=== PATIENT | male | born 1990 ===

== ENCOUNTER 2019-05-04 14:28 | Inpatient (IN) | payer OTHER ==
[2019-05-04] MEDS ORDERED: Dextrose 50% VIAL 50 ml IV PUSH PRN (16:38)
[2019-05-04] MEDS ORDERED: Nicotine* 2MG (FRUIT FLAVOR) GUM PO PRN (16:39)
[2019-05-04] MEDS ORDERED: Acetaminophen TAB* 325 MG PO PRN (16:39)
[2019-05-04] MEDS ORDERED: Ondansetron INJ* 2 MG/ML VIAL IV PRN (16:39)
[2019-05-04] MEDS ORDERED: Piperacillin/Tazobac ADVAN(*) 3.375 GM in NS 0.9% 100 ML* 100 ML IVPB ONE (16:51)
[2019-05-04] MEDS ORDERED: Zosyn per Pharmacy* NOTE FOLLOW UP SCH (17:00)
[2019-05-04] MEDS ORDERED: ceFAZolin 1 GM ADVAN(*) 1 GM in NS 0.9% 50 ML* 50 ML IVPB SCH (17:00)
[2019-05-04] MEDS: NS 0.9% 1000 ML** 1,000 ML IV SCH (17:38)
[2019-05-04] MEDS: HYDROcodone/ACETAMIN 5-325 MG* 1 TAB PO PRN (17:44)
[2019-05-04 18:01] LABS: Hematocrit 36 % (42-52); Hemoglobin 12.2 g/dL (14.0-18.0); Mean Corpuscular HGB Conc 34 g/dL (31-36); Mean Corpuscular Hemoglobin 28 pg (27-31); Mean Corpuscular Volume 83 fL (80-94); Mean Platelet Volume 6.3 fL (7.4-10.4); Platelet Count 419 10^3/uL (150-450); Red Blood Count 4.33 10^6 /uL (4.18-5.48); Red Cell Distribution Width 13 % (10-15); White Blood Count 28.4 10^3/uL (3.5-10.8)
[2019-05-04 18:49] LABS: ABS Basophils 0.1 10^3/ul (0-0.2); ABS Monocytes 2.2 10^3/ul (0-0.8); ABS Neutrophils 25.1 10^3/ul (1.5-7.7); Albumin 2.9 g/dL (3.2-5.2); Albumin/Globulin Ratio 0.8 (1-3); BUN/Creatinine Ratio 15.2 (8-20); C Reactive Protein 256.01 mg/L (<8.01); Calcium 8.3 mg/dL (8.6-10.3); EGFR African American 265.7 (>60); EGFR Non-African American 219.6 (>60); Eosinophil % 0.1 %; Globulin 3.5 g/dL (2-4); Lymphocyte % 3.4 %; Potassium 3.6 mmol/L (3.5-5.0); Total Bilirubin 0.6 mg/dL (0.2-1.0); Total Protein 6.4 g/dL (6.4-8.9)
[2019-05-04] MEDS: Insulin LISPRO* 1 UNITS UNIT SUBCUT SCH (19:55)
--- NOTE | 2019-05-04 20:39 | HP ---
HISTORY AND PHYSICAL: DATE OF ADMISSION: 05/04/19. TIME OF EVALUATION: 4 p.m. PRIMARY CARE PROVIDER: None. CHIEF COMPLAINT: "They sent me here." HISTORY OF PRESENT ILLNESS: Mr. Kaminski is a 28-year-old male with a past medical history of type 1 diabetes, who initially presented to [facility] in [facility]. The patient states that he started to have right lower extremity pain on April 29. He states that the pain started around his right smith. From there , it progressed to the whole leg below the knee and he had to use a wheelchair at home because he was unable to walk due to the pain. He states that he cannot afford his insulin and as his diabetes got uncontrolled, he does not remember much of what happened. He denies fever, chills, nausea, vomiting or diarrhea. He denies any trauma to the right lower extremity and he has between "no idea how this happened." As per transfer summary from [facility], the patient's DKA resolves quickly with medical care and his blood glucose had been fairly controlled with 60 units of Lantus. He was started initially on vancomycin and Zosyn, and once that his blood cultures grew MSSA and he was switched from Zosyn to Ancef on May 03. The patient had a lower extremity Doppler that was negative for DVT and he was seen in consultation by Orthopedics (Dr. Bosch) and he was concerned with the possibility of an abscess or compartment syndrome. For that reason, the patient was referred to our facility for further management. At the time of my interview, his major complaint is that he is thirsty, but the right lower extremity pain is controlled. PAST MEDICAL HISTORY: 1. Type 1 diabetes. 2. Tobacco abuse. 3. Prior polysubstance abuse. FAMILY HISTORY: He states that the family member has heart issues, but would not go to the doctor. SOCIAL HISTORY: The patient states that he used to smoke a pack a day and for the last couple of years he has been vaping. He states that he fills his cartridge 3 times a day. He denies alcohol use. He states that he used different drugs in the past and he actually was to a drug court. He states that he used to smoke marijuana but he has now stopped. He denies ever injecting any drugs. He states that the only needle that he uses are the ones for insulin and for his tattoos. REVIEW OF SYSTEMS: A 14-point review of systems was performed and all the pertinent negative and positive findings are in the HPI. PHYSICAL EXAMINATION GENERAL: The patient is a thin young gentleman that appears older than stated age, a dishevelled appearance. VITAL SIGNS: Temperature 97.2, heart rate is 105, respiratory rate is 20, blood pressure is 116/54, oxygen saturation is 96% on room air. HEENT: Pupils are equal. The patient is edentulous. Moist mucous membranes. CHEST: Breath sounds bilaterally with no added sounds. CVS: Normal S1 and S2. Regular rate and rhythm. ABDOMEN: Soft. Bowel sounds are present. EXTREMITIES: The patient has right lower extremity edema extending from his ankle all the way to the lateral aspect of the right side with erythema and severe tenderness on minimal palpation. He has palpable pulses. Good capillary refill. He states that his toes are numb, but this is a chronic finding. NEURO: He is alert and oriented x3. Able to move all 4 extremities. DIAGNOSTIC STUDIES/LAB DATA: Labs done at [facility] earlier today include chemistries that showed a sodium of 132, potassium 2.7, chloride 93, bicarb of 30, anion gap of 9, BUN of 4, creatinine of 0.5, glucose was 241, calcium is 8.3, magnesium 1.5. CRP was pending at that time. CBC showed WBC of 24.5, hemoglobin of 11.5, hematocrit of 31, platelets of 286 with 88% neutrophils, and 80% bands. As per records, the patient had the lower extremity ultrasound that showed no sonographic evidence of deep venous thrombosis to the right lower extremity and an x-ray of the right lower extremity that showed no fracture. No radiological evidence for osteomyelitis at this time. ASSESSMENT AND PLAN: Mr. Kaminski is a 28-year-old male with a past medical history of type 1 diabetes with noncompliance, prior history of drug use transferred from [facility] with the possibility of right lower extremity abscess versus compartment syndrome. 1. Sepsis. The patient meets sepsis criteria with tachycardia and leukocytosis. The source is his right lower extremity infection. He had blood cultures growing methicillin-susceptible Staphylococcus aureus at [facility] and we are going to repeat it here. He will receive IV fluids. 2. Right lower extremity cellulitis/possible abscess versus compartment syndrome. The patient was already seen in consultation by Dr. Bosch at [place] and he will follow up with the patient here. He recommended an MRI on the lower extremity and also his physician recycling assistant will perform pressure measurements to rule out compartment syndrome. The plan for the patient to go to the OR later tonight. Since his blood cultures grew methicillin-susceptible Staphylococcus aureus, I am going to discontinue vancomycin, but I am concerned that he may have anaerobic infection. So until we know that there is no gas on his MRI, we will treat the patient with Zosyn. The patient denies using any IV drugs, but he is immunosuppressed in the setting of chronically uncontrolled type 1 diabetes. His CRP was very elevated at 214 and we will trend that. We will also request Infectious Disease consultation. 3. Type 1 diabetes. The patient will need a psychologist social consult to help with his diabetes supplies. We are going to check hemoglobin A1c. As the patient is n.p.o. to go to the OR, I will half his Lantus dose down to 30 units daily and he will have lispro sliding scale. 4. DVT prophylaxis. The patient has a score of 2 on the DVT Prophylaxis Risk Assessment Guide. For now, I am going to hold heparin as the patient is going to go to the OR later tonight, but after that we will resume heparin. Due to the location of his infection, he will not tolerate SCDs. 5. Code status is full. TIME SPENT: Approximately, 60 minutes was spent with the patient interview, medical records review, physical examination to complete the admission. More than half this time was spent [id number] with the patient. [id number]/[facility] #: [id number] [facility]
[2019-05-04] MEDS ORDERED: Buffered Lidocaine 1% SYRIN* 1 ML/SYRINGE INTRADERM ONE (20:48)
[2019-05-04] MEDS: Insulin GLARGINE(*) 1 UNITS UNIT SUBCUT SCH (21:00)
[2019-05-04] MEDS ORDERED: Lactated Ringers 1000 ML Bag* 1,000 ML IV SCH (21:00)
[2019-05-04] MEDS ORDERED: fentaNYL* 50 MCG/ML 2 ML VIAL (100 MCG VIAL) ONE ×2 (21:06→23:25)
[2019-05-04] MEDS ORDERED: Midazolam* 1 MG/ML 2 ML VIAL (2 MG) ONE (21:06)
--- NOTE | 2019-05-04 21:24 | PN ---
Progress Note - Progress Note Date of Service: 05/04/19 SOAP: Consult note dictated several hours ago. Resource Management Specialist pending still. To OR for I&D right lower leg for complex abscess with significant pain and advancing cellulitis despite broad spectrum IV antibiotics x 4 days.
[2019-05-04] MEDS ORDERED: Famotidine IV* 10 MG/ML 2 ML (20 mg) ONE (21:27)
[2019-05-04] MEDS ORDERED: Bupivacaine 0.5% W/EPI SDV* 10 ML VIAL INJ ONE (21:33)
--- NOTE | 2019-05-04 21:37 | CONS ---
CONSULTATION NOTE: DATE OF CONSULT: 05/04/19 REASON FOR CONSULT: Infection, right lower extremity. HISTORY OF PRESENT ILLNESS: The patient is a 28-year-old man with diabetes mellitus type 1, transferred from [facility] earlier today, for concerns regarding a right lower extremity infection or compartment syndrome. The patient is an admitted drug user, although he describes only smoking marijuana. He denies IV drug use. The patient lives in a trailer. The patient describes no antecedent trauma. The patient tells me that his right lower extremity pain started on Saturday, 5 days ago. At that time, the patient started using a wheelchair to get around his home trailer. The wheelchair was not his but someone else's. The patient presented to [facility] 2 days later on 05/01/19. The patient was diagnosed with diabetic ketoacidosis in the emergency department. He was also noted to have some right lower leg significant pain and diagnosed with cellulitis there. The patient acknowledge not taking his insulin for several days prior to that. The patient described that his insurance was not current and that he could not afford his insulin. The patient was started on IV fluids, insulin therapy, IV antibiotics. At that time, 05/01/19, he was unable to ambulate secondary to pain in the right lower extremity thought to be from infection. The patient was admitted to the hospitalist service at [facility]. He was noted to have a temperature of 97.9 degrees Fahrenheit. Pulse was 75 to 90 at admission. White blood cell count was 36.23. Neutrophil count 86%. Blood cultures were submitted and IV antibiotics were started. Labs were titrated to manage diabetic ketoacidosis. The patient was afebrile. White count dropped to 25. Dr. Zapien thought that the patient's right lower leg infection was improving with IV antibiotics and the white blood count had declined. The patient was treated thus over the weekend. Dr. Clifford saw the patient this morning; in mid-to-late morning while at a clinic at [facility] I was consulted. At that time of my consultation, I saw the patient. He sat on his bed, in no acute distress when I first met him. His right knee was in a 90-degree flex position and at first he was slow to move the knee and ankle at all. Eventually , I was able to get him to extend his knee to a 45-degree flex position. I could get him to move his ankle, but only the tiniest amount. There was some soft tissue swelling along the lower leg with some significant tenderness to palpation. I do not see any clear entry site of infection at first. I was concerned both about a possible compartment syndrome or a possible infection. I had not been given the data yet about the white blood cell count. Given the significant tenderness on exam and the patient being low to move his ankle, I intended to use a compartment pressure monitor on him. The patient was able to move his toes without discomfort. As there was no compartment pressure measurement guide available, I facilitated or recommended a transfer to [facility] hospitalist to hospitalist service and recommended that at [facility], we could as needed, perform compartment pressure monitoring and work the patient up for a possible deep infection. After I made that recommendation, the patient came back having positive blood cultures for Staph aureus and I was made aware of the white blood cell count, this made this a much more consistent story for an abscess, aggressive, rather than a compartment syndrome. The patient took some time to get to [facility] and I evaluated the patient this evening. The patient was made n.p.o. at [facility] and his last meal was at 9 to 9 :15 a.m. this morning. It should be noted that the patient's broad spectrum coverage at [facility] was vancomycin and Zosyn. The Zosyn was switched to Ancef. The pain worsened over the admission from Saturday to Saturday. An ultrasound was done that ruled out blood clot and x-rays were obtained of the right lower leg prior to transfer, which were both negative for pathology. PAST MEDICAL HISTORY: Diabetes mellitus, type 1, poorly controlled; recent hospitalization for diabetic ketoacidosis at [facility]; anxiety and depression; attention deficit hyperactivity disorder. PAST SURGICAL HISTORY: The patient reports having an incision and drainage about the axilla as a child. Of note, the patient denies any prior infections associated with his diabetes mellitus. MEDICATIONS: Insulin glargine, insulin lispro. ALLERGIES: No known drug allergies. FAMILY HISTORY: Noncontributory. SOCIAL HISTORY: The patient lives with his girlfriend. He was in a trailer. The patient used to work at [employer]. The patient states that he has used marijuana in the past. I heard secondhand that the patient has been to some type of drug court before. The patient denied IV drug use when I asked him at point blank at [facility] earlier today. REVIEW OF SYSTEMS: The patient describes getting nauseous when he becomes hungry. He is currently hungry. The patient describes pain about the right lower extremity, thigh to ankle. He denies numbness and tingling. He denies fevers, sweats or chills. PHYSICAL EXAM: No acute distress. The patient is not clearly toxic, but he generally does not look particularly healthy. This could be general hygiene, by the current appearance. The patient is not significantly diaphoretic. The patient appeared to be resting comfortably when I turned the lights on. Vitals, first round taken at the [facility] at 3:35 p.m. today showed a body temperature of 99.6 degrees Fahrenheit, pulse of 103, blood pressure of 127/78, respiratory rate of 16 and O2 saturation 96% on room air. The patient appears quite thin. I do not have a height or weight yet, but I suspect a BMI clearly less than 25, possibly less than 20. There is actually a weight that has been recorded here of 135 pounds. Right lower extremity shows some soft tissue swelling, [id number] about the lower leg, more anterolateral than posterior. Significant tenderness to palpation along the anterolateral and posterior lower legs. Upon closer inspection, it looks like there may be some evidence of prior skin blisters, healed over or possible break in skin about the mid lower leg anteriorly. The patient has no erythema or soft tissue swelling in the thigh, but is tender to palpation along the thigh. The patient sits in a position with his knee 90 degrees flexed. He seems to get somewhat anxious on exam. So, it is hard to suss out what is tender and provoking a pain and what just makes him anxious about producing pain. I was able to get him to extend his knee to 45 degrees. Hospitalist by report was able to get even more extension. He has no clear pain with passive range of motion between 45 and 90 degrees of flexion. No soft tissue swelling or effusion of the knee. With regards to the ankle, the patient has some tenderness to palpation about the ankle. I tried earlier in the day at [facility] to passively range the ankle , but that upset the patient much. Today at [facility], this evening, I had the patient passively range his own ankle joint and the patient was able to get an arc of range of motion of approximately 30 degrees without significant pain. The patient has a more free, complete range of motion of his toes in that right foot without significant pain. Foot is warm and well perfused. Pulse is intact. DIAGNOSTIC STUDIES/LAB DATA: CBC obtained at [facility] this afternoon showed a white blood cell count 28.4 with a neutrophil percentage of 88.4%. Blood glucose 205 , CRP of 256. CK, total creatine kinase was fortunately only 135. Lactic acid was at 1.4. In terms of labs at [facility], 05/01/19 blood culture showed no growth after 3 days. The patient has a blood culture obtained on 05/02/19 that showed Staphylococcus aureus, MSSA in the blood. White blood cell counts, trended at [facility] from 05/01/19 to 05/04/19 from 36 to 25 to 23 to 24. Imaging: As I mentioned, at [facility] this morning Doppler ultrasound was negative for DVT. X-rays obtained there several days previous, specifically on 05/03/19 of the lower leg showed no fracture, or degenerative changes. ASSESSMENT: 1. Right lower extremity cellulitis, worsening despite IV antibiotics for 4 days, broad spectrum. 2. Possible abscess, right lower leg with possible entry site at anterior mid leg, but unclear entry site. 3. Bacteremia with Staphylococcus aureus, as shown with the [facility] blood culture. 4. Noncompliant diabetic, not taking his medications. 5. Recent admission for diabetic ketoacidosis. PLAN: 1. Upon meeting the patient, I had the concerns about the quality of history, specifically how his symptoms developed and whether there is any antecedent trauma or whether he was down on the ground for a long period of time, both of which he denied. The patient denies vigorously IV drug use, but I have some questions about the possibility of that. For these reasons, I did not want to take anything for granted. 2. At [facility] earlier in the day, I had some concerns about even a compartment syndrome based on the severity of his symptoms and exam. However, because he is able to move his toes and even to passively range his ankle without significant discomfort and because more and more data has returned demonstrative of infection including the blood culture, I held off for now on measuring compartment pressures. If I had any sort of index of suspicion for that diagnosis now, I would certainly perform compartment pressure testing. 3. The patient has continued symptoms despite appropriate broad spectrum IV antibiotics and worsening pain. So, I think treatment sooner rather than later is imperative, although it is good that the patient is nontoxic appearing and afebrile. 4. MRI has been ordered stat to assess for an abscess of right lower extremity. It will go from thigh to ankle. 5. The patient has been made n.p.o. after breakfast and our plan is to evaluate the MRI and if fluid collection is present, take the patient to the operating room for an incision and drainage at the earliest appropriate convenience. 6. The patient has been admitted to the hospitalist service and should be on appropriate IV antibiotic coverage. His diabetes and recent diabetic ketoacidotic flare can be managed per hospitalist. [id number]/[facility] #: [id number] [facility]
[2019-05-04] MEDS ORDERED: ceFAZolin 2 GM in NS PREMIX(*) 2 GM/100 ML BAG IVPB ONE (21:43)
[2019-05-04] MEDS ORDERED: Levalbuterol 0.63MG/3ML NEB* UNIT OF USE INH PRN (21:47)
[2019-05-04] MEDS ORDERED: Naloxone* 0.4 MG/ML 1 ML VIAL IV PRN (21:47)
[2019-05-04] MEDS ORDERED: DiMENhydriNATE IV* 50 MG/ML VIAL IV PUSH PRN (21:47)
[2019-05-04] MEDS ORDERED: diPHENhydraMINE IV* 50 MG/ML 1 ml VIAL (BENADRYL) IV PRN (21:47)
[2019-05-04] MEDS ORDERED: Propofol* 10 MG/ML 20 ML BTL ONE (21:55)
[2019-05-04] MEDS ORDERED: Lidocaine 2% PF * 5 ML VIAL ONE (21:55)
[2019-05-04] MEDS ORDERED: Ondansetron INJ* 2 MG/ML VIAL ONE (21:55)
[2019-05-04] MEDS ORDERED: Calcium CHLORIDE 10% SYRINGE* 1 GM/10 ML ONE (22:30)
[2019-05-04] MEDS: fentaNYL* 50 MCG/ML 2 ML VIAL (100 MCG VIAL) IV PRN (23:26)
[2019-05-05] MEDS ORDERED: Insulin LISPRO* 1 UNITS UNIT SUBCUT ONE (00:19)
[2019-05-05] MEDS: Insulin LISPRO* 1 UNITS UNIT SUBCUT SCH ×7 (00:32→21:00)
[2019-05-05] MEDS: fentaNYL* 50 MCG/ML 2 ML VIAL (100 MCG VIAL) IV PRN (00:32)
[2019-05-05] MEDS: ZOSYN 3.375 GM Q8H per EXTENDED INFUSION IVPB SCH ×8 (01:04→22:25)
[2019-05-05] MEDS: Insulin GLARGINE(*) 1 UNITS UNIT SUBCUT SCH ×3 (02:41→20:38)
[2019-05-05 04:11] LABS: Hematocrit 33 % (42-52); Hemoglobin 11.2 g/dL (14.0-18.0); Mean Corpuscular HGB Conc 35 g/dL (31-36); Mean Corpuscular Hemoglobin 28 pg (27-31); Mean Corpuscular Volume 82 fL (80-94); Mean Platelet Volume 6.4 fL (7.4-10.4); Platelet Count 412 10^3/uL (150-450); Red Blood Count 3.96 10^6 /uL (4.18-5.48); Red Cell Distribution Width 13 % (10-15); White Blood Count 25.5 10^3/uL (3.5-10.8)
[2019-05-05 04:19] LABS: BUN/Creatinine Ratio 14.3 (8-20); Calcium 8.1 mg/dL (8.6-10.3); EGFR Non-African American 204.2 (>60); Potassium 3.3 mmol/L (3.5-5.0)
[2019-05-05 05:29] LABS: ABS Basophils 0.1 10^3/ul (0-0.2); ABS Lymphocytes 0.6 10^3/ul (1.0-4.8); ABS Monocytes 2.5 10^3/ul (0-0.8); ABS Neutrophils 22.3 10^3/ul (1.5-7.7); Lymphocyte % 2.4 %
[2019-05-05] MEDS ORDERED: HYDROcodone/ACETAMIN 5-325 MG* 1 TAB PO PRN (07:05)
--- NOTE | 2019-05-05 08:07 | PN ---
Subjective Date of Service: 05/05/19 Interval History: HD 2 05/05 28M IDDM Type 1, PSA in remission, tob use d/o, mood d/o who is a transfer from [facility] (arrived 05/04) who initially presented tp [facility] 05/01 with RLE pain and mild DKA. Pt was tx at [facility] for DKA (resolved) and continued to have RLE skin and soft tissue infection from unknown source, resulting in + blood culture (MSSA) at [place]. He had neg doppler for DVT but his RLE skin and soft tissue infection was not responsive and there was concern for abscess or compartment syndrome along with worsening sepsis thus he was transferred. On arrival pt met sepsis critieria and MRI concerning for compartment syndrome and he has noted complex abscess. He had intraoperative I/ D 10PM with noted copious pus expelled from lower R ext, 1+ GPC on gram stain. Now POD #1 Overnight, T Max 102 Labs: Persistent Leukocytosis, BG 285, mild hypONA even with correction This morning some c/o RLE pain but manageable unless he is weight bearing, otherwise pleasant and well Objective Active Medications: Acetaminophen (Tylenol Tab*) 650 mg PO Q6H PRN PRN Reason: MILD PAIN or TEMP > 100.4 Last Admin: 05/05/19 02:40 Dose: 650 mg Hydrocodone Bitart/Acetaminophen ([place] 5-325 Tab*) 1 tab PO Q4H PRN PRN Reason: PAIN - MODERATE Last Admin: 05/04/19 17:44 Dose: 1 tab Hydrocodone Bitart/Acetaminophen ([place] 5-325 Tab*) 2 tab PO Q4H PRN PRN Reason: PAIN - SEVERE Dextrose (Dextrose 50% Vial 50 Ml*) 25 ml IV PUSH .FOR FS < 60 - SS PRN PRN Reason: FS < 60 Enoxaparin Sodium (Lovenox(*)) 40 mg SUBCUT Q24H [facility] Sodium Chloride (Ns 0.9% 1000 Ml) 1,000 mls @ 100 mls/hr IV PER RATE [facility] Last Admin: 05/04/19 17:38 Dose: 100 mls/hr Piperacillin Sod/Tazobactam (Sod 3.375 gm/ Sodium Chloride) 100 mls @ 25 mls/ hr IVPB Q8HR [facility] Last Admin: 05/05/19 06:23 Dose: 25 mls/hr Insulin Glargine (Lantus(*)) 30 units SUBCUT Q12H EFRA Insulin Human Lispro (Humalog*) 0 units SUBCUT Q4HR [facility]; Protocol Last Admin: 05/05/19 06:19 Dose: Not Given Morphine Sulfate (Morphine Inj (Syringe))*) 1 mg IV Q1H PRN PRN Reason: SEVERE PAIN Nicotine Polacrilex (Nicotine Gum*) 2 mg PO Q2H PRN PRN Reason: CRAVING Ondansetron HCl (Zofran Inj*) 4 mg IV Q6H PRN PRN Reason: NAUSEA Pharmacy Consult (Zosyn Per Pharmacy*) 1 note FOLLOW UP .ZOSYN PER PHARMACY [facility] Vital Signs - 8 hr 05/05/19 05/05/19 05/05/19 00:00 00:01 00:15 Temperature Pulse Rate 97 96 101 Respiratory 16 17 13 Rate Blood Pressure 144/92 152/91 (mmHg) O2 Sat by Pulse 99 98 99 Oximetry 05/05/19 05/05/19 05/05/19 00:30 00:32 00:47 Temperature 99.7 F Pulse Rate 102 113 Respiratory 18 16 20 Rate Blood Pressure 147/91 122/66 (mmHg) O2 Sat by Pulse 99 99 Oximetry 05/05/19 05/05/19 05/05/19 01:41 02:12 03:12 Temperature 102.5 F 100.1 F Pulse Rate 114 107 Respiratory 20 20 20 Rate Blood Pressure 128/54 117/62 (mmHg) O2 Sat by Pulse 96 98 Oximetry 05/05/19 05:12 Temperature 100.2 F Pulse Rate 100 Respiratory 20 Rate Blood Pressure 107/57 (mmHg) O2 Sat by Pulse 100 Oximetry Oxygen Devices in Use Now: None Appearance: Pleasant man in NAD, adentulous Eyes: No Scleral Icterus, PERRLA Ears/Nose/Mouth/Throat: Mucous Membranes Moist, - Neck: NL Appearance and Movements; NL JVP Respiratory: Symmetrical Chest Expansion and Respiratory Effort, Clear to Auscultation Cardiovascular: NL Sounds; No Murmurs; No JVD, RRR Abdominal: NL Sounds; No Tenderness; No Distention, No Hepatosplenomegaly Lymphatic: No Cervical Adenopathy Extremities: No Edema Skin: No Rash or Ulcers Neurological: Alert and Oriented x 3 Result Diagrams: 05/05/19 03:49 05/05/19 07:21 Microbiology and Other Data: Microbiology 05/04/19 22:21 Skin and Soft Tissue MRSA/MSSA (PCR - Final Leg Right Mrsa Negative S.aureus Positive Gram Stain - Preliminary Assess/Plan/Problems-Billing Assessment: 28M IDDM Type 1, PSA in remission, tob use d/o, mood d/o who is a transfer from [facility] (admitted there on 05/01) with resolved DKA and RLE SSTI c/b complex abscess and early compartment syndrome not responsive to IV abx s/p intraoperative I/D on 05/04 - Patient Problems (1) Abscess of right lower extremity Current Visit: Yes Status: Acute Code(s): L02.415 - CUTANEOUS ABSCESS OF RIGHT LOWER LIMB SNOMED Code(s): 702568128 Comment: - POD 1 s/p I/D and washout on 05/05 - Initial concern for compartment syndrome, he does not have a clear history of mechanism of injury making this less likely, CK is low - Day 5/ __ on 05/05 ABX inititally Vancomycin, then Cefazolin, now Zosy - Gram stain intraop showing 1+ GPC c/w hx of MSSA - Pain control with hydrocodone, PRN IV morphine (2) MSSA bacteremia Current Visit: Yes Status: Acute Code(s): R78.81 - BACTEREMIA SNOMED Code( s): 502054303 Comment: - [facility] from [facility] - Repeat cultures pending - Follow wound cultures - Day 5/ _ on 05/05 - will remain on Pip/Tazo now while wound culture speciates given possible polymicrobial nature of abscess and poor control of IDDM (3) Sepsis Current Visit: Yes Status: Acute Comment: - Leukocytosis, fever, and tachycardia with source, no e/o end organ damage - Lactic acid 1.4 - On fluids, broad spectrum IV abx (4) Insulin dependent diabetes mellitus Current Visit: Yes Status: Acute Code(s): E11.9 - TYPE 2 DIABETES MELLITUS WITHOUT COMPLICATIONS; Z79.4 - TOWER OBSERVER (CURRENT) USE OF INSULIN SNOMED Code( s): 06349904 Comment: - A1C pending - [facility] glu monitoring - Glargine 30 U BID, Humalog SSI (5) Tobacco use disorder Current Visit: Yes Status: Acute Code(s): F17.200 - NICOTINE DEPENDENCE, UNSPECIFIED, UNCOMPLICATED SNOMED Code(s): 729795089 Comment: - NRT offer (6) Mood disorder Current Visit: Yes Status: Acute Code(s): F39 - UNSPECIFIED MOOD [AFFECTIVE ] DISORDER SNOMED Code(s): 38321086 Comment: - Continue to discuss - Social work consult in place (7) Polysubstance abuse Current Visit: Yes Status: Acute Code(s): F19.10 - OTHER PSYCHOACTIVE SUBSTANCE ABUSE, UNCOMPLICATED SNOMED Code(s): 808246688 Comment: - Pt denies active IVDU, continue open ended discussion (8) DVT prophylaxis Current Visit: Yes Status: Acute Code(s): Z29.9 - ENCOUNTER FOR PROPHYLACTIC MEASURES, UNSPECIFIED SNOMED Code(s): 113416643 Comment: - Lovenox (9) Full code status Current Visit: Yes Status: Acute Code(s): Z78.9 - OTHER SPECIFIED HEALTH STATUS SNOMED Code(s): 951859978 Status and Disposition: Inpatient, PT, OT following Ortho consulting Social work consult for no insurance
[2019-05-05 08:15] LABS: Albumin 2.7 g/dL (3.2-5.2); Albumin/Globulin Ratio 0.8 (1-3); BUN/Creatinine Ratio 17.4 (8-20); C Reactive Protein 235.8 mg/L (<8.01); EGFR African American 265.7 (>60); EGFR Non-African American 219.6 (>60); Globulin 3.2 g/dL (2-4); Potassium 3.3 mmol/L (3.5-5.0); Total Bilirubin 0.8 mg/dL (0.2-1.0); Total Protein 5.9 g/dL (6.4-8.9)
--- NOTE | 2019-05-05 08:23 | PN ---
Subjective Date of Service: 05/05/19 Interval History: HD 2 on 05/05/2019 POD 1 28 y/o M with hx of Type 1 DM, Tobacco use and polysubstance use(in past) presented from [facility] with right lower leg swelling and pain with concern for cellulitis/abscess/ compartment syndrome. found to have sepsis secondary to right LE abscess; MSSA BActeremia. MRI showed abscess; MSSA positive. I&D done on 05/04/19. ON Zosyn(day 2) still leucocytosis and fever. Overnight events: Fever; T of 102 Complains of right lower extremity pain with movement. Objective Active Medications: Acetaminophen (Tylenol Tab*) 650 mg PO Q6H PRN PRN Reason: MILD PAIN or TEMP > 100.4 Last Admin: 05/05/19 02:40 Dose: 650 mg Hydrocodone Bitart/Acetaminophen ([place] 5-325 Tab*) 1 tab PO Q4H PRN PRN Reason: PAIN - MODERATE Last Admin: 05/04/19 17:44 Dose: 1 tab Hydrocodone Bitart/Acetaminophen ([place] 5-325 Tab*) 2 tab PO Q4H PRN PRN Reason: PAIN - SEVERE Dextrose (Dextrose 50% Vial 50 Ml*) 25 ml IV PUSH .FOR FS < 60 - SS PRN PRN Reason: FS < 60 Enoxaparin Sodium (Lovenox(*)) 40 mg SUBCUT Q24H [facility] Sodium Chloride (Ns 0.9% 1000 Ml) 1,000 mls @ 100 mls/hr IV PER RATE [facility] Last Admin: 05/04/19 17:38 Dose: 100 mls/hr Piperacillin Sod/Tazobactam (Sod 3.375 gm/ Sodium Chloride) 100 mls @ 25 mls/ hr IVPB Q8HR [facility] Last Admin: 05/05/19 06:23 Dose: 25 mls/hr Insulin Glargine (Lantus(*)) 30 units SUBCUT Q12H [facility] Insulin Human Lispro (Humalog*) 0 units SUBCUT Q4HR [facility]; Protocol Last Admin: 05/05/19 06:19 Dose: Not Given Morphine Sulfate (Morphine Inj (Syringe))*) 1 mg IV Q1H PRN PRN Reason: SEVERE PAIN Nicotine Polacrilex (Nicotine Gum*) 2 mg PO Q2H PRN PRN Reason: CRAVING Ondansetron HCl (Zofran Inj*) 4 mg IV Q6H PRN PRN Reason: NAUSEA Pharmacy Consult (Zosyn Per Pharmacy*) 1 note FOLLOW UP .ZOSYN PER PHARMACY [facility] Vital Signs - 8 hr 05/05/19 05/05/19 05/05/19 00:30 00:32 00:47 Temperature 99.7 F Pulse Rate 102 113 Respiratory 18 16 20 Rate Blood Pressure 147/91 122/66 (mmHg) O2 Sat by Pulse 99 99 Oximetry 05/05/19 05/05/19 05/05/19 01:41 02:12 03:12 Temperature 102.5 F 100.1 F Pulse Rate 114 107 Respiratory 20 20 20 Rate Blood Pressure 128/54 117/62 (mmHg) O2 Sat by Pulse 96 98 Oximetry 05/05/19 05/05/19 05:12 07:30 Temperature 100.2 F 99.7 F Pulse Rate 100 110 Respiratory 20 20 Rate Blood Pressure 107/57 128/73 (mmHg) O2 Sat by Pulse 100 98 Oximetry Oxygen Devices in Use Now: None Exam: Patient is sitting on a bed with no acute distress. HEENT: Normocephalic and atraumatic Lungs: Clear Heart: S1/S2 heard with no murmur Abdomen: SOft and nontender. NOrmal BS heard Extremity: Dressing wound on right lower extremity Neuro: alert. consious and orineted Result Diagrams: 05/05/19 03:49 05/05/19 07:21 Microbiology and Other Data: Microbiology 05/04/19 22:21 Skin and Soft Tissue MRSA/MSSA (PCR - Final Leg Right Mrsa Negative S.aureus Positive Gram Stain - Preliminary Assess/Plan/Problems-Billing Assessment: 28M IDDM Type 1, PSA in remission, tob use d/o, mood d/o who is a transfer from [facility] (admitted there on 05/01) with resolved DKA and RLE SSTI c/b complex abscess and early compartment syndrome not responsive to IV abx s/p intraoperative I/D on 05/04 - Patient Problems (1) Abscess of right lower extremity Current Visit: Yes Status: Acute Code(s): L02.415 - CUTANEOUS ABSCESS OF RIGHT LOWER LIMB SNOMED Code(s): 770559303 Comment: - POD 1 s/p I/D and washout on 05/05 - Initial concern for compartment syndrome, he does not have a clear history of mechanism of injury making this less likely, CK is low - Day 5/ __ on 05/05 ABX inititally Vancomycin, then Cefazolin, now Zosy - Gram stain intraop showing 1+ GPC c/w hx of MSSA - Pain control with hydrocodone, PRN IV morphine (2) MSSA bacteremia Current Visit: Yes Status: Acute Code(s): R78.81 - BACTEREMIA SNOMED Code( s): 838351325 Comment: - Report from TRENT Rodriguez pending - Repeat cultures pending - Follow wound cultures - Day 5/ _ on 05/05 - will remain on Pip/Tazo now while wound culture speciates given possible polymicrobial nature of abscess and poor control of IDDM (3) Sepsis Current Visit: Yes Status: Acute Comment: - Leukocytosis, fever, and tachycardia with source, no e/o end organ damage - Lactic acid 1.4 - On fluids, broad spectrum IV abx (4) Insulin dependent diabetes mellitus Current Visit: Yes Status: Acute Code(s): E11.9 - TYPE 2 DIABETES MELLITUS WITHOUT COMPLICATIONS; 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 SNOMED Code( s): 80755478 Comment: - A1C pending - LOCATED WITHIN [facility] POC glu monitoring - Glargine 30 U BID, Humalog SSI (5) Polysubstance abuse Current Visit: Yes Status: Acute Code(s): F19.10 - OTHER PSYCHOACTIVE SUBSTANCE ABUSE, UNCOMPLICATED SNOMED Code(s): 701054254 Comment: - Pt denies active IVDU, continue open ended discussion (6) DVT prophylaxis Current Visit: Yes Status: Acute Code(s): Z29.9 - ENCOUNTER FOR PROPHYLACTIC MEASURES, UNSPECIFIED SNOMED Code(s): 463812660 Comment: - Lovenox (7) Full code status Current Visit: Yes Status: Acute Code(s): Z78.9 - OTHER SPECIFIED HEALTH STATUS SNOMED Code(s): 690777793 Status and Disposition: Inpatient Doesnot have insurance; not taking insulin because could not afford it. Attending: Zoraida Hernandez Attestation Documenting Resident: Mariaa Jones Supervising Physician: Zoraida Hernandez Attestation: This service has been performed in part by a resident under the direction of a teaching physician.I, Zoraida Hernandez, performed the service, or was physically present during the critical, or castañeda portions of the service, furnished by the resident. I participated in the management of the patient.
[2019-05-05] MEDS: Acetaminophen TAB* 325 MG PO SCH ×2 (12:06→17:11)
[2019-05-05] MEDS: NS 0.9% 1000 ML** 1,000 ML IV SCH ×2 (12:06→22:25)
[2019-05-05] MEDS: Enoxaparin(*) 40 MG/0.4 ML SYR SUBCUT SCH (12:07)
--- NOTE | 2019-05-05 14:25 | CONS ---
CONSULTATION REPORT: DATE OF CONSULT: 05/05/19 PRIMARY CARE PROVIDER: None. PROVIDER REQUESTING CONSULTATION: Dr. Sapphire Zambrano. CONSULTING SERVICE: Infectious Disease. PROVIDER: Hunter Carrillo NP ATTENDING PROVIDER: Dr. Nitish Echavarria.* (DICTATED BY HUNTER CARRILLO NP) REASON FOR CONSULT: Staph aureus bacteremia and right lower extremity cellulitis with abscess. IMPRESSION: 1. Right lower extremity cellulitis with abscess, myositis and tenosynovitis. MRI findings of the right lower extremity with loculated areas of fluid; diffuse soft tissue swelling; no acute marrow edema of the tibia or fibula; tenosynovitis of the tibialis anterior tendon; mild edema within the bone marrow of the medial femoral condyle, suspect reactive edema; edema in the biceps femoris muscle suggestive of myositis; minimal patellofemoral joint effusion. He has been febrile with a temperature max of 102.5 at 2 a.m. this morning. He is afebrile this morning and tachycardic, continues to have a significant amount of pain in his leg, limited range of motion due to pain. Continued to have leukocytosis with a white blood cell count of 25.5 and elevated CRP. He has been on Zosyn. Right lower extremity wound culture positive for Staph aureus PCR, 1+ gram-positive cocci, and 4+ neutrophils. 2. Staphylococcus aureus bacteremia. He had blood cultures drawn on 05/01/19 at [facility] with 2/4 bottles positive for Staph aureus. He had repeat blood cultures drawn yesterday upon arrival at [facility]. He has a transthoracic echocardiogram pending. Suspect that the source of his bacteremia is his right lower extremity abscess and cellulitis. The patient denies any history of prosthetic material. He has no peripheral stigmata of endocarditis. 3. Diabetes mellitus type 1. The patient has been off of his medications at home. PLAN/RECOMMENDATIONS: Recommend continuing Zosyn for now while we await the wound culture results from the OR. If this continues to be staph, we will be able to narrow his antibiotic regimen. We will continue to follow along with further recommendations based on the patient's culture results and clinical course. HISTORY OF PRESENT ILLNESS: Mr. Kaminski is a 28-year-old male with past medical history significant for diabetes mellitus type 1, who is noncompliant, history of tobacco abuse, and history of polysubstance abuse, who states that last Saturday he noted that his right leg was itchy. He denies any injury or trauma to this area. He states that he had noticed after taking a shower that the leg just felt dry and irritated and he was "rubbing it." This resulted in raw skin in that area. He then noticed that his leg was swollen. He was using an Orestes wrap and ice to help with the swelling. He continued to have pain with swelling in the right leg, and was having difficulty ambulating due to the pain. Due to this, he presented to the [facility] for evaluation. While at [place], he was found to have DKA, which resolved during his stay there and his glucose had been fairly controlled after being resumed back on his insulin. He was placed on vancomycin and Zosyn. Blood cultures grew methicillin-sensitive Staph aureus and he was switched from Zosyn to Ancef on 05/03/19. He had a right lower extremity Doppler showing no DVT. He was seen by Dr. Bosch with Orthopedics with concern for possible abscess versus compartment syndrome and due to this, the patient was transferred to [facility] for further evaluation. He denies any fevers or chills, but states that he has been having sweats with any exertive activity. Denies nausea , vomiting, diarrhea, abdominal pain, urinary symptoms, rash, or recent travel. He has bilateral lower extremity peripheral neuropathy and has had back pain since high school due to an old football injury. While here at [facility], he had labs showing leukocytosis with a white blood cell count of 25.5, CRP of 256.01. While at [facility], he had right lower extremity MRI showing patchy muscle edema suggestive of myositis, loculated areas of fluid identified within the tibialis posterior muscle consistent with abscess, no acute marrow edema, diffuse soft tissue swelling of the lower extremity, tenosynovitis of the tibialis anterior tendon. Additionally, noted to have mild edema identified within the bone marrow of the medial femoral condyle. He was again seen in consultation by Dr. Bosch and he was taken to the OR last night for right lower extremity complex abscess. During his stay, he has been febrile with a temperature max overnight of 102.5; continues to have leukocytosis, slightly improved from yesterday's admission; CRP has trended down slightly. While here, he has been on Zosyn. He denies any fevers or chills. Continues to report sweats. Continues to have no nausea , vomiting, diarrhea, abdominal pain, urinary symptoms, or rash. He reports significant pain in the right lower extremity. PAST MEDICAL HISTORY: 1. Diabetes mellitus type 1, noncompliant. 2. History of tobacco abuse. 3. History of polysubstance abuse. PAST SURGICAL HISTORY: 1. Status post incision and drainage of an abscess in the left axillary as a child. 2. Status post I and D of the right leg during this hospitalization. MEDICATIONS: Home medications: None. Hospital medications: 1. Acetaminophen 650 mg by mouth every 6 hours. 2. Dextrose 25 mL IV push as needed for glucose less than 60. 3. Lovenox 40 mg subcutaneous daily. 4. [place] 5/325 one to two tablets by mouth every 4 hours as needed for pain. 5. Lantus insulin 30 units subcutaneous every 12 hours. 6. Humalog insulin sliding scale subcutaneous with meals and at bedtime. 7. Morphine sulfate 1 mg IV every 1 hour as needed for pain. 8. Nicotine gum 2 mg by mouth every 2 hours as needed for cravings. 9. Zofran 4 mg IV every 6 hours as needed for nausea. 10. Zosyn 3.375 g IV every 8 hours. 11. Sodium chloride 100 mL an hour intravenously. ALLERGIES: No known drug allergies. FAMILY HISTORY: Father with a history of NC at age 30 and is status post 3- vessel coronary artery bypass graft and he is on the transplant list due to heart failure. Maternal grandparents with a history of diabetes. Paternal aunt and uncle with diabetes. No family history of cancer and no family history of recurrent or resistant infections. SOCIAL HISTORY: He occasionally drinks alcohol. He is a former smoker, quitting cigarettes 4 years ago. Prior to that, he had 1 pack a day smoking history for approximately 10 years. He smokes marijuana daily and currently vapes. REVIEW OF SYSTEMS: I performed a 10-point review of systems. All the pertinent positives and negatives are mentioned in the history of present illness. The remaining review of systems are negative. PHYSICAL EXAM: Vital Signs: Temperature 100.2, heart rate 100, respiratory rate 20, O2 sat 100% on room air, blood pressure 107/57. General Appearance: He is alert, appears to be in no acute distress. Head: Normocephalic, atraumatic. EENT: Extraocular movements are intact. No subconjunctival hemorrhage. Moist mucous membranes. He is edentulous. Neck: Supple. No lymphadenopathy. Neurological: Alert and oriented. Cranial nerves II through XII are grossly intact. Cardiovascular: Regular rate and rhythm. S1, S2 present. No murmurs, rubs, or gallops heard. Respiratory: Lung sounds are clear to auscultation bilaterally. There is no accessory muscle use. Abdomen: Bowel sounds present. Abdomen is soft, nontender, nondistended. Extremities: There is 1+ right lower extremity edema. DP pulses are 2+ and symmetric bilaterally. Musculoskeletal: No clubbing or cyanosis noted. He exhibits good strength in all extremities. He has tenderness with palpation of the right knee and ankle. He has edema to the right knee, ankle. He has limited range of motion to the right ankle due to swelling. He has limited range of motion to the right knee due to pain. There is no effusion noted in the ankle or the knee. He has no tenderness with palpation of his neck, back, or spine. No other joint swelling, edema, or erythema. Psychological: He is calm and cooperative. Skin: No rashes seen. He has some extending erythema to the right knee above his surgical dressing on the right lower extremity. There are no splinter hemorrhages. DIAGNOSTIC STUDIES/LAB DATA: Sodium 131, potassium 3.3, chloride 93, CO2 of 28 , BUN 7, creatinine 0.49, glucose 263. White blood cell count 25.5, hemoglobin 11.2, hematocrit 33, platelet count 214. CRP yesterday 256.01. Please see impression and recommendations outlined above. Recommendations have been discussed with PHILLIP Madden. Thank you for asking us to see Mr. Kaminski in consultation. Reviewed by RAKEL ORTEGA 05/07/19 1823 [id number]/[facility] #: [id number] GREG[place]
[2019-05-05] MEDS: HYDROcodone/ACETAMIN 5-325 MG* 1 TAB PO PRN ×2 (14:28→20:39)
[2019-05-05] MEDS: Morphine INJ* 2 MG/ML 1 ML SYRINGE (TWO MG - NEW SYRINGE VERSION) IV PRN ×2 (15:08→23:24)
--- NOTE | 2019-05-05 17:55 | PN ---
Progress Note - Progress Note Date of Service: 05/05/19 SOAP: Subjective: []Pt seen at bedside, RLE is painful to touch and with walking. He walked with nursing this morning who states he did not have foot drop with walking. Denies feeling of fever, chills, CP, SOB, dizziness, nausea. Objective: []Gen: NAD, nontoxic appearing RLE: Dressing CDI, dressing removed and both packing pulled 1 cm medial and lateral. Incisions otherwise CDI but with bloody discharge from both sites. Nerythema surrounding, patient remains very tender to palpation of the lower leg. All compartments are compressible. Passive DF/PF and MTP ROM nonpainful. EHL function intact, patient will not DF actively unable to determine if this is from pain vs unable. Assessment: [] POD 1 sp I&D right lower leg for complex abscess Plan: []WBAT PT/OT Pull packing 1 cm daily ABX per ID - on zosyn growing MSSA Vital Signs Temp 97.1 F 05/05/19 15:22 Pulse 93 05/05/19 15:22 Resp 18 05/05/19 17:00 BP 110/65 05/05/19 15:22 Pulse Ox 99 05/05/19 16:00 Intake & Output 05/04/19 05/05/19 05/05/19 18:59 06:59 18:59 Intake Total 1856 1650 Output Total 1725 500 Balance 131 1150 Weight 135 lb 135 lb Intake: IV Fluids 1756 950 ABX - ZOSYN 110 LR 1100 NS (0.9%) 546 950 IVPB 100 100 ABX - ZOSYN 100 Oral 0 600 Output: Urine 1725 500 Other: # Voids 2 Laboratory Last Values WBC 25.5 10^3/uL (3.5-10.8) H 05/05/19 03:49 RBC 3.96 10^6 /uL (4.18-5.48) L 05/05/19 03:49 Hgb 11.2 g/dL (14.0-18.0) L 05/05/19 03:49 Hct 33 % (42-52) L 05/05/19 03:49 MCV 82 fL (80-94) 05/05/19 03:49 MCH 28 pg (27-31) 05/05/19 03:49 MCHC 35 g/dL (31-36) 05/05/19 03:49 RDW 13 % (10-15) 05/05/19 03:49 Plt Count 412 10^3/uL (150-450) 05/05/19 03:49 MPV 6.4 fL (7.4-10.4) L 05/05/19 03:49 Neut % (Auto) 87.6 % 05/05/19 03:49 Lymph % (Auto) 2.4 % 05/05/19 03:49 Gates % (Auto) 9.8 % 05/05/19 03:49 Eos % (Auto) 0.0 % 05/05/19 03:49 Baso % (Auto) 0.2 % 05/05/19 03:49 Absolute Neuts (auto) 22.3 10^3/ul (1.5-7.7) H 05/05/19 03:49 Absolute Lymphs (auto) 0.6 10^3/ul (1.0-4.8) L 05/05/19 03:49 Absolute Monos (auto) 2.5 10^3/ul (0-0.8) H 05/05/19 03:49 Absolute Eos (auto) 0.0 10^3/ul (0-0.6) 05/05/19 03:49 Absolute Basos (auto) 0.1 10^3/ul (0-0.2) 05/05/19 03:49 Absolute Nucleated RBC 0.0 10^3/ul 05/05/19 03:49 Nucleated RBC % 0.0 05/05/19 03:49 Sodium 132 mmol/L (135-145) L 05/05/19 07:21 Potassium 3.3 mmol/L (3.5-5.0) L 05/05/19 07:21 Chloride 92 mmol/L (101-111) L 05/05/19 07:21 Carbon Dioxide 29 mmol/L (22-32) 05/05/19 07:21 Anion Gap 11 mmol/L (2-11) 05/05/19 07:21 BUN 8 mg/dL (6-24) 05/05/19 07:21 Creatinine 0.46 mg/dL (0.67-1.17) L 05/05/19 07:21 Est GFR ( Amer) 265.7 (>60) 05/05/19 07:21 Est GFR (Non-Af Amer) 219.6 (>60) 05/05/19 07:21 BUN/Creatinine Ratio 17.4 (8-20) 05/05/19 07:21 Glucose 215 mg/dL (70-100) H 05/05/19 07:21 POC Glucose (mg/dL) 335 mg/dL (70-100) H 05/05/19 16:54 Hemoglobin A1c 14.4 % (4.0-5.6) H 05/05/19 03:49 Lactic Acid 1.4 mmol/L (0.5-2.0) 05/04/19 17:47 Calcium 8.0 mg/dL (8.6-10.3) L 05/05/19 07:21 Total Bilirubin 0.80 mg/dL (0.2-1.0) 05/05/19 07:21 AST 21 U/L (13-39) 05/05/19 07:21 ALT 18 U/L (7-52) 05/05/19 07:21 Alkaline Phosphatase 173 U/L (34-104) H 05/05/19 07:21 Total Creatine Kinase 135 U/L (10-223) 05/04/19 17:47 C-Reactive Protein 235.80 mg/L (<8.01) H 05/05/19 07:21 Total Protein 5.9 g/dL (6.4-8.9) L 05/05/19 07:21 Albumin 2.7 g/dL (3.2-5.2) L 05/05/19 07:21 Globulin 3.2 g/dL (2-4) 05/05/19 07:21 Albumin/Globulin Ratio 0.8 (1-3) L 05/05/19 07:21
--- NOTE | 2019-05-05 21:57 | OP ---
DATE OF OPERATION: 05/04/19 - ROOM #433 DATE OF : 89 SURGEON: Zuhair Bosch MD. TOUR GUIDE: PHILLIP Mckinney. A physician special event assistant was required for the length of the procedure for assistance with patient positioning, retraction and closure. ANESTHESIOLOGIST: Agnieszka Mattson MD ANESTHESIA: General anesthesia, local anesthesia with Marcaine 0.5% with epinephrine, 20 cc. PRE-OP DIAGNOSES: 1. Right lower extremity cellulitis, worse despite IV antibiotics. 2. Possible, likely abscess in right lower leg. 3. Bacteremia with Staphylococcus aureus. 4. Uncontrolled noncompliant diabetic patient with recent diabetic ketoacidosis. POST-OP DIAGNOSES: 1. Large complex abscess in right lower leg with presence in anterior and deep posterior compartments of the lower leg and significant loss of muscle anterior compartment. 2. Right lower extremity cellulitis worsened despite IV antibiotics. 3. Bacteremia with Staphylococcus aureus. 4. Noncompliant uncontrolled diabetic. OPERATIVE PROCEDURES: 1. Open incision, irrigation, debridement, and drainage of right lower leg. 2. Right lower leg release or partial release of compartments, anterior, lateral, deep posterior. IV ANTIBIOTICS: After cultures had been obtained, the patient received 2 g Ancef IV. Already in the hospital prior to surgery, the patient had received 1 dose of Zosyn. IV FLUIDS: See anesthesia note. TBQT-EZ-HTAD TIME: 43 minutes. TOURNIQUET TIME: 47 minutes at 300 mmHg, right thigh. SPECIMEN: Aerobic and aerobic cultures x2 sent. One was from some fluid that was in the subcutaneous space superficial to anterior fascia. One was from pus present in the anterior compartment. IRRIGATIONS: Nine liters were irrigated through the anterior and deep posterior compartments of the lower leg. COMPLICATIONS: None. ESTIMATED BLOOD LOSS: Minimal. INDICATIONS FOR PROCEDURE: The patient is a 28-year-old man with diabetes mellitus type 1, poorly controlled and noncompliant with medications with an intermittent history of smoked drug use, and a very low BMI, who presented as a transfer from [facility] earlier in the day with Staphylococcus aureus bacteremia and significant right lower extremity pain and swelling of the lower leg. The patient's history was such that I could not take anything for granted , although the patient denied any IV drug use or any antecedent trauma. The patient had been symptomatic since 02/27/19 and using a wheelchair starting at that time. The patient was admitted to [facility] on 05/01/19 with diabetic ketoacidosis as well as right lower extremity pain. Despite broad spectrum IV antibiotics for 3 days, the patient had some worsening of his right lower extremity exam. The patient postured himself with his knee in 90 degrees of flexion and both anxiety and severe pain and tenderness limited somewhat the exam. I arranged a hospitalist to hospitalist transfer between hospitals and kept the patient n.p.o. I had the hospitalist service order an MRI and I followed up afterwards. I had initially, prior to blood cultures returning, had even considered the possibility of performing compartment pressure monitoring in the right lower leg given my lack of jennie in the patient's history. However, with the bacteremia by culture and the elevated white count, despite no fever, it was clear that this was an infection picture. No compartment testing was required and I sent the patient for MRI via the hospitalist service. Preoperatively, I reviewed MRI of the lower leg and thigh on my own and I discussed briefly with radiologist airborne weapons technical manager who had not yet performed the formal reads. These showed some inflammation in various spots about the lower leg and thigh, but what appear to be a significant fluid and muscle edema located in the anterior compartment of the lower leg as well as just posterior to the interosseous membrane in the deep posterior compartments, anterior to the tibialis posterior. I consented the patient for incision and drainage of right lower leg with plans to decompress anteriorly and possibly posteriorly. Discussed risks and potential complications with the patient including bleeding , infection, nerve or blood vessel injury, need for revision surgery, loss of necrotic tissue. DESCRIPTION OF PROCEDURE: The patient performed written consent in the preoperative holding. Operative extremity was marked in preoperative holding. The patient was taken back to the operating room and placed supine on the operating room table. The patient had LMA placed while on the stretcher because he did not think he will be able to move across to the bed as he was in significant pain. With the patient on the operating room table, I placed a bump under the right hemipelvis. A tourniquet was placed under the right proximal thigh. The right lower extremity was placed on the bone foam. The right lower extremity was prepped and draped. Surgical time out was performed. Esmarch was applied and tourniquet was elevated. I made a longitudinal skin incision about the anterior lower leg just medial to my standard skin incision site for anterior and lateral compartment fasciotomies. I dissected down to fascia. I was surprised that there was no pus present in the subcutaneous tissue. However, there was an increase in fluid that looked slightly yellow and slightly murky. We cultured these. I identified the anterior and lateral compartment supramuscular fascia. I made a longitudinal incision in the anterior compartment fascia. There was a healthy appearing muscle just visible underneath it. However, I stuck my finger into the anterior compartment and at that point, a large gush of pus emanated. I atraumatically finger dissected in the anterior compartment. There was a significant long lasting flood of pus - a thick, yellow, slightly pink resembling the color of Pepto-Bismol. This fluid continued flowing out for a tremendously long period of time. Hard to estimate the total volume of fluid, but it was an enormous amount of pus. I continued to finger dissect and continued for this pus to come out. After much pus had been removed, we first started irrigation. I irrigated with cystoscopy tubing 3 L of normal saline. I tried all of the tissue within the anterior compartment. No visible pus at this stage. My fingers had clearly dissected to the proximal and distal most extensive anterior compartment where there was clearly no pus. Most of the pus had been really present about the mid , middle aspect from [id number] aspect of the lower leg. To confirm no pus present in the lateral compartment given its proximity to large amount of pus, I performed a shorter longitudinal incision in the lateral compartment fascia a cm or 2 posterior to the septum. I dissected in with my finger atraumatically. There was no pus present in that compartment. I visualized and appreciated the superficial peroneal nerve. I next moved to the posterior aspect. Given the MRI findings preoperative of what looked to be pus present just anterior to the tibialis posterior muscle, I decided to make this incision as well. I made my standard incision for a posterior compartment release in the skin. I dissected down to fascia. I made a longitudinal incision in the fascia towards the deep compartment as the pus had been present anterior to the tibialis posterior. I dissected along the bone and there was some pus present. This pus was very very very low in quantity compared to the anterior compartment, really not comparable, but there was a clear amount of pus present there. I next irrigated for a while with cystoscopy tubing of that deep posterior compartment. I irrigated again anteriorly. Because of the MRI findings, I did not see it necessary to open up the superficial posterior compartment. I should state that I used a Shelley clamp to open up more broadly opening up the interosseous membrane between the anterior and deep posterior compartments. That was to help with irrigation and drainage and with any postoperative drainage. I assessed the tissue that remained anteriorly. There was some unhealthy tissue that was flapping out of the wound. A closer evaluation revealed that this was actually a broad tendon like from a musculotendinous junction of the tibialis anterior muscle tendon unit. It was not connecting with anything proximally. There was some clear defect in the tibialis anterior muscle proximally. I suspect, despite the lack of creatine kinase elevation preoperatively, that this longstanding infection likely caused muscle and necrosis because this tendon was not connected to anything. I incised the poor quality looking proximal end of this tendon and inserted it back into the wound. On the one hand I did not like leaving much tissue that did not look particularly healthy. On the other hand I was hoping that this tendon would scar into the muscle providing the patient with some type of functional tibialis anteriorly postoperatively. I suspected that the patient will have a defect given clear damage if this infection is done to the anterior compartment. I next placed packing, 1-inch iodoform packing both in the deep posterior compartment and in the anterior compartment of the lower leg. The fascial layers were not closed. Subcutaneous layers were closed with buried simple stitches using Vicryl 2-0 suture. Skin incisions were closed tightly with carrie with the exception of the midpoint of each incision where the iodoform packing exit the skin. I wanted some area for drainage from deep of any residual bacterial infection. Local anesthetic, Marcaine injected into the subcutaneous and deeper tissues, about both incisions of the skin. 4x4s, sterile Webril, Orestes bandage. The patient was awakened and extubated and transferred to the PACU. DISPOSITION: The patient wants to be readmitted to the hospitalist service for continued IV antibiotics. I want a wound check daily both of the lower leg and also of the entire right lower extremity. We will continue to follow the body temperature, which had been normal not significantly elevated preoperatively along with white blood cell count and CRP along with serial exams. Await intraoperative cultures. Certainly, we will try to get the patient's diabetes better controlled. I saw that the patient's hemoglobin A1c is 14.4. Postoperatively, I saw the official read of the MRI thigh had returned and there is some description of some muscle inflammation about the biceps femoris in the distal thigh. We will keep an eye on that part of his lower extremity exam to see if he might need an additional decompression in the thigh. However , there was no clear tracking of any of the patient's pus proximal to the lower leg intraoperatively. It was reminded that the patient did receive 2 g Ancef IV intraoperatively after cultures were obtained. [id number]/[facility] #: [id number] MTDD
[2019-05-06] MEDS: Acetaminophen TAB* 325 MG PO SCH ×5 (00:39→22:32)
[2019-05-06] MEDS: Morphine INJ* 2 MG/ML 1 ML SYRINGE (TWO MG - NEW SYRINGE VERSION) IV PRN ×6 (03:31→22:41)
[2019-05-06] MEDS: ZOSYN 3.375 GM Q8H per EXTENDED INFUSION IVPB SCH ×6 (05:21→21:29)
--- NOTE | 2019-05-06 06:43 | PN ---
Subjective Date of Service: 05/06/19 Interval History: HD 3 on 05/06/2019 POD 2 28 y/o M with hx of Type 1 DM, Tobacco use and polysubstance use(in past) presented from [facility] with right lower leg swelling and pain with concern for cellulitis/abscess/ compartment syndrome. found to have sepsis secondary to right LE abscess; MSSA BActeremia. MRI showed abscess; MSSA positive. I&D done on 05/04/19. ON Zosyn(day 3) No acute overnight events Vitals stable; although tachycardia Complains of pain on right thigh, posterior aspect of knee joint and right leg. 03/07 No BM No nausea, vomiting or fever Objective Active Medications: Acetaminophen (Tylenol Tab*) 650 mg PO Q6H [facility] Last Admin: 05/06/19 05:21 Dose: 650 mg Hydrocodone Bitart/Acetaminophen ([place] 5-325 Tab*) 1 tab PO Q4H PRN PRN Reason: PAIN - MODERATE Last Admin: 05/05/19 20:39 Dose: 1 tab Hydrocodone Bitart/Acetaminophen ([place] 5-325 Tab*) 2 tab PO Q4H PRN PRN Reason: PAIN - SEVERE Last Admin: 05/05/19 08:19 Dose: 2 tab Dextrose (Dextrose 50% Vial 50 Ml*) 25 ml IV PUSH .FOR FS < 60 - SS PRN PRN Reason: FS < 60 Enoxaparin Sodium (Lovenox(*)) 40 mg SUBCUT Q24H [facility] Last Admin: 05/05/19 12:07 Dose: 40 mg Sodium Chloride (Ns 0.9% 1000 Ml) 1,000 mls @ 100 mls/hr IV PER RATE [facility] Last Admin: 05/05/19 22:25 Dose: 100 mls/hr Piperacillin Sod/Tazobactam (Sod 3.375 gm/ Sodium Chloride) 100 mls @ 25 mls/ hr IVPB Q8HR [facility] Last Admin: 05/06/19 05:21 Dose: 25 mls/hr Insulin Glargine (Lantus(*)) 30 units SUBCUT Q12H [facility] Last Admin: 05/05/19 20:38 Dose: 30 units Insulin Human Lispro (Humalog*) 0 units SUBCUT ACHS [facility]; Protocol Last Admin: 05/05/19 21:00 Dose: 1 units Morphine Sulfate (Morphine Inj (Syringe))*) 1 mg IV Q1H PRN PRN Reason: SEVERE PAIN Last Admin: 05/06/19 05:21 Dose: 1 mg Nicotine Polacrilex (Nicotine Gum*) 2 mg PO Q2H PRN PRN Reason: CRAVING Ondansetron HCl (Zofran Inj*) 4 mg IV Q6H PRN PRN Reason: NAUSEA Pharmacy Consult (Zosyn Per Pharmacy*) 1 note FOLLOW UP .ZOSYN PER PHARMACY [facility] Vital Signs - 8 hr 05/05/19 05/05/19 05/05/19 23:11 23:23 23:24 Temperature 98.9 F Pulse Rate 98 Respiratory 16 16 16 Rate Blood Pressure 121/59 (mmHg) O2 Sat by Pulse 99 Oximetry 05/06/19 05/06/19 05/06/19 00:00 00:34 03:31 Temperature Pulse Rate Respiratory 18 16 Rate Blood Pressure (mmHg) O2 Sat by Pulse 99 Oximetry 05/06/19 05/06/19 05/06/19 03:46 05:20 05:21 Temperature 98.7 F Pulse Rate 97 Respiratory 16 16 16 Rate Blood Pressure 143/58 (mmHg) O2 Sat by Pulse 99 Oximetry Oxygen Devices in Use Now: None Exam: Patient is sitting on a bed with no acute distress. HEENT: Normocephalic and atraumatic Lungs: Clear Heart: S1/S2 heard with no murmur Abdomen: SOft and nontender. NOrmal BS heard Extremity: Dressing wound on right lower extremity. Right Leg in flexed position. Tenderness on posterior right thigh, knee joint and on leg. Distal pulse palpable. Can move toes with pain. Neuro: alert. consious and oriented Result Diagrams: 05/06/19 05:33 05/06/19 05:33 Microbiology and Other Data: Microbiology 05/04/19 22:21 Skin and Soft Tissue MRSA/MSSA (PCR - Final Leg Right Mrsa Negative S.aureus Positive Gram Stain - Preliminary Assess/Plan/Problems-Billing Assessment: 28M IDDM Type 1, PSA in remission, tob use d/o, mood d/o who is a transfer from [facility] (admitted there on 05/01) with resolved DKA and RLE SSTI c/b complex abscess and early compartment syndrome not responsive to IV abx. Found to have sepsis with MSSA bacteremia. s/p intraoperative I/D on 05/04. On Zosyn( day 3) - Patient Problems (1) Abscess of right lower extremity Current Visit: Yes Status: Acute Code(s): L02.415 - CUTANEOUS ABSCESS OF RIGHT LOWER LIMB SNOMED Code(s): 065356641 Comment: -POD 2 s/p I and D on 05/04 -Still has pain; now more on posterior knee joint and thigh; Could be progression of abscess and myositis to thigh -Ortho following -Now on Zosyn Day 3 (not including prior hosp) on 05/05; he initially got vanco and cefazolin in [place] -BCx NGTD from 05/05 Afternoon culture, still + from 05/05 Arrival culture -Wound showed MSSA; awaiting sensitivity (2) MSSA bacteremia Current Visit: Yes Status: Acute Code(s): R78.81 - BACTEREMIA SNOMED Code( s): 933233568 Comment: -On Zosyn(day 3); will narrow abx a/c to sensitivity results, remain on Zosyn as abscess may be polymicrobial -Daily blood culture until clear, 05/05 afternoon culture NGTD, 05/05 AM culture still positive -Echo pending (3) Sepsis Current Visit: Yes Status: Acute Comment: - Resolved - On zosyn and maintenance fluid (4) Insulin dependent diabetes mellitus Current Visit: Yes Status: Acute Code(s): E11.9 - TYPE 2 DIABETES MELLITUS WITHOUT COMPLICATIONS; Z79.4 - CIPHER EXPERT (CURRENT) USE OF INSULIN SNOMED Code( s): 16733293 Comment: - A1C 14.4 - ACHS POC glu monitoring - Glargine 30 U BID, Humalog SSI (5) Polysubstance abuse Current Visit: Yes Status: Acute Code(s): F19.10 - OTHER PSYCHOACTIVE SUBSTANCE ABUSE, UNCOMPLICATED SNOMED Code(s): 763294830 Comment: - Pt denies active IVDU, continue open ended discussion (6) DVT prophylaxis Current Visit: Yes Status: Acute Code(s): Z29.9 - ENCOUNTER FOR PROPHYLACTIC MEASURES, UNSPECIFIED SNOMED Code(s): 096128193 Comment: - Lovenox (7) Full code status Current Visit: Yes Status: Acute Code(s): Z78.9 - OTHER SPECIFIED HEALTH STATUS SNOMED Code(s): 510253282 Status and Disposition: Inpatient; ortho following Doesnot have insurance; not taking insulin because could not afford it. Attending: Zoraida Hernandez Attestation Documenting Resident: Mariaa Jones Supervising Physician: Zoraida Hernandez Attending/Supervising Physician Comment: Agree with Resident note, attending Addendum: 28M IDDM Type 1, PSA in remission, tob use d/o, mood d/o who is a transfer from [facility] (admitted there on 05/01) with resolved DKA and RLE SSTI c/b complex abscess not responsive to IV abx s/p intraoperative I/D on 05/04 Today worsening PROXIMAL posterior thigh pain and posterior knee pain concerning for collection in posterior thigh, also with sig pain on exam (even concerning for compartment), ortho considering repeat washout or further imaging. #RLE Abscess: Continue abx control, I am concerned there is still not source control with active collection -Pain control with Oxy/Tylenol, PRN IV Morphine #MSSA Bacteremia: Echo ordered, will evaluate valves, daily cultures until then #IDDM; Titrate insulin PRN, Poor control A1C 14, appreciate ID #Tob: NRT #PSA: Denies hx of opiates, endorses methamphetamine use d/o #Mood: Stable #DVT Lovenox #Code Full Dispo: Anticipate long hospitlization, PT involved Attestation: This service has been performed in part by a resident under the direction of a teaching physician.I, Zoraida Hernandez, performed the service, or was physically present during the critical, or castañeda portions of the service, furnished by the resident. I participated in the management of the patient.
[2019-05-06 07:02] LABS: Hematocrit 35 % (42-52); Hemoglobin 11.8 g/dL (14.0-18.0); Mean Corpuscular HGB Conc 34 g/dL (31-36); Mean Corpuscular Hemoglobin 29 pg (27-31); Mean Corpuscular Volume 85 fL (80-94); Mean Platelet Volume 6.5 fL (7.4-10.4); Platelet Count 467 10^3/uL (150-450); Red Blood Count 4.11 10^6 /uL (4.18-5.48); Red Cell Distribution Width 13 % (10-15); White Blood Count 23.9 10^3/uL (3.5-10.8)
[2019-05-06 07:06] LABS: Albumin 2.7 g/dL (3.2-5.2); Albumin/Globulin Ratio 0.8 (1-3); C Reactive Protein 235.14 mg/L (<8.01); Calcium 8.2 mg/dL (8.6-10.3); EGFR African American 265.7 (>60); EGFR Non-African American 219.6 (>60); Globulin 3.2 g/dL (2-4); Potassium 3.5 mmol/L (3.5-5.0); Total Bilirubin 0.7 mg/dL (0.2-1.0); Total Protein 5.9 g/dL (6.4-8.9)
[2019-05-06 07:32] LABS: ABS Basophils 0.1 10^3/ul (0-0.2); ABS Eosinophils 0.1 10^3/ul (0-0.6); ABS Lymphocytes 1.1 10^3/ul (1.0-4.8); ABS Monocytes 2.7 10^3/ul (0-0.8); Eosinophil % 0.3 %; Lymphocyte % 4.5 %
[2019-05-06 08:00] LABS: Hepatitis C Antibody Negative (Negative)
[2019-05-06] MEDS: Insulin GLARGINE(*) 1 UNITS UNIT SUBCUT SCH ×2 (08:42→20:56)
[2019-05-06] MEDS: Insulin LISPRO* 1 UNITS UNIT SUBCUT SCH ×4 (08:43→20:57)
--- NOTE | 2019-05-06 10:17 | PN ---
Progress Note - Progress Note Date of Service: 05/06/19 SOAP: Subjective: CC: Right LE cellulitis with abscess and MSSA bacteremia HPI: Mr. Kaminski is a 28 yo male with PMH significant for DM1. Denies fever, chills, nausea, vomiting, or diarrhea. He reports continued pain in the right knee. He is unable to bear weight on the right leg or extend the right LE. He states that he is hoping on 1 leg to get to the bathroom. Objective: Vital Signs - 8 hr 05/06/19 05/06/19 05/06/19 03:31 03:46 05:20 Temperature 98.7 F Pulse Rate 97 Respiratory 16 16 16 Rate Blood Pressure 143/58 (mmHg) O2 Sat by Pulse 99 Oximetry Physical Exam: General: NAD, laying in bed Neurological: Alert and Oriented HEENT: Edenulous, no thrush, moist MM Cardiovascular: Heart rate regular Respiratory: Lung sounds clear Abdominal: Bowel sounds present; ABD soft, non tender and non distended MSK: Unable to extend right knee due to pain, limited ROM of the right ankle this is slightly improved, no tenderness with palpation of the right knee or ankle. He is keeping the leg in a flexed position Skin: No rash, surgical dressing to the right LE clean, dry and intact Laboratory Results - last 24 hr 05/05/19 05/06/19 05/06/19 20:20 05:33 05:33 WBC 23.9 H RBC 4.11 L Hgb 11.8 L Hct 35 L MCV 85 MCH 29 MCHC 34 RDW 13 Plt Count 467 H D MPV 6.5 L Neut % (Auto) 83.6 Lymph % (Auto) 4.5 Hyde % (Auto) 11.3 Eos % (Auto) 0.3 Baso % (Auto) 0.3 Absolute Neuts (auto) 20.0 H Absolute Lymphs (auto) 1.1 Absolute Monos (auto) 2.7 H Absolute Eos (auto) 0.1 Absolute Basos (auto) 0.1 Absolute Nucleated RBC 0.0 Nucleated RBC % 0.0 Sodium 133 L Potassium 3.5 Chloride 93 L Carbon Dioxide 30 Anion Gap 10 BUN 6 Creatinine 0.46 L Est GFR ( Amer) 265.7 Est GFR (Non-Af Amer) 219.6 BUN/Creatinine Ratio 13.0 Glucose 160 H POC Glucose (mg/dL) 183 H Hemoglobin A1c Calcium 8.2 L Total Bilirubin 0.70 AST 24 ALT 20 Alkaline Phosphatase 194 H C-Reactive Protein 235.14 H Total Protein 5.9 L Albumin 2.7 L Globulin 3.2 Albumin/Globulin Ratio 0.8 L Microbiology 05/05/19 03:48 Aerobic Blood Culture - Preliminary Blood Venous Staphylococcus Aureus Anaerobic Blood Culture - Preliminary Staphylococcus Aureus Blood MRSA/MSSA (PCR) - Final Mrsa Negative S.aureus Positive 05/05/19 03:48 Aerobic Blood Culture - Preliminary Blood Venous Staphylococcus Aureus Anaerobic Blood Culture - Preliminary Staphylococcus Aureus Blood MRSA/MSSA (PCR) - Final Mrsa Negative S.aureus Positive 05/04/19 22:21 Skin and Soft Tissue MRSA/MSSA (PCR - Final Leg Right Mrsa Negative S.aureus Positive Gram Stain - Final Assessment: 1. Right LE cellulitis with abscess, myositis, and tenosynovitis. Wound culture with PCR positive for staph aureus, final culture pending. Afebrile for 24 hours , leukocytosis is improving. 2. Staph aureus bacteremia. Secondary to #1. No peripheral stigmata of endocarditis. Repeat blood cultures with 4/4 bottles positive. TTE is still pending. Denies prosthetic material. 3. DM1. Plan: Continue Zosyn for now. Further recommendations will be based on TTE results and clinical course.
[2019-05-06] MEDS ORDERED: Senna TAB 8.6 mg* TAB PO PRN (10:33)
[2019-05-06] MEDS: Senna TAB 8.6 mg* TAB PO SCH (10:52)
[2019-05-06] MEDS: oxyCODONE TAB* 5 MG TAB PO PRN ×3 (10:53→19:33)
[2019-05-06] MEDS: Enoxaparin(*) 40 MG/0.4 ML SYR SUBCUT SCH (12:29)
--- NOTE | 2019-05-06 16:27 | PN ---
Progress Note - Progress Note Date of Service: 05/06/19 SOAP: Subjective: Patient describes decreased pain since the procedure on Saturday night. He still has pain, mostly in the lower leg, but also in the thigh. He describes pain in the knee posteriorly when he extends his knee. Patient is admitted meth user with an Hb A1C of 14.4. He had copious amounts of pus in his lower leg in first surgical procedure. Patient developed a fever postop which has resolved. His body temperature was normal or only slightly elevated preop. Objective: Anxious, adentulous RLE: - Diffuse tenderness thigh - He holds his knee in a position of approximately 90 degrees of flexion. Extension to 45 degrees without significant discomfort. No knee swelling or effusion present. - Dressing clean, dry, and intact on lower leg. Swelling and diffuse TTP per report of PAC. Drainage on dressing. - Ankle has reduced swelling soft tissue and decreased pain with ROM ankle - Foot warm, and well perfused Microbiology 05/05/19 12:18 Blood Venous Blood MRSA/MSSA (PCR) - Final Mrsa Negative S.aureus Positive 05/05/19 12:18 Blood Venous Aerobic Blood Culture - Preliminary 05/05/19 12:18 Blood Venous Anaerobic Blood Culture - Preliminary No Growth Day 1 Selected Entries 05/05/19 05/05/19 05/05/19 11:35 15:22 19:47 Temperature 97.8 F 97.1 F 98.3 F Pulse Rate Respiratory Rate Blood Pressure (mmHg) O2 Sat by Pulse Oximetry 05/05/19 05/06/19 05/06/19 23:11 03:46 07:25 Temperature 98.9 F 98.7 F 98.6 F Pulse Rate Respiratory Rate Blood Pressure (mmHg) O2 Sat by Pulse Oximetry 05/06/19 05/06/19 11:40 15:15 Temperature 98 F 97.6 F Pulse Rate 99 Respiratory 17 Rate Blood Pressure 124/64 (mmHg) O2 Sat by Pulse 98 Oximetry Laboratory Tests 05/04/19 05/04/19 05/05/19 17:47 17:47 03:49 WBC 28.4 H 25.5 H MPV 6.3 L 6.4 L POC Glucose (mg/dL) C-Reactive Protein 256.01 H 05/05/19 05/06/19 05/06/19 07:21 05:33 05:33 WBC 23.9 H MPV 6.5 L POC Glucose (mg/dL) C-Reactive Protein 235.80 H 235.14 H 05/06/19 10:54 WBC MPV POC Glucose (mg/dL) 313 H C-Reactive Protein Assessment: POD 2 I&D R lower leg abscess, large, complex in anterior and deep posterior compartments Uncontrolled DM Meth addiction Plan: - With today's on-call radiologist, I reviewed again the MRI from Saturday of thigh, knee, and lower leg. There is no evidence of osteomyelitis, knee joint infection, thigh abscess. - Patient is improved, but still in much pain. It is difficult to determine how much of it is pain and how much anxiety. The patient is a less reliable historian given the anxiety and the meth addiction. The continued WBC elevation in and of itself isn't worrisome given the fever only appearing postop with the decompression of the abscess. Hopefully that will drop precipitously tomorrow or the next day. - The patient may possibly need a 2nd I&D of the lower leg given the huge burden of pus initially present. This has been discussed with him since preop. - To ruleout any other abscess collection along the right lower extremity, we will order and MRI with IV contrast. Saturday's study did not involve contrast. - Per report Hospitalist service requested a knee aspiration. As the knee had not had pain with limited PROM, no swelling or effusion, this has not been considered previously. It still has no swelling or effusion, though in limited exam today, the patient didn't extend to 45 degrees as before. He describes posterior knee pain as limiting extension. Fine to hold off until after repeat MRI.
[2019-05-06] MEDS: NS 0.9% 1000 ML** 1,000 ML IV SCH (17:52)
[2019-05-07] MEDS: oxyCODONE TAB* 5 MG TAB PO PRN ×6 (01:50→23:19)
[2019-05-07] MEDS: Acetaminophen TAB* 325 MG PO SCH ×4 (04:33→23:54)
[2019-05-07] MEDS: Morphine INJ* 2 MG/ML 1 ML SYRINGE (TWO MG - NEW SYRINGE VERSION) IV PRN ×5 (04:33→19:46)
[2019-05-07 05:08] LABS: Hematocrit 32 % (42-52); Hemoglobin 11.1 g/dL (14.0-18.0); Mean Corpuscular HGB Conc 35 g/dL (31-36); Mean Corpuscular Hemoglobin 29 pg (27-31); Mean Corpuscular Volume 84 fL (80-94); Mean Platelet Volume 6.3 fL (7.4-10.4); Platelet Count 507 10^3/uL (150-450); Red Blood Count 3.83 10^6 /uL (4.18-5.48); Red Cell Distribution Width 13 % (10-15); White Blood Count 20.5 10^3/uL (3.5-10.8)
[2019-05-07] MEDS: ZOSYN 3.375 GM Q8H per EXTENDED INFUSION IVPB SCH ×2 (05:15)
[2019-05-07 05:29] LABS: Albumin 2.5 g/dL (3.2-5.2); Albumin/Globulin Ratio 0.7 (1-3); BUN/Creatinine Ratio 15.8 (8-20); C Reactive Protein 186.22 mg/L (<8.01); Calcium 8.2 mg/dL (8.6-10.3); EGFR African American 207.5 (>60); EGFR Non-African American 171.5 (>60); Globulin 3.5 g/dL (2-4); Potassium 3.5 mmol/L (3.5-5.0); Total Bilirubin 0.4 mg/dL (0.2-1.0)
[2019-05-07 05:31] LABS: ABS Basophils 0.1 10^3/ul (0-0.2); ABS Eosinophils 0.2 10^3/ul (0-0.6); ABS Lymphocytes 1.3 10^3/ul (1.0-4.8); ABS Neutrophils 16.9 10^3/ul (1.5-7.7); Eosinophil % 1.1 %; Lymphocyte % 6.2 %
--- NOTE | 2019-05-07 07:21 | PN ---
Subjective Date of Service: 05/07/19 Interval History: HD 4 on 05/07/2019 POD 3 28 y/o M with hx of Type 1 DM, Tobacco use and polysubstance use(in past) presented from [facility] with right lower leg swelling and pain with concern for cellulitis/abscess/ compartment syndrome. found to have sepsis secondary to right LE abscess; MSSA BActeremia. MRI showed abscess; MSSA positive. I&D done on 05/04/19. ON cefazolin(day 4) NO acute overnight events Vs stable Has right knee and leg pain; pain decreasing No BM yet; feels gassy Objective Active Medications: Acetaminophen (Tylenol Tab*) 650 mg PO Q6H [facility] Last Admin: 05/07/19 04:33 Dose: 650 mg Dextrose (Dextrose 50% Vial 50 Ml*) 25 ml IV PUSH .FOR FS < 60 - SS PRN PRN Reason: FS < 60 Enoxaparin Sodium (Lovenox(*)) 40 mg SUBCUT Q24H [facility] Last Admin: 05/06/19 12:29 Dose: 40 mg Sodium Chloride (Ns 0.9% 1000 Ml) 1,000 mls @ 100 mls/hr IV PER RATE [facility] Last Admin: 05/06/19 17:52 Dose: 100 mls/hr Piperacillin Sod/Tazobactam (Sod 3.375 gm/ Sodium Chloride) 100 mls @ 25 mls/ hr IVPB Q8HR [facility] Last Admin: 05/07/19 05:15 Dose: 25 mls/hr Insulin Glargine (Lantus(*)) 30 units SUBCUT Q12H [facility] Last Admin: 05/06/19 20:56 Dose: 30 units Insulin Human Lispro (Humalog*) 0 units SUBCUT ACHS [facility]; Protocol Last Admin: 05/06/19 20:57 Dose: 15 units Morphine Sulfate (Morphine Inj (Syringe))*) 1 mg IV Q1H PRN PRN Reason: SEVERE PAIN Last Admin: 05/07/19 04:33 Dose: 1 mg Nicotine Polacrilex (Nicotine Gum*) 2 mg PO Q2H PRN PRN Reason: CRAVING Ondansetron HCl (Zofran Inj*) 4 mg IV Q6H PRN PRN Reason: NAUSEA Oxycodone HCl (Roxycodone Tab*) 5 mg PO Q4H PRN PRN Reason: PAIN - MODERATE Last Admin: 05/06/19 19:33 Dose: 5 mg Oxycodone HCl (Roxycodone Tab*) 10 mg PO Q4H PRN PRN Reason: PAIN - SEVERE Last Admin: 05/07/19 01:50 Dose: 10 mg Pharmacy Consult (Zosyn Per Pharmacy*) 1 note FOLLOW UP .ZOSYN PER PHARMACY [facility] Senna (Senokot 8.6 Mg Tab*) 1 tab PO DAILY [facility] Last Admin: 05/06/19 10:52 Dose: 1 tab Vital Signs - 8 hr 05/06/19 05/06/19 05/07/19 23:32 23:43 00:08 Temperature 99.0 F Pulse Rate 100 Respiratory 14 16 Rate Blood Pressure 141/81 (mmHg) O2 Sat by Pulse 99 99 Oximetry 05/07/19 05/07/19 05/07/19 01:50 03:56 04:32 Temperature 98.4 F Pulse Rate 87 Respiratory 16 12 16 Rate Blood Pressure 149/69 (mmHg) O2 Sat by Pulse 97 Oximetry 05/07/19 05/07/19 04:33 06:42 Temperature Pulse Rate Respiratory 16 16 Rate Blood Pressure (mmHg) O2 Sat by Pulse Oximetry Oxygen Devices in Use Now: None Exam: Patient is sitting on a bed with no acute distress. HEENT: Normocephalic and atraumatic Lungs: Clear Heart: S1/S2 heard with no murmur Abdomen: SOft and nontender. NOrmal BS heard Extremity: right leg in flexion position. Tenderness present on right thigh, knee and leg. Distal pulse intact Neuro: alert. consious and oriented Result Diagrams: 05/07/19 04:13 05/07/19 04:13 Microbiology and Other Data: Microbiology 05/04/19 22:21 Skin and Soft Tissue MRSA/MSSA (PCR - Final Leg Right Mrsa Negative S.aureus Positive Gram Stain - Preliminary Assess/Plan/Problems-Billing Assessment: 28M IDDM Type 1, PSA in remission, tob use d/o, mood d/o who is a transfer from [facility] (admitted there on 05/01) with resolved DKA and RLE SSTI c/b complex abscess and early compartment syndrome not responsive to IV abx. Found to have sepsis with MSSA bacteremia. s/p intraoperative I/D on 05/04. On cefazolin(day 4) - Patient Problems (1) Abscess of right lower extremity Current Visit: Yes Status: Acute Code(s): L02.415 - CUTANEOUS ABSCESS OF RIGHT LOWER LIMB SNOMED Code(s): 539480498 Comment: -POD 3 s/p I and D on 05/04 -Still has pain; now more on posterior knee joint and thigh; Could be progression of abscess and myositis to thigh -Ortho following -Switched to cefazolin Day 4 (not including prior hosp) on 05/05; he initially got vanco and cefazolin in [place] -BCx NGTD from 05/05 Afternoon culture, still + from 05/05 Arrival culture -Wound showed MSSA; (2) MSSA bacteremia Current Visit: Yes Status: Acute Code(s): R78.81 - BACTEREMIA SNOMED Code( s): 816159092 Comment: -On cefazolin(day 4); -Daily blood culture until clear, 05/05 afternoon culture NGTD, 05/05 AM culture still positive -Echo pending (3) Sepsis Current Visit: Yes Status: Acute Comment: - Resolved - On cefazolin and maintenance fluid (4) Insulin dependent diabetes mellitus Current Visit: Yes Status: Acute Code(s): E11.9 - TYPE 2 DIABETES MELLITUS WITHOUT COMPLICATIONS; Z79.4 - SENIOR CARE (CURRENT) USE OF INSULIN SNOMED Code( s): 16046502 Comment: - A1C 14.4 - ACHS POC glu monitoring - Glargine 33 U BID, Humalog SSI if blood glucose still high then will add bolus regimen (5) Polysubstance abuse Current Visit: Yes Status: Acute Code(s): F19.10 - OTHER PSYCHOACTIVE SUBSTANCE ABUSE, UNCOMPLICATED SNOMED Code(s): 285496065 Comment: - Pt denies active IVDU, continue open ended discussion (6) Elevated alkaline phosphatase level Current Visit: Yes Status: Acute Code(s): R74.8 - ABNORMAL LEVELS OF OTHER SERUM ENZYMES SNOMED Code(s): 243180427 Comment: normal alt and ast; could be from liver and bone NO abd pain, nausea, vomiting or jaundice will get ggt tomorrow (7) DVT prophylaxis Current Visit: Yes Status: Acute Code(s): Z29.9 - ENCOUNTER FOR PROPHYLACTIC MEASURES, UNSPECIFIED SNOMED Code(s): 667296018 Comment: - Hima (8) Full code status Current Visit: Yes Status: Acute Code(s): Z78.9 - OTHER SPECIFIED HEALTH STATUS SNOMED Code(s): 365467161 Status and Disposition: Inpatient; ortho following; ID following Doesnot have insurance; not taking insulin because could not afford it. Attending: Zoraida Hernandez Attestation Documenting Resident: Mariaa Jones Supervising Physician: Zoraida Hernandez Attending/Supervising Physician Comment: Agree with resident note, attending addendum: 28M IDDM, MSSA bacteremia from complex abscess of RLE, POD 2 from washout with ongoing purulent discharge, still concern for source control. #RLE; Plan for repeat washout, unable to complete MRI 2/2 to carrie #IDDM: Uptitrated insulin, added bolus, increase basal #MSSA Bacteremia: Echocardigram without vegetations, daily culture until clear #PSA: Some anxiety, continue supportive care Pre surgical risk Cardiac: no risk factor Pulm: No risk factor METS: Can complete 4 METS w.out chest pain RCRI score is 1 for insulin use, risk 6%, risk outweighs benefit in this case and he elects to proceed Attestation: This service has been performed in part by a resident under the direction of a teaching physician.I, Zoraida Hernandez, performed the service, or was physically present during the critical, or castañeda portions of the service, furnished by the resident. I participated in the management of the patient.
[2019-05-07] MEDS: Insulin GLARGINE(*) 1 UNITS UNIT SUBCUT SCH ×2 (08:45→21:41)
[2019-05-07] MEDS: Insulin LISPRO* 1 UNITS UNIT SUBCUT SCH ×4 (08:46→21:41)
[2019-05-07] MEDS: Senna TAB 8.6 mg* TAB PO SCH (08:49)
--- NOTE | 2019-05-07 10:11 | PN ---
Progress Note - Progress Note Date of Service: 05/07/19 SOAP: Subjective: CC: leg pain HPI: 28 year old man with IDDM and 2-3 weeks lower right leg pain, admitted to and then transferred here s/p drainage of large lower leg abscess. He has ongoing pain, a little better with flexion of knee. Pain lower leg and distal thigh. No other joints bothering him. Appetite decreased. No fever, rash, or diarrhea. Objective: Vital Signs Temp 37.1 C 05/07/19 07:15 Pulse 73 05/07/19 07:15 Resp 18 05/07/19 07:52 BP 112/70 05/07/19 07:15 Pulse Ox 99 05/07/19 07:15 Intake & Output 05/06/19 05/07/19 05/07/19 18:59 06:59 18:59 Intake Total 2093 2427 900 Output Total 1275 2300 Balance 818 127 900 Intake: IV Fluids 653 987 NS (0.9%) 653 987 Oral 1440 1440 900 Output: Urine 1275 2300 Other: # Voids 1 2 Gen:awake, no distress HEENT: no thrush Heart:RRR no murmur Lungs:CTA BL Abd:+BS NTND soft Skin: no rash MSK: no spine tenderness; Right knee slight fullness and warmth, proximal lower leg tender to palpation Laboratory Results - last 24 hr 05/06/19 05/06/19 05/06/19 05:33 10:54 17:08 WBC RBC Hgb Hct MCV MCH MCHC RDW Plt Count MPV Neut % (Auto) Lymph % (Auto) [place] % (Auto) Eos % (Auto) Baso % (Auto) Absolute Neuts (auto) Absolute Lymphs (auto) Absolute Monos (auto) Absolute Eos (auto) Absolute Basos (auto) Absolute Nucleated RBC Nucleated RBC % Sodium Potassium Chloride Carbon Dioxide Anion Gap BUN Creatinine Est GFR ( Amer) Est GFR (Non-Af Amer) BUN/Creatinine Ratio Glucose POC Glucose (mg/dL) 313 H 350 H Calcium Total Bilirubin AST ALT Alkaline Phosphatase C-Reactive Protein Total Protein Albumin Globulin Albumin/Globulin Ratio Hepatitis C Antibody Negative Hepatitis C Ab Index 0.02 05/06/19 05/07/19 05/07/19 20:33 04:13 04:13 WBC 20.5 H RBC 3.83 L Hgb 11.1 L Hct 32 L MCV 84 MCH 29 MCHC 35 RDW 13 Plt Count 507 H MPV 6.3 L Neut % (Auto) 82.4 Lymph % (Auto) 6.2 [place] % (Auto) 9.9 Eos % (Auto) 1.1 Baso % (Auto) 0.4 Absolute Neuts (auto) 16.9 H Absolute Lymphs (auto) 1.3 Absolute Monos (auto) 2.0 H Absolute Eos (auto) 0.2 Absolute Basos (auto) 0.1 Absolute Nucleated RBC 0.0 Nucleated RBC % 0.0 Sodium 131 L Potassium 3.5 Chloride 93 L Carbon Dioxide 31 Anion Gap 7 BUN 9 Creatinine 0.57 L Est GFR ( Amer) 207.5 Est GFR (Non-Af Amer) 171.5 BUN/Creatinine Ratio 15.8 Glucose 285 H POC Glucose (mg/dL) 379 H Calcium 8.2 L Total Bilirubin 0.40 AST 35 ALT 30 Alkaline Phosphatase 177 H C-Reactive Protein 186.22 H Total Protein 6.0 L Albumin 2.5 L Globulin 3.5 Albumin/Globulin Ratio 0.7 L Hepatitis C Antibody Hepatitis C Ab Index 05/07/19 07:36 WBC RBC Hgb Hct MCV MCH MCHC RDW Plt Count MPV Neut % (Auto) Lymph % (Auto) [place] % (Auto) Eos % (Auto) Baso % (Auto) Absolute Neuts (auto) Absolute Lymphs (auto) Absolute Monos (auto) Absolute Eos (auto) Absolute Basos (auto) Absolute Nucleated RBC Nucleated RBC % Sodium Potassium Chloride Carbon Dioxide Anion Gap BUN Creatinine Est GFR ( Amer) Est GFR (Non-Af Amer) BUN/Creatinine Ratio Glucose POC Glucose (mg/dL) 220 H Calcium Total Bilirubin AST ALT Alkaline Phosphatase C-Reactive Protein Total Protein Albumin Globulin Albumin/Globulin Ratio Hepatitis C Antibody Hepatitis C Ab Index Assessment: 1. MSSA deep lower leg abscess and bacteremia 2. Right femur osteomyelitis 3. Right knee and thigh pain 4. IDDM, uncontrolled 5. leukocycosis and elevated CRP, slowly improving Plan: 1. change zosyn to ancef 2gm IV Q8hrs, evaluation of right knee and consideration of another I&D is ongoing. 2. Eventual GUANAKO
--- NOTE | 2019-05-07 13:36 | PN ---
Progress Note - Progress Note Date of Service: 05/07/19 SOAP: Subjective: []Pt seen at bedside. Pain of his Right lower leg is better controlled today, though still quite bothersome. He remains unable to bear weight, he is mobilizing with a wheelchair or hopping. Denies feeling of fever, chills, SOB, dizziness or CP. Nursing changed his dressing and pulled packing 1 cm today, report much serosanguinous drainage from lateral incision unsure if there was purulence. Objective: []Gen: Again appears anxious, NAD RLE: Portis erythema of the thigh medially and posteriorly, posterior thigh is soft and diffusely tender no palpable cords and no induration or fluctuance. Knee is held at 90 flexion, unable to actively move the knee. Passive ROM 60- 100 without pain, endpoints limited by pain. There is no knee swelling or erythema. The knee is nontender to palpation aside from posterior knee/ distal posterior thigh. Lower leg dressing just changed by nursing, remains CDI. All compartments are compressible, he is quite tender to palpation throughout. Ankle and MTP PROM nonpainful Unable to produce active ankle DF. PF intact. MTP f/e intact including EHL. Foot is swollen, warm and well perfused, cap refill less than two seconds distally Sensation intact to light touch distally DP2+. Assessment: []POD 3 sp I&D R lower leg abscess, large, complex in anterior and deep posterior compartments Uncontrolled DM Meth addiction Plan: CRP and WBC trending down. Afebrile Unless significant improvement in exam anticipate patient needs repeat washout of the lower leg tomorrow Unable to repeat MRI due to carrie. Plan to close incision with sutures tomorrow which will allow ability to MRI thereafter if needed. Discussed case with Dr Bosch, agrees with this assessment and plan Medicine made aware of plans for OR tomorrow Vital Signs Temp 98.5 F 05/07/19 11:15 Pulse 92 05/07/19 11:15 Resp 18 05/07/19 13:48 BP 118/69 05/07/19 11:15 Pulse Ox 97 05/07/19 11:15 Intake & Output 05/06/19 05/07/19 05/07/19 18:59 06:59 18:59 Intake Total 2093 2427 1140 Output Total 1275 2300 Balance 387 277 9903 Intake: IV Fluids 653 987 NS (0.9%) 653 987 Oral 1440 1440 1140 Output: Urine 1275 2300 Other: # Voids 1 2 Laboratory Last Values WBC 20.5 10^3/uL (3.5-10.8) H 05/07/19 04:13 RBC 3.83 10^6 /uL (4.18-5.48) L 05/07/19 04:13 Hgb 11.1 g/dL (14.0-18.0) L 05/07/19 04:13 Hct 32 % (42-52) L 05/07/19 04:13 MCV 84 fL (80-94) 05/07/19 04:13 MCH 29 pg (27-31) 05/07/19 04:13 MCHC 35 g/dL (31-36) 05/07/19 04:13 RDW 13 % (10-15) 05/07/19 04:13 Plt Count 507 10^3/uL (150-450) H 05/07/19 04:13 MPV 6.3 fL (7.4-10.4) L 05/07/19 04:13 Neut % (Auto) 82.4 % 05/07/19 04:13 Lymph % (Auto) 6.2 % 05/07/19 04:13 [place] % (Auto) 9.9 % 05/07/19 04:13 Eos % (Auto) 1.1 % 05/07/19 04:13 Baso % (Auto) 0.4 % 05/07/19 04:13 Absolute Neuts (auto) 16.9 10^3/ul (1.5-7.7) H 05/07/19 04:13 Absolute Lymphs (auto) 1.3 10^3/ul (1.0-4.8) 05/07/19 04:13 Absolute Monos (auto) 2.0 10^3/ul (0-0.8) H 05/07/19 04:13 Absolute Eos (auto) 0.2 10^3/ul (0-0.6) 05/07/19 04:13 Absolute Basos (auto) 0.1 10^3/ul (0-0.2) 05/07/19 04:13 Absolute Nucleated RBC 0.0 10^3/ul 05/07/19 04:13 Nucleated RBC % 0.0 05/07/19 04:13 Sodium 131 mmol/L (135-145) L 05/07/19 04:13 Potassium 3.5 mmol/L (3.5-5.0) 05/07/19 04:13 Chloride 93 mmol/L (101-111) L 05/07/19 04:13 Carbon Dioxide 31 mmol/L (22-32) 05/07/19 04:13 Anion Gap 7 mmol/L (2-11) 05/07/19 04:13 BUN 9 mg/dL (6-24) 05/07/19 04:13 Creatinine 0.57 mg/dL (0.67-1.17) L 05/07/19 04:13 Est GFR ( Amer) 207.5 (>60) 05/07/19 04:13 Est GFR (Non-Af Amer) 171.5 (>60) 05/07/19 04:13 BUN/Creatinine Ratio 15.8 (8-20) 05/07/19 04:13 Glucose 285 mg/dL (70-100) H 05/07/19 04:13 POC Glucose (mg/dL) 299 mg/dL (70-100) H 05/07/19 11:16 Hemoglobin A1c 14.4 % (4.0-5.6) H 05/05/19 03:49 Lactic Acid 1.4 mmol/L (0.5-2.0) 05/04/19 17:47 Calcium 8.2 mg/dL (8.6-10.3) L 05/07/19 04:13 Total Bilirubin 0.40 mg/dL (0.2-1.0) 05/07/19 04:13 AST 35 U/L (13-39) 05/07/19 04:13 ALT 30 U/L (7-52) 05/07/19 04:13 Alkaline Phosphatase 177 U/L (34-104) H 05/07/19 04:13 Total Creatine Kinase 135 U/L (10-223) 05/04/19 17:47 C-Reactive Protein 186.22 mg/L (<8.01) H 05/07/19 04:13 Total Protein 6.0 g/dL (6.4-8.9) L 05/07/19 04:13 Albumin 2.5 g/dL (3.2-5.2) L 05/07/19 04:13 Globulin 3.5 g/dL (2-4) 05/07/19 04:13 Albumin/Globulin Ratio 0.7 (1-3) L 05/07/19 04:13 Hepatitis C Antibody Negative (Negative) 05/06/19 05:33 Hepatitis C Ab Index 0.02 s/c 05/06/19 05:33
[2019-05-07] MEDS: NS 0.9% 1000 ML** 1,000 ML IV SCH (14:02)
[2019-05-07] MEDS: Enoxaparin(*) 40 MG/0.4 ML SYR SUBCUT SCH (14:02)
[2019-05-07] MEDS: ceFAZolin 2 GM PREMIX in ORs 2 GM/50 ML BAG IVPB SCH ×2 (14:07→21:31)
--- NOTE | 2019-05-07 18:11 | PN ---
Progress Note - Progress Note Date of Service: 05/07/19 SOAP: Subjective: Pain in right lower extremity, not better today. Mostly lower leg, but also thigh. Objective: Lying in bed with knee flexed. Thigh shows no swelling, but TTP, posterolateral more than anterior or medial. Knee in flexed posture, PROM 70-100 degrees without significant pain. No knee effusion or anterior TTP. Inconsistent posterior knee TTP. Lower leg anterior incision has drainage on dressing consistent with pus. Blister lateral to proximal end incision. Skin medial to incision looks like it is distressed. Inconsistent pain with PROM ankle. Increased swelling soft tissue ankle and foot. Microbiology 05/05/19 12:18 Blood Venous Blood MRSA/MSSA (PCR) - Final Staphylococcus Aureus Mrsa Negative S.aureus Positive 05/06/19 11:15 Blood Venous Aerobic Blood Culture - Preliminary 05/06/19 11:15 Blood Venous Anaerobic Blood Culture - Preliminary No Growth Day 1 No Growth Day 1 05/05/19 12:18 Blood Venous Aerobic Blood Culture - Preliminary 05/05/19 12:18 Blood Venous No Growth Day 2 Selected Entries 05/07/19 11:15 Temperature 98.5 F Pulse Rate 92 Respiratory 16 Rate Blood Pressure 118/69 (mmHg) O2 Sat by Pulse 97 Oximetry Laboratory Tests 05/04/19 05/04/19 05/05/19 17:47 17:47 03:49 WBC 28.4 H 25.5 H POC Glucose (mg/dL) C-Reactive Protein 256.01 H 05/05/19 05/06/19 05/06/19 07:21 05:33 05:33 WBC 23.9 H POC Glucose (mg/dL) C-Reactive Protein 235.80 H 235.14 H 05/06/19 05/06/19 05/07/19 17:08 20:33 04:13 WBC POC Glucose (mg/dL) 350 H 379 H C-Reactive Protein 186.22 H 05/07/19 05/07/19 05/07/19 04:13 07:36 11:16 WBC 20.5 H POC Glucose (mg/dL) 220 H 299 H C-Reactive Protein 05/07/19 16:15 WBC POC Glucose (mg/dL) 266 H C-Reactive Protein Assessment: POD 3 I&D right lower leg MSSA abscess with bacteremia Uncontrolled diabetic who uses meth Plan: - Lower leg looks considerably worse today. Blisters. Weeping, distressed skin. Pus drainage from anterior incision onto dressing. A second I&D of lower leg is clearly required, possibly with VAC dressing and a subsequent 3rd I &D & closure. - Tenderness of thigh has not improved despite IV antibiotics. It seems reasonable to I&D lateral thigh about distal biceps tendon given MRI inflammation there and continued symptoms. - Persistent knee flexion could be caused by infection about the lateral hamstrings (biceps) and that seems more likely than being caused by knee infection, but I will consider a concomitant knee I&D intraop. - NPO past midnight - To OR tomorrow (Saturday) for repeat I&D lower leg, I&D lateral thigh, possible I&D knee - Continue IV abx - Continue to monitor pain, body temperature, exam, WBC, CRP
[2019-05-07] MEDS ORDERED: Insulin GLARGINE(*) 1 UNITS UNIT SUBCUT SCH (21:00)
[2019-05-08] MEDS: NS 0.9% 1000 ML** 1,000 ML IV SCH ×2 (03:35→15:10)
[2019-05-08] MEDS: oxyCODONE TAB* 5 MG TAB PO PRN ×2 (03:37→21:51)
[2019-05-08 05:07] LABS: Hematocrit 32 % (42-52); Hemoglobin 10.6 g/dL (14.0-18.0); Mean Corpuscular HGB Conc 34 g/dL (31-36); Mean Corpuscular Hemoglobin 28 pg (27-31); Mean Corpuscular Volume 84 fL (80-94); Platelet Count 529 10^3/uL (150-450); Red Blood Count 3.76 10^6 /uL (4.18-5.48); Red Cell Distribution Width 14 % (10-15); White Blood Count 15.6 10^3/uL (3.5-10.8)
[2019-05-08] MEDS: Acetaminophen TAB* 325 MG PO SCH ×5 (05:17→21:51)
[2019-05-08] MEDS: ceFAZolin 2 GM PREMIX in ORs 2 GM/50 ML BAG IVPB SCH ×3 (05:17→22:25)
[2019-05-08 05:19] LABS: C Reactive Protein 125.41 mg/L (<8.01)
[2019-05-08 05:44] LABS: ABS Eosinophils 0.2 10^3/ul (0-0.6); ABS Lymphocytes 1.7 10^3/ul (1.0-4.8); ABS Monocytes 1.5 10^3/ul (0-0.8); ABS Neutrophils 12.2 10^3/ul (1.5-7.7); Eosinophil % 1.6 %; Lymphocyte % 10.6 %; Nucleated Red Blood Cells % 0.1
--- NOTE | 2019-05-08 06:44 | PN ---
Subjective Date of Service: 05/08/19 Interval History: HD 5 on 05/08/2019 POD 4 28 y/o M with hx of Type 1 DM, Tobacco use and polysubstance use(in past) presented from [facility] with right lower leg swelling and pain with concern for cellulitis/abscess/ compartment syndrome. found to have sepsis secondary to right LE abscess; MSSA BActeremia. MRI showed abscess;. I&D done on 05/04/19. ON cefazolin(day 5) No acute overnight events Vitals stable I&D of right leg, lateral thigh and possibly knee-today Complains of pain on leg and knee. Feels nauseous, sweaty and hungry. His blood glucose was 229. Objective Active Medications: Acetaminophen (Tylenol Tab*) 650 mg PO Q6H [facility] Last Admin: 05/08/19 05:28 Dose: Not Given Dextrose (Dextrose 50% Vial 50 Ml*) 25 ml IV PUSH .FOR FS < 60 - SS PRN PRN Reason: FS < 60 Sodium Chloride (Ns 0.9% 1000 Ml) 1,000 mls @ 100 mls/hr IV PER RATE [facility] Last Admin: 05/08/19 03:35 Dose: 100 mls/hr Cefazolin Sodium/Dextrose (Kefzol 2 Gm Premix In Ors(*)) 2 gm in 50 mls @ 100 mls/hr IVPB Q8H [facility] Last Admin: 05/08/19 05:17 Dose: 100 mls/hr Insulin Glargine (Lantus(*)) 25 units SUBCUT Q12H [facility] Last Admin: 05/07/19 21:41 Dose: 25 units Insulin Human Lispro (Humalog*) 0 units SUBCUT ACHS [facility]; Protocol Last Admin: 05/07/19 21:41 Dose: 15 units Morphine Sulfate (Morphine Inj (Syringe))*) 1 mg IV Q1H PRN PRN Reason: SEVERE PAIN Last Admin: 05/07/19 19:46 Dose: 1 mg Nicotine Polacrilex (Nicotine Gum*) 2 mg PO Q2H PRN PRN Reason: CRAVING Ondansetron HCl (Zofran Inj*) 4 mg IV Q6H PRN PRN Reason: NAUSEA Oxycodone HCl (Roxycodone Tab*) 5 mg PO Q4H PRN PRN Reason: PAIN - MODERATE Last Admin: 05/08/19 03:37 Dose: 5 mg Oxycodone HCl (Roxycodone Tab*) 10 mg PO Q4H PRN PRN Reason: PAIN - SEVERE Last Admin: 05/07/19 21:31 Dose: 10 mg Senna (Senokot 8.6 Mg Tab*) 1 tab PO DAILY [facility] Last Admin: 05/07/19 08:49 Dose: Not Given Vital Signs - 8 hr 05/07/19 05/07/19 05/07/19 23:15 23:19 23:55 Temperature 97.3 F Pulse Rate 83 Respiratory 14 18 16 Rate Blood Pressure 130/78 (mmHg) O2 Sat by Pulse 99 Oximetry 05/08/19 05/08/19 05/08/19 02:04 03:17 03:37 Temperature 98.0 F Pulse Rate 70 Respiratory 16 14 16 Rate Blood Pressure 135/71 (mmHg) O2 Sat by Pulse 99 Oximetry 05/08/19 05:28 Temperature Pulse Rate Respiratory 16 Rate Blood Pressure (mmHg) O2 Sat by Pulse Oximetry Oxygen Devices in Use Now: None Exam: Patient is sitting on a bed with no acute distress. HEENT: Normocephalic and atraumatic Lungs: Clear Heart: S1/S2 heard with no murmur Abdomen: SOft and nontender. NOrmal BS heard Extremity: Right leg in flexed position with increased tenderness on leg and ankle. Can move toes. Distal pulse intact Neuro: alert. consious and oriented Result Diagrams: 05/08/19 04:27 05/07/19 04:13 Microbiology and Other Data: Microbiology 05/04/19 22:21 Skin and Soft Tissue MRSA/MSSA (PCR - Final Leg Right Mrsa Negative S.aureus Positive Gram Stain - Preliminary Assess/Plan/Problems-Billing Assessment: 28M IDDM Type 1, PSA in remission, tob use d/o, mood d/o who is a transfer from [facility] (admitted there on 05/01) with resolved DKA and RLE SSTI c/b complex abscess and early compartment syndrome not responsive to IV abx. Found to have sepsis with MSSA bacteremia, s/p intraoperative I/D on 05/04. On cefazolin(day 5) - Patient Problems (1) Abscess of right lower extremity Current Visit: Yes Status: Acute Code(s): L02.415 - CUTANEOUS ABSCESS OF RIGHT LOWER LIMB SNOMED Code(s): 157043439 Comment: -POD 4 s/p I and D on 05/04 -Still has pain; now more on posterior knee joint and thigh; Could be progression of abscess and myositis to thigh -Ortho following -Switched to cefazolin Day 5(not including prior hosp) on 05/05; he initially got vanco and cefazolin in [place] -BCx NGTD from 05/05 Afternoon culture, still + from 05/05 Arrival culture -Wound showed MSSA; - repeat washout today again. Concern for osteomyelitis as well; cant do MRI because of carrie; ALP elevated ; GGT borderline (2) MSSA bacteremia Current Visit: Yes Status: Acute Code(s): R78.81 - BACTEREMIA SNOMED Code( s): 082728558 Comment: -On cefazolin(day 4); -Preliminary culture report on 05/06 and 05/07 are clear; waiting for final results. 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 blood glucose in 220's hold insulin lispro till washout (5) Polysubstance abuse Current Visit: Yes Status: Acute Code(s): F19.10 - OTHER PSYCHOACTIVE SUBSTANCE ABUSE, UNCOMPLICATED SNOMED Code(s): 708164947 Comment: - Pt denies active IVDU, continue open ended discussion (6) Elevated alkaline phosphatase level Current Visit: Yes Status: Acute Code(s): R74.8 - ABNORMAL LEVELS OF OTHER SERUM ENZYMES SNOMED Code(s): 994387420 Comment: normal alt and ast; could be from liver and bone NO abd pain, nausea, vomiting or jaundice GGT borderline high Could be osteomyelitis; cant do MRI because of his carrie (7) DVT prophylaxis Current Visit: Yes Status: Acute Code(s): Z29.9 - ENCOUNTER FOR PROPHYLACTIC MEASURES, UNSPECIFIED SNOMED Code(s): 443533714 Comment: ON hold for his washout (8) Full code status Current Visit: Yes Status: Acute Code(s): Z78.9 - OTHER SPECIFIED HEALTH STATUS SNOMED Code(s): 000640719 Status and Disposition: Inpatient; ortho following; ID following Doesnot have insurance; not taking insulin because could not afford it. Attending: Zoraida Hernandez Attestation Documenting Resident: Mariaa Walsh Supervising Physician: Zoraida Hernandez Attending/Supervising Physician Comment: Agree with resident note. Attending addendum: 28M IDDM Type 1, PSA in remission , tob use d/o, mood d/o who is a transfer from [facility] (admitted there on 05/01) with resolved DKA and RLE SSTI c/b complex abscess, MSSA bacteremia #RLE Abscess: Repeat washout today, s/p 1st washout on 05/04 -Continue Cefazolin, MSSA on original culture from wound #MSSA Bacteremia: From leg, will need GUANAKO to check valve, schedule for 05/11, TTE neg for veg on 05/04 #IDDM: A1C 14, will need extensive teaching #Tob: NRT #DVT: On hold until 05/09 Attestation: This service has been performed in part by a resident under the direction of a teaching physician.I, Zoraida Hernandez, performed the service, or was physically present during the critical, or castañeda portions of the service, furnished by the resident. I participated in the management of the patient.
[2019-05-08] MEDS: Morphine INJ* 2 MG/ML 1 ML SYRINGE (TWO MG - NEW SYRINGE VERSION) IV PRN ×2 (07:36→12:32)
[2019-05-08] MEDS: Senna TAB 8.6 mg* TAB PO SCH (08:24)
[2019-05-08] MEDS: Insulin LISPRO* 1 UNITS UNIT SUBCUT SCH ×4 (08:24→22:10)
[2019-05-08] MEDS: Insulin GLARGINE(*) 1 UNITS UNIT SUBCUT SCH ×2 (09:38→22:11)
[2019-05-08] MEDS ORDERED: Insulin GLARGINE(*) 1 UNITS UNIT SUBCUT ONE (10:00)
[2019-05-08] MEDS ORDERED: ceFAZolin 2 GM PREMIX in ORs 2 GM/50 ML BAG ONE (14:56)
[2019-05-08] MEDS ORDERED: Famotidine IV* 10 MG/ML 2 ML (20 mg) IV SLOW PU ONE (17:43)
[2019-05-08] MEDS ORDERED: Lidocaine 2% PF * 5 ML VIAL ONE (18:25)
[2019-05-08] MEDS ORDERED: Propofol* 10 MG/ML 20 ML BTL ONE (18:25)
[2019-05-08] MEDS ORDERED: Midazolam* 1 MG/ML 5 ML VIAL (5 MG) ONE (18:25)
[2019-05-08] MEDS ORDERED: Ondansetron INJ* 2 MG/ML VIAL ONE (18:25)
[2019-05-08] MEDS ORDERED: fentaNYL* 50 MCG/ML 2 ML VIAL (100 MCG VIAL) ONE ×4 (18:25→21:01)
[2019-05-08] MEDS ORDERED: ceFAZolin 1 GM ADVAN(*) 1 GM ADDV.VIAL IVPB ONE (18:37)
[2019-05-08] MEDS ORDERED: KETAMINE HCL* 50 MG/ML 10 ML VIAL ONE (18:52)
[2019-05-08] MEDS ORDERED: Bupivacaine 0.25% EPI 200,000* 30 ML SDV ONE (19:04)
[2019-05-08 20:03] LABS: Body Fluid Source Synovial Fluid
[2019-05-08] MEDS ORDERED: HYDROmorphone INJ1* 1 MG/ML SYRINGE ONE ×2 (20:08→20:33)
[2019-05-08 20:21] LABS: Body Fluid Source Synovial Fluid
[2019-05-08 20:25] LABS: Body Fluid Source Synovial Fluid
[2019-05-08] MEDS ORDERED: HYDROmorphone INJ1* 1 MG/ML SYRINGE IV PRN (20:48)
[2019-05-08] MEDS ORDERED: Naloxone* 0.4 MG/ML 1 ML VIAL IV PRN (20:48)
[2019-05-08] MEDS ORDERED: Ondansetron INJ* 2 MG/ML VIAL IV PRN (20:48)
[2019-05-08] MEDS: fentaNYL* 50 MCG/ML 2 ML VIAL (100 MCG VIAL) IV PRN ×2 (21:00→21:11)
[2019-05-08 22:42] LABS: Body Fluid Band 8 %; Body Fluid Mono 4 %
[2019-05-08 22:46] LABS: Body Fluid Band 1 %; Body Fluid Mono 2 %; Body Fluid NRBC 1
[2019-05-08 22:50] LABS: Body Fluid Band 1 %; Body Fluid Mono 12 %
[2019-05-09] MEDS: oxyCODONE TAB* 5 MG TAB PO PRN ×8 (00:10→23:35)
[2019-05-09] MEDS: Morphine INJ* 2 MG/ML 1 ML SYRINGE (TWO MG - NEW SYRINGE VERSION) IV PRN ×5 (02:34→17:55)
[2019-05-09] MEDS ORDERED: Melatonin 3 MG TAB PO PRN (03:38)
[2019-05-09] MEDS: Acetaminophen TAB* 325 MG PO SCH ×4 (03:57→23:34)
[2019-05-09] MEDS: ceFAZolin 2 GM PREMIX in ORs 2 GM/50 ML BAG IVPB SCH ×3 (05:52→22:33)
[2019-05-09 06:23] LABS: ABS Eosinophils 0.1 10^3/ul (0-0.6); ABS Lymphocytes 1.1 10^3/ul (1.0-4.8); ABS Monocytes 1.5 10^3/ul (0-0.8); ABS Neutrophils 19.4 10^3/ul (1.5-7.7); Eosinophil % 0.6 %; Hematocrit 34 % (42-52); Hemoglobin 11.4 g/dL (14.0-18.0); Mean Corpuscular HGB Conc 34 g/dL (31-36); Mean Corpuscular Hemoglobin 29 pg (27-31); Mean Corpuscular Volume 83 fL (80-94); Platelet Count 554 10^3/uL (150-450); Red Blood Count 4.02 10^6 /uL (4.18-5.48); Red Cell Distribution Width 13 % (10-15); White Blood Count 22.3 10^3/uL (3.5-10.8)
[2019-05-09 06:39] LABS: C Reactive Protein 76.63 mg/L (<8.01); Calcium 8.3 mg/dL (8.6-10.3); EGFR African American 272.6 (>60); EGFR Non-African American 225.2 (>60); Potassium 3.9 mmol/L (3.5-5.0)
--- NOTE | 2019-05-09 06:56 | PN ---
Subjective Date of Service: 05/09/19 Interval History: HD 6 on 05/09/2019 POD 1 28 y/o M with hx of Type 1 DM, Tobacco use and polysubstance use(in past) presented from [facility] with right lower leg swelling and pain with concern for cellulitis/abscess/ compartment syndrome. found to have sepsis secondary to right LE abscess; MSSA BActeremia. MRI showed abscess;. I&D done on 05/04/19. Repeat I&D on 05/09/2019. ON cefazolin(day 6) Went for repeat washout yesterday Vitals stable Patient complains of right leg pain;03/07. Could not sleep last night; was asking for sleep med. He used to take seroquel at past. Used to take wellbutrin and zoloft; but it did not help for anxiety Objective Active Medications: Acetaminophen (Tylenol Tab*) 650 mg PO Q6H [facility] Last Admin: 05/09/19 03:57 Dose: 650 mg Dextrose (Dextrose 50% Vial 50 Ml*) 25 ml IV PUSH .FOR FS < 60 - SS PRN PRN Reason: FS < 60 Sodium Chloride (Ns 0.9% 1000 Ml) 1,000 mls @ 100 mls/hr IV PER RATE [facility] Last Admin: 05/08/19 15:10 Dose: 100 mls/hr Cefazolin Sodium/Dextrose (Kefzol 2 Gm Premix In Ors(*)) 2 gm in 50 mls @ 100 mls/hr IVPB Q8H [facility] Last Admin: 05/09/19 05:52 Dose: 100 mls/hr Insulin Glargine (Lantus(*)) 33 units SUBCUT Q12HR [facility] Last Admin: 05/08/19 22:11 Dose: 33 units Insulin Human Lispro (Humalog*) 0 units SUBCUT ACHS [facility]; Protocol Last Admin: 05/08/19 22:10 Dose: 9 units Melatonin (Melatonin) 3 mg PO BEDTIME PRN PRN Reason: SLEEP Morphine Sulfate (Morphine Inj (Syringe))*) 1 mg IV Q1H PRN PRN Reason: SEVERE PAIN Last Admin: 05/09/19 02:34 Dose: 1 mg Nicotine Polacrilex (Nicotine Gum*) 2 mg PO Q2H PRN PRN Reason: CRAVING Ondansetron HCl (Zofran Inj*) 4 mg IV Q6H PRN PRN Reason: NAUSEA Oxycodone HCl (Roxycodone Tab*) 5 mg PO Q4H PRN PRN Reason: PAIN - MODERATE Last Admin: 05/09/19 00:10 Dose: 5 mg Oxycodone HCl (Roxycodone Tab*) 10 mg PO Q4H PRN PRN Reason: PAIN - SEVERE Last Admin: 05/09/19 03:56 Dose: 10 mg Senna (Senokot 8.6 Mg Tab*) 1 tab PO DAILY [facility] Last Admin: 05/08/19 08:24 Dose: Not Given Vital Signs - 8 hr 05/08/19 05/08/19 05/08/19 22:54 22:55 23:20 Temperature 98.0 F Pulse Rate 94 Respiratory 17 17 14 Rate Blood Pressure 149/77 (mmHg) O2 Sat by Pulse 100 Oximetry 05/09/19 05/09/19 05/09/19 00:10 00:28 00:39 Temperature 97.0 F Pulse Rate 99 Respiratory 16 16 16 Rate Blood Pressure 141/76 (mmHg) O2 Sat by Pulse 100 Oximetry 05/09/19 05/09/19 05/09/19 02:30 02:34 02:44 Temperature 98.2 F Pulse Rate 98 Respiratory 16 16 16 Rate Blood Pressure 138/83 (mmHg) O2 Sat by Pulse 94 Oximetry 05/09/19 05/09/19 05/09/19 03:30 03:52 03:56 Temperature 98.6 F Pulse Rate 96 Respiratory 14 15 15 Rate Blood Pressure 149/67 (mmHg) O2 Sat by Pulse 100 Oximetry 05/09/19 05:55 Temperature Pulse Rate Respiratory 14 Rate Blood Pressure (mmHg) O2 Sat by Pulse Oximetry Oxygen Devices in Use Now: None Exam: Efrem is lying on a bed with no acute distress. HEENT: Normocephalic and atraumatic Lungs: Clear with no added sounds HEart: S1/S2 heard with no murmur Abdomen: Soft, nondistended and nontender EXTremities: right knee on flexed position. Dressing wound with wound vac. tenderness present. Decrease ROM in right knee and ankle. Can move his toes. Distal pulse intact. Neuro: Alert, conscious and oriented Result Diagrams: 05/09/19 06:05 05/09/19 06:05 Microbiology and Other Data: Microbiology 05/04/19 22:21 Skin and Soft Tissue MRSA/MSSA (PCR - Final Leg Right Mrsa Negative S.aureus Positive Gram Stain - Preliminary Assess/Plan/Problems-Billing Assessment: 28M IDDM Type 1, PSA in remission, tob use d/o, mood d/o who is a transfer from [facility] (admitted there on 05/01) with resolved DKA and RLE SSTI c/b complex abscess and early compartment syndrome not responsive to IV abx. Found to have sepsis with MSSA bacteremia, s/p intraoperative I/D on 05/04. Repeat I&D on 05/08. On cefazolin(day 6) - Patient Problems (1) Abscess of right lower extremity Current Visit: Yes Status: Acute Code(s): L02.415 - CUTANEOUS ABSCESS OF RIGHT LOWER LIMB SNOMED Code(s): 052652944 Comment: - POD 1 s/p repeat I and D on 05/08 - Ortho following - Switched to cefazolin Day 6(not including prior hosp); he initially recieved vanco and cefazolin in [place] - BCx NGTD from 05/05 afternoon culture, still + from 05/05 arrival culture - Wound culture grew MSSA; concern for osteomyelitis as well; cant do MRI because of carrie; ALP elevated; GGT borderline - May need third washout with skin graft. (2) MSSA bacteremia Current Visit: Yes Status: Acute Code(s): R78.81 - BACTEREMIA SNOMED Code( s): 772716335 Comment: - On cefazolin(day 6); - Preliminary culture report on 05/06 and 05/07 are clear; waiting for final results. - TTE did not show any vegetation - GUANAKO ordered- will be on saturday; he needs to be NPO after midnight on saturday (3) Sepsis Current Visit: Yes Status: Acute Comment: - Resolved - On cefazolin and maintenance fluid (4) Insulin dependent diabetes mellitus Current Visit: Yes Status: Acute Code(s): E11.9 - TYPE 2 DIABETES MELLITUS WITHOUT COMPLICATIONS; Z79.4 - CARE HOME (CURRENT) USE OF INSULIN SNOMED Code( s): 56583145 Comment: - On insulin lantus 33 U bid - blood glucose in 250-300, may need to add bolus - We will adjust bolus and corrective insuilin based on daily blood glu (5) Polysubstance abuse Current Visit: Yes Status: Acute Code(s): F19.10 - OTHER PSYCHOACTIVE SUBSTANCE ABUSE, UNCOMPLICATED SNOMED Code(s): 220444995 Comment: - Pt denies active IVDU, continue open ended discussion (6) Elevated alkaline phosphatase level Current Visit: Yes Status: Acute Code(s): R74.8 - ABNORMAL LEVELS OF OTHER SERUM ENZYMES SNOMED Code(s): 970197823 Comment: - Normal alt and ast; could be from liver and bone - GGT borderline high - Could be osteomyelitis; consider MRI in future per ortho (7) Mood disorder Current Visit: Yes Status: Acute Code(s): F39 - UNSPECIFIED MOOD [AFFECTIVE ] DISORDER SNOMED Code(s): 28027349 Comment: - Pt with known hx of anxiety, trial Escitalopram, Ativan 0.5mg TID PRN, he is aware no rx for benzo to go home with given hx of substance abuse - Seroquel QHS per prior trial (8) DVT prophylaxis Current Visit: Yes Status: Acute Code(s): Z29.9 - ENCOUNTER FOR PROPHYLACTIC MEASURES, UNSPECIFIED SNOMED Code(s): 912674935 Comment: - Currently on hold (9) Full code status Current Visit: Yes Status: Acute Code(s): Z78.9 - OTHER SPECIFIED HEALTH STATUS SNOMED Code(s): 113049739 Status and Disposition: Inpatient; ortho following; ID following Does not have insurance; not taking insulin because could not afford it. Attending: Zoraida Hernandez Attestation Documenting Resident: Mariaa Jones Supervising Physician: Zoraida Hernandez Attending/Supervising Physician Comment: Agree with resident note. Attending addendum: 28M IDDM Type 1, PSA in remission , tob use d/o, mood d/o who is a transfer from [facility] (admitted there on 05/01) with resolved DKA and RLE SSTI c/b complex abscess, MSSA bacteremia #RLE Abscess: Repeat washout 05/08 s/p 1st washout on 05/04 -Continue Cefazolin, MSSA on original culture from wound -Synovial fluid NGTD from tap on 05/08 in both ankle and knee -Now with wound vac, concern for skin necrosis #MSSA Bacteremia: From leg, will need GUANAKO to check valve, schedule for 05/11, TTE neg for veg on 05/04, cx now neg from 05/06 #IDDM: A1C 14, will need extensive teaching, liekly need ot increase insulin today -Stop fluids starting 05/10 #Tob: NRT #Anxiety: Developing sig anxiety, restart meds Lexapro trial, Ativan PRN, Seroquel QHS #DVT: On hold, likely safe to resume over weekend Attestation: This service has been performed in part by a resident under the direction of a teaching physician.I, Zoraida Hernandez, performed the service, or was physically present during the critical, or castañeda portions of the service, furnished by the resident. I participated in the management of the patient.
[2019-05-09] MEDS: Senna TAB 8.6 mg* TAB PO SCH (08:40)
[2019-05-09] MEDS: Insulin GLARGINE(*) 1 UNITS UNIT SUBCUT SCH ×2 (08:41→20:23)
[2019-05-09] MEDS: Insulin LISPRO* 1 UNITS UNIT SUBCUT SCH ×5 (08:41→20:24)
[2019-05-09] MEDS: NS 0.9% 1000 ML** 1,000 ML IV SCH (08:45)
--- NOTE | 2019-05-09 09:51 | PN ---
Progress Note - Progress Note Date of Service: 05/09/19 SOAP: Subjective: - Operative note to be dictated this morning. Knee and ankle were aspirated and had clear yellow joint fluid, normal volumes, consistent with no joint infections. Right thigh had some increased serous fluid. It was not cloudy and certainly not purulent. The right lower leg anterior compartment however, looked horrible again, with gaby pus present in it. The pus was clearly threatening the integrity of the overlying subcutaneous tissue and skin. Despite a thorough initial washout, his immune system is clearly not capable of fighting well this MSSA infection. For these reasons, I did another I&D with 9 Liters of fluid and put a VAC dressing on over the lower leg anterolateral incision. Hopefully this will prevent the re-accumulation of pus and allow the subcutaneous tissues and skin to heal. - Pain still today - Patient continues to be unable to provide assistance with history with regards to whether his pain is better, worse than, or the same as yesterday or any other point in time. His description of where his pain is varies. He described numbness in his right foot than had equivalent/symmetric sensation to light touch all nerve distributions bilateral feet. Objective: - Tranquil and in NAD, non-toxic appearing prior to exam, slightly diaphoretic and crying with and after exam RLE - Thigh incision intact, skin looks good. Drainage serosanguinous on the dressing. - Thigh has no erythema, no clear soft tissue swelling - Knee has continued flexed posture. Patient gets upset with movement of it. - Lower leg VAC in place sucking well. - Lower leg skin about anterolateral skin incision looks the same, not worse than yesterday - Lower leg medial incision is c/d/i - Foot mild-moderate swelling - DP pulse intact, warm well perfused - Sensation intact foot - Patient can flex/extend toes, has difficulty with ankle active motion, difficult to assess if it is pain inhibition or weakness Microbiology Gram stains from knee and ankle (x2) joints and lateral thigh negative, culture pending. 05/08/19 19:34 Wound Gram Stain - Final 05/08/19 19:29 Body Fluid Gram Stain - Final 05/08/19 19:29 Body Fluid Skin and Soft Tissue MRSA/MSSA (PCR - Final Mrsa Negative S.aureus Negative 05/08/19 19:22 Wound Skin and Soft Tissue MRSA/MSSA (PCR - Final 05/08/19 19:22 Wound Gram Stain - Final Mrsa Negative S.aureus Negative 05/08/19 19:22 Joint Fluid(Synovial) - Knee Right Gram Stain - Final 05/08/19 19:22 Joint Fluid(Synovial) - Knee Right Skin and Soft Tissue MRSA/ MSSA (PCR - Final Mrsa Negative S.aureus Negative Selected Entries 05/08/19 05/08/19 05/08/19 17:00 20:45 21:55 Temperature 98.8 F 97.7 F 97.8 F Pulse Rate Respiratory Rate Blood Pressure (mmHg) O2 Sat by Pulse Oximetry 05/08/19 05/09/19 05/09/19 23:20 00:28 02:30 Temperature 98.0 F 97.0 F 98.2 F Pulse Rate Respiratory Rate Blood Pressure (mmHg) O2 Sat by Pulse Oximetry 05/09/19 03:30 Temperature 98.6 F Pulse Rate 96 Respiratory 14 Rate Blood Pressure 149/67 (mmHg) O2 Sat by Pulse 100 Oximetry Laboratory Tests 05/04/19 05/05/19 05/06/19 17:47 07:21 05:33 WBC Neut % (Auto) C-Reactive Protein 256.01 H 235.80 H 235.14 H 05/06/19 05/07/19 05/07/19 05:33 04:13 04:13 WBC 23.9 H 20.5 H Neut % (Auto) 83.6 82.4 C-Reactive Protein 186.22 H 05/08/19 05/08/19 05/09/19 04:27 04:27 06:05 WBC 15.6 H 22.3 H Neut % (Auto) 77.8 87.4 C-Reactive Protein 125.41 H 05/09/19 06:05 WBC Neut % (Auto) C-Reactive Protein 76.63 H Assessment: POD 1, 5 washouts 05/08/19 procedure included: 1. Aspiration right knee and ankle joints 2. I&D right lateral thigh, including about biceps femoris 3. Repeat I&D right lower leg with placement of wound VAC 4. Exploration right superficial posterior compartment lower leg 5. Limited exploration popliteal fossa Plan: - Continue IV antiobiotics - Continue pain control - Defer to Hospitalist on psych & diabetes manage - Continue wound VAC - Daily skin check by Ortho or Hospitalist to detect any increase in skin compromise - Plan is for repeat I&D Saturday or Saturday with replacement of VAC versus primary closure depending on clinical course - If the patient does not continue to improve pain, exam, and/or labs (CBC, CRP ) in the next few days, we could repeat the MRI thigh to ankle, this time pre and post contrast, to see if there is any other pocket of pus such as in the popliteal fossa, although I think that this possibility is unlikely. - CRP is decreased significantly from previous today; it may increase transiently in 2-3 days secondary to surgery
[2019-05-09] MEDS ORDERED: LORazepam TAB(*) 0.5 MG PO PRN (10:10)
[2019-05-09] MEDS: Escitalopram * 5 MG TAB PO SCH (11:38)
[2019-05-09] MEDS: Enoxaparin(*) 40 MG/0.4 ML SYR SUBCUT SCH (13:24)
[2019-05-09] MEDS ORDERED: QUEtiapine TAB* 25 MG PO SCH (21:00)
[2019-05-09] MEDS ORDERED: traZODone TAB* 50 MG TAB PO SCH (21:00)
--- NOTE | 2019-05-10 01:16 | OP ---
OPERATIVE REPORT: DATE OF OPERATION: 05/08/19 DATE OF : 89 SURGEON: Zuhair Bosch MD. HEALTH SCREENER: PHILLIP Akhtar. A physician phlebotomist lab assistant was required for the length of the procedure for assistance with patient positioning, retraction, and closure. ANESTHESIOLOGIST: Dr. Cade Matute. ANESTHESIA: General anesthesia, local anesthesia with approximately 20 cc of Marcaine 0.5% with epinephrine. PRE-OP DIAGNOSES: 1. Right lower leg abscess, complex. 2. Possible right thigh abscess. 3. Possible right popliteal fossa abscess. 4. Possible right knee joint infection. 5. Possible right ankle joint infection. 6. Status post incision, irrigation, debridement, and drainage of a right lower leg abscess, complex with 3-compartment right lower leg fasciotomy or partial fasciotomy performed by myself, Dr. Bosch, on 11/02/18. 7. Uncontrolled diabetic patient with a hemoglobin A1c of 14.4, with drug addiction. POST-OP DIAGNOSES: 1. Right lower leg complex abscess. 2. No fulminant right thigh abscess. 3. No fulminant right popliteal fossa abscess, though only partial evaluation. 4. Unlikely infection of either right knee or right ankle joint. 5. Status post prior incision, irrigation, debridement, and drainage of right lower leg with 3-compartment fasciotomy, partial or full on 05/04/19. 6. Uncontrolled diabetic patient with hemoglobin A1c of 14.4 and drug addiction. OPERATIVE PROCEDURES: 1. Aspiration, right knee joint. 2. Aspiration, right ankle joint. 3. Incision and drainage, right thigh, lateral and posterolateral. 4. Repeat incision and drainage, right lower leg with abscess in the anterior compartment, but also exploration of lateral, deep posterior and superficial posterior compartments. 5. Placement of wound VAC, vacuum-assisted closure negative pressure device, greater than 50 cm2. ANTIBIOTICS: Ancef 1 g IV. TOURNIQUET TIME: 67 minutes at 300 mmHg, right thigh tourniquet. [id number] TIME: 74 minutes including aspirations and wound VAC applications. IV FLUIDS: See anesthesia note. SPECIMEN: I removed 6 cc of clear yellow fluid from the right knee and sent it to microbiology for Gram stain, culture, and cell count. I aspirated just under 1 cc from the right ankle joint. I then injected approximately 8 cc of normal saline into the right ankle joint and then aspirated 6 cc of that fluid out. Both of these samples from the right ankle joint were sent to microbiology for Gram stain, culture, and cell count. I also used a swab to obtain material for aerobic and anaerobic cultures and Gram stain of the right lateral thigh. IMPLANTS: Wound VAC dressing was placed over 50 cm in size to the anterolateral right lower leg incision. COMPLICATIONS: None. INDICATIONS FOR PROCEDURE: The patient is a 28-year-old man, a diabetic with a hemoglobin A1c of 14.4. He has not taken insulin for some time because he could not afford it. He is a known user of marijuana and methamphetamine and was first admitted to [facility] on 05/01/19, seen by me at [facility] on 05/04/19, transferred to [facility] that day, operated on that evening at [facility] in the first available operating room time. In that first operative procedure, the patient had copious amounts of gaby pus. This pus was mostly in the anterior compartment of the right lower leg; however, there was also much smaller amount of pus present in the deep posterior compartment of the right lower leg. I performed an irrigation and drainage with 9 L of normal saline. I removed some minimal amounts of tissue in the anterior compartment, but noted that much of the muscle of the tibialis anterior had essentially disappeared and the tendon distally was essentially not connected to any muscle. The patient was continued on IV antibiotics postoperatively and the antibiotic changed to Ancef. The patient has been admitted to the hospital service who has been trying to best normalize the patient's blood glucose values. The patient's clinical exam and improvement have been difficult to follow given the patient's difficulty in providing a good history both about the prior history of his disease, infection prior to the hospitalization as well as whether he is improving or not and where exactly his pain is the worst. His anxiety has made examination somewhat difficult. MRI scan prior to the first operative procedure had shown some inflammation about the right distal biceps femoris, but no clear fluid collection, but the patient after his first procedure along with continued right lower leg pain continued complaining of right thigh pain and also right posterior knee when he tried to fully extend his right knee. We have been following labs. White blood count has just recently started to decrease, 15.6 on 05/08/19. CRP likewise had started to decrease with CRP of 125.4 on 05/08/19 down from previous high of 256. However, on 05/07/19 in the evening on a dressing change by me, I noted pus coming out of the wounds, both medial and anterolateral, so I decided the patient needed a revision irrigation with drainage. I spoke to the patient and the hospitalist service about the proper procedure. I made attempts to explore the right thigh in the area of the distal biceps tendon as the patient has had tenderness in that area, little bit of induration in that area on exam, and had MRI findings of inflammation there. As well, his pain has certainly persisted. I certainly know I needed to wash out again in the right lower leg. Given the poor quality of the skin and subcutaneous tissue about the incision site, I was worried about the future viability of this tissue and spoke with the patient about the possible application of a wound VAC dressing to rest that skin and prevent pus reaccumulation after this next procedure. The patient understood. The hospitalist service had been worried about the right knee infection in the joint and I thought that was reasonable. The patient was difficult to even rule out an ankle joint infection based on exam, so I decided intraoperatively that I would also aspirate the right knee and right ankle joints. I spoke with the patient at length prior to this operative procedure about the risks and potential complications of this procedure and of the patient's infection and clinical course. These include bleeding, infection, nerve or blood vessel injury. They include persistence of infection and loss of limb requiring amputation if the patient's infection cannot be controlled. The patient understood to a certain extent. DESCRIPTION OF PROCEDURE: In preoperative holding, the patient signed a written consent. Operative extremity was marked in preoperative holding. As the patient had received 2 g of Ancef within 4 hours, but not within 1 hour prior to the incision, I ordered 1 g Ancef IV to be provided prior to incision. The patient was taken back to the operating room and placed supine on the operating room table, sedated and intubated. A blanket bump was placed under the right hemipelvis. Bone foam was placed under the right lower extremity. The right lower extremity was prepped and draped. It was prepped with povidone solution. A formal surgical time-out was performed. I first aspirated the right knee joint. I fully extended the right knee. With a superolateral approach with the knee extended, I used an 18-gauge needle and a 10 cc syringe and aspirated 6 cc of clear yellow fluid. No cloudiness. No turbidity. Certainly no purulence. This was sent to microbiology. I should note that I used a ChloraPrep stick on the area that I would aspirate through just prior to aspiration for some additional attempt to minimize cross contamination from the lower leg wound that was clearly producing pus from it. I next moved to the right ankle. I prepped the ankle with a ChloraPrep stick and then using an 18-gauge needle and a 10 cc syringe aspirated the right ankle joint. I aspirated just under 1 cc of clear yellow fluid. I set this aside to send to microbiology. Given the low volume, which is typical of the ankle joints, I next injected approximately 6 to 8 cc of normal saline into the ankle. I then re-aspirated approximately 6 cc of fluid. While this sample would not be appropriate for a cell count given the dilution with normal saline, I thought it might have some value for Gram stain and culture. This fluid sample was also clear and yellow. Therefore, after aspirating the knee and ankle, given the appearance of the joint fluid and the volume, my thought on the potential infection of either joint was 0 possibility or close to 0% possibility. I next chose to perform the incision and drainage of the right thigh. I chose this order - thigh and then lower leg, because I wanted to look for any fluid collection in the thigh and did not want to indirectly decompress it during my lower leg incision and drainage. I placed an incision along the lateral distal thigh. Ultimately, I ended up continuing that incision until it communicated with the proximal lower leg incision. I incised down to the iliotibial band using a deep knife and then dissection scissors. I incised the iliotibial band along its course, longitudinally, slightly more posterior than anterior. Deep to the iliotibial band, I encountered the vastus lateralis. I noted just some increased serous fluid. This was more fluid than I would typically encounter at this location. There was some similar increase in serous fluid superficial to the iliotibial band. I dissected from anterior down to the biceps femoris and I also dissected through the vastus lateralis to the femur. No purulence or pus pocket was encountered. I dissected just posterior to the femur and noted the likely location at the neurovascular bundle. It should be stated that I incised the intermuscular septum to move from the anterior to the posterior compartment to visualize the biceps femoris muscle. Wanting to make sure that I did not miss any area of purulence, I next dissected more posteriorly at the level of the iliotibial band to the posterior aspect of the biceps femoris muscle and tendon. I visualized well the peroneal nerve. I did not encounter any purulence whatsoever. There might have been some abnormally high amounts of serous fluid, but no purulence. At this point, I had approached the distal biceps femoris muscle and tendon from both anterior and posterior and encountered no pus. Although I did not intend a formal dissection down to the popliteal fossa in the prone positioning, as I had discussed with the patient preoperatively, I wanted to get some idea if there might be some fluid collection there. So, atraumatically, I dissected medial to the peroneal nerve with my finger deep into the popliteal fossa and did not encounter any purulence whatsoever. With all of this thigh incision open, I milked the popliteal fossa and the distal thigh and there was no fluid that was produced. I was satisfied that there was no clear purulence about the distal biceps femoris and I moved on to the lower leg. I removed carrie from the 2 surgical incision sites from my prior surgery in the right lower leg. There was an abundance of pus in the anterior compartment of the right lower leg. Some of this pus had risen up superficially to be directly deep to the skin and it was clearly causing trauma to the skin and putting it under distress. The posterior deep compartment had a minimal amount of pus, but much less. The amount of pus in both locations was nothing compared to the Saturday05/04/19 procedure, but was still impressive. I removed the pus with a lap pad. I then irrigated with at least 3 L of normal saline. So as to be fully thorough, I next re-explored the lateral compartment of the right lower leg and did not encounter any pus. I also incised some fascia and explored briefly the posterior superficial compartment, which I had not visualized under surgery. There likely is no purulence located there. I returned to the anterior compartment. I debrided some muscle and tendon. Not wanting to remove too much, I held back from removing any borderline tissue , although I suspected that the patient will need more muscle and tendon removed at a subsequent procedure. I next irrigated an additional 6 L of fluid in the right lower leg incisions. It should be stated that when I was in the right thigh, I took swab cultures deep to the iliotibial band in that area with increased serous fluid. I do not believe I took cultures from the right lower leg again. Infection was clear and we already had no organisms from prior procedure. I next performed a closure of the right thigh wound. I closed the iliotibial band with a running stitch using PDS 0 suture. I closed the subcutaneous tissue with buried simple stitches using PDS 2-0 suture. I closed the skin with a running stitch using a nylon 3-0 suture. The medial lower leg wound was closed with buried simple stitches using PDS 2-0 suture in the subcutaneous tissue and a running stitch using nylon 3-0 suture in the skin. We placed some packing at first, although removed it just prior to VAC placement. We did place a 1-inch packing in the right thigh, subfascial, that exited the wound about its midpoint. Regarding the right lower leg anterolateral incision, we closed the proximal and the distal most extent of it with running stitches. However, along most of its length, we did not close it. The skin seemed to stress both anterior and posterior to the incision. Instead, we placed a VAC sponge and hooked it up to a VAC system. No leak was detected. Some local anesthesia was injected about the incision sites. The right thigh wound was dressed. An Orestes bandage was placed over the VAC dressing on the right lower leg. The patient was awakened, extubated, and transferred to the PACU. DISPOSITION: The patient will be readmitted to the hospitalist service postoperatively. The patient will be returned to IV antibiotics. The hospitalist service will work on blood glucose control and anxiety management. We will continue to follow the patient's pain level, his physical exam, CBC, body temperature, and CRP for a feel on our progress in treating this nasty infection. As needed, we could consider a second MRI to see if there are any additional sites of infection in the right lower extremity without IV contrast. The patient makes this situation slightly more difficult because his lack of awareness makes a good history difficult and his anxiety makes a good exam difficult. I will plan on taking the patient back to the operating room on or 05/12/19. At that time, I will either replace the VAC dressing or perform a primary closure of the right lower leg wounds depending on their appearance. I have spoken with the patient that it is a possibility that this does not heal, that the patient might need skin graft, and that the patient might need an amputation. This is a particularly nasty infection. [id number]/CPS #: [id number] MTDD
[2019-05-10] MEDS: oxyCODONE TAB* 5 MG TAB PO PRN ×5 (03:46→20:06)
[2019-05-10] MEDS: Acetaminophen TAB* 325 MG PO SCH ×4 (05:56→21:55)
[2019-05-10] MEDS: ceFAZolin 2 GM PREMIX in ORs 2 GM/50 ML BAG IVPB SCH ×3 (06:02→21:56)
[2019-05-10 06:03] LABS: ABS Eosinophils 0.1 10^3/ul (0-0.6); ABS Lymphocytes 1.3 10^3/ul (1.0-4.8); ABS Monocytes 1.1 10^3/ul (0-0.8); ABS Neutrophils 10.9 10^3/ul (1.5-7.7); Eosinophil % 0.8 %; Hematocrit 31 % (42-52); Hemoglobin 10.4 g/dL (14.0-18.0); Lymphocyte % 9.5 %; Mean Corpuscular HGB Conc 33 g/dL (31-36); Mean Corpuscular Hemoglobin 28 pg (27-31); Mean Corpuscular Volume 84 fL (80-94); Mean Platelet Volume 5.8 fL (7.4-10.4); Platelet Count 528 10^3/uL (150-450); Red Blood Count 3.72 10^6 /uL (4.18-5.48); Red Cell Distribution Width 13 % (10-15); White Blood Count 13.3 10^3/uL (3.5-10.8)
[2019-05-10 06:23] LABS: C Reactive Protein 86.99 mg/L (<8.01); Calcium 8.1 mg/dL (8.6-10.3); EGFR African American 312.2 (>60); Potassium 3.7 mmol/L (3.5-5.0)
[2019-05-10] MEDS: NS 0.9% 1000 ML** 1,000 ML IV SCH (07:30)
--- NOTE | 2019-05-10 08:04 | PN ---
Subjective Date of Service: 05/10/19 Interval History: HD7 on 05/10 28M IDDM Type 1, PSA in remission, tob use d/o, mood d/o who is a transfer from [facility] (admitted there on 05/01) with resolved DKA and RLE SSTI c/b complex abscess, MSSA bacteremia, s/p x2 (05/04, 05/09) washout in OR for extensive abscess in lower tibia area, now w wound vac Overnight VSS Labs: Leukocytosis trending down This morning, seen during lunch, he feels foot is less swollen, attempting to put weight on it, spirits slightly elevated. Syas slept better w/ Seroquel, would like the dose increased. Still can't straighten his R leg at the knee. We dicuss reassuring labs and plan for GUANAKO tomorrow as well as wound vac +/- further washout 05/11 Objective Active Medications: Acetaminophen (Tylenol Tab*) 650 mg PO Q6H [facility] Last Admin: 05/10/19 05:56 Dose: 650 mg Dextrose (Dextrose 50% Vial 50 Ml*) 25 ml IV PUSH .FOR FS < 60 - SS PRN PRN Reason: FS < 60 Enoxaparin Sodium (Lovenox(*)) 40 mg SUBCUT Q24H [facility] Last Admin: 05/09/19 13:24 Dose: 40 mg Escitalopram Oxalate (Lexapro *) 5 mg PO DAILY [facility]; Protocol Last Admin: 05/09/19 11:38 Dose: 5 mg Sodium Chloride (Ns 0.9% 1000 Ml) 1,000 mls @ 100 mls/hr IV PER RATE [facility] Stop: 05/10/19 09:00 Last Admin: 05/10/19 07:30 Dose: 100 mls/hr Cefazolin Sodium/Dextrose (Kefzol 2 Gm Premix In Ors(*)) 2 gm in 50 mls @ 100 mls/hr IVPB Q8H [facility] Last Admin: 05/10/19 06:02 Dose: 100 mls/hr Insulin Glargine (Lantus(*)) 40 units SUBCUT Q12HR [facility] Last Admin: 05/09/19 20:23 Dose: 40 units Insulin Human Lispro (Humalog*) 0 units SUBCUT ACHS [facility]; Protocol Last Admin: 05/09/19 20:24 Dose: 15 units Insulin Human Lispro (Humalog*) 5 units SUBCUT ACHS [facility] Last Admin: 05/09/19 20:24 Dose: 5 units Lorazepam (Ativan Tab(*)) 0.5 mg PO Q8H PRN PRN Reason: ANXIETY Morphine Sulfate (Morphine Inj (Syringe))*) 1 mg IV Q2H PRN PRN Reason: SEVERE PAIN Last Admin: 05/09/19 17:55 Dose: 1 mg Nicotine Polacrilex (Nicotine Gum*) 2 mg PO Q2H PRN PRN Reason: CRAVING Ondansetron HCl (Zofran Inj*) 4 mg IV Q6H PRN PRN Reason: NAUSEA Oxycodone HCl (Roxycodone Tab*) 5 mg PO Q4H PRN PRN Reason: PAIN - MODERATE Last Admin: 05/10/19 03:46 Dose: 5 mg Oxycodone HCl (Roxycodone Tab*) 10 mg PO Q4H PRN PRN Reason: PAIN - SEVERE Last Admin: 05/10/19 05:55 Dose: 10 mg Quetiapine Fumarate (Seroquel Tab*) 50 mg PO BEDTIME [facility] Last Admin: 05/09/19 20:21 Dose: 50 mg Senna (Senokot 8.6 Mg Tab*) 2 tab PO DAILY [facility] Vital Signs - 8 hr 05/10/19 05/10/19 05/10/19 02:18 03:41 03:46 Temperature 98.2 F Pulse Rate 92 Respiratory 15 16 16 Rate Blood Pressure 134/75 (mmHg) O2 Sat by Pulse 99 Oximetry 05/10/19 05/10/19 05/10/19 05:55 06:02 07:15 Temperature 97.3 F Pulse Rate 87 Respiratory 15 15 18 Rate Blood Pressure 111/56 (mmHg) O2 Sat by Pulse 98 Oximetry 05/10/19 07:31 Temperature Pulse Rate Respiratory 16 Rate Blood Pressure (mmHg) O2 Sat by Pulse Oximetry Oxygen Devices in Use Now: None Appearance: Pleasant in no acute distress Eyes: No Scleral Icterus, PERRLA Ears/Nose/Mouth/Throat: NL Teeth, Lips, Gums, Mucous Membranes Moist Neck: NL Appearance and Movements; NL JVP, Trachea Midline Respiratory: Symmetrical Chest Expansion and Respiratory Effort, Clear to Auscultation Cardiovascular: NL Sounds; No Murmurs; No JVD, RRR Abdominal: NL Sounds; No Tenderness; No Distention, No Hepatosplenomegaly Lymphatic: No Cervical Adenopathy Extremities: No Edema Skin: - - RLE wrapped with wound vac Neurological: Alert and Oriented x 3 Result Diagrams: 05/10/19 05:33 05/10/19 05:32 Microbiology and Other Data: Microbiology 05/04/19 22:21 Skin and Soft Tissue MRSA/MSSA (PCR - Final Leg Right Mrsa Negative S.aureus Positive Gram Stain - Preliminary Assess/Plan/Problems-Billing Assessment: 28M IDDM Type 1, PSA in remission, tob use d/o, mood d/o who is a transfer from [facility] (admitted there on 05/01) with resolved DKA and RLE SSTI c/b complex abscess. 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 - Repeat MRI PRN for changes in pain (2) MSSA bacteremia Current Visit: Yes Status: Acute Code(s): R78.81 - BACTEREMIA SNOMED Code( s): 532886464 Comment: - IV Cefazolin Day 7/ _ on 05/10, ID following - TTE did not show any vegetation - GUANAKO ordered for 05/11 NPO after midnight (3) Sepsis Current Visit: Yes Status: Acute Comment: - Resolved - On cefazolin and maintenance fluid, d/c IVF 05/10 (4) Insulin dependent diabetes mellitus Current Visit: Yes Status: Acute Code(s): E11.9 - TYPE 2 DIABETES MELLITUS WITHOUT COMPLICATIONS; Z79.4 - FERMENTATION ENGINEER (CURRENT) USE OF INSULIN SNOMED Code( s): 93284483 Comment: - A1C 14.4 - Total lispro needs on 05/09: 48 U! - Basal:Increased from 33 U BID Glargine to 40 U BID, will dose reduce tonight for NPO, back to 40 BID when tolerating diet again - Bolus: also added Lispro 5U AC - Corrective: High dose (> 30BMI) sliding scale - Pt would like 70/30 in future (5) Polysubstance abuse Current Visit: Yes Status: Acute Code(s): F19.10 - OTHER PSYCHOACTIVE SUBSTANCE ABUSE, UNCOMPLICATED SNOMED Code(s): 295670583 Comment: - Pt denies active IVDU, continue open ended discussion (6) Elevated alkaline phosphatase level Current Visit: Yes Status: Acute Code(s): R74.8 - ABNORMAL LEVELS OF OTHER SERUM ENZYMES SNOMED Code(s): 389107021 Comment: - Normal alt and ast; could be from liver and bone - GGT borderline high - Could be osteomyelitis; consider MRI in future per ortho (7) Mood disorder Current Visit: Yes Status: Acute Code(s): F39 - UNSPECIFIED MOOD [AFFECTIVE ] DISORDER SNOMED Code(s): 93734770 Comment: - Seroquel QHS, increase from 50 to 100mg this evening, Trial low dose Escitalopram 5mg daily, PRN Ativan, he is aware no rx to go home of ativan (8) DVT prophylaxis Current Visit: Yes Status: Acute Code(s): Z29.9 - ENCOUNTER FOR PROPHYLACTIC MEASURES, UNSPECIFIED SNOMED Code(s): 065489340 Comment: - Lovenox daily, hold 05/11 (9) Full code status Current Visit: Yes Status: Acute Code(s): Z78.9 - OTHER SPECIFIED HEALTH STATUS SNOMED Code(s): 607134028 Status and Disposition: Inpatient; ortho following; ID following Does not have insurance; social work consult in place
[2019-05-10] MEDS: Senna TAB 8.6 mg* TAB PO SCH (08:55)
[2019-05-10] MEDS: Escitalopram * 5 MG TAB PO SCH (08:56)
[2019-05-10] MEDS: Insulin LISPRO* 1 UNITS UNIT SUBCUT SCH ×8 (08:58→21:55)
[2019-05-10] MEDS: Insulin GLARGINE(*) 1 UNITS UNIT SUBCUT SCH (08:59)
--- NOTE | 2019-05-10 10:45 | PN ---
Progress Note - Progress Note Date of Service: 05/10/19 Note: POD 1 s/p right thigh and lower leg I&D with debridement and irrigation: patient still in a lot of pain, keeping knee flexed at 90 degrees. He is lucid and appropriately interacting today. His dressing is C/D/I and is taken down today. His incisions are well approximated intact sutures, mild errythema and edema. No active drainage. Skin is warm to the touch and exquisitely tender. He has been made NPO after midnight by medicine and we reviewed the plan for repeat washout tomorrow with Dr. Bosch. Continue IV abx and pain management.
[2019-05-10] MEDS: Morphine INJ* 2 MG/ML 1 ML SYRINGE (TWO MG - NEW SYRINGE VERSION) IV PRN (10:50)
[2019-05-10] MEDS: Enoxaparin(*) 40 MG/0.4 ML SYR SUBCUT SCH (11:59)
[2019-05-10] MEDS ORDERED: Insulin GLARGINE(*) 1 UNITS UNIT SUBCUT SCH (18:00)
[2019-05-10] MEDS: QUEtiapine TAB* 25 MG PO SCH ×2 (21:54→22:02)
[2019-05-11] MEDS: oxyCODONE TAB* 5 MG TAB PO PRN ×5 (03:26→19:28)
[2019-05-11 05:49] LABS: ABS Basophils 0.1 10^3/ul (0-0.2); ABS Eosinophils 0.1 10^3/ul (0-0.6); ABS Lymphocytes 1.7 10^3/ul (1.0-4.8); ABS Monocytes 0.8 10^3/ul (0-0.8); ABS Neutrophils 7.8 10^3/ul (1.5-7.7); Eosinophil % 1.4 %; Hematocrit 31 % (42-52); Hemoglobin 10.8 g/dL (14.0-18.0); Lymphocyte % 16.1 %; Mean Corpuscular HGB Conc 34 g/dL (31-36); Mean Corpuscular Hemoglobin 29 pg (27-31); Mean Corpuscular Volume 83 fL (80-94); Nucleated Red Blood Cells % 0.1; Platelet Count 601 10^3/uL (150-450); Red Blood Count 3.76 10^6 /uL (4.18-5.48); Red Cell Distribution Width 13 % (10-15); White Blood Count 10.5 10^3/uL (3.5-10.8)
[2019-05-11] MEDS ORDERED: Insulin GLARGINE(*) 1 UNITS UNIT SUBCUT SCH (05:57)
[2019-05-11] MEDS: Acetaminophen TAB* 325 MG PO SCH ×4 (06:06→22:26)
[2019-05-11] MEDS: ceFAZolin 2 GM PREMIX in ORs 2 GM/50 ML BAG IVPB SCH ×3 (06:06→22:26)
[2019-05-11 06:07] LABS: C Reactive Protein 49.75 mg/L (<8.01); Calcium 8.4 mg/dL (8.6-10.3); EGFR African American 241.3 (>60); EGFR Non-African American 199.5 (>60); Potassium 4.2 mmol/L (3.5-5.0)
--- NOTE | 2019-05-11 06:35 | PN ---
Subjective Date of Service: 05/11/19 Interval History: HD8 on 05/11 28M IDDM Type 1, PSA in remission, tob use d/o, mood d/o who is a transfer from [facility] (admitted there on 05/01) with resolved DKA and RLE SSTI c/b complex abscess, MSSA bacteremia, s/p x2 (05/04, 05/09) washout in OR for extensive abscess in lower tibia area, now w wound vac Overnight VSS Labs: Leukocytosis trending down Complains of right leg pain-02/04 Feels hungry No nausea, sweating or lightheadedness. Objective Active Medications: Acetaminophen (Tylenol Tab*) 650 mg PO Q6H [facility] Last Admin: 05/11/19 06:06 Dose: 650 mg Dextrose (Dextrose 50% Vial 50 Ml*) 25 ml IV PUSH .FOR FS < 60 - SS PRN PRN Reason: FS < 60 Enoxaparin Sodium (Lovenox(*)) 40 mg SUBCUT Q24H [facility] Stop: 05/11/19 07:00 Last Admin: 05/10/19 11:59 Dose: 40 mg Escitalopram Oxalate (Lexapro *) 5 mg PO DAILY [facility]; Protocol Last Admin: 05/10/19 08:56 Dose: 5 mg Cefazolin Sodium/Dextrose (Kefzol 2 Gm Premix In Ors(*)) 2 gm in 50 mls @ 100 mls/hr IVPB Q8H [facility] Last Admin: 05/11/19 06:06 Dose: 100 mls/hr Insulin Glargine (Lantus(*)) 20 units SUBCUT 0600,1800 [facility] Insulin Human Lispro (Humalog*) 0 units SUBCUT ACHS [facility]; Protocol Last Admin: 05/10/19 21:55 Dose: 6 units Insulin Human Lispro (Humalog*) 5 units SUBCUT AC [facility] Last Admin: 05/10/19 17:08 Dose: 5 units Lorazepam (Ativan Tab(*)) 0.5 mg PO Q8H PRN PRN Reason: ANXIETY Morphine Sulfate (Morphine Inj (Syringe))*) 1 mg IV Q2H PRN PRN Reason: SEVERE PAIN Last Admin: 05/10/19 10:50 Dose: 1 mg Nicotine Polacrilex (Nicotine Gum*) 2 mg PO Q2H PRN PRN Reason: CRAVING Ondansetron HCl (Zofran Inj*) 4 mg IV Q6H PRN PRN Reason: NAUSEA Oxycodone HCl (Roxycodone Tab*) 5 mg PO Q4H PRN PRN Reason: PAIN - MODERATE Last Admin: 05/10/19 15:34 Dose: 5 mg Oxycodone HCl (Roxycodone Tab*) 10 mg PO Q4H PRN PRN Reason: PAIN - SEVERE Last Admin: 05/11/19 03:26 Dose: 10 mg Quetiapine Fumarate (Seroquel Tab*) 100 mg PO BEDTIME [facility] Last Admin: 05/10/19 22:02 Dose: 100 mg Senna (Senokot 8.6 Mg Tab*) 2 tab PO DAILY [facility] Last Admin: 05/10/19 08:55 Dose: Not Given Vital Signs - 8 hr 05/10/19 05/11/19 05/11/19 23:05 03:08 03:26 Temperature 98.3 F 98.2 F Pulse Rate 98 89 Respiratory 16 16 12 Rate Blood Pressure 124/64 124/71 (mmHg) O2 Sat by Pulse 97 98 Oximetry 05/11/19 06:04 Temperature Pulse Rate Respiratory 12 Rate Blood Pressure (mmHg) O2 Sat by Pulse Oximetry Oxygen Devices in Use Now: None Exam: Patient is lying on a bed with no acute distress. HEENT: Normocephalic and atraumatic Lungs: Clear with no added sound heard Heart: S1/S2 heard with no murmur Abdomen: Soft, nondistended and nontender. Normal BS heard Extremities: Dressing on right leg with wound vac. Decrease ROM inright knee and ankle. Normal motion in toes. Distal pulse intact Neuro: Alert, oriented and conscious Result Diagrams: 05/11/19 05:37 05/11/19 05:37 Microbiology and Other Data: Microbiology 05/04/19 22:21 Skin and Soft Tissue MRSA/MSSA (PCR - Final Leg Right Mrsa Negative S.aureus Positive Gram Stain - Preliminary Assess/Plan/Problems-Billing Assessment: 28M IDDM Type 1, PSA in remission, tob use d/o, mood d/o who is a transfer from [facility] (admitted there on 05/01) with resolved DKA and RLE SSTI c/b complex abscess. Found to have sepsis with MSSA bacteremia, s/p intraoperative I /D on 05/04, 05/09, now w wound vac; 3rd wash out today with wound vac change and possible closure - Patient Problems (1) Abscess of right lower extremity Current Visit: Yes Status: Acute Code(s): L02.415 - CUTANEOUS ABSCESS OF RIGHT LOWER LIMB SNOMED Code(s): 968416477 Comment: - x2 OR washout 05/04, 05/08 - Ortho following, possible washout vs wound vac xchange today with possible primary closure - IV abx Day 8/__ on 05/11 since first washout, currently on Cefazolin narrowed from broad - Concern for poor wound healing, tendon necrosis as alf complication - Repeat MRI PRN for changes in pain (2) MSSA bacteremia Current Visit: Yes Status: Acute Code(s): R78.81 - BACTEREMIA SNOMED Code( s): 422416937 Comment: -culture cleared on 05/06/2019 - IV Cefazolin Day 8/ _ on 05/11, ID following - TTE did not show any vegetation - GUANAKO today (3) Sepsis Current Visit: Yes Status: Acute Comment: - Resolved - On cefazolin (4) Insulin dependent diabetes mellitus Current Visit: Yes Status: Acute Code(s): E11.9 - TYPE 2 DIABETES MELLITUS WITHOUT COMPLICATIONS; 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 - Basal:got 20 U tihis morning; back to 40 BID when tolerating diet again - Bolus: also added Lispro 5U AC; hold for today as npo - Corrective: High dose (> 30BMI) sliding scale - Pt would like 70/30 in future (5) Polysubstance abuse Current Visit: Yes Status: Acute Code(s): F19.10 - OTHER PSYCHOACTIVE SUBSTANCE ABUSE, UNCOMPLICATED SNOMED Code(s): 397925036 Comment: - Pt denies active IVDU, continue open ended discussion (6) Elevated alkaline phosphatase level Current Visit: Yes Status: Acute Code(s): R74.8 - ABNORMAL LEVELS OF OTHER SERUM ENZYMES SNOMED Code(s): 222937150 Comment: - Normal alt and ast; could be from liver and bone - GGT borderline high - Could be osteomyelitis; consider MRI in future per ortho (7) Mood disorder Current Visit: Yes Status: Acute Code(s): F39 - UNSPECIFIED MOOD [AFFECTIVE ] DISORDER SNOMED Code(s): 87132136 Comment: - Seroquel QHS 100 mg daily -Trial low dose Escitalopram 5mg daily, -PRN Ativan, he is aware no rx to go home of ativan (8) DVT prophylaxis Current Visit: Yes Status: Acute Code(s): Z29.9 - ENCOUNTER FOR PROPHYLACTIC MEASURES, UNSPECIFIED SNOMED Code(s): 430333506 Comment: - Lovenox daily, hold today (9) Full code status Current Visit: Yes Status: Acute Code(s): Z78.9 - OTHER SPECIFIED HEALTH STATUS SNOMED Code(s): 184510372 Status and Disposition: Inpatient; ortho following; ID following Does not have insurance; social work consult in place Attending: Josiah Horn Attestation Documenting Resident: Mariaa Jones Supervising Physician: Kimani Horn Attestation: This service has been performed in part by a resident under the direction of a teaching physician.I, Kimani Horn, performed the service, or was physically present during the critical, or castañeda portions of the service, furnished by the resident. I participated in the management of the patient.
[2019-05-11] MEDS: Insulin LISPRO* 1 UNITS UNIT SUBCUT SCH ×7 (08:32→22:27)
[2019-05-11] MEDS: Escitalopram * 5 MG TAB PO SCH (08:41)
[2019-05-11] MEDS: Senna TAB 8.6 mg* TAB PO SCH (08:42)
[2019-05-11] MEDS ORDERED: fentaNYL* 50 MCG/ML 5 ML VIAL (250 MCG VIAL) ONE (10:47)
[2019-05-11] MEDS ORDERED: Midazolam* 1 MG/ML 2 ML VIAL (2 MG) ONE (10:47)
[2019-05-11] MEDS ORDERED: Lidocaine 2% PF * 5 ML VIAL ONE (10:48)
[2019-05-11] MEDS ORDERED: Propofol* 10 MG/ML 20 ML BTL ONE ×2 (10:48→12:36)
[2019-05-11] MEDS ORDERED: Bupivacaine 0.25% W/EPI* 10 ML SDV ONE (11:34)
--- NOTE | 2019-05-11 11:54 | PN ---
Progress Note - Progress Note Date of Service: 05/11/19 SOAP: Subjective: Pain decreased. Still in lower leg. Objective: RLE: - tenderness thigh, more lateral than medial decreased - AROM knee 20-90 flexion, slowly without significant discomfort - dressing c/d/i - ankle and foot decreased swelling to mild - Sensation intact distally in foot/ankle - Can flex, extend toes actively but pain still in lower leg with active/ passive ROM ankle Selected Entries 05/11/19 10:10 Temperature 98.2 F Pulse Rate 75 Respiratory 20 Rate Blood Pressure 130/86 (mmHg) O2 Sat by Pulse 98 Oximetry Laboratory Tests 05/04/19 05/05/19 05/06/19 17:47 07:21 05:33 WBC C-Reactive Protein 256.01 H 235.80 H 235.14 H 05/06/19 05/07/19 05/07/19 05:33 04:13 04:13 WBC 23.9 H 20.5 H C-Reactive Protein 186.22 H 05/08/19 05/08/19 05/09/19 04:27 04:27 06:05 WBC 15.6 H 22.3 H C-Reactive Protein 125.41 H 05/09/19 05/10/19 05/10/19 06:05 05:32 05:33 WBC 13.3 H C-Reactive Protein 76.63 H 86.99 H 05/11/19 05/11/19 05:37 05:37 WBC 10.5 C-Reactive Protein 49.75 H Assessment: Right lower leg complex abscess POD 3, 7 I&Ds Plan: - To OR for I&D anterolateral lower leg, change of VAC dressing versus primary closure now
[2019-05-11] MEDS ORDERED: ceFAZolin 2 GM PREMIX in ORs 2 GM/50 ML BAG ONE (12:04)
[2019-05-11] MEDS ORDERED: DiMENhydriNATE IV* 50 MG/ML VIAL IV PUSH PRN (12:20)
[2019-05-11] MEDS ORDERED: Naloxone* 0.4 MG/ML 1 ML VIAL IV PRN (12:20)
[2019-05-11] MEDS ORDERED: Ketorolac INJ* 30 MG/ML 1 ML VIAL IV PRN (12:20)
[2019-05-11] MEDS ORDERED: HYDROmorphone INJ1* 1 MG/ML SYRINGE IV PRN (12:20)
[2019-05-11] MEDS ORDERED: Metoclopramide IV* 5 MG/ML 2 ML VIAL ONE (12:27)
[2019-05-11] MEDS ORDERED: Ondansetron INJ* 2 MG/ML VIAL ONE (12:28)
[2019-05-11] MEDS ORDERED: Ketorolac INJ* 30 MG/ML 1 ML VIAL ONE (13:14)
[2019-05-11] MEDS ORDERED: fentaNYL* 50 MCG/ML 2 ML VIAL (100 MCG VIAL) ONE ×2 (13:14→13:44)
[2019-05-11] MEDS: fentaNYL* 50 MCG/ML 2 ML VIAL (100 MCG VIAL) IV PRN ×3 (13:17→13:48)
[2019-05-11] MEDS ORDERED: oxyCODONE TAB* 5 MG TAB ONE (13:44)
[2019-05-11] MEDS: Insulin GLARGINE(*) 1 UNITS UNIT SUBCUT SCH (17:12)
--- NOTE | 2019-05-11 18:26 | OP ---
OPERATIVE REPORT: DATE OF OPERATION: 05/11/19 DATE OF : 89 SURGEON: Zuhair Bosch MD WOMEN'S SOCCER COACH: None. ANESTHESIOLOGIST: Dr. Zuhair Headley. ANESTHESIA: General anesthesia, 10 cc of local anesthesia, Marcaine 0.25% with epinephrine. PRE-OP DIAGNOSES: 1. Right lower leg abscess, complex. 2. Uncontrolled diabetes mellitus type 1 with hemoglobin A1c of 14.4 and a history of drug use. 3. History of 2 prior irrigation and debridement procedures. POST-OP DIAGNOSES: 1. Right lower leg abscess, complex. 2. Uncontrolled diabetes mellitus type 1 with hemoglobin A1c of 14.4 and a history of drug use. 3. History of 2 prior irrigation and debridement procedures. OPERATIVE PROCEDURES: 1. Incision, irrigation, debridement, and drainage of right lower leg. 2. Change of VAC dressing, right lower leg, less than 50 cm squared. ANTIBIOTICS: Ancef 2 g IV. IV FLUIDS: See Anesthesia note. ZNAY-GK-SWOE TIME: 36 minutes, which included the application and setup of the VAC dressing. TOURNIQUET TIME: 40 minutes at 300 mmHg, right thigh. SPECIMEN: None. IMPLANTS: VAC dressing sponge. COMPLICATIONS: None. ESTIMATED BLOOD LOSS: Minimal. INDICATIONS FOR PROCEDURE: The patient is a 28-year-old man, a methamphetamine user, with diabetes m ellitus type 1, poorly controlled, noncompliant with medications, with a hemoglobin A1c of 14.4, who first presented to [facility] on 05/01/19 in diabetic ketoacidosis and with some right lower l eg pain. Eventually, Orthopedic Surgery was consulted on 05/04/19 and [facility] and that night performed an irrigation and drainage. The patient continued to be very symptomatic with only a slow decrease in CBC, white blood cell count along with CRP. The patient continued to complain of right thigh pain. I therefore returned to the operating room on 05/08/19, aspirated both the right knee and ankle, performed an I and D of the lat eral distal right thigh and re-irrigated and drained the right lower leg. I placed a VAC sponge lowell use of the significant reaccumulation of pus between those first 2 cases. The patient has been doing better, pain decreased, but still describes pain about the lower leg and t high. VAC has been working well. CRP and white blood cell count have continued to drop. Discussed risks and potential complications with the patient including potential loss of limb and андрей bility to eradicate infection given the patient's poor immune system. DESCRIPTION OF PROCEDURE: On preoperative holding, the patient signed a written consent. Operative extremity was marked in preoperative holding. The patient was taken back to the operating room and p laced supine on the operating room table. Sedated and intubated. Bump under right hemipelvis. Bone foam under right lower extremity. The VAC was removed. Skin was inspected. There was some cunningham looking skin in the lower leg both anterior and posterior to the lateral incision. This is concerning for early necrosis of the subcutaneous tissue and skin. Prepped with Betadine and draping. Surgical time-out performed. Esmarch was applied and tourniquet elevated. I pulled the packing out of the lateral thigh wound prior to prep and drape. I inspected the lateral lower leg wound. There was no gaby pus visible. There was very appear ing muscle more proximally and that slimy tendon distally. I did encounter what was either a small a mount of pus or some necrotic fat at the distal end of the wound. I removed some sutures we had used to close the distal most aspect of that lateral lower leg wound. There was a hole in the skin anterior distal lower leg just distal to the end of our incision. I ext ended our lateral incision a little bit more distal. Irrigated leg wound with 3 L of normal saline. Next, debrided muscle and tendon, tibialis anterior t hrough that lateral wound. I also opened up medial wound. After removing tissue, then irrigated an additional 3 L through both the medial and lateral lower leg wounds. I did not open the thigh wound as there had only been an increase of serous fluid present about the t high at the time of the last operation. No active bleeding. Fashioned a VAC sponge. I intentionally made the VAC sponge very thin, so as to make sure that the skin did not start being less mobile, making it difficult to perform primary clos ure of this wound. I thought it was reasonable to add an additional VAC sponge rather than primary c losure today just because of the poor history of pus and infected bolus eradication in this patient. I used a very long, very thin piece of VAC sponge so as to keep the wound up opened just a little bi t along its length to ensure maximal egress of bacteria, but also to make it so that the skin edges w ere very close to being fully together, so that at the time of final closure, the skin and subcutaneo us tissue will not be under any increased intention. I hooked up the whole VAC apparatus and there w as no leak detected. To the lateral thigh wound, I applied 4x4s, Kerlix, and then an Orestes bandage. A ce bandage over the lower leg VAC dressing. The patient was awakened, extubated, and transferred to the PACU. DISPOSITION: The patient will be readmitted to the hospitalist service. The patient is weightbearin g as tolerated right lower extremity. The patient will continue Ancef 2 g IV per current schedule. Daily white blood cell count as part of CBC and CRP will be used to monitor progress along with the p atient's pain level and exam. I suspect that the patient's history of drug abuse may be influencing his description of 8 to 9/10 pain; however, it is difficult to know this for sure. I anticipate that at the time of the next operation, I will perform a primary closure. Unclear if that will be on 04/28 01/14 or 05/15/19. Of some concern in this patient is whether the areas of skin and subcutaneous tiss ue duress in cunningham coloration, if those will necrose. That would be a problem, and might lead to a ne ed for skin grafting, flaps, or amputation. However, I am [facility] judging by the patient's exam as detailed in my progress note this morning , and the patient's white blood cell count and CRP. [id number]/[facility] #: [id number]
[2019-05-11] MEDS: QUEtiapine TAB* 25 MG PO SCH (19:29)
[2019-05-12] MEDS: oxyCODONE TAB* 5 MG TAB PO PRN ×4 (02:09→21:07)
[2019-05-12] MEDS: Acetaminophen TAB* 325 MG PO SCH ×4 (04:40→22:35)
[2019-05-12] MEDS: ceFAZolin 2 GM PREMIX in ORs 2 GM/50 ML BAG IVPB SCH ×3 (04:40→22:36)
[2019-05-12] MEDS: Insulin GLARGINE(*) 1 UNITS UNIT SUBCUT SCH ×2 (05:39→18:33)
[2019-05-12 06:24] LABS: ABS Basophils 0.1 10^3/ul (0-0.2); ABS Eosinophils 0.1 10^3/ul (0-0.6); ABS Lymphocytes 1.5 10^3/ul (1.0-4.8); ABS Monocytes 0.7 10^3/ul (0-0.8); Eosinophil % 1.2 %; Hematocrit 31 % (42-52); Hemoglobin 10.6 g/dL (14.0-18.0); Lymphocyte % 14.6 %; Mean Corpuscular HGB Conc 35 g/dL (31-36); Mean Corpuscular Hemoglobin 29 pg (27-31); Mean Corpuscular Volume 84 fL (80-94); Mean Platelet Volume 6.3 fL (7.4-10.4); Platelet Count 598 10^3/uL (150-450); Red Blood Count 3.64 10^6 /uL (4.18-5.48); Red Cell Distribution Width 13 % (10-15); White Blood Count 10.4 10^3/uL (3.5-10.8)
--- NOTE | 2019-05-12 06:51 | PN ---
Subjective Date of Service: 05/12/19 Interval History: HD9 on 05/12 28M IDDM Type 1, PSA in remission, tob use d/o, mood d/o who is a transfer from [facility] (admitted there on 05/01) with resolved DKA and RLE SSTI c/b complex abscess, MSSA bacteremia, s/p x3 (05/04, 05/08, 05/11) washout in OR for extensive abscess in lower tibia area, now w wound vac No acute overnight events Vs stable Scheduled for GUANAKO today Complains of pain- improving feels hungry Objective Active Medications: Acetaminophen (Tylenol Tab*) 650 mg PO Q6H [facility] Last Admin: 05/12/19 04:40 Dose: 650 mg Dextrose (Dextrose 50% Vial 50 Ml*) 25 ml IV PUSH .FOR FS < 60 - SS PRN PRN Reason: FS < 60 Escitalopram Oxalate (Lexapro *) 5 mg PO DAILY [facility]; Protocol Last Admin: 05/11/19 08:41 Dose: 5 mg Cefazolin Sodium/Dextrose (Kefzol 2 Gm Premix In Ors(*)) 2 gm in 50 mls @ 100 mls/hr IVPB Q8H [facility] Last Admin: 05/12/19 04:40 Dose: 100 mls/hr Insulin Glargine (Lantus(*)) 20 units SUBCUT 0600,1800 [facility] Last Admin: 05/12/19 05:39 Dose: 20 units Insulin Human Lispro (Humalog*) 0 units SUBCUT ACHS [facility]; Protocol Last Admin: 05/11/19 22:27 Dose: 15 units Insulin Human Lispro (Humalog*) 5 units SUBCUT AC [facility] Last Admin: 05/11/19 17:13 Dose: 5 units Lorazepam (Ativan Tab(*)) 0.5 mg PO Q8H PRN PRN Reason: ANXIETY Morphine Sulfate (Morphine Inj (Syringe))*) 1 mg IV Q2H PRN PRN Reason: SEVERE PAIN Last Admin: 05/10/19 10:50 Dose: 1 mg Nicotine Polacrilex (Nicotine Gum*) 2 mg PO Q2H PRN PRN Reason: CRAVING Ondansetron HCl (Zofran Inj*) 4 mg IV Q6H PRN PRN Reason: NAUSEA Oxycodone HCl (Roxycodone Tab*) 5 mg PO Q4H PRN PRN Reason: PAIN - MODERATE Last Admin: 05/11/19 19:28 Dose: 5 mg Oxycodone HCl (Roxycodone Tab*) 10 mg PO Q4H PRN PRN Reason: PAIN - SEVERE Last Admin: 05/12/19 02:09 Dose: 10 mg Quetiapine Fumarate (Seroquel Tab*) 100 mg PO BEDTIME [facility] Last Admin: 05/11/19 19:29 Dose: 100 mg Senna (Senokot 8.6 Mg Tab*) 2 tab PO DAILY [facility] Last Admin: 05/11/19 08:42 Dose: Not Given Vital Signs - 8 hr 05/11/19 05/12/19 05/12/19 23:15 00:00 02:09 Temperature 98.7 F Pulse Rate 85 Respiratory 14 18 Rate Blood Pressure 115/61 (mmHg) O2 Sat by Pulse 98 98 Oximetry 05/12/19 05/12/19 05/12/19 03:15 03:39 04:39 Temperature 98.2 F Pulse Rate 86 Respiratory 15 16 Rate Blood Pressure 129/65 (mmHg) O2 Sat by Pulse 98 98 Oximetry Oxygen Devices in Use Now: None Exam: Patient is lying on a bed with no acute distress. HEENT: Normocephalic and atraumatic Lungs: Clear with no added sound heard Heart: S1/S2 heard with no murmur Abdomen: Soft, nondistended and nontender. Normal BS heard Extremities: Dressing on right leg with wound vac. Decrease ROM inright knee and ankle; although improved than yesterday. Normal motion in toes. Distal pulse intact Neuro: Alert, oriented and conscious Result Diagrams: 05/12/19 05:18 05/11/19 05:37 Microbiology and Other Data: Microbiology 05/04/19 22:21 Skin and Soft Tissue MRSA/MSSA (PCR - Final Leg Right Mrsa Negative S.aureus Positive Gram Stain - Preliminary Assess/Plan/Problems-Billing Assessment: 28M IDDM Type 1, PSA in remission, tob use d/o, mood d/o who is a transfer from [facility] (admitted there on 05/01) with resolved DKA and RLE SSTI c/b complex abscess. Found to have sepsis with MSSA bacteremia, s/p intraoperative I /D on 05/04, 05/09, 05/11 now w wound vac; possible primary closure tomorrow or on saturday - Patient Problems (1) Abscess of right lower extremity Current Visit: Yes Status: Acute Code(s): L02.415 - CUTANEOUS ABSCESS OF RIGHT LOWER LIMB SNOMED Code(s): 388298152 Comment: - x3 OR washout 05/04, 05/08, 05/11 - Ortho following- possible primary closure in 05/13 or 05/15 - IV abx Day __ on 05/12 since first washout, currently on Cefazolin narrowed from broad - Concern for poor wound healing, tendon necrosis as residential complication- may need skin graft or amputation - Repeat MRI PRN for changes in pain (2) MSSA bacteremia Current Visit: Yes Status: Acute Code(s): R78.81 - BACTEREMIA SNOMED Code( s): 349229836 Comment: -culture cleared on 05/06/2019 - IV Cefazolin Day / _ on 05/12, ID following - TTE did not show any vegetation - GUANAKO negative for vegetation - ID following (3) Sepsis Current Visit: Yes Status: Acute Comment: - Resolved - On cefazolin (4) Insulin dependent diabetes mellitus Current Visit: Yes Status: Acute Code(s): E11.9 - TYPE 2 DIABETES MELLITUS WITHOUT COMPLICATIONS; 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 SNOMED Code( s): 82607125 Comment: - A1C 14.4 - Basal:got 20 U tihis morning; back to 40 BID when tolerating diet again - Bolus: also added Lispro 5U AC; - Corrective: High dose (> 30BMI) sliding scale - Pt would like 70/30 in future (5) Polysubstance abuse Current Visit: Yes Status: Acute Code(s): F19.10 - OTHER PSYCHOACTIVE SUBSTANCE ABUSE, UNCOMPLICATED SNOMED Code(s): 591115335 Comment: - Pt denies active IVDU, continue open ended discussion (6) Elevated alkaline phosphatase level Current Visit: Yes Status: Acute Code(s): R74.8 - ABNORMAL LEVELS OF OTHER SERUM ENZYMES SNOMED Code(s): 432244245 Comment: - Normal alt and ast; could be from liver and bone - GGT borderline high - Could be osteomyelitis; consider MRI in future per ortho (7) Mood disorder Current Visit: Yes Status: Acute Code(s): F39 - UNSPECIFIED MOOD [AFFECTIVE ] DISORDER SNOMED Code(s): 13196042 Comment: - Seroquel QHS 100 mg daily -Trial low dose Escitalopram 5mg daily, -PRN Ativan, he is aware no rx to go home of ativan (8) DVT prophylaxis Current Visit: Yes Status: Acute Code(s): Z29.9 - ENCOUNTER FOR PROPHYLACTIC MEASURES, UNSPECIFIED SNOMED Code(s): 423455468 Comment: - Lovenox daily (9) Full code status Current Visit: Yes Status: Acute Code(s): Z78.9 - OTHER SPECIFIED HEALTH STATUS SNOMED Code(s): 994589278 Status and Disposition: Inpatient; ortho following; ID following Does not have insurance; social work consult in place Attending: Josiah Horn Attestation Documenting Resident: Mariaa Jones Supervising Physician: Kimani Horn Attestation: This service has been performed in part by a resident under the direction of a teaching physician.I, Kimani Horn, performed the service, or was physically present during the critical, or castañeda portions of the service, furnished by the resident. I participated in the management of the patient.
[2019-05-12] MEDS ORDERED: fentaNYL* 50 MCG/ML 2 ML VIAL (100 MCG VIAL) ONE (08:19)
[2019-05-12] MEDS ORDERED: Flumazenil* 0.1 MG/ML 5 ML MDV ONE (08:19)
[2019-05-12] MEDS ORDERED: Midazolam* 1 MG/ML 5 ML VIAL (5 MG) ONE (08:19)
[2019-05-12] MEDS ORDERED: Naloxone* 0.4 MG/ML 1 ML VIAL ONE (08:19)
[2019-05-12] MEDS ORDERED: Lidocaine 2% VISCOUS* 15 ML UDC ONE (08:19)
[2019-05-12] MEDS: Insulin LISPRO* 1 UNITS UNIT SUBCUT SCH ×8 (08:50→21:09)
[2019-05-12] MEDS: Senna TAB 8.6 mg* TAB PO SCH (09:34)
[2019-05-12] MEDS: Escitalopram * 5 MG TAB PO SCH (09:34)
--- NOTE | 2019-05-12 10:09 | TEE ---
*[facility]* [place] [address] Fax #: [phone] Transesophageal Echocardiogram Patient: Jeovany Kaminski : 1990 Study Date: 05/12/2019 Age: 28 Gender: M HR: 96 bpm Height: 71 in /180.3 cm BSA: 1.78 m^2 Weight: 134.7 lb /61.2 kg BMI: 18.8 kg/m^2 *Touring Production Manager: * Hedy Rayo [facility] *Referring Physician: * Mariaa Jones *Reading Physician: * Dinesh Clay MD Indications: Bacteremia. History: Poly-substance abuse. Risk factors: Diabetes mellitus. Conclusions Summary: - Left ventricle: Systolic function is normal. The estimated ejection fraction is 55-60%. Wall motion is normal; there are no regional wall motion abnormalities. - Right ventricle: Systolic function is normal. - Left atrium: There is no evidence of a thrombus in the atrial cavity or appendage. - Atrial septum: A PFO is not demonstrated by color Doppler or agitated saline contrast. - Mitral valve: There is no significant regurgitation. - Aortic valve: There is no evidence of a vegetation. There is no evidence of stenosis. - Tricuspid valve: There is trace regurgitation. - Pericardium, extracardiac: There is no significant pericardial effusion. Study data: Diagnostic Transesophageal Echocardiogram Consent: The risks and benefits of the procedure, including alternatives were discussed with the patient and/or their health care manufacturer's service representative and written informed consent was obtained. Procedure: Initial setup: The patient was brought to the laboratory in the fasting state.Intravenous access was obtained. Surface ECG leads, heart rate, heart rhythm, blood pressure measurements, pulse oximetric signals, and mainstream end-tidal CO2 tracings were monitored throughout the procedure. Sedation. Moderate sedation was administered by nursing staff. History and physical as well as labs were reviewed. An oral bite block was inserted for protection of oral dentition. The patient was placed in the left lateral decubitus position. Topical anesthesia was obtained using viscous lidocaine. A transesophageal probe was inserted by the attending sql server developer. Transesophageal echocardiography was performed, image quality was good, and all standard views were attempted within the limitations of patient tolerance and safety. Multiple 2D, color flow Doppler and spectral Doppler images were obtained. The transesophageal probe was removed. A bubble study was performed. Location: Procedure room. Patient status: Inpatient. Patient room number: 433. Study completion: The patient tolerated the procedure well. There were no complications. Administered medications: Midazolam, 8mg. Fentanyl, 50mcg. Rhythm: Normal sinus rhythm. Findings Left ventricle: Systolic function is normal. The estimated ejection fraction is 55-60%. Wall motion is normal; there are no regional wall motion abnormalities. Left ventricular diastolic function parameters are normal. Right ventricle: The cavity size is normal. Systolic function is normal. Left atrium: The atrium is normal in size. The appendage is of normal size. Emptying velocity is normal. There is no evidence of a thrombus in the atrial cavity or appendage. Right atrium: The atrium is normal in size. Atrial septum: A PFO is not demonstrated by color Doppler or agitated saline contrast. Negative bubble study. Mitral valve: The leaflets are normal thickness. There is no evidence of a vegetation. There is no evidence of stenosis. There is no significant regurgitation. Aortic valve: The valve is trileaflet. The leaflets are normal thickness. There is no evidence of a vegetation. There is no evidence of stenosis. There is no significant regurgitation. Tricuspid valve: The leaflets are normal thickness. There is no evidence of a vegetation. There is no evidence of stenosis. There is trace regurgitation. Pulmonic valve: The leaflets are normal thickness. There is no evidence of a vegetation. There is no evidence of stenosis. There is no significant regurgitation. Aorta: The aortic root appears normal. The aortic arch appears normal. The ascending aorta appears normal. Pericardium: There is no significant pericardial effusion. Pulmonary arteries: The main pulmonary artery is normal-sized. Systemic veins: Inferior vena cava: The vessel is normal in size. Superior vena cava: The vessel is appears normal. Pulmonary veins: The flow of the pulmonary veins appears normal. Measurements Aortic valve Value Ref Aortic root Value Ref Humaira diam, ED 2.1 cm ---- Root diam (H) 3.4 cm <3.4 Mitral valve Value Ref Ascending aorta Value Ref Peak E 0.59 m/sec ---- AAo AP diam, S 3.1 cm ---- Peak A 0.51 m/sec ---- Decel time 129 ms ---- Peak E/A ratio 1.1 ---- Legend: (L) and (H) minerva values outside specified reference range. Prepared and electronically signed by Dinesh Clay MD 05/12/2019 10:08
--- NOTE | 2019-05-12 13:30 | PN ---
Progress Note - Progress Note Date of Service: 05/12/19 SOAP: Subjective: resting in bed comfortably without complaints Objective: Vital Signs Temp Pulse Resp BP Pulse Ox 98.8 F 95 20 108/63 98 05/12/19 11:27 05/12/19 11:27 05/12/19 11:50 05/12/19 11:27 05/12/19 11:27 Vital Signs Temp Pulse Resp BP Pulse Ox 98.8 F 95 20 108/63 98 05/12/19 11:27 05/12/19 11:27 05/12/19 11:50 05/12/19 11:27 05/12/19 11:27 PE: chronic right foot drop, diminished sensation over right foot, 2+DP pulse Assessment: s/p I&D right LE with wound vac placement Plan: 1) NWB RLE 2) continue IV abx 3)Continue DVT prophylaxis 4)wound vac in place; keep intact, may require repeat I&D with vac change
[2019-05-12] MEDS: QUEtiapine TAB* 25 MG PO SCH (21:08)
[2019-05-13] MEDS: Morphine INJ* 2 MG/ML 1 ML SYRINGE (TWO MG - NEW SYRINGE VERSION) IV PRN ×5 (01:27→20:58)
[2019-05-13] MEDS: Acetaminophen TAB* 325 MG PO SCH ×4 (04:21→22:47)
[2019-05-13] MEDS ORDERED: Insulin GLARGINE(*) 1 UNITS UNIT SUBCUT ONE (05:20)
[2019-05-13] MEDS: Insulin GLARGINE(*) 1 UNITS UNIT SUBCUT SCH ×2 (05:31→17:57)
[2019-05-13] MEDS: ceFAZolin 2 GM PREMIX in ORs 2 GM/50 ML BAG IVPB SCH ×3 (05:32→22:48)
[2019-05-13 05:53] LABS: ABS Basophils 0.1 10^3/ul (0-0.2); ABS Eosinophils 0.1 10^3/ul (0-0.6); ABS Lymphocytes 1.7 10^3/ul (1.0-4.8); ABS Monocytes 0.5 10^3/ul (0-0.8); ABS Neutrophils 5.3 10^3/ul (1.5-7.7); Eosinophil % 1.5 %; Hematocrit 32 % (42-52); Hemoglobin 10.8 g/dL (14.0-18.0); Lymphocyte % 22.3 %; Mean Corpuscular HGB Conc 33 g/dL (31-36); Mean Corpuscular Hemoglobin 28 pg (27-31); Mean Corpuscular Volume 85 fL (80-94); Mean Platelet Volume 6.3 fL (7.4-10.4); Platelet Count 656 10^3/uL (150-450); Red Blood Count 3.83 10^6 /uL (4.18-5.48); Red Cell Distribution Width 13 % (10-15); White Blood Count 7.7 10^3/uL (3.5-10.8)
[2019-05-13 06:11] LABS: BUN/Creatinine Ratio 35.5 (8-20); Calcium 8.6 mg/dL (8.6-10.3); EGFR African American 188.3 (>60); EGFR Non-African American 155.6 (>60); Potassium 4.4 mmol/L (3.5-5.0)
--- NOTE | 2019-05-13 07:12 | PN ---
Subjective Date of Service: 05/13/19 Interval History: HD10 on 05/13 28M IDDM Type 1, PSA in remission, tob use d/o, mood d/o who is a transfer from [facility] (admitted there on 05/01) with resolved DKA and RLE SSTI c/b complex abscess, MSSA bacteremia, s/p x3 (05/04, 05/08, 05/11, 05/13) washout in OR for extensive abscess in lower tibia area, now w wound vac No acute overnight events VS stable Complains of pain on right leg Feels hungry Objective Active Medications: Acetaminophen (Tylenol Tab*) 650 mg PO Q6H [facility] Last Admin: 05/13/19 04:21 Dose: Not Given Dextrose (Dextrose 50% Vial 50 Ml*) 25 ml IV PUSH .FOR FS < 60 - SS PRN PRN Reason: FS < 60 Escitalopram Oxalate (Lexapro *) 5 mg PO DAILY [facility]; Protocol Last Admin: 05/12/19 09:34 Dose: 5 mg Heparin Sodium (Porcine) (Heparin Vial(*)) 5,000 units SUBCUT Q8HR [facility] Cefazolin Sodium/Dextrose (Kefzol 2 Gm Premix In Ors(*)) 2 gm in 50 mls @ 100 mls/hr IVPB Q8H [facility] Last Admin: 05/13/19 05:32 Dose: 100 mls/hr Insulin Glargine (Lantus(*)) 40 units SUBCUT 0600,1800 [facility] Last Admin: 05/13/19 05:31 Dose: Not Given Insulin Human Lispro (Humalog*) 0 units SUBCUT ACHS [facility]; Protocol Last Admin: 05/12/19 21:09 Dose: 3 units Insulin Human Lispro (Humalog*) 5 units SUBCUT AC [facility] Last Admin: 05/12/19 18:32 Dose: 5 units Lorazepam (Ativan Tab(*)) 0.5 mg PO Q8H PRN PRN Reason: ANXIETY Morphine Sulfate (Morphine Inj (Syringe))*) 1 mg IV Q2H PRN PRN Reason: SEVERE PAIN Last Admin: 05/13/19 05:31 Dose: 1 mg Nicotine Polacrilex (Nicotine Gum*) 2 mg PO Q2H PRN PRN Reason: CRAVING Ondansetron HCl (Zofran Inj*) 4 mg IV Q6H PRN PRN Reason: NAUSEA Oxycodone HCl (Roxycodone Tab*) 5 mg PO Q4H PRN PRN Reason: PAIN - MODERATE Last Admin: 05/12/19 11:50 Dose: 5 mg Oxycodone HCl (Roxycodone Tab*) 10 mg PO Q4H PRN PRN Reason: PAIN - SEVERE Last Admin: 05/12/19 21:07 Dose: 10 mg Quetiapine Fumarate (Seroquel Tab*) 100 mg PO BEDTIME [facility] Last Admin: 05/12/19 21:08 Dose: 100 mg Senna (Senokot 8.6 Mg Tab*) 2 tab PO DAILY [facility] Last Admin: 05/12/19 09:34 Dose: 2 tab Vital Signs - 8 hr 05/12/19 05/13/19 05/13/19 23:22 00:05 01:27 Temperature 98.5 F Pulse Rate 85 Respiratory 18 14 16 Rate Blood Pressure 124/68 (mmHg) O2 Sat by Pulse 97 Oximetry 05/13/19 05/13/19 05/13/19 02:52 03:04 05:31 Temperature 98.3 F Pulse Rate 85 Respiratory 15 12 15 Rate Blood Pressure 130/74 (mmHg) O2 Sat by Pulse 99 Oximetry Oxygen Devices in Use Now: None Exam: Patient is lying on a bed with no acute distress. HEENT: Normocephalic and atraumatic Lungs: Clear with no added sound heard Heart: S1/S2 heard with no murmur Abdomen: Soft, nondistended and nontender. Normal BS heard Extremities: Dressing on right leg with wound vac. Decrease ROM in right knee and ankle; although improved than yesterday. Normal motion in toes. Distal pulse intact Neuro: Alert, oriented and conscious - Nutrition: Malnutrition Diagnosis/Plan Malnutrition Assessment by Registered Dietitian: Malnutrition Assessment Clinical Characteristics Chronic,Severe Malnutrition Assessment: Pt meets criteria for severe malnutrition in the Criteria setting of chronic illness aeb significant wt loss (50 lbs, 25% BW) x 1 mo and visible muscle wasting (clavicle) Malnutrition Assessment: Pt declines gluerna. Will trial 2% milk with 1 Interventions scoop benepro powder (155 kcals, 14 g pro, per serving) BID for snack Malnutrition Assessment: Goals 1. adequate intake to support hydration and lean body mass without further wt loss 2. glycemic control within inpatient parameters ; no s/sx hypo-hyperglycemia 3. maintain serum electrolytes WNL 4. regulation of bowel pattern; no c/o constipation (or diarrhea) Result Diagrams: 05/13/19 05:20 05/13/19 05:20 Microbiology and Other Data: Microbiology 05/04/19 22:21 Skin and Soft Tissue MRSA/MSSA (PCR - Final Leg Right Mrsa Negative S.aureus Positive Gram Stain - Preliminary Assess/Plan/Problems-Billing Assessment: 28M IDDM Type 1, PSA in remission, tob use d/o, mood d/o who is a transfer from [facility] (admitted there on 05/01) with resolved DKA and RLE SSTI c/b complex abscess. Found to have sepsis with MSSA bacteremia, s/p intraoperative I /D on 05/04, 05/09, 05/11, 05/13 now w wound vac; possible primary closure tomorrow or on saturday - Patient Problems (1) Abscess of right lower extremity Current Visit: Yes Status: Acute Code(s): L02.415 - CUTANEOUS ABSCESS OF RIGHT LOWER LIMB SNOMED Code(s): 951965952 Comment: - x3 OR washout 05/04, 05/08, 05/11; 4th OR today - Ortho following - IV abx Day __ on 05/13 since first washout, currently on Cefazolin narrowed from broad - Concern for poor wound healing, tendon necrosis as supervisor intermediates complication- may need skin graft or amputation - Repeat MRI PRN for changes in pain (2) MSSA bacteremia Current Visit: Yes Status: Acute Code(s): R78.81 - BACTEREMIA SNOMED Code( s): 590663121 Comment: -culture cleared on 05/06/2019 - IV Cefazolin Day 10/ _ on 05/13, ID following - TTE did not show any vegetation - GUANAKO negative for vegetation - ID following (3) Sepsis Current Visit: Yes Status: Acute Comment: - Resolved - On cefazolin (4) Insulin dependent diabetes mellitus Current Visit: Yes Status: Acute Code(s): E11.9 - TYPE 2 DIABETES MELLITUS WITHOUT COMPLICATIONS; Z79.4 - 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 (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) USE OF INSULIN SNOMED Code( s): 76069814 Comment: - A1C 14.4 - Basal:got 20 U tihis morning; back to 40 BID when tolerating diet again - Bolus: also added Lispro 5U AC; - Corrective: High dose (> 30BMI) sliding scale; hold corrective and bolus if NPO - Pt would like 70/30 in future (5) Polysubstance abuse Current Visit: Yes Status: Acute Code(s): F19.10 - OTHER PSYCHOACTIVE SUBSTANCE ABUSE, UNCOMPLICATED SNOMED Code(s): 120642729 Comment: - Pt denies active IVDU, continue open ended discussion (6) Elevated alkaline phosphatase level Current Visit: Yes Status: Acute Code(s): R74.8 - ABNORMAL LEVELS OF OTHER SERUM ENZYMES SNOMED Code(s): 673780264 Comment: - Normal alt and ast; could be from liver and bone - GGT borderline high - Could be osteomyelitis; consider MRI in future per ortho (7) Mood disorder Current Visit: Yes Status: Acute Code(s): F39 - UNSPECIFIED MOOD [AFFECTIVE ] DISORDER SNOMED Code(s): 40367924 Comment: - Seroquel QHS 100 mg daily -Trial low dose Escitalopram 5mg daily, -PRN Ativan, he is aware no rx to go home of ativan (8) DVT prophylaxis Current Visit: Yes Status: Acute Code(s): Z29.9 - ENCOUNTER FOR PROPHYLACTIC MEASURES, UNSPECIFIED SNOMED Code(s): 753749020 Comment: - On hparin as it will be easy to titrate if he goes to OR again (9) Full code status Current Visit: Yes Status: Acute Code(s): Z78.9 - OTHER SPECIFIED HEALTH STATUS SNOMED Code(s): 035191174 Status and Disposition: Inpatient; ortho following; ID following Does not have insurance; social work consult in place Attending: Josiah Horn Attestation Documenting Resident: Mariaa Jones Supervising Physician: Kimani Horn Attestation: This service has been performed in part by a resident under the direction of a teaching physician.I, Kimani Horn, performed the service, or was physically present during the critical, or castañeda portions of the service, furnished by the resident. I participated in the management of the patient.
[2019-05-13] MEDS ORDERED: Insulin GLARGINE(*) 1 UNITS UNIT SUBCUT SCH (08:00)
[2019-05-13 08:06] LABS: C Reactive Protein 19.53 mg/L (<8.01)
[2019-05-13] MEDS: Insulin LISPRO* 1 UNITS UNIT SUBCUT SCH ×7 (08:12→21:57)
[2019-05-13] MEDS: Senna TAB 8.6 mg* TAB PO SCH (09:19)
[2019-05-13] MEDS: Escitalopram * 5 MG TAB PO SCH (09:20)
[2019-05-13] MEDS: Heparin VIAL(*) 5000 UNITS/ML VIAL (FIVE THOUSAND) SUBCUT SCH ×3 (09:22→21:57)
[2019-05-13] MEDS ORDERED: fentaNYL* 50 MCG/ML 2 ML VIAL (100 MCG VIAL) ONE ×5 (12:14→14:52)
[2019-05-13] MEDS ORDERED: Lidocaine 2% PF * 5 ML VIAL ONE (12:14)
[2019-05-13] MEDS ORDERED: Midazolam* 1 MG/ML 5 ML VIAL (5 MG) ONE (12:14)
[2019-05-13] MEDS ORDERED: Propofol* 10 MG/ML 20 ML BTL ONE (12:14)
[2019-05-13] MEDS ORDERED: HYDROcodone/ACETAMIN 5-325 MG* 1 TAB PO PRN (12:27)
[2019-05-13] MEDS ORDERED: Naloxone* 0.4 MG/ML 1 ML VIAL IV PRN (12:27)
[2019-05-13] MEDS ORDERED: oxyCODONE/Acetamin 5/325 MG* TAB PO PRN (12:27)
[2019-05-13] MEDS ORDERED: DiMENhydriNATE IV* 50 MG/ML VIAL IV PUSH PRN (12:27)
[2019-05-13] MEDS ORDERED: Bupivacaine 0.25% W/EPI* 10 ML SDV ONE ×2 (12:59)
[2019-05-13] MEDS ORDERED: Ondansetron INJ* 2 MG/ML VIAL ONE (13:46)
[2019-05-13] MEDS: fentaNYL* 50 MCG/ML 2 ML VIAL (100 MCG VIAL) IV PRN ×3 (14:20→14:54)
[2019-05-13] MEDS ORDERED: oxyCODONE/Acetamin 5/325 MG* TAB ONE (14:32)
[2019-05-13] MEDS: oxyCODONE TAB* 5 MG TAB PO PRN ×2 (17:56→22:00)
[2019-05-13] MEDS: QUEtiapine TAB* 25 MG PO SCH (21:59)
--- NOTE | 2019-05-14 00:13 | OP ---
DATE OF OPERATION: 05/13/19 - ROOM #433 DATE OF : [birth year] SURGEON: Zuhair Bosch MD INSULATION CUPOLA OPERATOR: PHILLIP Brower. A physician teachers' assistant was required for the length of the procedure for assistance with patient positioning, retraction, and closure. ANESTHESIOLOGIST: Dr. Cammy Montoya. ANESTHESIA: General anesthesia, local anesthesia using approximately 10 cc of Marcaine 0.25% with epinephrine. PRE-OP DIAGNOSES: 1. Right lower leg abscess, complex. 2. Status post multiple prior incision, irrigation, debridement and drainage procedures. POST-OP DIAGNOSES: 1. Right lower leg abscess, complex. 2. Status post multiple prior incision, irrigation, debridement, and drainage procedures. OPERATIVE PROCEDURE: 1. Incision, irrigation, debridement, and drainage of right lower leg. 2. Removal of negative pressure dressing sponge and primary closure. INDICATIONS: The patient is a 28-year-old man, a poorly-controlled diabetic, type 1, and methamphetamine drug user, who has now had 3 prior washouts for a complex right lower leg infection, which caused the necrosis of almost the entire tibialis anterior muscle and tendon along the length of the lower leg. The patient's infection has been effectively treated with those washouts and IV antibiotics. His white blood cell count is normal and his CRP is now within the 20s. Unfortunately, recently, the skin adjacent to the skin incision on the right anterolateral lower leg has looked poorly. It has started to look cunningham with possibly some early necrosis or . For that reason, I stopped the VAC sponge from sucking yesterday afternoon thinking that the sponge, although it has been very effective in removing bacteria and infective material, might be causing some compromise of the skin. I scheduled the patient for a washout today, 2 days after his last VAC change and washout. Discussed risks and potential complications with the patient and his mother last night and with the patient this morning. These include inability to eradicate infection and the possible need for an amputation even as high as above the knee. ANTIBIOTICS: Ancef 2 IV. IV FLUIDS: See Anesthesia note. [id number] TIME: 39 minutes. TOURNIQUET TIME: 29 minutes at 250 mmHg. SPECIMENS: None. IMPLANTS: I placed 3 packings, each with a half-inch iodoform packing. All 3 were placed subfascial and exiting through holes in the skin. ESTIMATED BLOOD LOSS: Minimal. COMPLICATIONS: None. DESCRIPTION OF PROCEDURE: In preoperative holding, the patient signed a written consent. Operative extremity was marked in preoperative holding. The patient was taken back to the operating room and placed supine on operating room table. Sedated and intubated. A blanket bump placed under the right hemipelvis. Bone foam. Mini time-out performed. I cut stitches that were holding wound VAC dressing in place. Removed wound VAC sponge. Removed some stitches overlying the distal most aspect of the thigh , level of the knee and the proximal lower leg. Prepped with povidone solution and drape. Surgical time-out performed, formal. Exploration of skin. The area of cunningham about the mid lower leg anteriorly and proximal lower leg posteriorly to the skin incision appeared somewhat cunningham. Fortunately, there appeared to be clear subcutaneous tissue and even some fascia deep to the skin in both of these locations such that, if the skin totally necrosed, there was a chance that the underlying tissue will remain intact. This may not be the case because I suspect that the most diseased parts of this tissue were the subcutaneous tissue. I explored underneath the more posterior compromised tissue. There was no infected bullous, but subcutaneous tissue did not inspire lot of confidence about its healing ability. We irrigated with 3 L about the distal thigh, knee, above the fascia and the lower leg, below at above the fascia of the anterior compartment. There was no necrotic muscle to remove. There was some little bit of unhealthy tibialis anterior tendon tissue remaining in the distal aspect of the wound and I just cut an additional centimeter of that tissue distally. Irrigated another 3 L through the wound. After that, I elevated the tourniquet. There was no bleeding. I placed packing subfascial in the anterior compartment of the lower leg. I closed the fascia very loosely in several spots with PDS 2-0 suture, figure-of- eight configuration. We very loosely, well , between them, placed multiple buried simple stitches in the subcutaneous tissue providing some closure with PDS 2-0 suture. As stated at the start of the last sentence, we a decent distance so as not to make the wound closure overly tight. We next closed the skin with nylon 3-0 suture and at times nylon 4-0 suture, with running stitches and several simple stitches. We left open the skin surrounding the 3 iodoform packings as they exited the skin to allow these to be 3 natural areas for any fluid to drain out of the lower leg. We applied dressing, 4x4s, ABDs, sterile Webril. We then applied an CASSI bandage about the lower leg, knee, and thigh with some compression to minimize the accumulation of fluid in the potential space of the anterior compartment. Could still get 2 fingers underneath the CASSI bandage and dorsalis pedis pulse was nicely intact and vigorous. The patient was awakened, extubated, and transferred to the PACU. DISPOSITION: The patient will continue on IV antibiotics on the hospitalist service as before. We will continue to monitor daily CBCs and CRP levels. We will do a dressing change daily with removal of each of the 3 sterile packings 1 cm by orthopedic service or nursing. We will get a wound care consult tomorrow, 05/14/19, to see if there is anything we can do to increase the viability of the tissue at risk on either side of the surgical incision. We will see how this skin heals. [id number]/[facility] #: [id number] [place]
[2019-05-14] MEDS: oxyCODONE TAB* 5 MG TAB PO PRN ×6 (02:47→21:12)
[2019-05-14] MEDS: Acetaminophen TAB* 325 MG PO SCH ×4 (05:17→22:40)
[2019-05-14] MEDS: ceFAZolin 2 GM PREMIX in ORs 2 GM/50 ML BAG IVPB SCH ×3 (05:18→22:41)
[2019-05-14] MEDS: Morphine INJ* 2 MG/ML 1 ML SYRINGE (TWO MG - NEW SYRINGE VERSION) IV PRN ×2 (05:22→12:24)
[2019-05-14] MEDS: Heparin VIAL(*) 5000 UNITS/ML VIAL (FIVE THOUSAND) SUBCUT SCH ×3 (05:23→21:13)
[2019-05-14] MEDS: Insulin GLARGINE(*) 1 UNITS UNIT SUBCUT SCH ×2 (05:53→17:02)
[2019-05-14 05:59] LABS: ABS Basophils 0.1 10^3/ul (0-0.2); ABS Eosinophils 0.1 10^3/ul (0-0.6); ABS Monocytes 0.7 10^3/ul (0-0.8); ABS Neutrophils 6.9 10^3/ul (1.5-7.7); Eosinophil % 1.1 %; Hematocrit 31 % (42-52); Hemoglobin 10.6 g/dL (14.0-18.0); Lymphocyte % 20.3 %; Mean Corpuscular HGB Conc 34 g/dL (31-36); Mean Corpuscular Hemoglobin 29 pg (27-31); Mean Corpuscular Volume 84 fL (80-94); Mean Platelet Volume 6.2 fL (7.4-10.4); Platelet Count 721 10^3/uL (150-450); Red Blood Count 3.69 10^6 /uL (4.18-5.48); Red Cell Distribution Width 13 % (10-15); White Blood Count 9.7 10^3/uL (3.5-10.8)
--- NOTE | 2019-05-14 06:42 | PN ---
Subjective Date of Service: 05/14/19 Interval History: HD11 on 05/14 28M IDDM Type 1, PSA in remission, tob use d/o, mood d/o who is a transfer from [facility] (admitted there on 05/01) with resolved DKA and RLE SSTI c/b complex abscess, MSSA bacteremia, s/p x3 (05/04, 05/08, 05/11, 05/13) washout in OR for extensive abscess in lower tibia area, now w wound vac. Primary closure of wound done on 05/13 No acute overnight events. VS stable Jerrell is feeling a lot better today. He still has pain 01/05 but it has improved from yesterday. No fever, rash or diarrhea Last BM 2 days ago Objective Active Medications: Acetaminophen (Tylenol Tab*) 650 mg PO Q6H [facility] Last Admin: 05/14/19 05:17 Dose: 650 mg Dextrose (Dextrose 50% Vial 50 Ml*) 25 ml IV PUSH .FOR FS < 60 - SS PRN PRN Reason: FS < 60 Escitalopram Oxalate (Lexapro *) 5 mg PO DAILY [facility]; Protocol Last Admin: 05/13/19 09:20 Dose: 5 mg Heparin Sodium (Porcine) (Heparin Vial(*)) 5,000 units SUBCUT Q8HR [facility] Last Admin: 05/14/19 05:23 Dose: 5,000 units Cefazolin Sodium/Dextrose (Kefzol 2 Gm Premix In Ors(*)) 2 gm in 50 mls @ 100 mls/hr IVPB Q8H [facility] Last Admin: 05/14/19 05:18 Dose: 100 mls/hr Insulin Glargine (Lantus(*)) 40 units SUBCUT 0600,1800 [facility] Last Admin: 05/14/19 05:53 Dose: 40 unit Insulin Human Lispro (Humalog*) 0 units SUBCUT ACHS [facility]; Protocol Last Admin: 05/13/19 21:57 Dose: 12 units Insulin Human Lispro (Humalog*) 5 units SUBCUT AC [facility] Last Admin: 05/13/19 17:57 Dose: 5 units Lorazepam (Ativan Tab(*)) 0.5 mg PO Q8H PRN PRN Reason: ANXIETY Morphine Sulfate (Morphine Inj (Syringe))*) 1 mg IV Q2H PRN PRN Reason: SEVERE PAIN Last Admin: 05/14/19 05:22 Dose: 1 mg Nicotine Polacrilex (Nicotine Gum*) 2 mg PO Q2H PRN PRN Reason: CRAVING Ondansetron HCl (Zofran Inj*) 4 mg IV Q6H PRN PRN Reason: NAUSEA Oxycodone HCl (Roxycodone Tab*) 5 mg PO Q4H PRN PRN Reason: PAIN - MODERATE Last Admin: 05/14/19 02:47 Dose: 5 mg Oxycodone HCl (Roxycodone Tab*) 10 mg PO Q4H PRN PRN Reason: PAIN - SEVERE Last Admin: 05/13/19 22:00 Dose: 10 mg Quetiapine Fumarate (Seroquel Tab*) 100 mg PO BEDTIME [facility] Last Admin: 05/13/19 21:59 Dose: 100 mg Senna (Senokot 8.6 Mg Tab*) 2 tab PO DAILY [facility] Last Admin: 05/13/19 09:19 Dose: 2 tab Vital Signs - 8 hr 05/13/19 05/13/19 05/14/19 23:33 23:44 00:00 Temperature 98.1 F Pulse Rate 109 Respiratory 16 15 Rate Blood Pressure 123/71 (mmHg) O2 Sat by Pulse 97 97 Oximetry 05/14/19 05/14/19 05/14/19 02:47 03:18 05:22 Temperature 98.6 F Pulse Rate 86 Respiratory 15 16 16 Rate Blood Pressure 123/69 (mmHg) O2 Sat by Pulse 98 Oximetry 05/14/19 05:26 Temperature Pulse Rate Respiratory 16 Rate Blood Pressure (mmHg) O2 Sat by Pulse Oximetry Oxygen Devices in Use Now: None Exam: Patient is lying on a bed with no acute distress. HEENT: Normocephalic and atraumatic Lungs: Clear with no added sound heard Heart: S1/S2 heard with no murmur Abdomen: Soft, nondistended and nontender. Normal BS heard Extremities: Dressing on right leg. No active ROM in right ankle; has passive ROM. Normal ROM in toes. Distal pulse intact. Neuro: Alert, oriented and conscious - Nutrition: Malnutrition Diagnosis/Plan Malnutrition Assessment by Registered Dietitian: Malnutrition Assessment Clinical Characteristics Chronic,Severe Malnutrition Assessment: Pt meets criteria for severe malnutrition in the Criteria setting of chronic illness aeb significant wt loss (50 lbs, 25% BW) x 1 mo and visible muscle wasting (clavicle) Malnutrition Assessment: Pt declines gluerna. Will trial 2% milk with 1 Interventions scoop benepro powder (155 kcals, 14 g pro, per serving) BID for snack Malnutrition Assessment: Goals 1. adequate intake to support hydration and lean body mass without further wt loss 2. glycemic control within inpatient parameters ; no s/sx hypo-hyperglycemia 3. maintain serum electrolytes WNL 4. regulation of bowel pattern; no c/o constipation (or diarrhea) Result Diagrams: 05/14/19 05:31 05/14/19 05:31 Microbiology and Other Data: Microbiology 05/04/19 22:21 Skin and Soft Tissue MRSA/MSSA (PCR - Final Leg Right Mrsa Negative S.aureus Positive Gram Stain - Preliminary Assess/Plan/Problems-Billing Assessment: 28M IDDM Type 1, PSA in remission, tob use d/o, mood d/o who is a transfer from [facility] (admitted there on 05/01) with resolved DKA and RLE SSTI c/b complex abscess. 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 (5) Polysubstance abuse Current Visit: Yes Status: Acute Code(s): F19.10 - OTHER PSYCHOACTIVE SUBSTANCE ABUSE, UNCOMPLICATED SNOMED Code(s): 138097767 Comment: - Pt denies active IVDU, continue open ended discussion (6) Elevated alkaline phosphatase level Current Visit: Yes Status: Acute Code(s): R74.8 - ABNORMAL LEVELS OF OTHER SERUM ENZYMES SNOMED Code(s): 095902767 Comment: - Normal alt and ast; could be from liver and bone - GGT borderline high - Could be osteomyelitis; consider MRI in future per ortho (7) Mood disorder Current Visit: Yes Status: Acute Code(s): F39 - UNSPECIFIED MOOD [AFFECTIVE ] DISORDER SNOMED Code(s): 54654879 Comment: - Seroquel QHS 100 mg daily -Trial low dose Escitalopram 5mg daily, -PRN Ativan, he is aware no rx to go home of ativan (8) Thrombocytosis Current Visit: Yes Status: Acute Comment: -Could be reactive because of infection or blood loss. -will monitor his plt (9) DVT prophylaxis Current Visit: Yes Status: Acute Code(s): Z29.9 - ENCOUNTER FOR PROPHYLACTIC MEASURES, UNSPECIFIED SNOMED Code(s): 790637614 Comment: - on heparin (10) Full code status Current Visit: Yes Status: Acute Code(s): Z78.9 - OTHER SPECIFIED HEALTH STATUS SNOMED Code(s): 083844936 Status and Disposition: Inpatient; ortho following; ID following Does not have insurance; social work consult in place Attending: Josiah Horn Attestation Documenting Resident: Mariaa Jones Supervising Physician: Kimani Horn Attestation: This service has been performed in part by a resident under the direction of a teaching physician.I, Kimani Horn, performed the service, or was physically present during the critical, or castañeda portions of the service, furnished by the resident. I participated in the management of the patient.
[2019-05-14 07:14] LABS: Calcium 8.7 mg/dL (8.6-10.3); Potassium 4.4 mmol/L (3.5-5.0)
[2019-05-14 07:19] LABS: BUN/Creatinine Ratio 34.6 (8-20); EGFR African American 230.7 (>60); EGFR Non-African American 190.6 (>60)
[2019-05-14] MEDS: Escitalopram * 5 MG TAB PO SCH (08:08)
[2019-05-14] MEDS: Insulin LISPRO* 1 UNITS UNIT SUBCUT SCH ×7 (08:08→21:13)
[2019-05-14] MEDS: Senna TAB 8.6 mg* TAB PO SCH (08:08)
--- NOTE | 2019-05-14 09:19 | PN ---
Progress Note - Progress Note Date of Service: 05/14/19 SOAP: Subjective: CC: leg infection HPI: 28 year old man with IDDM and 2-3 weeks lower right leg pain, admitted to and then transferred here s/p drainage of large lower leg abscess, multiple I &D, vacc removed 05/13. Pain is a little better, more motion in the knee. No fever, rash, or diarrhea. Objective: Vital Signs Temp 37.0 C 05/14/19 03:18 Pulse 86 05/14/19 03:18 Resp 16 05/14/19 08:09 BP 123/69 05/14/19 03:18 Pulse Ox 98 05/14/19 03:18 Intake & Output 05/13/19 05/14/19 05/14/19 18:59 06:59 18:59 Intake Total 1290 530 Output Total 2150 300 Balance 1290 -1620 -300 Intake: IV Fluids 1050 LR 1050 IVPB 50 ABX - CEFAZOLIN 50 Oral 240 480 Output: Urine 2150 300 Other: # Voids 2 Gen:awake, no distress HEENT: no thrush Heart:RRR no murmur Lungs:CTA BL Abd:+BS NTND soft Skin: no rash MSK: right lower leg wrapped; no thigh tenderness Laboratory Results - last 24 hr 05/13/19 05/13/19 05/13/19 11:06 12:24 14:08 WBC RBC Hgb Hct MCV MCH MCHC RDW Plt Count MPV Neut % (Auto) Lymph % (Auto) [place] % (Auto) Eos % (Auto) Baso % (Auto) Absolute Neuts (auto) Absolute Lymphs (auto) Absolute Monos (auto) Absolute Eos (auto) Absolute Basos (auto) Absolute Nucleated RBC Nucleated RBC % Sodium Potassium Chloride Carbon Dioxide Anion Gap BUN Creatinine Est GFR ( Amer) Est GFR (Non-Af Amer) BUN/Creatinine Ratio Glucose POC Glucose (mg/dL) 224 H 195 H 110 H Glucose Meter Confirm Calcium 05/13/19 05/13/19 05/14/19 16:09 21:15 05:31 WBC 9.7 RBC 3.69 L Hgb 10.6 L Hct 31 L MCV 84 MCH 29 MCHC 34 RDW 13 Plt Count 721 H D MPV 6.2 L Neut % (Auto) 70.6 Lymph % (Auto) 20.3 [place]ye % (Auto) 7.1 Eos % (Auto) 1.1 Baso % (Auto) 0.9 Absolute Neuts (auto) 6.9 Absolute Lymphs (auto) 2.0 Absolute Monos (auto) 0.7 Absolute Eos (auto) 0.1 Absolute Basos (auto) 0.1 Absolute Nucleated RBC 0.0 Nucleated RBC % 0.0 Sodium Potassium Chloride Carbon Dioxide Anion Gap BUN Creatinine Est GFR ( Amer) Est GFR (Non-Af Amer) BUN/Creatinine Ratio Glucose POC Glucose (mg/dL) 164 H Glucose Meter Confirm 337 H Calcium 05/14/19 05/14/19 05:31 07:18 WBC RBC Hgb Hct MCV MCH MCHC RDW Plt Count MPV Neut % (Auto) Lymph % (Auto) [place] % (Auto) Eos % (Auto) Baso % (Auto) Absolute Neuts (auto) Absolute Lymphs (auto) Absolute Monos (auto) Absolute Eos (auto) Absolute Basos (auto) Absolute Nucleated RBC Nucleated RBC % Sodium 135 Potassium 4.4 Chloride 95 L Carbon Dioxide 33 H Anion Gap 7 BUN 18 Creatinine 0.52 L Est GFR ( Amer) 230.7 Est GFR (Non-Af Amer) 190.6 BUN/Creatinine Ratio 34.6 H Glucose 163 H POC Glucose (mg/dL) 214 H Glucose Meter Confirm Calcium 8.7 GUANAKO negative for vegetation Assessment: 1. MSSA deep lower leg abscess and bacteremia 2. Right femur osteomyelitis 3. IDDM, uncontrolled Plan: 1. ancef 2gm IV Q8hrs, day 14 (10 since first I&D) of 42 Discussed with care coordination, awaiting reinstatement of insurance
--- NOTE | 2019-05-14 12:58 | PN ---
Progress Note - Progress Note Date of Service: 05/14/19 SOAP: Subjective: []Pt seen at bedside. He reports continued pain of the RLE with even gentle touch, tough he is comfortable laying at rest in bed. Denies feeling of fever or chills. Objective: []Gen: NAD RLE: Dressing removed. All compartments of upper and lower leg compressible, lower leg is globally tender. Proximal thigh incision CDI without erythema and no discharge. Medial calf incision CDI without surrounding erythema and without discharge. Right lateral lower leg incision with well approximated wound edges, pulled each of 3 iodoform packings 1 cm, there is serosanginous discharge and no purulence. Along the incision, proximal lateral lower leg as well as medial mid to distal lower leg skin is cunningham in appearance with some blackened areas. No foul odor. Rewrapped with gauze/ kerlix and violeta Assessment: []POD 1 sp 1. Incision, irrigation, debridement, and drainage of right lower leg. 2. Removal of negative pressure dressing sponge and primary closure. Plan: []Cont IV abx Cont CBC, CRP daily Cont 1 cm removal of iodoform packing daily Needs wound care consult Monitor viability of tissue adjacent to lateral lower leg incision Vital Signs Temp 97.2 F 05/14/19 11:15 Pulse 87 05/14/19 11:15 Resp 20 05/14/19 12:37 BP 134/73 05/14/19 11:15 Pulse Ox 98 05/14/19 11:15 Intake & Output 05/13/19 05/14/19 05/14/19 18:59 06:59 18:59 Intake Total 1290 530 Output Total 2150 1125 Balance 1290 -1620 -1125 Intake: IV Fluids 1050 LR 1050 IVPB 50 ABX - CEFAZOLIN 50 Oral 240 480 Output: Urine 2150 1125 Other: # Voids 2 Laboratory Last Values WBC 9.7 10^3/uL (3.5-10.8) 05/14/19 05:31 RBC 3.69 10^6 /uL (4.18-5.48) L 05/14/19 05:31 Hgb 10.6 g/dL (14.0-18.0) L 05/14/19 05:31 Hct 31 % (42-52) L 05/14/19 05:31 MCV 84 fL (80-94) 05/14/19 05:31 MCH 29 pg (27-31) 05/14/19 05:31 MCHC 34 g/dL (31-36) 05/14/19 05:31 RDW 13 % (10-15) 05/14/19 05:31 Plt Count 721 10^3/uL (150-450) H D 05/14/19 05:31 MPV 6.2 fL (7.4-10.4) L 05/14/19 05:31 Neut % (Auto) 70.6 % 05/14/19 05:31 Lymph % (Auto) 20.3 % 05/14/19 05:31 [place] % (Auto) 7.1 % 05/14/19 05:31 Eos % (Auto) 1.1 % 05/14/19 05:31 Baso % (Auto) 0.9 % 05/14/19 05:31 Absolute Neuts (auto) 6.9 10^3/ul (1.5-7.7) 05/14/19 05:31 Absolute Lymphs (auto) 2.0 10^3/ul (1.0-4.8) 05/14/19 05:31 Absolute Monos (auto) 0.7 10^3/ul (0-0.8) 05/14/19 05:31 Absolute Eos (auto) 0.1 10^3/ul (0-0.6) 05/14/19 05:31 Absolute Basos (auto) 0.1 10^3/ul (0-0.2) 05/14/19 05:31 Absolute Nucleated RBC 0.0 10^3/ul 05/14/19 05:31 Immature Gran % 5.0 % (0-9) 05/08/19 04:27 Neutrophils % 75.0 % 05/08/19 04:27 Band Neutrophils % 1.0 % (0-8) 05/08/19 04:27 Lymphocytes % 12.0 % 05/08/19 04:27 Reactive Lymphs % 1.0 % (0-6) 05/08/19 04:27 Monocytes % 7.0 % 05/08/19 04:27 Metamyelocytes % 1.0 % (0-2) 05/08/19 04:27 Myelocytes % 3.0 % (0-1) H 05/08/19 04:27 Nucleated RBC % 0.0 05/14/19 05:31 Normal RBC Morphology Normal (Normal) 05/08/19 04:27 Sodium 135 mmol/L (135-145) 05/14/19 05:31 Potassium 4.4 mmol/L (3.5-5.0) 05/14/19 05:31 Chloride 95 mmol/L (101-111) L 05/14/19 05:31 Carbon Dioxide 33 mmol/L (22-32) H 05/14/19 05:31 Anion Gap 7 mmol/L (2-11) 05/14/19 05:31 BUN 18 mg/dL (6-24) 05/14/19 05:31 Creatinine 0.52 mg/dL (0.67-1.17) L 05/14/19 05:31 Est GFR ( Amer) 230.7 (>60) 05/14/19 05:31 Est GFR (Non-Af Amer) 190.6 (>60) 05/14/19 05:31 BUN/Creatinine Ratio 34.6 (8-20) H 05/14/19 05:31 Glucose 163 mg/dL (70-100) H 05/14/19 05:31 POC Glucose (mg/dL) 230 mg/dL (70-100) H 05/14/19 11:26 Glucose Meter Confirm 337 mg/dL (70-100) H 05/13/19 21:15 Hemoglobin A1c 14.4 % (4.0-5.6) H 05/05/19 03:49 Lactic Acid 1.4 mmol/L (0.5-2.0) 05/04/19 17:47 Calcium 8.7 mg/dL (8.6-10.3) 05/14/19 05:31 Total Bilirubin 0.40 mg/dL (0.2-1.0) 05/07/19 04:13 GGT 66 U/L (9-64.0) H 05/08/19 04:27 AST 35 U/L (13-39) 05/07/19 04:13 ALT 30 U/L (7-52) 05/07/19 04:13 Alkaline Phosphatase 177 U/L (34-104) H 05/07/19 04:13 Total Creatine Kinase 135 U/L (10-223) 05/04/19 17:47 C-Reactive Protein 19.53 mg/L (<8.01) H 05/13/19 05:20 Total Protein 6.0 g/dL (6.4-8.9) L 05/07/19 04:13 Albumin 2.5 g/dL (3.2-5.2) L 05/07/19 04:13 Globulin 3.5 g/dL (2-4) 05/07/19 04:13 Albumin/Globulin Ratio 0.7 (1-3) L 05/07/19 04:13 Fluid Source Synovial fluid 05/08/19 19:29 Fluid Volume 2 mL 05/08/19 19:29 Fluid Color [place] 05/08/19 19:29 Fluid Appearance Bloody 05/08/19 19:29 Fluid WBC 67 /mcL (0-240228) 05/08/19 19:29 Fluid RBC 19509 /mcL 05/08/19 19:29 Fluid Tot Cell Count 100 05/08/19 19:29 Fluid Neutrophils 86 % 05/08/19 19:29 Fluid Band Neutrophils 8 % 05/08/19 19:29 Fluid Lymphocytes 2 % 05/08/19 19:29 Fluid Monocytes 4 % 05/08/19 19:29 Fluid Nucleated RBCs 1 05/08/19 19:22 Fluid Cell Count Rvw By 05/08/19 19:29 Hepatitis C Antibody Negative (Negative) 05/06/19 05:33 Hepatitis C Ab Index 0.02 s/c 05/06/19 05:33
[2019-05-14 17:08] LABS: C Reactive Protein 11.41 mg/L (<8.01)
[2019-05-14] MEDS: QUEtiapine TAB* 25 MG PO SCH (21:10)
[2019-05-15] MEDS: oxyCODONE TAB* 5 MG TAB PO PRN ×5 (03:58→21:40)
[2019-05-15 04:34] LABS: ABS Eosinophils 0.1 10^3/ul (0-0.6); ABS Lymphocytes 1.9 10^3/ul (1.0-4.8); ABS Monocytes 0.5 10^3/ul (0-0.8); ABS Neutrophils 3.1 10^3/ul (1.5-7.7); Eosinophil % 1.7 %; Hematocrit 31 % (42-52); Hemoglobin 10.5 g/dL (14.0-18.0); Lymphocyte % 34.1 %; Mean Corpuscular HGB Conc 34 g/dL (31-36); Mean Corpuscular Hemoglobin 29 pg (27-31); Mean Corpuscular Volume 85 fL (80-94); Mean Platelet Volume 6.3 fL (7.4-10.4); Nucleated Red Blood Cells % 0.3; Platelet Count 626 10^3/uL (150-450); Red Blood Count 3.65 10^6 /uL (4.18-5.48); Red Cell Distribution Width 13 % (10-15); White Blood Count 5.6 10^3/uL (3.5-10.8)
[2019-05-15 04:49] LABS: BUN/Creatinine Ratio 37.9 (8-20); C Reactive Protein 9.53 mg/L (<8.01); Calcium 8.5 mg/dL (8.6-10.3); EGFR African American 203.4 (>60); EGFR Non-African American 168.1 (>60); Potassium 4.2 mmol/L (3.5-5.0)
[2019-05-15] MEDS: Acetaminophen TAB* 325 MG PO SCH ×3 (05:17→17:00)
[2019-05-15] MEDS: ceFAZolin 2 GM PREMIX in ORs 2 GM/50 ML BAG IVPB SCH ×3 (05:19→21:41)
[2019-05-15] MEDS: Heparin VIAL(*) 5000 UNITS/ML VIAL (FIVE THOUSAND) SUBCUT SCH ×3 (05:19→21:24)
[2019-05-15] MEDS: Insulin GLARGINE(*) 1 UNITS UNIT SUBCUT SCH ×2 (05:20→19:01)
--- NOTE | 2019-05-15 06:47 | PN ---
Subjective Date of Service: 05/15/19 Interval History: HD12 on 05/15 28M IDDM Type 1, PSA in remission, tob use d/o, mood d/o who is a transfer from [facility] (admitted there on 05/01) with resolved DKA and RLE SSTI c/b complex abscess, MSSA bacteremia, s/p x3 (05/04, 05/08, 05/11, 05/13) washout in OR for extensive abscess in lower tibia area, now w wound vac. Primary closure of wound done on 05/13 No acute overnight events VS stable Complains of pain and frustration. He says he has 10/10 pain during the dressing. No nausea, vomiting and abdominal pain. Objective Active Medications: Acetaminophen (Tylenol Tab*) 650 mg PO Q6H [facility] Last Admin: 05/15/19 05:17 Dose: 650 mg Dextrose (Dextrose 50% Vial 50 Ml*) 25 ml IV PUSH .FOR FS < 60 - SS PRN PRN Reason: FS < 60 Escitalopram Oxalate (Lexapro *) 5 mg PO DAILY [facility]; Protocol Last Admin: 05/14/19 08:08 Dose: 5 mg Heparin Sodium (Porcine) (Heparin Vial(*)) 5,000 units SUBCUT Q8HR [facility] Last Admin: 05/15/19 05:19 Dose: 5,000 units Cefazolin Sodium/Dextrose (Kefzol 2 Gm Premix In Ors(*)) 2 gm in 50 mls @ 100 mls/hr IVPB Q8H [facility] Last Admin: 05/15/19 05:19 Dose: 100 mls/hr Insulin Glargine (Lantus(*)) 40 units SUBCUT 0600,1800 [facility] Last Admin: 05/15/19 05:20 Dose: 40 unit Insulin Human Lispro (Humalog*) 0 units SUBCUT ACHS [facility]; Protocol Last Admin: 05/14/19 21:13 Dose: 6 units Insulin Human Lispro (Humalog*) 5 units SUBCUT AC [facility] Last Admin: 05/14/19 17:03 Dose: 5 units Lorazepam (Ativan Tab(*)) 0.5 mg PO Q8H PRN PRN Reason: ANXIETY Morphine Sulfate (Morphine Inj (Syringe))*) 1 mg IV Q2H PRN PRN Reason: SEVERE PAIN Last Admin: 05/14/19 12:24 Dose: 1 mg Nicotine Polacrilex (Nicotine Gum*) 2 mg PO Q2H PRN PRN Reason: CRAVING Ondansetron HCl (Zofran Inj*) 4 mg IV Q6H PRN PRN Reason: NAUSEA Oxycodone HCl (Roxycodone Tab*) 5 mg PO Q4H PRN PRN Reason: PAIN - MODERATE Last Admin: 05/15/19 03:58 Dose: 5 mg Oxycodone HCl (Roxycodone Tab*) 10 mg PO Q4H PRN PRN Reason: PAIN - SEVERE Last Admin: 05/14/19 21:12 Dose: 10 mg Quetiapine Fumarate (Seroquel Tab*) 100 mg PO BEDTIME [facility] Last Admin: 05/14/19 21:10 Dose: 100 mg Senna (Senokot 8.6 Mg Tab*) 2 tab PO DAILY [facility] Last Admin: 05/14/19 08:08 Dose: Not Given Vital Signs - 8 hr 05/14/19 05/15/19 05/15/19 23:09 00:00 01:10 Temperature 97.7 F Pulse Rate 99 Respiratory 16 15 Rate Blood Pressure 111/58 (mmHg) O2 Sat by Pulse 98 98 Oximetry 05/15/19 05/15/19 05/15/19 03:13 03:58 06:16 Temperature 98.0 F Pulse Rate 92 Respiratory 14 16 15 Rate Blood Pressure 115/65 (mmHg) O2 Sat by Pulse 100 Oximetry Oxygen Devices in Use Now: None Exam: Patient is lying on a bed with no acute distress. HEENT: Normocephalic and atraumatic Lungs: Clear with no added sound heard Heart: S1/S2 heard with no murmur Abdomen: Soft, nondistended and nontender. Normal BS heard Extremities: Dressing on right leg. No active ROM in right ankle; has passive ROM. Normal ROM in toes. Distal pulse intact. Neuro: Alert, oriented and conscious - Nutrition: Malnutrition Diagnosis/Plan Malnutrition Assessment by Registered Dietitian: Malnutrition Assessment Clinical Characteristics Chronic,Severe Malnutrition Assessment: Pt meets criteria for severe malnutrition in the Criteria setting of chronic illness aeb significant wt loss (50 lbs, 25% BW) x 1 mo and visible muscle wasting (clavicle) Malnutrition Assessment: Pt declines gluerna. Will trial 2% milk with 1 Interventions scoop benepro powder (155 kcals, 14 g pro, per serving) BID for snack Malnutrition Assessment: Goals 1. adequate intake to support hydration and lean body mass without further wt loss 2. glycemic control within inpatient parameters ; no s/sx hypo-hyperglycemia 3. maintain serum electrolytes WNL 4. regulation of bowel pattern; no c/o constipation (or diarrhea) Result Diagrams: 05/15/19 04:17 05/15/19 04:17 Microbiology and Other Data: Microbiology 05/04/19 22:21 Skin and Soft Tissue MRSA/MSSA (PCR - Final Leg Right Mrsa Negative S.aureus Positive Gram Stain - Preliminary Assess/Plan/Problems-Billing Assessment: 28M IDDM Type 1, PSA in remission, tob use d/o, mood d/o who is a transfer from [facility] (admitted there on 05/01) with resolved DKA and RLE SSTI c/b complex abscess. Found to have sepsis with MSSA bacteremia, s/p intraoperative I /D on 05/04, 05/09, 05/11, 05/13 now w wound vac; Primary closure on 05/13. 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 graft or amputation - Repeat MRI PRN for changes in pain (2) MSSA bacteremia Current Visit: Yes Status: Acute Code(s): R78.81 - BACTEREMIA SNOMED Code( s): 884264927 Comment: -culture cleared on 05/06/2019 - IV Cefazolin Day on 05/14, - TTE did not show any vegetation - GUNAAKO negative for vegetation - ID following- recommends total of 42 days of abx (3) Sepsis Current Visit: Yes Status: Acute Comment: - Resolved - On cefazolin (4) Insulin dependent diabetes mellitus Current Visit: Yes Status: Acute Code(s): E11.9 - TYPE 2 DIABETES MELLITUS WITHOUT COMPLICATIONS; Z79.4 - REHABILITATOR (CURRENT) USE OF INSULIN SNOMED Code( s): 49931007 Comment: - A1C 14.4 - Basal: 40U twice daily - Bolus: also added Lispro 10U AC; - Corrective: High dose (> 30BMI) sliding scale; hold corrective and bolus if NPO - Pt would like 70/30 in future (5) Polysubstance abuse Current Visit: Yes Status: Acute Code(s): F19.10 - OTHER PSYCHOACTIVE SUBSTANCE ABUSE, UNCOMPLICATED SNOMED Code(s): 065757322 Comment: - Pt denies active IVDU, continue open ended discussion (6) Elevated alkaline phosphatase level Current Visit: Yes Status: Acute Code(s): R74.8 - ABNORMAL LEVELS OF OTHER SERUM ENZYMES SNOMED Code(s): 703144285 Comment: - Normal alt and ast; could be from liver and bone - GGT borderline high - Could be osteomyelitis; consider MRI in future per ortho (7) Mood disorder Current Visit: Yes Status: Acute Code(s): F39 - UNSPECIFIED MOOD [AFFECTIVE ] DISORDER SNOMED Code(s): 33934059 Comment: - Seroquel QHS 100 mg daily -Trial low dose Escitalopram 5mg daily, -PRN Ativan, he is aware no rx to go home of ativan (8) Thrombocytosis Current Visit: Yes Status: Acute Comment: -Could be reactive because of infection or blood loss. -will monitor his plt (9) DVT prophylaxis Current Visit: Yes Status: Acute Code(s): Z29.9 - ENCOUNTER FOR PROPHYLACTIC MEASURES, UNSPECIFIED SNOMED Code(s): 825055839 Comment: - on heparin (10) Full code status Current Visit: Yes Status: Acute Code(s): Z78.9 - OTHER SPECIFIED HEALTH STATUS SNOMED Code(s): 221087624 Status and Disposition: Inpatient; ortho following; ID following Does not have insurance; social work consult in place Attending: Josiah Horn Attestation Documenting Resident: Mariaa Jones Supervising Physician: Kimani Horn Attestation: This service has been performed in part by a resident under the direction of a teaching physician.I, Kimani Horn, performed the service, or was physically present during the critical, or castañeda portions of the service, furnished by the resident. I participated in the management of the patient.
[2019-05-15] MEDS: Insulin LISPRO* 1 UNITS UNIT SUBCUT SCH ×8 (08:10→21:39)
[2019-05-15] MEDS: Senna TAB 8.6 mg* TAB PO SCH ×2 (08:10→11:03)
[2019-05-15] MEDS: Escitalopram * 5 MG TAB PO SCH (11:17)
[2019-05-15] MEDS: Morphine INJ* 2 MG/ML 1 ML SYRINGE (TWO MG - NEW SYRINGE VERSION) IV PRN ×3 (11:17→19:38)
--- NOTE | 2019-05-15 14:53 | CONSULT ---
Subjective Date of Service: 05/15/19 Interval History: Mr. Kaminski is a 28 yo male with PMH significant for DM1, hx tobacco abuse, and hx polysubstance abuse. He presented initially to [facility] for right LE pain and was found to have DKA. He was admitted to [facility] and treated for DKA. He was seen by Dr. Bosch with Orthopedics and felt to have compartment symptom vs abscess in the right LE and was transferred to [facility] for further evaluation. He was taken to the OR on 05/04/19 for I+D of the right LE, right lower leg release or partial release of compartments, anterior, lateral, deep posterior. He returned to the OR on 05/09/19 for aspiration of the right knee and ankle; I+D of right thigh, lateral and posterolateral; repeat I+D right lower leg with abscess in the anterior compartment, but also exploration of lateral, deep posterior, and superficial posterior compartments; and placement of wound VAC. Patient seen and examined at bedside with Orthopedics and Medicine. Family History: Unchanged from Admission Social History: Unchanged from Admission Past Medical History: Unchanged from Admission Review of Systems - Measurements Intake and Output: Intake and Output Last 24 Hours 05/13/19 05/14/19 05/15/19 05/16/19 06:59 06:59 06:59 06:59 Intake Total 1840 1820 3116 Output Total 5175 2150 4125 Balance -3335 -330 -1009 Intake: IV Fluids 540 1050 51 ABX - CEFAZOLIN 51 LR 1050 NS (0.9%) 40 IVPB 100 50 65 ABX - CEFAZOLIN 100 50 65 Oral 3868 157 3373 Output: Urine 5175 2150 4125 Other: # Voids 1 2 - Review of Systems Constitutional Symptoms: Negative: Fever, Other - Chills Dermatology: Positive: Other - Incision to the right LE with areas of dark tissue Endocrinology: Positive: Diabetes Mellitus Neurology: Positive: Other - Peripheral Neuropathy Objective Active Medications: Acetaminophen (Tylenol Tab*) 650 mg PO Q6H [facility]RA Dextrose (Dextrose 50% Vial 50 Ml*) 25 ml IV PUSH PRN FOR FS < 60 Escitalopram Oxalate (Lexapro *) 5 mg PO DAILY [facility]RA; Protocol Heparin Sodium (Porcine) (Heparin Vial(*)) 5,000 units SUBCUT Q8HR EFRA Cefazolin Sodium/Dextrose (Kefzol 2 Gm Premix In Ors(*)) 2 gm in 50 mls @ 100 mls/hr IVPB Q8H EFRA Insulin Glargine (Lantus(*)) 40 units SUBCUT 0600,1800 [facility]RA Insulin Human Lispro (Humalog*) 0 units SUBCUT ACHS [facility]RA; Protocol Insulin Human Lispro (Humalog*) 5 units SUBCUT AC EFRA Lorazepam (Ativan Tab(*)) 0.5 mg PO Q8H PRN Reason: ANXIETY Morphine Sulfate (Morphine Inj (Syringe))*) 2 mg IV Q3H PRN Reason: SEVERE PAIN Morphine Sulfate (Morphine Inj (Syringe)*) 3 mg IV DAILY PRN Reason: before dressing change Nicotine Polacrilex (Nicotine Gum*) 2 mg PO Q2H PRN Reason: CRAVING Ondansetron HCl (Zofran Inj*) 4 mg IV Q6H PRN Reason: NAUSEA Oxycodone HCl (Roxycodone Tab*) 5 mg PO Q4H PRN Reason: PAIN - MODERATE Oxycodone HCl (Roxycodone Tab*) 10 mg PO Q4H PRN Reason: PAIN - SEVERE Quetiapine Fumarate (Seroquel Tab*) 100 mg PO BEDTIME [facility] Senna (Senokot 8.6 Mg Tab*) 2 tab PO DAILY [facility] Vital Signs 05/15/19 05/15/19 05/15/19 07:23 07:31 07:43 Temperature 98.1 F Pulse Rate 84 Respiratory 16 16 16 Rate Blood Pressure 116/73 (mmHg) O2 Sat by Pulse 99 99 Oximetry Oxygen Devices in Use Now: None Appearance: NAD, sitting up in bed Ears/Nose/Mouth/Throat: Mucous Membranes Moist Respiratory: Symmetrical Chest Expansion and Respiratory Effort Extremities: - - 2+ bilateral DP pulses Skin: - - See skin note below Neurological: Alert and Oriented x 3 - Nutrition: Malnutrition Diagnosis/Plan Malnutrition Assessment by Registered Dietitian: Malnutrition Assessment Clinical Characteristics Chronic,Severe Malnutrition Assessment: Pt meets criteria for severe malnutrition in the Criteria setting of chronic illness aeb significant wt loss (50 lbs, 25% BW) x 1 mo and visible muscle wasting (clavicle) Malnutrition Assessment: Pt declines gluerna. Will trial 2% milk with 1 Interventions scoop benepro powder (155 kcals, 14 g pro, per serving) BID for snack Malnutrition Assessment: Goals 1. adequate intake to support hydration and lean body mass without further wt loss 2. glycemic control within inpatient parameters ; no s/sx hypo-hyperglycemia 3. maintain serum electrolytes WNL 4. regulation of bowel pattern; no c/o constipation (or diarrhea) Result Diagrams: 05/20/19 08:47 05/20/19 08:47 Additional Lab and Data: Above labs were pulled into the note, when the note was edited prior to signing. See labs below from day of consultation Laboratory Tests 05/07/19 05/15/19 05/15/19 04:13 04:17 04:17 WBC 5.6 Hgb 10.5 L Hct 31 L Plt Count 626 H D Sodium 135 Potassium 4.2 Chloride 97 L Carbon Dioxide 33 H BUN 22 Creatinine 0.58 L Glucose 324 H C-Reactive Protein 9.53 H Total Protein 6.0 L Albumin 2.5 L Microbiology and Other Data: Microbiology 05/08/19 19:29 Gram Stain - Final Body Fluid Body Fluid Culture - Final No Growth Day 4 Skin and Soft Tissue MRSA/MSSA (PCR - Final Mrsa Negative S.aureus Negative 05/08/19 19:22 Gram Stain - Final Joint Fluid(Synovial) - Knee Right Body Fluid Culture - Final No Growth Day 4 Skin and Soft Tissue MRSA/MSSA (PCR - Final Mrsa Negative S.aureus Negative 05/08/19 19:22 Skin and Soft Tissue MRSA/MSSA (PCR - Final Wound Mrsa Negative S.aureus Negative Gram Stain - Final Wound Culture - Final No Growth Day 4 05/08/19 19:34 Anaerobic Culture - Final Wound No Growth Day 4 Gram Stain - Final Wound Culture - Final No Growth Day 4 05/07/19 04:13 Aerobic Blood Culture - Final Blood Venous No Growth Day 5 Anaerobic Blood Culture - Final No Growth Day 5 05/07/19 04:17 Aerobic Blood Culture - Final Blood Venous No Growth Day 5 Anaerobic Blood Culture - Final No Growth Day 5 05/06/19 11:15 Aerobic Blood Culture - Final Blood Venous No Growth Day 5 Anaerobic Blood Culture - Final No Growth Day 5 05/05/19 12:14 Aerobic Blood Culture - Final Blood Venous No Growth Day 5 Anaerobic Blood Culture - Final No Growth Day 5 05/05/19 12:18 Aerobic Blood Culture - Final Blood Venous No Growth Day 5 Anaerobic Blood Culture - Final Staphylococcus Aureus Blood MRSA/MSSA (PCR) - Final Mrsa Negative S.aureus Positive 05/04/19 22:21 Anaerobic Culture - Final Wound - Right Leg 05/04/19 22:21 Skin and Soft Tissue MRSA/MSSA (PCR - Final Leg Right Mrsa Negative S.aureus Positive Gram Stain - Final Wound Culture - Final Staphylococcus Aureus 05/05/19 03:48 Aerobic Blood Culture - Final Blood Venous Staphylococcus Aureus Anaerobic Blood Culture - Final Staphylococcus Aureus Blood MRSA/MSSA (PCR) - Final Mrsa Negative S.aureus Positive 05/05/19 03:48 Aerobic Blood Culture - Final Blood Venous Staphylococcus Aureus Anaerobic Blood Culture - Final Staphylococcus Aureus Blood MRSA/MSSA (PCR) - Final Mrsa Negative S.aureus Positive Diagnostic Imagin. Exam Date: 05/04/19 163 - MRI LOWER EXTREMITY RIGHT W/O IMPRESSION: 1. There is soft tissue swelling of the of the anterior and medial aspects of the distal thigh and medial to the right knee. 2. Mild edema identified within the bone marrow of the medial femoral condyle. Differential considerations include osteomyelitis, post-traumatic change, and reactive edema. 3. Edema is identified within the biceps femoris muscle, suggestive of myositis or muscle strain. Additional patchy muscle edema and fluid signal intensity/ abscesses are identified within the distal lower extremity. 4. Minimal patellofemoral joint effusion. 5. There is a thin band of fluid between the medial lateral femoral condyle and lateral meniscus. This is suggestive of a floating meniscus. If the patient has a history of prior trauma, meniscal avulsion cannot be excluded. 6. Refer to the MRI right lower extremity tibia and fibula from the same day for further discussion of findings. 2. Exam Date: 05/04/19 164 - MRI LOWER EXTREMITY RIGHT W/O Addendum created by Hola Torre MD on 05/04/2019 10:35:58 PM EDT Within the musculature of the anterior compartment, the fluid collection/ abscess measures approximately 3.4 x 3.8 x 19.9 cm. IMPRESSION: 1. Patchy muscle edema, suggestive of myositis or muscle strain. 2. Loculated areas of fluid signal intensity are identified within the tibialis posterior muscle and musculature of the anterior compartment, consistent with abscesses or phlegmonous change. Compartment syndrome cannot be excluded. Postcontrast sequences recommended. 3. There is mild increased T1 signal intensity involving the fluid signal intensity within the musculature of the anterior compartment, consistent with increased complexity of fluid or hemorrhagic component. 4. Diffuse soft tissue swelling of the lower extremity. 5. No acute marrow edema of the visualized tibia or fibula to suggest osteomyelitis. 6. Minimal tibiotalar and subtalar joint effusions. 7. Tenosynovitis of the tibialis anterior tendon. Skin Deviation Note - Skin Deviation Findings Right lateral and anterior lower leg - There are 2 large areas of black eschar. The proximal area measures 8 cm x 4.5 cm and the distal area measures 12 cm x 4 cm. There is serosang drainage from the wounds. The surrounding skin is intact. There is what appears to be a small amount of purulent drainage at the site of the packing. There is a foul smell from the leg. Wound Problem/Plan Assessment: Mr. Kaminski is a 28 yo male with PMH significant for DM1, hx tobacco abuse, and hx polysubstance abuse. He presented from [facility] to [facility] for a right LE celluitis with complex abscess and myositis. 1. Right LE wounds s/p I+Ds. He has undergone 2 surgical procedures on this leg. After the last procedure with wound vac, the skin was reported to be cunningham and the wound vac was discontinued as it was felt to be contributing to tissue injury. Now 2 large areas of black eschar. Recommend considering surgical debridement of the areas of eschar by either Orthopedics or General surgery. Do not feel that chemical debridement will work as the areas are dry eschar and the patient wound not tolerate trying to score the areas to help the medication work. May require a flap or skin graft procedure in the future. Continue dry dressings daily per Orthopedics. 2. Right LE cellulitis, myositis, and complex abscess. Continue IV ABX as directed by ID. Plan is for 42 days in the setting of possible right thigh osteomyelitis. CRP is trending down and afebrile. No leukocytosis. Consider CT to evaluate for narcotizing fasciitis, low suspicion as inflammatory markers are improving on ABX. . 3. Severe Malnutrition. As evidenced by chronic illness and significant weight loss, reported to be 50 lbs in 1 month and visible clavicle muscle wasting. Dietitians following, using Milk and Glucerna for supplement. 4. DM1. Noncompliant with insulin prior to admission (states he didn't have health insurance for the insulin). HgA1C 14.4. Maintain good glycemic control to allow for wound healing. 5. Diet. Consistent Carbohydrate diet. 6. Code Status. Full Code status. 7. Disposition. Inpatient, disposition per primary team. Is Patient a Wound Clinic Patient: No Counseling and/or Coordination of Care Minutes: 45 Points of Discussion: TIME SPENT: Total time for this wound consultation was 45 minutes. 30 minutes was spent with the patient discussing past medical history and recent events; removing the old dressing; assessing, measuring, and photographing the wounds; reapplying a new dressing. 15 minutes was spent with Orthopedics discussing recommendations. Attending: Hailey Rudd
--- NOTE | 2019-05-15 15:23 | PN ---
Progress Note - Progress Note Date of Service: 05/15/19 SOAP: Subjective: Pain decreased but present. Objective: RLE: - Thigh incision some drainage at prior packing exit site, otherwise c/d/i incision site - Lower leg incision is producing a small amount of drainage onto dressing from the 3 packing sites - Lower leg skin incision well opposed, but 2 areas of compromised skin, brown- black in coloration with some sensation to light touch in both areas - Sensation intact foot with DP pulse 2+ Selected Entries 05/15/19 07:31 Temperature 98.1 F Pulse Rate 84 Respiratory 16 Rate Blood Pressure 116/73 (mmHg) O2 Sat by Pulse 99 Oximetry Laboratory Tests 05/15/19 05/15/19 04:17 04:17 WBC 5.6 Neut % (Auto) 55.5 C-Reactive Protein 9.53 H Assessment: POD 2 final I&D right lower leg for complex abscess Plan: - Continue IV antibiotics, 42 day course per ID - Effectiveness of I&Ds and antibiotics to fight infection has been excellent. WBC is normal and CRP is now only 9. - Concerning is the poor quality of skin and subcutaneous tissue in 2 locations in lower leg. This is likely secondary to abscess itself directly as well as indirectly secondary to the of tibialis anterior secondary to infection. - We will continue to follow the lower leg wound and let the skin declare itself. When appropriate, we can debride skin. Hopefully there will still be some tissue, subcutaneous, alive in the anterior zone because there is bone of the tibia directly deep to this area. It's unclear if the patient would qualify for any type of flap given the HbA1C of 14.4. So exposed bone might lead to amputation. We will see. - DSD change daily by ortho with pulling back of 2 packings 1cm each. - On Saturday, we will remove the higher of the 2 packings. The last packing will be removed on ~ Saturday. - Appreciate ID and wound care service inputs
[2019-05-16] MEDS: QUEtiapine TAB* 25 MG PO SCH ×2 (00:03→22:41)
[2019-05-16] MEDS: oxyCODONE TAB* 5 MG TAB PO PRN ×9 (00:04→22:44)
[2019-05-16] MEDS: Acetaminophen TAB* 325 MG PO SCH ×5 (00:04→22:41)
[2019-05-16] MEDS: ceFAZolin 2 GM PREMIX in ORs 2 GM/50 ML BAG IVPB SCH ×3 (05:49→22:43)
[2019-05-16] MEDS: Insulin GLARGINE(*) 1 UNITS UNIT SUBCUT SCH ×2 (06:00→17:08)
[2019-05-16] MEDS: Heparin VIAL(*) 5000 UNITS/ML VIAL (FIVE THOUSAND) SUBCUT SCH ×3 (06:00→22:42)
[2019-05-16 06:41] LABS: ABS Basophils 0.1 10^3/ul (0-0.2); ABS Eosinophils 0.1 10^3/ul (0-0.6); ABS Monocytes 0.4 10^3/ul (0-0.8); ABS Neutrophils 3.2 10^3/ul (1.5-7.7); Eosinophil % 1.3 %; Hematocrit 29 % (42-52); Hemoglobin 10.1 g/dL (14.0-18.0); Lymphocyte % 34.3 %; Mean Corpuscular HGB Conc 34 g/dL (31-36); Mean Corpuscular Hemoglobin 29 pg (27-31); Mean Corpuscular Volume 84 fL (80-94); Mean Platelet Volume 6.3 fL (7.4-10.4); Platelet Count 626 10^3/uL (150-450); Red Blood Count 3.49 10^6 /uL (4.18-5.48); Red Cell Distribution Width 14 % (10-15); White Blood Count 5.8 10^3/uL (3.5-10.8)
[2019-05-16 07:03] LABS: BUN/Creatinine Ratio 34.5 (8-20); C Reactive Protein 5.92 mg/L (<8.01); Calcium 8.9 mg/dL (8.6-10.3); EGFR African American 203.4 (>60); EGFR Non-African American 168.1 (>60)
[2019-05-16] MEDS: Insulin LISPRO* 1 UNITS UNIT SUBCUT SCH ×7 (08:26→20:51)
[2019-05-16] MEDS: Escitalopram * 5 MG TAB PO SCH (08:33)
[2019-05-16] MEDS: Morphine INJ* 4 MG/ML 1 ML SYRINGE (NEW SYRINGE VERSION) IV PRN (08:33)
[2019-05-16] MEDS: Senna TAB 8.6 mg* TAB PO SCH (08:34)
--- NOTE | 2019-05-16 09:26 | PN ---
Progress Note - Progress Note Date of Service: 05/16/19 SOAP: Subjective: Still pain, but decreased. Objective: RLE: - Drainage onto dressing from 2 current and 1 former packing sites right lower leg - Proximal area of black skin unchanged - Mid-lower leg anterior area of clack skin is sloughing a bit, there is a small opening in skin, less than 5mm x 5mm, with exposed bone, mid-shaft tibia - Ankle and foot swelling resolved and DP 2+ pulse Selected Entries 05/16/19 03:50 Temperature 97.9 F Pulse Rate 81 Respiratory 14 Rate Blood Pressure 97/49 (mmHg) O2 Sat by Pulse 97 Oximetry Laboratory Tests 05/15/19 05/16/19 05/16/19 04:17 06:21 06:21 WBC 5.8 Neut % (Auto) 54.8 C-Reactive Protein 9.53 H 5.92 Assessment: POD 3 I&D right lower leg (most recent) for complex abscess Uncontrolled DM with medication noncompliance and drug use history Plan: - No current significant infection by labs or exam - Skin and subQ viability is a concern. Especially the tiny area of exposed bone seen today for the first time. We will monitor this and continue to appreciate wound care team input. Whether topical wound ointments, debridement , or amputation is required, we will see. I again discussed with the patient the possible need for a future amputation, although we will of course hope to avoid this in a 28 year old. - Disposition from hospital depends on how the leg wound develops and whether a PICC line would be acceptable in this patient with a history of drug use. - Continue IV antibiotics - Appropriate malnutrition management - DSD change daily. Removal of one additional packing tomorrow. Otherwise, back out packings 1 cm per day.
--- NOTE | 2019-05-16 11:15 | PN ---
Subjective Date of Service: 05/16/19 Interval History: HD13 on 05/16 28M IDDM Type 1, PSA in remission, tob use d/o, mood d/o who is a transfer from [facility] (admitted there on 05/01) with resolved DKA and RLE SSTI c/b complex abscess, MSSA bacteremia, s/p x3 (05/04, 05/08, 05/11, 05/13) washout in OR for extensive abscess in lower tibia area, now w wound vac. Primary closure of wound done on 05/13 No acute overnight events VS stable Complains of leg pain-01/05 No nausea, vomiting or abdominal pain BM yesterday Objective Active Medications: Acetaminophen (Tylenol Tab*) 650 mg PO Q6H [facility] Last Admin: 05/16/19 05:42 Dose: 650 mg Dextrose (Dextrose 50% Vial 50 Ml*) 25 ml IV PUSH .FOR FS < 60 - SS PRN PRN Reason: FS < 60 Escitalopram Oxalate (Lexapro *) 5 mg PO DAILY [facility]; Protocol Last Admin: 05/16/19 08:33 Dose: 5 mg Heparin Sodium (Porcine) (Heparin Vial(*)) 5,000 units SUBCUT Q8HR [facility] Last Admin: 05/16/19 06:00 Dose: 5,000 units Cefazolin Sodium/Dextrose (Kefzol 2 Gm Premix In Ors(*)) 2 gm in 50 mls @ 100 mls/hr IVPB Q8H [facility] Last Admin: 05/16/19 05:49 Dose: 100 mls/hr Insulin Glargine (Lantus(*)) 40 units SUBCUT 0600,1800 [facility] Last Admin: 05/16/19 06:00 Dose: 40 unit Insulin Human Lispro (Humalog*) 0 units SUBCUT ACHS [facility]; Protocol Last Admin: 05/16/19 08:26 Dose: Not Given Insulin Human Lispro (Humalog*) 10 units SUBCUT AC [facility] Last Admin: 05/16/19 08:32 Dose: 10 unit Morphine Sulfate (Morphine Inj (Syringe))*) 2 mg IV Q3H PRN PRN Reason: SEVERE PAIN Last Admin: 05/15/19 19:38 Dose: 2 mg Morphine Sulfate (Morphine Inj (Syringe)*) 3 mg IV DAILY PRN PRN Reason: before dressing change Last Admin: 05/16/19 08:33 Dose: 3 mg Nicotine Polacrilex (Nicotine Gum*) 2 mg PO Q2H PRN PRN Reason: CRAVING Ondansetron HCl (Zofran Inj*) 4 mg IV Q6H PRN PRN Reason: NAUSEA Oxycodone HCl (Roxycodone Tab*) 5 mg PO Q4H PRN PRN Reason: PAIN - MODERATE Last Admin: 05/16/19 05:43 Dose: 5 mg Oxycodone HCl (Roxycodone Tab*) 10 mg PO Q4H PRN PRN Reason: PAIN - SEVERE Last Admin: 05/16/19 09:17 Dose: 10 mg Quetiapine Fumarate (Seroquel Tab*) 100 mg PO BEDTIME [facility] Last Admin: 05/16/19 00:03 Dose: 100 mg Senna (Senokot 8.6 Mg Tab*) 2 tab PO DAILY [facility] Last Admin: 05/16/19 08:34 Dose: Not Given Vital Signs - 8 hr 05/16/19 05/16/19 05/16/19 03:50 04:00 04:04 Temperature 97.9 F Pulse Rate 81 Respiratory 14 14 Rate Blood Pressure 97/49 130/82 (mmHg) O2 Sat by Pulse 97 Oximetry 05/16/19 05/16/19 05/16/19 05:43 06:06 07:15 Temperature 98.1 F Pulse Rate 80 Respiratory 14 14 16 Rate Blood Pressure 118/66 (mmHg) O2 Sat by Pulse 98 Oximetry 05/16/19 05/16/19 05/16/19 08:00 08:33 08:34 Temperature Pulse Rate Respiratory 18 18 18 Rate Blood Pressure (mmHg) O2 Sat by Pulse 98 Oximetry 05/16/19 05/16/19 09:17 10:20 Temperature Pulse Rate Respiratory 18 18 Rate Blood Pressure (mmHg) O2 Sat by Pulse Oximetry Oxygen Devices in Use Now: None Exam: Patient is sitting on a chair with no acute distress. HEENT: Normocephalic and atraumatic LUngs: Clear with no added sounds Heart: S1/S2 heard with no murmur Abdomen: Soft, nondistended and nontender Extremities: Dressing on right lower extremity. No soaking. Decrease ROM in knee and ankel right. Neuro: Alert, conscious and oriented - Nutrition: Malnutrition Diagnosis/Plan Malnutrition Assessment by Registered Dietitian: Malnutrition Assessment Clinical Characteristics Chronic,Severe Malnutrition Assessment: Pt meets criteria for severe malnutrition in the Criteria setting of chronic illness aeb significant wt loss (50 lbs, 25% BW) x 1 mo and visible muscle wasting (clavicle) Malnutrition Assessment: Pt declines gluerna. Will trial 2% milk with 1 Interventions scoop benepro powder (155 kcals, 14 g pro, per serving) BID for snack Malnutrition Assessment: Goals 1. adequate intake to support hydration and lean body mass without further wt loss 2. glycemic control within inpatient parameters ; no s/sx hypo-hyperglycemia 3. maintain serum electrolytes WNL 4. regulation of bowel pattern; no c/o constipation (or diarrhea) Result Diagrams: 05/16/19 06:21 05/16/19 06:21 Microbiology and Other Data: Microbiology 05/04/19 22:21 Skin and Soft Tissue MRSA/MSSA (PCR - Final Leg Right Mrsa Negative S.aureus Positive Gram Stain - Preliminary Assess/Plan/Problems-Billing Assessment: 28M IDDM Type 1, PSA in remission, tob use d/o, mood d/o who is a transfer from [facility] (admitted there on 05/01) with resolved DKA and RLE SSTI c/b complex abscess. Found to have sepsis with MSSA bacteremia, s/p intraoperative I /D on 05/04, 05/09, 05/11, 05/13 now w wound vac; Primary closure on 05/13. On cefazolin(day ) - Patient Problems (1) Abscess of right lower extremity Current Visit: Yes Status: Acute Code(s): L02.415 - CUTANEOUS ABSCESS OF RIGHT LOWER LIMB SNOMED Code(s): 009829896 Comment: - x3 OR washout 05/04, 05/08, 05/11; 4th OR-primary closure on 05/13 - Ortho following- today concern was for exposed bone seen for the first time; will monitor - IV abx Day on 05/16 since first washout, currently on Cefazolin narrowed from broad-needs total of 42 days of abx - Concern for poor wound healing, tendon necrosis, need of flap/graft as [facility] complication- may need skin graft or amputation - Repeat MRI PRN for changes in pain (2) MSSA bacteremia Current Visit: Yes Status: Acute Code(s): R78.81 - BACTEREMIA SNOMED Code( s): 676717214 Comment: -culture cleared on 05/06/2019 - IV Cefazolin Day on 05/16, - TTE did not show any vegetation - GUANAKO negative for vegetation - ID following- recommends total of 42 days of abx (3) Sepsis Current Visit: Yes Status: Acute Comment: - Resolved - On cefazolin (4) Insulin dependent diabetes mellitus Current Visit: Yes Status: Acute Code(s): E11.9 - TYPE 2 DIABETES MELLITUS WITHOUT COMPLICATIONS; Z79.4 - 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 OFFICER (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) USE OF INSULIN SNOMED Code( s): 24150609 Comment: - A1C 14.4 - Basal: 40U twice daily - Bolus: also added Lispro 10U AC; - Corrective: High dose (> 30BMI) sliding scale; hold corrective and bolus if NPO - Pt would like 70/30 in future (5) Polysubstance abuse Current Visit: Yes Status: Acute Code(s): F19.10 - OTHER PSYCHOACTIVE SUBSTANCE ABUSE, UNCOMPLICATED SNOMED Code(s): 147124502 Comment: - Pt denies active IVDU, continue open ended discussion -admits using weed and meth(in past) (6) Elevated alkaline phosphatase level Current Visit: Yes Status: Acute Code(s): R74.8 - ABNORMAL LEVELS OF OTHER SERUM ENZYMES SNOMED Code(s): 099826455 Comment: - Normal alt and ast; could be from liver and bone - GGT borderline high - Could be osteomyelitis; consider MRI in future per ortho (7) Mood disorder Current Visit: Yes Status: Acute Code(s): F39 - UNSPECIFIED MOOD [AFFECTIVE ] DISORDER SNOMED Code(s): 90099919 Comment: - Seroquel QHS 100 mg daily -Trial low dose Escitalopram 5mg daily, -PRN Ativan, he is aware no rx to go home of ativan (8) Thrombocytosis Current Visit: Yes Status: Acute Comment: -Could be reactive because of infection or blood loss. -will monitor his plt (9) DVT prophylaxis Current Visit: Yes Status: Acute Code(s): Z29.9 - ENCOUNTER FOR PROPHYLACTIC MEASURES, UNSPECIFIED SNOMED Code(s): 484438134 Comment: - on heparin (10) Full code status Current Visit: Yes Status: Acute Code(s): Z78.9 - OTHER SPECIFIED HEALTH STATUS SNOMED Code(s): 522846598 Status and Disposition: Inpatient; ortho following; ID following Does not have insurance; social work consult in place Attending: Josiah Horn Attestation Documenting Resident: Mraiaa Jones Supervising Physician: Kimani Horn Attestation: This service has been performed in part by a resident under the direction of a teaching physician.I, Kimani Horn, performed the service, or was physically present during the critical, or castañeda portions of the service, furnished by the resident. I participated in the management of the patient.
[2019-05-16] MEDS: Morphine INJ* 2 MG/ML 1 ML SYRINGE (TWO MG - NEW SYRINGE VERSION) IV PRN (18:23)
[2019-05-17] MEDS: Morphine INJ* 2 MG/ML 1 ML SYRINGE (TWO MG - NEW SYRINGE VERSION) IV PRN ×2 (05:42→16:28)
[2019-05-17] MEDS: oxyCODONE TAB* 5 MG TAB PO PRN ×4 (05:42→19:15)
[2019-05-17] MEDS: Acetaminophen TAB* 325 MG PO SCH ×4 (05:46→22:15)
[2019-05-17] MEDS: ceFAZolin 2 GM PREMIX in ORs 2 GM/50 ML BAG IVPB SCH ×3 (05:52→22:16)
[2019-05-17] MEDS: Heparin VIAL(*) 5000 UNITS/ML VIAL (FIVE THOUSAND) SUBCUT SCH ×3 (05:53→22:15)
[2019-05-17] MEDS: Insulin GLARGINE(*) 1 UNITS UNIT SUBCUT SCH ×2 (06:02→17:19)
[2019-05-17 07:53] LABS: ABS Basophils 0.1 10^3/ul (0-0.2); ABS Eosinophils 0.1 10^3/ul (0-0.6); ABS Lymphocytes 1.5 10^3/ul (1.0-4.8); ABS Monocytes 0.5 10^3/ul (0-0.8); ABS Neutrophils 3.6 10^3/ul (1.5-7.7); Hematocrit 31 % (42-52); Hemoglobin 10.5 g/dL (14.0-18.0); Lymphocyte % 25.9 %; Mean Corpuscular HGB Conc 34 g/dL (31-36); Mean Corpuscular Hemoglobin 29 pg (27-31); Mean Corpuscular Volume 85 fL (80-94); Mean Platelet Volume 6.4 fL (7.4-10.4); Nucleated Red Blood Cells % 0.1; Platelet Count 612 10^3/uL (150-450); Red Blood Count 3.62 10^6 /uL (4.18-5.48); Red Cell Distribution Width 14 % (10-15); White Blood Count 5.7 10^3/uL (3.5-10.8)
[2019-05-17 08:12] LABS: BUN/Creatinine Ratio 41.4 (8-20); C Reactive Protein 4.28 mg/L (<8.01); Calcium 8.7 mg/dL (8.6-10.3); EGFR African American 203.4 (>60); EGFR Non-African American 168.1 (>60)
[2019-05-17] MEDS: Insulin LISPRO* 1 UNITS UNIT SUBCUT SCH ×7 (08:56→22:16)
[2019-05-17] MEDS: Escitalopram * 5 MG TAB PO SCH (08:58)
[2019-05-17] MEDS: Senna TAB 8.6 mg* TAB PO SCH (09:04)
[2019-05-17] MEDS: Morphine INJ* 4 MG/ML 1 ML SYRINGE (NEW SYRINGE VERSION) IV PRN ×2 (10:27→22:11)
--- NOTE | 2019-05-17 11:49 | PN ---
Progress Note - Progress Note Date of Service: 05/17/19 SOAP: Subjective: Pt is doing well. Pain is controlled. Denies F/C, Cp/SOB or calf pain Objective: PE- 28 y/o WDWN M NAD, A&Ox3 RLE- - dressing changed, Drainage onto dressing decreased, Proximal area of black skin unchanged, proximal packing removed, distal packing backed out 1 cm today, Mid-lower leg anterior area of clack skin is sloughing, there is a small opening in skin, less than 5mm x 5mm, with exposed bone, mid-shaft tibia, Ankle and foot swelling resolved and DP 2+ pulse Vital Signs Temp Pulse Resp BP Pulse Ox 97.8 F 93 16 132/62 98 05/17/19 11:09 05/17/19 11:09 05/17/19 11:09 05/17/19 11:09 05/17/19 11:09 Laboratory Results - last 24 hr 05/16/19 05/16/19 05/17/19 16:22 20:28 05:51 WBC RBC Hgb Hct MCV MCH MCHC RDW Plt Count MPV Neut % (Auto) Lymph % (Auto) [place] % (Auto) Eos % (Auto) Baso % (Auto) Absolute Neuts (auto) Absolute Lymphs (auto) Absolute Monos (auto) Absolute Eos (auto) Absolute Basos (auto) Absolute Nucleated RBC Nucleated RBC % Sodium Potassium Chloride Carbon Dioxide Anion Gap BUN Creatinine Est GFR ( Amer) Est GFR (Non-Af Amer) BUN/Creatinine Ratio Glucose POC Glucose (mg/dL) 210 H 184 H 161 H Calcium C-Reactive Protein 05/17/19 05/17/19 05/17/19 07:30 07:30 07:39 WBC 5.7 RBC 3.62 L Hgb 10.5 L Hct 31 L MCV 85 MCH 29 MCHC 34 RDW 14 Plt Count 612 H MPV 6.4 L Neut % (Auto) 62.8 Lymph % (Auto) 25.9 [place] % (Auto) 7.9 Eos % (Auto) 1.0 Baso % (Auto) 2.4 Absolute Neuts (auto) 3.6 Absolute Lymphs (auto) 1.5 Absolute Monos (auto) 0.5 Absolute Eos (auto) 0.1 Absolute Basos (auto) 0.1 Absolute Nucleated RBC 0.0 Nucleated RBC % 0.1 Sodium 135 Potassium 4.0 Chloride 97 L Carbon Dioxide 33 H Anion Gap 5 BUN 24 Creatinine 0.58 L Est GFR ( Amer) 203.4 Est GFR (Non-Af Amer) 168.1 BUN/Creatinine Ratio 41.4 H Glucose 261 H POC Glucose (mg/dL) 294 H Calcium 8.7 C-Reactive Protein 4.28 05/17/19 11:19 WBC RBC Hgb Hct MCV MCH MCHC RDW Plt Count MPV Neut % (Auto) Lymph % (Auto) [place] % (Auto) Eos % (Auto) Baso % (Auto) Absolute Neuts (auto) Absolute Lymphs (auto) Absolute Monos (auto) Absolute Eos (auto) Absolute Basos (auto) Absolute Nucleated RBC Nucleated RBC % Sodium Potassium Chloride Carbon Dioxide Anion Gap BUN Creatinine Est GFR ( Amer) Est GFR (Non-Af Amer) BUN/Creatinine Ratio Glucose POC Glucose (mg/dL) 93 Calcium C-Reactive Protein Assessment: POD 4 I&D right lower leg (most recent) for complex abscess Uncontrolled DM with medication noncompliance and drug use history Plan: - No current significant infection by labs or exam -CRP continues to improve - Skin and subQ viability is a concern. Especially the tiny area of exposed bone seen today for the first time. We will monitor this and continue to appreciate wound care team input. - Disposition from hospital depends on how the leg wound develops and whether a PICC line would be acceptable in this patient with a history of drug use. - Continue IV antibiotics - Appropriate malnutrition management - DSD change daily. Back out packing 1 cm per day then remove inferior packing saturday.
--- NOTE | 2019-05-17 14:10 | PN ---
Subjective Date of Service: 05/17/19 Interval History: Patient complains of being hungry. He wants extra portions, and wants ability to drink juice, etc. Pain in RLE improved. Family History: Unchanged from Admission Social History: Unchanged from Admission Past Medical History: Unchanged from Admission Objective Active Medications: Acetaminophen (Tylenol Tab*) 650 mg PO Q6H [facility] Last Admin: 05/17/19 12:32 Dose: 650 mg Dextrose (Dextrose 50% Vial 50 Ml*) 25 ml IV PUSH .FOR FS < 60 - SS PRN PRN Reason: FS < 60 Escitalopram Oxalate (Lexapro *) 5 mg PO DAILY [facility]; Protocol Last Admin: 05/17/19 08:58 Dose: 5 mg Heparin Sodium (Porcine) (Heparin Vial(*)) 5,000 units SUBCUT Q8HR [facility] Last Admin: 05/17/19 12:34 Dose: 5,000 units Cefazolin Sodium/Dextrose (Kefzol 2 Gm Premix In Ors(*)) 2 gm in 50 mls @ 100 mls/hr IVPB Q8H [facility] Last Admin: 05/17/19 13:38 Dose: 100 mls/hr Insulin Glargine (Lantus(*)) 40 units SUBCUT 0600,1800 [facility] Last Admin: 05/17/19 06:02 Dose: 40 unit Insulin Human Lispro (Humalog*) 0 units SUBCUT ACHS [facility]; Protocol Last Admin: 05/17/19 11:43 Dose: Not Given Insulin Human Lispro (Humalog*) 10 units SUBCUT AC [facility] Last Admin: 05/17/19 12:33 Dose: 10 unit Morphine Sulfate (Morphine Inj (Syringe))*) 2 mg IV Q3H PRN PRN Reason: SEVERE PAIN Last Admin: 05/17/19 05:42 Dose: 2 mg Morphine Sulfate (Morphine Inj (Syringe)*) 3 mg IV DAILY PRN PRN Reason: before dressing change Last Admin: 05/17/19 10:27 Dose: 3 mg Nicotine Polacrilex (Nicotine Gum*) 2 mg PO Q2H PRN PRN Reason: CRAVING Ondansetron HCl (Zofran Inj*) 4 mg IV Q6H PRN PRN Reason: NAUSEA Oxycodone HCl (Roxycodone Tab*) 5 mg PO Q4H PRN PRN Reason: PAIN - MODERATE Last Admin: 05/17/19 13:38 Dose: 5 mg Oxycodone HCl (Roxycodone Tab*) 10 mg PO Q4H PRN PRN Reason: PAIN - SEVERE Last Admin: 05/16/19 20:50 Dose: 10 mg Quetiapine Fumarate (Seroquel Tab*) 100 mg PO BEDTIME [facility] Last Admin: 05/16/19 22:41 Dose: 100 mg Senna (Senokot 8.6 Mg Tab*) 2 tab PO DAILY [facility] Last Admin: 05/17/19 09:04 Dose: 2 tab Vital Signs - 8 hr 05/17/19 05/17/19 05/17/19 07:15 07:21 08:00 Temperature 36.3 C Pulse Rate 85 Respiratory 16 20 16 Rate Blood Pressure 133/76 (mmHg) O2 Sat by Pulse 98 Oximetry 05/17/19 05/17/19 05/17/19 09:48 10:27 11:09 Temperature 36.6 C Pulse Rate 93 Respiratory 16 16 16 Rate Blood Pressure 132/62 (mmHg) O2 Sat by Pulse 98 Oximetry Oxygen Devices in Use Now: None Appearance: alert, no distress Eyes: No Scleral Icterus Ears/Nose/Mouth/Throat: NL Teeth, Lips, Gums Neck: NL Appearance and Movements; NL JVP Respiratory: Symmetrical Chest Expansion and Respiratory Effort Cardiovascular: NL Sounds; No Murmurs; No JVD, RRR Abdominal: NL Sounds; No Tenderness; No Distention Skin: - - RLE in bandage, C/D/I Neurological: Alert and Oriented x 3 Lines/Tubes/Other Access: Clean, Dry and Intact Peripheral IV Nutrition: Taking PO's - Nutrition: Malnutrition Diagnosis/Plan Malnutrition Assessment by Registered Dietitian: Malnutrition Assessment Clinical Characteristics Chronic,Severe Malnutrition Assessment: Pt meets criteria for severe malnutrition in the Criteria setting of chronic illness aeb significant wt loss (50 lbs, 25% BW) x 1 mo and visible muscle wasting (clavicle) Malnutrition Assessment: Pt declines gluerna. Will trial 2% milk with 1 Interventions scoop benepro powder (155 kcals, 14 g pro, per serving) BID for snack Malnutrition Assessment: Goals 1. adequate intake to support hydration and lean body mass without further wt loss 2. glycemic control within inpatient parameters ; no s/sx hypo-hyperglycemia 3. maintain serum electrolytes WNL 4. regulation of bowel pattern; no c/o constipation (or diarrhea) Result Diagrams: 05/17/19 07:30 05/17/19 07:30 Assess/Plan/Problems-Billing Assessment: 28M IDDM Type 1, PSA in remission, tob use d/o, mood d/o who is a transfer from [facility] (admitted there on 05/01) with resolved DKA and RLE SSTI c/b complex abscess. Found to have sepsis with MSSA bacteremia, s/p intraoperative I /D on 05/04, 05/09, 05/11, 05/13 now w wound vac; Primary closure on 05/13. - Patient Problems (1) Abscess of right lower extremity Current Visit: Yes Status: Acute Priority: High Code(s): L02.415 - CUTANEOUS ABSCESS OF RIGHT LOWER LIMB SNOMED Code(s): 124250692 Comment: - x3 OR washout 05/04, 05/08, 05/11; 4th OR-primary closure on 05/13 - IV abx Day on 05/16 since first washout, currently on Cefazolin narrowed from broad-needs total of 42 days of abx - Concern for poor wound healing, tendon necrosis, need of flap/graft as assisted complication- may need skin graft or amputation (2) Diabetes type 1, uncontrolled Current Visit: Yes Status: Acute Priority: High Code(s): E10.65 - TYPE 1 DIABETES MELLITUS WITH HYPERGLYCEMIA SNOMED Code(s): 50421017 Comment: -Long discussion re diet -Will ask nutrition to consult -FS coming under better control, which should help w/ infection resolution (3) Thrombocytosis Current Visit: Yes Status: Acute Priority: Medium Comment: -Could be reactive because of infection or blood loss. (4) DVT prophylaxis Current Visit: Yes Status: Acute Priority: Low Code(s): Z29.9 - ENCOUNTER FOR PROPHYLACTIC MEASURES, UNSPECIFIED SNOMED Code(s): 434865485 Comment: - on heparin Status and Disposition: Inpatient; ortho following; ID following Does not have insurance; social work consult in place
[2019-05-17] MEDS: QUEtiapine TAB* 25 MG PO SCH (22:13)
[2019-05-18] MEDS: Acetaminophen TAB* 325 MG PO SCH ×4 (05:11→22:08)
[2019-05-18] MEDS: oxyCODONE TAB* 5 MG TAB PO PRN ×4 (05:11→13:18)
[2019-05-18] MEDS: Insulin GLARGINE(*) 1 UNITS UNIT SUBCUT SCH ×2 (05:12→17:19)
[2019-05-18] MEDS: ceFAZolin 2 GM PREMIX in ORs 2 GM/50 ML BAG IVPB SCH ×3 (05:12→22:09)
[2019-05-18] MEDS: Heparin VIAL(*) 5000 UNITS/ML VIAL (FIVE THOUSAND) SUBCUT SCH (05:12)
[2019-05-18] MEDS: Morphine INJ* 2 MG/ML 1 ML SYRINGE (TWO MG - NEW SYRINGE VERSION) IV PRN ×2 (07:15→18:04)
[2019-05-18] MEDS: Insulin LISPRO* 1 UNITS UNIT SUBCUT SCH ×8 (08:33→20:54)
[2019-05-18] MEDS: Senna TAB 8.6 mg* TAB PO SCH (08:33)
[2019-05-18] MEDS: Escitalopram * 5 MG TAB PO SCH (08:33)
[2019-05-18] MEDS ORDERED: Naproxen TAB* 250 MG PO PRN (13:13)
[2019-05-18] MEDS: Pregabalin CAP(*) 25 MG PO SCH ×2 (13:35→20:55)
[2019-05-18] MEDS: Morphine INJ* 4 MG/ML 1 ML SYRINGE (NEW SYRINGE VERSION) IV PRN (13:36)
[2019-05-18] MEDS ORDERED: oxyCODONE SR TAB(*) 10 MG TAB.SR PO SCH (14:00)
--- NOTE | 2019-05-18 14:59 | PN ---
Progress Note - Progress Note Date of Service: 05/18/19 SOAP: Subjective: []Pt seen at bedside, his right leg pain is better today. Denies any feeling of fever, chills. Objective: PE-NAD, nontoxic appearing. Much less anxious than previous exams RLE- dressing changed, thigh incision healing well. There is mild dry serosangouinous drainage on the dressing from the lower leg. Lower leg proximal area of black skin unchanged, no sloughing and no drainage. Mid-lower leg anterior area of black skin without sloughing and without any obvious exposed bone. Distal packing removed, a few drops of drainage expressed which was mildly purulent. DP 2+ pulse. Sensation intact to light touch throughout RLE aside from over medial malleolus where there is decreased sensation. Assessment: SP repeat I&D right lower leg for complex abscess Uncontrolled DM with medication noncompliance and drug use history Plan: - CRP continues to improve - Skin and subQ viability is a concern. We will monitor this and continue to appreciate wound care team input. - Disposition from hospital depends on how the leg wound develops and whether a PICC line would be acceptable in this patient with a history of drug use. - Continue IV antibiotics - Appropriate malnutrition management - DSD change daily, packing has been completely removed - Dr Bosch made aware of exam findings today, agrees with assessment and plan Vital Signs Temp 97.1 F 05/18/19 11:15 Pulse 95 05/18/19 11:15 Resp 20 05/18/19 14:55 BP 132/67 05/18/19 11:15 Pulse Ox 98 05/18/19 11:15 Intake & Output 05/17/19 05/18/19 05/18/19 18:59 06:59 18:59 Intake Total 2584 1976 3010 Output Total 0 Balance 2584 1976 3010 Intake: IV Fluids 15 NS (0.9%) 15 IVPB 50 57 ABX - CEFAZOLIN 50 57 Oral 2520 192 3010 Output: Urine 0 Laboratory Last Values WBC 5.7 10^3/uL (3.5-10.8) 05/17/19 07:30 RBC 3.62 10^6 /uL (4.18-5.48) L 05/17/19 07:30 Hgb 10.5 g/dL (14.0-18.0) L 05/17/19 07:30 Hct 31 % (42-52) L 05/17/19 07:30 MCV 85 fL (80-94) 05/17/19 07:30 MCH 29 pg (27-31) 05/17/19 07:30 MCHC 34 g/dL (31-36) 05/17/19 07:30 RDW 14 % (10-15) 05/17/19 07:30 Plt Count 612 10^3/uL (150-450) H 05/17/19 07:30 MPV 6.4 fL (7.4-10.4) L 05/17/19 07:30 Neut % (Auto) 62.8 % 05/17/19 07:30 Lymph % (Auto) 25.9 % 05/17/19 07:30 [place] % (Auto) 7.9 % 05/17/19 07:30 Eos % (Auto) 1.0 % 05/17/19 07:30 Baso % (Auto) 2.4 % 05/17/19 07:30 Absolute Neuts (auto) 3.6 10^3/ul (1.5-7.7) 05/17/19 07:30 Absolute Lymphs (auto) 1.5 10^3/ul (1.0-4.8) 05/17/19 07:30 Absolute Monos (auto) 0.5 10^3/ul (0-0.8) 05/17/19 07:30 Absolute Eos (auto) 0.1 10^3/ul (0-0.6) 05/17/19 07:30 Absolute Basos (auto) 0.1 10^3/ul (0-0.2) 05/17/19 07:30 Absolute Nucleated RBC 0.0 10^3/ul 05/17/19 07:30 Immature Gran % 5.0 % (0-9) 05/08/19 04:27 Neutrophils % 75.0 % 05/08/19 04:27 Band Neutrophils % 1.0 % (0-8) 05/08/19 04:27 Lymphocytes % 12.0 % 05/08/19 04:27 Reactive Lymphs % 1.0 % (0-6) 05/08/19 04:27 Monocytes % 7.0 % 05/08/19 04:27 Metamyelocytes % 1.0 % (0-2) 05/08/19 04:27 Myelocytes % 3.0 % (0-1) H 05/08/19 04:27 Nucleated RBC % 0.1 05/17/19 07:30 Normal RBC Morphology Normal (Normal) 05/08/19 04:27 Sodium 135 mmol/L (135-145) 05/17/19 07:30 Potassium 4.0 mmol/L (3.5-5.0) 05/17/19 07:30 Chloride 97 mmol/L (101-111) L 05/17/19 07:30 Carbon Dioxide 33 mmol/L (22-32) H 05/17/19 07:30 Anion Gap 5 mmol/L (2-11) 05/17/19 07:30 BUN 24 mg/dL (6-24) 05/17/19 07:30 Creatinine 0.58 mg/dL (0.67-1.17) L 05/17/19 07:30 Est GFR ( Amer) 203.4 (>60) 05/17/19 07:30 Est GFR (Non-Af Amer) 168.1 (>60) 05/17/19 07:30 BUN/Creatinine Ratio 41.4 (8-20) H 05/17/19 07:30 Glucose 261 mg/dL (70-100) H 05/17/19 07:30 POC Glucose (mg/dL) 73 mg/dL (70-100) 05/18/19 11:08 Glucose Meter Confirm 438 mg/dL (70-100) H 05/15/19 18:01 Hemoglobin A1c 14.4 % (4.0-5.6) H 05/05/19 03:49 Lactic Acid 1.4 mmol/L (0.5-2.0) 05/04/19 17:47 Calcium 8.7 mg/dL (8.6-10.3) 05/17/19 07:30 Total Bilirubin 0.40 mg/dL (0.2-1.0) 05/07/19 04:13 GGT 66 U/L (9-64.0) H 05/08/19 04:27 AST 35 U/L (13-39) 05/07/19 04:13 ALT 30 U/L (7-52) 05/07/19 04:13 Alkaline Phosphatase 177 U/L (34-104) H 05/07/19 04:13 Total Creatine Kinase 135 U/L (10-223) 05/04/19 17:47 C-Reactive Protein 3.04 mg/L (<8.01) 05/18/19 06:18 Total Protein 6.0 g/dL (6.4-8.9) L 05/07/19 04:13 Albumin 2.5 g/dL (3.2-5.2) L 05/07/19 04:13 Globulin 3.5 g/dL (2-4) 05/07/19 04:13 Albumin/Globulin Ratio 0.7 (1-3) L 05/07/19 04:13 Fluid Source Synovial fluid 05/08/19 19:29 Fluid Volume 2 mL 05/08/19 19:29 Fluid Color [place] 05/08/19 19:29 Fluid Appearance Bloody 05/08/19 19:29 Fluid WBC 67 /mcL (0-864452) 05/08/19 19:29 Fluid RBC 81783 /mcL 05/08/19 19:29 Fluid Tot Cell Count 100 05/08/19 19:29 Fluid Neutrophils 86 % 05/08/19 19:29 Fluid Band Neutrophils 8 % 05/08/19 19:29 Fluid Lymphocytes 2 % 05/08/19 19:29 Fluid Monocytes 4 % 05/08/19 19:29 Fluid Nucleated RBCs 1 05/08/19 19:22 Fluid Cell Count Rvw By 05/08/19 19:29 Hepatitis C Antibody Negative (Negative) 05/06/19 05:33 Hepatitis C Ab Index 0.02 s/c 05/06/19 05:33
--- NOTE | 2019-05-18 17:21 | PN ---
Subjective Date of Service: 05/18/19 Interval History: Patient complained of 9/10 this morning despite around the clock pain medication including oxycodone and morphine breakthrough. His last BM was yesterday, no N&V. Very good appetite. Glucose before lunch is low side while pre-breakfast and pre-dinner all high. Objective Active Medications: Acetaminophen (Tylenol Tab*) 650 mg PO Q6H [facility] Last Admin: 05/18/19 11:21 Dose: 650 mg Dextrose (Dextrose 50% Vial 50 Ml*) 25 ml IV PUSH .FOR FS < 60 - SS PRN PRN Reason: FS < 60 Enoxaparin Sodium (Lovenox(*)) 40 mg SUBCUT BEDTIME [facility] Escitalopram Oxalate (Lexapro *) 5 mg PO DAILY [facility]; Protocol Last Admin: 05/18/19 08:33 Dose: 5 mg Cefazolin Sodium/Dextrose (Kefzol 2 Gm Premix In Ors(*)) 2 gm in 50 mls @ 100 mls/hr IVPB Q8H [facility] Last Admin: 05/18/19 13:13 Dose: 100 mls/hr Insulin Glargine (Lantus(*)) 40 units SUBCUT 0600,1800 [facility] Last Admin: 05/18/19 05:12 Dose: 40 unit Insulin Human Lispro (Humalog*) 0 units SUBCUT ACHS [facility]; Protocol Last Admin: 05/18/19 13:13 Dose: 5 unit Insulin Human Lispro (Humalog*) 0 units SUBCUT AC [facility]; Protocol Last Admin: 05/18/19 11:17 Dose: Not Given Morphine Sulfate (Morphine Inj (Syringe))*) 2 mg IV Q3H PRN PRN Reason: SEVERE PAIN Last Admin: 05/18/19 07:15 Dose: 2 mg Morphine Sulfate (Morphine Inj (Syringe)*) 3 mg IV DAILY PRN PRN Reason: before dressing change Last Admin: 05/18/19 13:36 Dose: 3 mg Naproxen (Naprosyn Tab*) 500 mg PO Q12H PRN PRN Reason: PAIN - MILD Nicotine Polacrilex (Nicotine Gum*) 2 mg PO Q2H PRN PRN Reason: CRAVING Ondansetron HCl (Zofran Inj*) 4 mg IV Q6H PRN PRN Reason: NAUSEA Oxycodone HCl (Oxycontin(*)) 10 mg PO TID [facility] Last Admin: 05/18/19 14:55 Dose: 10 mg Pregabalin (Lyrica Cap(*)) 25 mg PO TID [facility] Last Admin: 05/18/19 13:35 Dose: 25 mg Quetiapine Fumarate (Seroquel Tab*) 100 mg PO BEDTIME [facility] Last Admin: 05/17/19 22:13 Dose: 100 mg Senna (Senokot 8.6 Mg Tab*) 2 tab PO DAILY [facility] Last Admin: 05/18/19 08:33 Dose: 2 tab Vital Signs - 8 hr 05/18/19 05/18/19 05/18/19 11:15 11:21 13:09 Temperature 97.1 F Pulse Rate 95 Respiratory 18 20 16 Rate Blood Pressure 132/67 (mmHg) O2 Sat by Pulse 98 Oximetry 05/18/19 05/18/19 05/18/19 13:18 13:35 13:36 Temperature Pulse Rate Respiratory 20 16 16 Rate Blood Pressure (mmHg) O2 Sat by Pulse Oximetry 05/18/19 05/18/19 05/18/19 14:55 15:15 15:43 Temperature 97.0 F Pulse Rate 95 Respiratory 20 20 Rate Blood Pressure 126/72 (mmHg) O2 Sat by Pulse 98 98 Oximetry Oxygen Devices in Use Now: None Exam: Appearance: alert, uncomfortable looking Respiratory: Clear to Auscultation Cardiovascular: NL Sounds; No Murmurs; No JVD Abdominal:NL Sounds; No Tenderness; No Distention Extremities: RLE in bandage - Nutrition: Malnutrition Diagnosis/Plan Malnutrition Assessment by Registered Dietitian: Malnutrition Assessment Clinical Characteristics Chronic,Severe Malnutrition Assessment: Pt meets criteria for severe malnutrition in the Criteria setting of chronic illness aeb significant wt loss (50 lbs, 25% BW) x 1 mo and visible muscle wasting (clavicle) Malnutrition Assessment: Pt declines gluerna. Will trial 2% milk with 1 Interventions scoop benepro powder (155 kcals, 14 g pro, per serving) BID for snack Malnutrition Assessment: Goals 1. adequate intake to support hydration and lean body mass without further wt loss 2. glycemic control within inpatient parameters ; no s/sx hypo-hyperglycemia 3. maintain serum electrolytes WNL 4. regulation of bowel pattern; no c/o constipation (or diarrhea) Result Diagrams: 05/17/19 07:30 05/17/19 07:30 Additional Lab and Data: Above labs were pulled into the note, when the note was edited prior to signing. See labs below from day of consultation Laboratory Tests 05/07/19 05/15/19 05/15/19 04:13 04:17 04:17 WBC 5.6 Hgb 10.5 L Hct 31 L Plt Count 626 H D Sodium 135 Potassium 4.2 Chloride 97 L Carbon Dioxide 33 H BUN 22 Creatinine 0.58 L Glucose 324 H C-Reactive Protein 9.53 H Total Protein 6.0 L Albumin 2.5 L Microbiology and Other Data: Microbiology 05/08/19 19:29 Gram Stain - Final Body Fluid Body Fluid Culture - Final No Growth Day 4 Skin and Soft Tissue MRSA/MSSA (PCR - Final Mrsa Negative S.aureus Negative 05/08/19 19:22 Gram Stain - Final Joint Fluid(Synovial) - Knee Right Body Fluid Culture - Final No Growth Day 4 Skin and Soft Tissue MRSA/MSSA (PCR - Final Mrsa Negative S.aureus Negative 05/08/19 19:22 Skin and Soft Tissue MRSA/MSSA (PCR - Final Wound Mrsa Negative S.aureus Negative Gram Stain - Final Wound Culture - Final No Growth Day 4 05/08/19 19:34 Anaerobic Culture - Final Wound No Growth Day 4 Gram Stain - Final Wound Culture - Final No Growth Day 4 05/07/19 04:13 Aerobic Blood Culture - Final Blood Venous No Growth Day 5 Anaerobic Blood Culture - Final No Growth Day 5 05/07/19 04:17 Aerobic Blood Culture - Final Blood Venous No Growth Day 5 Anaerobic Blood Culture - Final No Growth Day 5 05/06/19 11:15 Aerobic Blood Culture - Final Blood Venous No Growth Day 5 Anaerobic Blood Culture - Final No Growth Day 5 05/05/19 12:14 Aerobic Blood Culture - Final Blood Venous No Growth Day 5 Anaerobic Blood Culture - Final No Growth Day 5 05/05/19 12:18 Aerobic Blood Culture - Final Blood Venous No Growth Day 5 Anaerobic Blood Culture - Final Staphylococcus Aureus Blood MRSA/MSSA (PCR) - Final Mrsa Negative S.aureus Positive 05/04/19 22:21 Anaerobic Culture - Final Wound - Right Leg 05/04/19 22:21 Skin and Soft Tissue MRSA/MSSA (PCR - Final Leg Right Mrsa Negative S.aureus Positive Gram Stain - Final Wound Culture - Final Staphylococcus Aureus 05/05/19 03:48 Aerobic Blood Culture - Final Blood Venous Staphylococcus Aureus Anaerobic Blood Culture - Final Staphylococcus Aureus Blood MRSA/MSSA (PCR) - Final Mrsa Negative S.aureus Positive 05/05/19 03:48 Aerobic Blood Culture - Final Blood Venous Staphylococcus Aureus Anaerobic Blood Culture - Final Staphylococcus Aureus Blood MRSA/MSSA (PCR) - Final Mrsa Negative S.aureus Positive Diagnostic Imagin. Exam Date: 05/04/19 163 - MRI LOWER EXTREMITY RIGHT W/O IMPRESSION: 1. There is soft tissue swelling of the of the anterior and medial aspects of the distal thigh and medial to the right knee. 2. Mild edema identified within the bone marrow of the medial femoral condyle. Differential considerations include osteomyelitis, post-traumatic change, and reactive edema. 3. Edema is identified within the biceps femoris muscle, suggestive of myositis or muscle strain. Additional patchy muscle edema and fluid signal intensity/ abscesses are identified within the distal lower extremity. 4. Minimal patellofemoral joint effusion. 5. There is a thin band of fluid between the medial lateral femoral condyle and lateral meniscus. This is suggestive of a floating meniscus. If the patient has a history of prior trauma, meniscal avulsion cannot be excluded. 6. Refer to the MRI right lower extremity tibia and fibula from the same day for further discussion of findings. 2. Exam Date: 05/04/191640 - MRI LOWER EXTREMITY RIGHT W/O Addendum created by Hola Torre MD on 05/04/2019 10:35:58 PM EDT Within the musculature of the anterior compartment, the fluid collection/ abscess measures approximately 3.4 x 3.8 x 19.9 cm. IMPRESSION: 1. Patchy muscle edema, suggestive of myositis or muscle strain. 2. Loculated areas of fluid signal intensity are identified within the tibialis posterior muscle and musculature of the anterior compartment, consistent with abscesses or phlegmonous change. Compartment syndrome cannot be excluded. Postcontrast sequences recommended. 3. There is mild increased T1 signal intensity involving the fluid signal intensity within the musculature of the anterior compartment, consistent with increased complexity of fluid or hemorrhagic component. 4. Diffuse soft tissue swelling of the lower extremity. 5. No acute marrow edema of the visualized tibia or fibula to suggest osteomyelitis. 6. Minimal tibiotalar and subtalar joint effusions. 7. Tenosynovitis of the tibialis anterior tendon. Assess/Plan/Problems-Billing Assessment: 28M IDDM Type 1, PSA in remission, tob use d/o, mood d/o who is a transfer from [facility] (admitted there on 05/01) with resolved DKA and RLE SSTI c/b complex abscess. Found to have sepsis with MSSA bacteremia, s/p intraoperative I /D on 05/04, 05/09, 05/11, 05/13 now w wound vac; Primary closure on 05/13. 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 - will require picc but need to figure out whether he is eligible with substance use history (2) Diabetes type 1, uncontrolled Current Visit: Yes Status: Acute Priority: High Code(s): E10.65 - TYPE 1 DIABETES MELLITUS WITH HYPERGLYCEMIA SNOMED Code(s): 05546184 Comment: -initial HbA1c 14.4%, off insulin for months due to losing insurance -on glargine 40U bid, nutritional dose of lispro, as well as corrective dose - nutritional consult for DM diet and high protein diet to help with wound healing (3) Polysubstance abuse Current Visit: Yes Status: Acute Code(s): F19.10 - OTHER PSYCHOACTIVE SUBSTANCE ABUSE, UNCOMPLICATED SNOMED Code(s): 234384718 Comment: - weed and meth use in the past - not active use (4) Thrombocytosis Current Visit: Yes Status: Acute Priority: Medium Comment: -Could be reactive because of infection or blood loss. (5) Tobacco use disorder Current Visit: Yes Status: Acute Code(s): F17.200 - NICOTINE DEPENDENCE, UNSPECIFIED, UNCOMPLICATED SNOMED Code(s): 900330869 Comment: - NRT offer (6) DVT prophylaxis Current Visit: Yes Status: Acute Priority: Low Code(s): Z29.9 - ENCOUNTER FOR PROPHYLACTIC MEASURES, UNSPECIFIED SNOMED Code(s): 746040482 Comment: Lovenox Status and Disposition: Inpatient; ortho following; ID following Does not have insurance; social work consult in place Attestation Documenting Resident: Daphney Mckeon Supervising Physician: Kaela Couch Attestation: This service has been performed in part by a resident under the direction of a teaching physician.I, Kaela Couch, performed the service, or was physically present during the critical, or castañeda portions of the service, furnished by the resident. I participated in the management of the patient.
[2019-05-18] MEDS: Enoxaparin(*) 40 MG/0.4 ML SYR SUBCUT SCH (20:54)
[2019-05-18] MEDS: QUEtiapine TAB* 25 MG PO SCH (20:55)
[2019-05-18] MEDS: oxyCODONE SR TAB(*) 15 MG TAB.SR PO SCH (20:55)
[2019-05-18] MEDS: Ketorolac INJ* 30 MG/ML 1 ML VIAL IV PUSH PRN (23:31)
[2019-05-19] MEDS: Acetaminophen TAB* 325 MG PO SCH ×4 (04:52→22:18)
[2019-05-19] MEDS: oxyCODONE SR TAB(*) 15 MG TAB.SR PO SCH ×2 (04:52→14:08)
[2019-05-19] MEDS: ceFAZolin 2 GM PREMIX in ORs 2 GM/50 ML BAG IVPB SCH ×3 (05:47→22:19)
[2019-05-19] MEDS: Insulin GLARGINE(*) 1 UNITS UNIT SUBCUT SCH ×2 (05:47→17:57)
[2019-05-19] MEDS: Morphine INJ* 2 MG/ML 1 ML SYRINGE (TWO MG - NEW SYRINGE VERSION) IV PRN ×2 (07:07→11:21)
--- NOTE | 2019-05-19 07:31 | PN ---
Progress Note - Progress Note Date of Service: 05/19/19 SOAP: Subjective: Pain decreased. Objective: RLE: - Decreased drainage on dressing. Drainage is more serous, less necrotic looking than it was 3 days ago. - 2 large areas of skin compromised appearance. Proximal patch is dark red or black, but sensate. Hole adjacent to more distal patch showing bone is no larger- approximately 5mm by 5mm. Selected Entries 05/19/19 03:09 Temperature 98.0 F Pulse Rate 88 Respiratory 20 Rate Blood Pressure 120/66 (mmHg) O2 Sat by Pulse 98 Oximetry Laboratory Tests 05/17/19 05/19/19 07:30 05:18 WBC 5.7 Neut % (Auto) 62.8 C-Reactive Protein 2.66 Assessment: s/p multiple I&Ds for complex abscess R lower leg Skin and soft tissue compromise right lower leg Plan: - Continue IV antibiotics. Despite the patient's protests of no history of IV drug use, there would seem to be reasonable concerns regarding a PICC line in this patient with much admitted drug use. - Continue non-adherent DSD change daily. I am encouraged by decreased drainage and the appearance of the skin not worsening. - I think that it is reasonable to let the wound declare itself. The compromised or skin can act as a biologic barrier until more healing occurs and this will minimize amount of exposed bone. - Patient can follow up as an outpatient for wound checks if he is discharged from hospital. He will likely need a debridement of skin and subcutaneous tissue in the clinic or operating room at some point, but this could be days or multiple weeks from now. - Wound care nurse input appreciated. She should see patient at least once a week.
[2019-05-19] MEDS: Escitalopram * 5 MG TAB PO SCH (09:38)
[2019-05-19] MEDS: Senna TAB 8.6 mg* TAB PO SCH (09:39)
[2019-05-19] MEDS: Pregabalin CAP(*) 25 MG PO SCH ×3 (09:39→20:18)
[2019-05-19] MEDS: Insulin LISPRO* 1 UNITS UNIT SUBCUT SCH ×7 (09:40→20:27)
[2019-05-19] MEDS: Ketorolac INJ* 30 MG/ML 1 ML VIAL IV PUSH PRN (09:42)
[2019-05-19] MEDS: Multivitamins/Minerals TAB PO SCH (11:23)
[2019-05-19] MEDS ORDERED: Morphine INJ* 2 MG/ML 1 ML SYRINGE (TWO MG - NEW SYRINGE VERSION) IV PRN (13:14)
[2019-05-19] MEDS: oxyCODONE TAB* 5 MG TAB PO SCH ×2 (13:57→20:17)
[2019-05-19] MEDS: Ketorolac INJ* 30 MG/ML 1 ML VIAL IV PUSH SCH ×2 (14:01→22:19)
[2019-05-19] MEDS: Morphine 10 MG/ML VIAL (1 ml) IV PRN ×2 (16:03→18:07)
--- NOTE | 2019-05-19 16:10 | PN ---
Subjective Date of Service: 05/19/19 Interval History: Mr. Kaminski is a 28 yo male with PMH significant for DM1, hx tobacco abuse, and hx polysubstance abuse. He presented initially to [facility] for right LE pain and was found to have DKA. He was admitted to [facility] and treated for DKA. He was seen by Dr. Bosch with Orthopedics and felt to have compartment symptom vs abscess in the right LE and was transferred to [facility] [place] further evaluation. He was taken to the OR on 05/04/19 for I+D of the right LE, right lower leg release or partial release of compartments, anterior, lateral, deep posterior. He returned to the OR on 05/09/19 for aspiration of the right knee and ankle; I+D of right thigh, lateral and posterolateral; repeat I+D right lower leg with abscess in the anterior compartment, but also exploration of lateral, deep posterior, and superficial posterior compartments; and placement of wound VAC. Areas of eschar present along the incision line. Denies fever, chills, nausea, vomiting, or diarrhea. The pain is starting to improve and dressing changes are more tolerable with premedicated. Patient seen and examined at bedside with Orthopedics and Medicine. Family History: Unchanged from Admission Social History: Unchanged from Admission Past Medical History: Unchanged from Admission Objective Active Medications: Acetaminophen (Tylenol Tab*) 650 mg PO Q6H [facility] Dextrose (Dextrose 50% Vial 50 Ml*) 25 ml IV PUSH PRN Reason: FS < 60 Enoxaparin Sodium (Lovenox(*)) 40 mg SUBCUT BEDTIME [facility] Escitalopram Oxalate (Lexapro *) 5 mg PO DAILY [facility]; Protocol Cefazolin Sodium/Dextrose (Kefzol 2 Gm Premix In Ors(*)) 2 gm in 50 mls @ 100 mls/hr IVPB Q8H [facility] Insulin Glargine (Lantus(*)) 40 units SUBCUT 0600,1800 [facility] Insulin Human Lispro (Humalog*) 0 units SUBCUT AC [facility]; Protocol Insulin Human Lispro (Humalog*) 0 units SUBCUT ACHS [facility]; Protocol Ketorolac Tromethamine (Toradol Inj*) 30 mg IV PUSH Q8H [facility] Stop: 05/25/19 06:01 Morphine Sulfate (Morphine 10 Mg/Ml Vial (1 Ml)) 6 mg IV Q2H PRN Reason: PAIN - SEVERE Multivitamins/Minerals (Theragran/Minerals Tab*) 1 tab PO DAILY [facility] Nicotine Polacrilex (Nicotine Gum*) 2 mg PO Q2H PRN Reason: CRAVING Ondansetron HCl (Zofran Inj*) 4 mg IV Q6H PRN Reason: NAUSEA Oxycodone HCl (Roxycodone Tab*) 10 mg PO Q6H [facility] Pregabalin (Lyrica Cap(*)) 25 mg PO TID [facility] Quetiapine Fumarate (Seroquel Tab*) 100 mg PO BEDTIME [facility] Senna (Senokot 8.6 Mg Tab*) 2 tab PO DAILY [facility] Vital Signs 05/19/19 05/19/19 05/19/19 15:15 15:59 16:03 Temperature 98.2 F Pulse Rate 108 Respiratory 16 16 18 Rate Blood Pressure 119/76 (mmHg) O2 Sat by Pulse 97 Oximetry Oxygen Devices in Use Now: None Appearance: NAD, sitting up in bed Ears/Nose/Mouth/Throat: Mucous Membranes Moist Respiratory: Symmetrical Chest Expansion and Respiratory Effort Extremities: No Edema, - - 2+ right DP pulse Skin: - - See skin note below Neurological: Alert and Oriented x 3 - Nutrition: Malnutrition Diagnosis/Plan Malnutrition Assessment by Registered Dietitian: Malnutrition Assessment Clinical Characteristics Chronic,Severe Malnutrition Assessment: Pt meets criteria for severe malnutrition in the Criteria setting of chronic illness aeb significant wt loss (50 lbs, 25% BW) x 1 mo and visible muscle wasting (clavicle) Malnutrition Assessment: Pt declines gluerna. Will trial 2% milk with 1 Interventions scoop benepro powder (155 kcals, 14 g pro, per serving) BID for snack Malnutrition Assessment: Goals 1. adequate intake to support hydration and lean body mass without further wt loss 2. glycemic control within inpatient parameters ; no s/sx hypo-hyperglycemia 3. maintain serum electrolytes WNL 4. regulation of bowel pattern; no c/o constipation (or diarrhea) Result Diagrams: 05/20/19 08:47 05/20/19 08:47 Additional Lab and Data: Above labs were pulled into the note, when edited prior to signing, please see below for labs from day of consultation. Laboratory Tests 05/05/19 05/07/19 05/16/19 03:49 04:13 06:21 WBC Hgb Hct Plt Count Sodium Potassium Chloride Carbon Dioxide BUN Creatinine Glucose Hemoglobin A1c 14.4 H C-Reactive Protein 5.92 Total Protein 6.0 L Albumin 2.5 L 05/17/19 05/17/19 07:30 07:30 WBC 5.7 Hgb 10.5 L Hct 31 L Plt Count 612 H Sodium 135 Potassium 4.0 Chloride 97 L Carbon Dioxide 33 H BUN 24 Creatinine 0.58 L Glucose 261 H Hemoglobin A1c C-Reactive Protein Total Protein Albumin Microbiology and Other Data: Microbiology 05/08/19 19:29 Gram Stain - Final Body Fluid Body Fluid Culture - Final No Growth Day 4 Skin and Soft Tissue MRSA/MSSA (PCR - Final Mrsa Negative S.aureus Negative 05/08/19 19:22 Gram Stain - Final Joint Fluid(Synovial) - Knee Right Body Fluid Culture - Final No Growth Day 4 Skin and Soft Tissue MRSA/MSSA (PCR - Final Mrsa Negative S.aureus Negative 05/08/19 19:22 Skin and Soft Tissue MRSA/MSSA (PCR - Final Wound Mrsa Negative S.aureus Negative Gram Stain - Final Wound Culture - Final No Growth Day 4 05/08/19 19:34 Anaerobic Culture - Final Wound No Growth Day 4 Gram Stain - Final Wound Culture - Final No Growth Day 4 05/07/19 04:13 Aerobic Blood Culture - Final Blood Venous No Growth Day 5 Anaerobic Blood Culture - Final No Growth Day 5 05/07/19 04:17 Aerobic Blood Culture - Final Blood Venous No Growth Day 5 Anaerobic Blood Culture - Final No Growth Day 5 05/06/19 11:15 Aerobic Blood Culture - Final Blood Venous No Growth Day 5 Anaerobic Blood Culture - Final No Growth Day 5 05/05/19 12:14 Aerobic Blood Culture - Final Blood Venous No Growth Day 5 Anaerobic Blood Culture - Final No Growth Day 5 05/05/19 12:18 Aerobic Blood Culture - Final Blood Venous No Growth Day 5 Anaerobic Blood Culture - Final Staphylococcus Aureus Blood MRSA/MSSA (PCR) - Final Mrsa Negative S.aureus Positive 05/04/19 22:21 Anaerobic Culture - Final Wound - Right Leg 05/04/19 22:21 Skin and Soft Tissue MRSA/MSSA (PCR - Final Leg Right Mrsa Negative S.aureus Positive Gram Stain - Final Wound Culture - Final Staphylococcus Aureus 05/05/19 03:48 Aerobic Blood Culture - Final Blood Venous Staphylococcus Aureus Anaerobic Blood Culture - Final Staphylococcus Aureus Blood MRSA/MSSA (PCR) - Final Mrsa Negative S.aureus Positive 05/05/19 03:48 Aerobic Blood Culture - Final Blood Venous Staphylococcus Aureus Anaerobic Blood Culture - Final Staphylococcus Aureus Blood MRSA/MSSA (PCR) - Final Mrsa Negative S.aureus Positive Diagnostic Imagin. Exam Date: 05/04/19 1635 - MRI LOWER EXTREMITY RIGHT W/O IMPRESSION: 1. There is soft tissue swelling of the of the anterior and medial aspects of the distal thigh and medial to the right knee. 2. Mild edema identified within the bone marrow of the medial femoral condyle. Differential considerations include osteomyelitis, post-traumatic change, and reactive edema. 3. Edema is identified within the biceps femoris muscle, suggestive of myositis or muscle strain. Additional patchy muscle edema and fluid signal intensity/ abscesses are identified within the distal lower extremity. 4. Minimal patellofemoral joint effusion. 5. There is a thin band of fluid between the medial lateral femoral condyle and lateral meniscus. This is suggestive of a floating meniscus. If the patient has a history of prior trauma, meniscal avulsion cannot be excluded. 6. Refer to the MRI right lower extremity tibia and fibula from the same day for further discussion of findings. 2. Exam Date: 05/04/19 164 - MRI LOWER EXTREMITY RIGHT W/O Addendum created by Hola Torre MD on 05/04/2019 10:35:58 PM EDT Within the musculature of the anterior compartment, the fluid collection/ abscess measures approximately 3.4 x 3.8 x 19.9 cm. IMPRESSION: 1. Patchy muscle edema, suggestive of myositis or muscle strain. 2. Loculated areas of fluid signal intensity are identified within the tibialis posterior muscle and musculature of the anterior compartment, consistent with abscesses or phlegmonous change. Compartment syndrome cannot be excluded. Postcontrast sequences recommended. 3. There is mild increased T1 signal intensity involving the fluid signal intensity within the musculature of the anterior compartment, consistent with increased complexity of fluid or hemorrhagic component. 4. Diffuse soft tissue swelling of the lower extremity. 5. No acute marrow edema of the visualized tibia or fibula to suggest osteomyelitis. 6. Minimal tibiotalar and subtalar joint effusions. 7. Tenosynovitis of the tibialis anterior tendon. Skin Deviation Note - Skin Deviation Findings Right lower extremity - There is a long incision to the leg. There are 2 areas of black eschar. The proximal area measures, 8.5 cm x 5 cm x 0.1 cm. There is an area that is white/yellow, this is fluctuant, able to express serous drainage from the area. The distal area measures, 12 cm 4 cm x 0.1 cm. There are a few areas of pink granulation tissue surrounding the black eschar. There is also a small area of adherent yellow slough present towards the medial aspect of the lower area. Mild surrounding erythema to the lower area of eschar. Wound Problem/Plan Assessment: Mr. Kaminski is a 28 yo male with PMH significant for DM1, hx tobacco abuse, and hx polysubstance abuse. He presented from [facility] to [facility] for a right LE celluitis with complex abscess and myositis. S/P multiple surgeries to right LE, now with areas of eschar along the incision. 1. Right LE wounds s/p I+Ds. Decreased drainage from the wound and the packing has been removed. Recommend considering surgical debridement of the areas of eschar by either Orthopedics or General surgery. Do not feel that chemical debridement will work as the areas are dry eschar. May require a flap or skin graft procedure in the future. Continue dry dressings daily per Orthopedics. 2. Right LE cellulitis, myositis, and complex abscess. Continue IV ABX as directed by ID. Plan is for 42 days in the setting of possible right thigh osteomyelitis. CRP is trending down and afebrile. No leukocytosis. Low suspicion for narcotizing fasciitis at this time. 3. Severe Malnutrition. As evidenced by chronic illness and significant weight loss, reported to be 50 lbs in 1 month and visible clavicle muscle wasting. Dietitians following, using Milk and Glucerna for supplement. 4. DM1. Noncompliant with insulin prior to admission (states he didn't have health insurance for the insulin). HgA1C 14.4 on admission. Maintain good glycemic control to allow for wound healing. 5. Diet. Consistent Carbohydrate diet. 6. Code Status. Full Code status. 7. Disposition. Inpatient, disposition per primary team. TIME SPENT: Total time for this wound consultation was 30 minutes and 20 minutes was spent with the patient removing the old dressing; assessing, measuring, and photographing the wounds; reapplying a new dressing. Is Patient a Wound Clinic Patient: No Attending: Hailey Rudd
--- NOTE | 2019-05-19 18:24 | PN ---
Subjective Date of Service: 05/19/19 Interval History: Patient complained of worsening pain with oxycodone changed to oxycodone ER yesterday. He was walking with PT this morning in the corridor. I talked to his in charge nurse who pointed out that he had certain degree of psychological dependence though his pain is also true. He had no constipation so far. Understand ortho Dr. Bosch's plan is to continue abx and watch wound healing though significant necrotic tissue was noticed. Objective Active Medications: Acetaminophen (Tylenol Tab*) 650 mg PO Q6H [facility] Last Admin: 05/19/19 16:05 Dose: 650 mg Dextrose (Dextrose 50% Vial 50 Ml*) 25 ml IV PUSH .FOR FS < 60 - SS PRN PRN Reason: FS < 60 Enoxaparin Sodium (Lovenox(*)) 40 mg SUBCUT BEDTIME [facility] Last Admin: 05/18/19 20:54 Dose: 40 mg Escitalopram Oxalate (Lexapro *) 5 mg PO DAILY [facility]; Protocol Last Admin: 05/19/19 09:38 Dose: 5 mg Cefazolin Sodium/Dextrose (Kefzol 2 Gm Premix In Ors(*)) 2 gm in 50 mls @ 100 mls/hr IVPB Q8H [facility] Last Admin: 05/19/19 13:53 Dose: 100 mls/hr Insulin Glargine (Lantus(*)) 40 units SUBCUT 0600,1800 [facility] Last Admin: 05/19/19 17:57 Dose: 40 unit Insulin Human Lispro (Humalog*) 0 units SUBCUT AC [facility]; Protocol Last Admin: 05/19/19 17:55 Dose: 7 unit Insulin Human Lispro (Humalog*) 0 units SUBCUT ACHS [facility]; Protocol Last Admin: 05/19/19 17:56 Dose: 3 units Ketorolac Tromethamine (Toradol Inj*) 30 mg IV PUSH Q8H [facility] Stop: 05/25/19 06:01 Last Admin: 05/19/19 14:01 Dose: 30 mg Morphine Sulfate (Morphine 10 Mg/Ml Vial (1 Ml)) 6 mg IV Q2H PRN PRN Reason: PAIN - SEVERE Last Admin: 05/19/19 18:07 Dose: 6 mg Multivitamins/Minerals (Theragran/Minerals Tab*) 1 tab PO DAILY [facility] Last Admin: 05/19/19 11:23 Dose: 1 tab Nicotine Polacrilex (Nicotine Gum*) 2 mg PO Q2H PRN PRN Reason: CRAVING Ondansetron HCl (Zofran Inj*) 4 mg IV Q6H PRN PRN Reason: NAUSEA Oxycodone HCl (Roxycodone Tab*) 10 mg PO Q6H [facility] Last Admin: 05/19/19 13:57 Dose: 10 mg Pregabalin (Lyrica Cap(*)) 25 mg PO TID [facility] Last Admin: 05/19/19 13:55 Dose: 25 mg Quetiapine Fumarate (Seroquel Tab*) 100 mg PO BEDTIME [facility] Last Admin: 05/18/19 20:55 Dose: 100 mg Senna (Senokot 8.6 Mg Tab*) 2 tab PO DAILY [facility] Last Admin: 05/19/19 09:39 Dose: 2 tab Vital Signs - 8 hr 05/19/19 05/19/19 05/19/19 11:15 11:16 11:21 Temperature 97.2 F Pulse Rate 96 Respiratory 20 16 22 Rate Blood Pressure 131/76 (mmHg) O2 Sat by Pulse 99 Oximetry 05/19/19 05/19/19 05/19/19 13:32 13:55 13:57 Temperature Pulse Rate Respiratory 20 18 18 Rate Blood Pressure (mmHg) O2 Sat by Pulse Oximetry 05/19/19 05/19/19 05/19/19 14:29 15:15 15:59 Temperature 98.2 F Pulse Rate 108 Respiratory 16 16 Rate Blood Pressure 119/76 (mmHg) O2 Sat by Pulse 98 97 Oximetry 05/19/19 05/19/19 05/19/19 16:03 17:58 18:07 Temperature Pulse Rate Respiratory 18 18 18 Rate Blood Pressure (mmHg) O2 Sat by Pulse Oximetry Oxygen Devices in Use Now: None Exam: Appearance: alert, uncomfortable looking Respiratory: Clear to Auscultation Cardiovascular: NL Sounds; No Murmurs; No JVD Abdominal:NL Sounds; No Tenderness; No Distention Extremities: RLE in bandage - Nutrition: Malnutrition Diagnosis/Plan Malnutrition Assessment by Registered Dietitian: Malnutrition Assessment Clinical Characteristics Chronic,Severe Malnutrition Assessment: Pt meets criteria for severe malnutrition in the Criteria setting of chronic illness aeb significant wt loss (50 lbs, 25% BW) x 1 mo and visible muscle wasting (clavicle) Malnutrition Assessment: Pt declines gluerna. Will trial 2% milk with 1 Interventions scoop benepro powder (155 kcals, 14 g pro, per serving) BID for snack Malnutrition Assessment: Goals 1. adequate intake to support hydration and lean body mass without further wt loss 2. glycemic control within inpatient parameters ; no s/sx hypo-hyperglycemia 3. maintain serum electrolytes WNL 4. regulation of bowel pattern; no c/o constipation (or diarrhea) Result Diagrams: 05/17/19 07:30 05/17/19 07:30 Microbiology and Other Data: Microbiology 05/08/19 19:29 Gram Stain - Final Body Fluid Body Fluid Culture - Final No Growth Day 4 Skin and Soft Tissue MRSA/MSSA (PCR - Final Mrsa Negative S.aureus Negative 05/08/19 19:22 Gram Stain - Final Joint Fluid(Synovial) - Knee Right Body Fluid Culture - Final No Growth Day 4 Skin and Soft Tissue MRSA/MSSA (PCR - Final Mrsa Negative S.aureus Negative 05/08/19 19:22 Skin and Soft Tissue MRSA/MSSA (PCR - Final Wound Mrsa Negative S.aureus Negative Gram Stain - Final Wound Culture - Final No Growth Day 4 05/08/19 19:34 Anaerobic Culture - Final Wound No Growth Day 4 Gram Stain - Final Wound Culture - Final No Growth Day 4 05/07/19 04:13 Aerobic Blood Culture - Final Blood Venous No Growth Day 5 Anaerobic Blood Culture - Final No Growth Day 5 05/07/19 04:17 Aerobic Blood Culture - Final Blood Venous No Growth Day 5 Anaerobic Blood Culture - Final No Growth Day 5 05/06/19 11:15 Aerobic Blood Culture - Final Blood Venous No Growth Day 5 Anaerobic Blood Culture - Final No Growth Day 5 05/05/19 12:14 Aerobic Blood Culture - Final Blood Venous No Growth Day 5 Anaerobic Blood Culture - Final No Growth Day 5 05/05/19 12:18 Aerobic Blood Culture - Final Blood Venous No Growth Day 5 Anaerobic Blood Culture - Final Staphylococcus Aureus Blood MRSA/MSSA (PCR) - Final Mrsa Negative S.aureus Positive 05/04/19 22:21 Anaerobic Culture - Final Wound - Right Leg 05/04/19 22:21 Skin and Soft Tissue MRSA/MSSA (PCR - Final Leg Right Mrsa Negative S.aureus Positive Gram Stain - Final Wound Culture - Final Staphylococcus Aureus 05/05/19 03:48 Aerobic Blood Culture - Final Blood Venous Staphylococcus Aureus Anaerobic Blood Culture - Final Staphylococcus Aureus Blood MRSA/MSSA (PCR) - Final Mrsa Negative S.aureus Positive 05/05/19 03:48 Aerobic Blood Culture - Final Blood Venous Staphylococcus Aureus Anaerobic Blood Culture - Final Staphylococcus Aureus Blood MRSA/MSSA (PCR) - Final Mrsa Negative S.aureus Positive Assess/Plan/Problems-Billing Assessment: 28M IDDM Type 1, PSA in remission, tob use d/o, mood d/o who is a transfer from [facility] (admitted there on 05/01) with resolved DKA and RLE SSTI c/b complex abscess. Found to have sepsis with MSSA bacteremia, s/p intraoperative I /D on 05/04, 05/09, 05/11, 05/13 now w wound vac; Primary closure on 05/13. 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 - will require picc but we will figure out whether he is eligible (no iv drug use, only weed and meth) (2) Diabetes type 1, uncontrolled Current Visit: Yes Status: Acute Priority: High Code(s): E10.65 - TYPE 1 DIABETES MELLITUS WITH HYPERGLYCEMIA SNOMED Code(s): 56223530 Comment: -initial HbA1c 14.4%, off insulin for months due to losing insurance -on glargine 40U bid, nutritional dose of lispro, as well as corrective dose - nutritional consult for DM diet and high protein diet to help with wound healing (3) Polysubstance abuse Current Visit: Yes Status: Acute Code(s): F19.10 - OTHER PSYCHOACTIVE SUBSTANCE ABUSE, UNCOMPLICATED SNOMED Code(s): 843201428 Comment: - weed and meth use in the past - not active use (4) Thrombocytosis Current Visit: Yes Status: Acute Priority: Medium Comment: -Could be reactive because of infection or blood loss. (5) Tobacco use disorder Current Visit: Yes Status: Acute Code(s): F17.200 - NICOTINE DEPENDENCE, UNSPECIFIED, UNCOMPLICATED SNOMED Code(s): 837834373 Comment: - NRT offer (6) DVT prophylaxis Current Visit: Yes Status: Acute Priority: Low Code(s): Z29.9 - ENCOUNTER FOR PROPHYLACTIC MEASURES, UNSPECIFIED SNOMED Code(s): 064945304 Comment: Lovenox Status and Disposition: Inpatient; ortho following; ID following Does not have insurance; social work consult in place Attestation Documenting Resident: Daphney Mckeon Supervising Physician: Kaela Couch Attestation: This service has been performed in part by a resident under the direction of a teaching physician.I, Kaela Couch, performed the service, or was physically present during the critical, or castañeda portions of the service, furnished by the resident. I participated in the management of the patient.
[2019-05-19] MEDS: Enoxaparin(*) 40 MG/0.4 ML SYR SUBCUT SCH (20:18)
[2019-05-19] MEDS: QUEtiapine TAB* 25 MG PO SCH (22:19)
[2019-05-20] MEDS: oxyCODONE TAB* 5 MG TAB PO SCH ×4 (02:08→19:55)
[2019-05-20] MEDS: Acetaminophen TAB* 325 MG PO SCH ×4 (05:55→23:49)
[2019-05-20] MEDS: Ketorolac INJ* 30 MG/ML 1 ML VIAL IV PUSH SCH ×3 (05:55→22:05)
[2019-05-20] MEDS: ceFAZolin 2 GM PREMIX in ORs 2 GM/50 ML BAG IVPB SCH ×3 (05:56→22:04)
[2019-05-20] MEDS: Insulin GLARGINE(*) 1 UNITS UNIT SUBCUT SCH ×2 (05:56→18:22)
[2019-05-20] MEDS: Pregabalin CAP(*) 25 MG PO SCH ×3 (08:17→22:02)
[2019-05-20] MEDS: Escitalopram * 5 MG TAB PO SCH (08:18)
[2019-05-20] MEDS: Senna TAB 8.6 mg* TAB PO SCH (08:19)
[2019-05-20] MEDS: Multivitamins/Minerals TAB PO SCH (08:19)
[2019-05-20 08:58] LABS: ABS Basophils 0.1 10^3/ul (0-0.2); ABS Eosinophils 0.1 10^3/ul (0-0.6); ABS Lymphocytes 1.4 10^3/ul (1.0-4.8); ABS Monocytes 0.4 10^3/ul (0-0.8); ABS Neutrophils 3.7 10^3/ul (1.5-7.7); Eosinophil % 1.3 %; Hematocrit 31 % (42-52); Hemoglobin 10.2 g/dL (14.0-18.0); Lymphocyte % 24.6 %; Mean Corpuscular HGB Conc 33 g/dL (31-36); Mean Corpuscular Hemoglobin 29 pg (27-31); Mean Corpuscular Volume 87 fL (80-94); Mean Platelet Volume 6.5 fL (7.4-10.4); Nucleated Red Blood Cells % 0.1; Platelet Count 432 10^3/uL (150-450); Red Blood Count 3.58 10^6 /uL (4.18-5.48); Red Cell Distribution Width 15 % (10-15); White Blood Count 5.7 10^3/uL (3.5-10.8)
[2019-05-20 09:14] LABS: Albumin 3.2 g/dL (3.2-5.2); Albumin/Globulin Ratio 0.9 (1-3); BUN/Creatinine Ratio 65.3 (8-20); Calcium 8.8 mg/dL (8.6-10.3); EGFR Non-African American 204.2 (>60); Globulin 3.4 g/dL (2-4); Potassium 4.5 mmol/L (3.5-5.0); Total Bilirubin 0.4 mg/dL (0.2-1.0); Total Protein 6.6 g/dL (6.4-8.9)
--- NOTE | 2019-05-20 10:02 | PN ---
Progress Note - Progress Note Date of Service: 05/20/19 SOAP: Subjective: CC: Right LE cellulitis with abscess and MSSA bacteremia HPI: Mr. Kaminski is a 28 yo male with PMH significant for DM1. Denies fever, chills, nausea, vomiting, diarrhea, or rash. He reports continued pain in the right LE, 8/10. He is able to bear weight on the right leg to get to the bathroom. Objective: Vital Signs 05/20/19 09:01 Temperature 98.5 F Pulse Rate 93 Respiratory 12 Rate Blood Pressure 112/65 (mmHg) O2 Sat by Pulse 98 Oximetry Physical Exam: General: NAD, sitting up in bed Neurological: Alert and Oriented x 3 HEENT: Moist MM, no thrush Cardiovascular: Heart rate regular, no murmur Respiratory: Lung sounds clear bilateral Abdominal: Bowel sounds present; ABD soft, non tender and non distended MSK: Able to move right knee. No tenderness with palpation of the right knee Skin: Long incision to right LE from thigh to lower leg. There are 2 large areas of black mostly dry eschar. There is a small amount of serous drainage. The surrounding skin is intact Laboratory Results - last 24 hr 05/20/19 05/20/19 08:47 08:47 WBC 5.7 RBC 3.58 L Hgb 10.2 L Hct 31 L MCV 87 MCH 29 MCHC 33 RDW 15 Plt Count 432 MPV 6.5 L Neut % (Auto) 64.9 Lymph % (Auto) 24.6 [place] % (Auto) 7.3 Eos % (Auto) 1.3 Baso % (Auto) 1.9 Absolute Neuts (auto) 3.7 Absolute Lymphs (auto) 1.4 Absolute Monos (auto) 0.4 Absolute Eos (auto) 0.1 Absolute Basos (auto) 0.1 Absolute Nucleated RBC 0.0 Nucleated RBC % 0.1 Sodium 136 Potassium 4.5 Chloride 101 Carbon Dioxide 29 Anion Gap 6 BUN 32 H Creatinine 0.49 L Est GFR ( Amer) 247.0 Est GFR (Non-Af Amer) 204.2 BUN/Creatinine Ratio 65.3 H Glucose 149 H POC Glucose (mg/dL) Calcium 8.8 Total Bilirubin 0.40 AST 17 ALT 15 Alkaline Phosphatase 83 Total Protein 6.6 Albumin 3.2 Globulin 3.4 Albumin/Globulin Ratio 0.9 L Microbiology 05/08/19 19:29 Gram Stain - Final Body Fluid Body Fluid Culture - Final No Growth Day 4 Skin and Soft Tissue MRSA/MSSA (PCR - Final Mrsa Negative S.aureus Negative 05/08/19 19:22 Gram Stain - Final Joint Fluid(Synovial) - Knee Right Body Fluid Culture - Final No Growth Day 4 Skin and Soft Tissue MRSA/MSSA (PCR - Final Mrsa Negative S.aureus Negative 05/08/19 19:22 Skin and Soft Tissue MRSA/MSSA (PCR - Final Wound Mrsa Negative S.aureus Negative Gram Stain - Final Wound Culture - Final No Growth Day 4 05/08/19 19:34 Anaerobic Culture - Final Wound No Growth Day 4 Gram Stain - Final Wound Culture - Final No Growth Day 4 05/07/19 04:13 Aerobic Blood Culture - Final Blood Venous No Growth Day 5 Anaerobic Blood Culture - Final No Growth Day 5 05/07/19 04:17 Aerobic Blood Culture - Final Blood Venous No Growth Day 5 Anaerobic Blood Culture - Final No Growth Day 5 05/06/19 11:15 Aerobic Blood Culture - Final Blood Venous No Growth Day 5 Anaerobic Blood Culture - Final No Growth Day 5 05/05/19 12:14 Aerobic Blood Culture - Final Blood Venous No Growth Day 5 Anaerobic Blood Culture - Final No Growth Day 5 05/05/19 12:18 Aerobic Blood Culture - Final Blood Venous No Growth Day 5 Anaerobic Blood Culture - Final Staphylococcus Aureus Blood MRSA/MSSA (PCR) - Final Mrsa Negative S.aureus Positive 05/04/19 22:21 Anaerobic Culture - Final Wound - Right Leg 05/04/19 22:21 Skin and Soft Tissue MRSA/MSSA (PCR - Final Leg Right Mrsa Negative S.aureus Positive Gram Stain - Final Wound Culture - Final Staphylococcus Aureus 05/05/19 03:48 Aerobic Blood Culture - Final Blood Venous Staphylococcus Aureus Anaerobic Blood Culture - Final Staphylococcus Aureus Blood MRSA/MSSA (PCR) - Final Mrsa Negative S.aureus Positive 05/05/19 03:48 Aerobic Blood Culture - Final Blood Venous Staphylococcus Aureus Anaerobic Blood Culture - Final Staphylococcus Aureus Blood MRSA/MSSA (PCR) - Final Mrsa Negative S.aureus Positive Assessment: 1. Right LE cellulitis with abscess, myositis, and tenosynovitis. Wound culture with staph aureus. S/P multiple I+Ds, last on 05/13/19. Afebrile, leukocytosis resolved, CRP has normalized, thromocytosis has resolved. 2. Staph aureus bacteremia. Secondary to #1. No peripheral stigmata of endocarditis. TTE and GUANAKO negative for vegetation. Repeat blood cultures on 05/06 with no growth. 3. DM1. Uncontrolled. Plan: Continue Ancef 2 mg IV every 8 hours, day . Weekly labs while on IV ABX: CBC, CMP, and CRP.
--- NOTE | 2019-05-20 10:06 | PN ---
Progress Note - Progress Note Date of Service: 05/20/19 SOAP: Subjective: Pain reduced. Still present. Objective: RLE: - Decreased, but present drainage - Wounds similar. - Punctate skin hole has been filled in with some tissue so no visible bone today. - Black skin spots have some whiteness to them, but no obvious necrosis or purulence - Serosanguinous drainage on dressing - DP pulse 2+ Selected Entries 05/20/19 09:01 Temperature 98.5 F Pulse Rate 93 Respiratory 12 Rate Blood Pressure 112/65 (mmHg) O2 Sat by Pulse 98 Oximetry Laboratory Tests 05/19/19 05/20/19 05:18 08:47 WBC 5.7 Neut % (Auto) 64.9 C-Reactive Protein 2.66 Assessment: s/p multiple I&Ds complex R lower leg abscess Plan: - Antibiotics per ID. IV versus PO per ID. Recommend 6 weeks antibiotics even if no osteomyelitis given the wound presence. - Follow up in 1 week with me in clinic and with [facility] staff for wound checks. - DSD change daily with non-adherent dressing - Ultimately, the wound may heal itself via secondary intention, possibly with some debridement at some point. This is the hope and best-case scenario. Or it may require a flap, likely soleus flap, which the patient would need to be seen in [facility] for by a plastic surgeon. Amputation is still a possibility, especially if the patient is non-compliant. - Dispo planning.
[2019-05-20] MEDS: Insulin LISPRO* 1 UNITS UNIT SUBCUT SCH ×7 (10:19→20:25)
[2019-05-20] MEDS: Morphine 10 MG/ML VIAL (1 ml) IV PRN ×2 (10:21→17:09)
--- NOTE | 2019-05-20 15:10 | PN ---
Subjective Date of Service: 05/20/19 Interval History: Patient felt depressed with prolonged stay here. He is eager to go home. However he understands his medical care arrangement will be an issue with insurance not settled. His pain is better controlled currently. Case discussed in case management round, still waiting his paper work to be fetched from [facility] in order to obtain insurance for him. Received call from Ortho Dr. Bosch, he felt no surgical intervention at this moment, he could be discharged to follow up with him in 1 week if medical issue resolved. But he potentially needs debridement or flap in the future. Objective Active Medications: Acetaminophen (Tylenol Tab*) 650 mg PO Q6H [facility] Last Admin: 05/20/19 11:29 Dose: 650 mg Dextrose (Dextrose 50% Vial 50 Ml*) 25 ml IV PUSH .FOR FS < 60 - SS PRN PRN Reason: FS < 60 Enoxaparin Sodium (Lovenox(*)) 40 mg SUBCUT BEDTIME [facility] Last Admin: 05/19/19 20:18 Dose: 40 mg Escitalopram Oxalate (Lexapro *) 5 mg PO DAILY [facility]; Protocol Last Admin: 05/20/19 08:18 Dose: 5 mg Cefazolin Sodium/Dextrose (Kefzol 2 Gm Premix In Ors(*)) 2 gm in 50 mls @ 100 mls/hr IVPB Q8H [facility] Last Admin: 05/20/19 14:12 Dose: 100 mls/hr Insulin Glargine (Lantus(*)) 40 units SUBCUT 0600,1800 [facility] Last Admin: 05/20/19 05:56 Dose: 40 unit Insulin Human Lispro (Humalog*) 0 units SUBCUT AC [facility]; Protocol Last Admin: 05/20/19 13:18 Dose: 4 unit Insulin Human Lispro (Humalog*) 0 units SUBCUT ACHS [facility]; Protocol Last Admin: 05/20/19 13:19 Dose: Not Given Ketorolac Tromethamine (Toradol Inj*) 30 mg IV PUSH Q8H [facility] Stop: 05/25/19 06:01 Last Admin: 05/20/19 14:17 Dose: 30 mg Morphine Sulfate (Morphine 10 Mg/Ml Vial (1 Ml)) 6 mg IV Q2H PRN PRN Reason: PAIN - SEVERE Last Admin: 05/20/19 10:21 Dose: 6 mg Multivitamins/Minerals (Theragran/Minerals Tab*) 1 tab PO DAILY [facility] Last Admin: 05/20/19 08:19 Dose: 1 tab Nicotine Polacrilex (Nicotine Gum*) 2 mg PO Q2H PRN PRN Reason: CRAVING Ondansetron HCl (Zofran Inj*) 4 mg IV Q6H PRN PRN Reason: NAUSEA Oxycodone HCl (Roxycodone Tab*) 10 mg PO Q6H [facility] Last Admin: 05/20/19 14:17 Dose: 10 mg Pregabalin (Lyrica Cap(*)) 25 mg PO TID [facility] Last Admin: 05/20/19 14:17 Dose: 25 mg Quetiapine Fumarate (Seroquel Tab*) 100 mg PO BEDTIME [facility] Last Admin: 05/19/19 22:19 Dose: 100 mg Senna (Senokot 8.6 Mg Tab*) 2 tab PO DAILY [facility] Last Admin: 05/20/19 08:19 Dose: 2 tab Vital Signs - 8 hr 05/20/19 05/20/19 05/20/19 07:46 08:00 08:17 Temperature 97.5 F Pulse Rate 82 Respiratory 20 20 14 Rate Blood Pressure 112/63 (mmHg) O2 Sat by Pulse 99 98 Oximetry 05/20/19 05/20/19 05/20/19 08:18 09:01 10:21 Temperature 98.5 F Pulse Rate 93 Respiratory 14 12 20 Rate Blood Pressure 112/65 (mmHg) O2 Sat by Pulse 98 Oximetry 05/20/19 05/20/19 05/20/19 11:10 11:30 11:31 Temperature 97 F Pulse Rate 98 Respiratory 18 18 18 Rate Blood Pressure 123/70 (mmHg) O2 Sat by Pulse 99 Oximetry 05/20/19 05/20/19 12:40 14:17 Temperature Pulse Rate Respiratory 18 16 Rate Blood Pressure (mmHg) O2 Sat by Pulse Oximetry Oxygen Devices in Use Now: None Exam: Appearance: alert, uncomfortable looking Respiratory: Clear to Auscultation Cardiovascular: NL Sounds; No Murmurs; No JVD Abdominal:NL Sounds; No Tenderness; No Distention Extremities: RLE in bandage - Nutrition: Malnutrition Diagnosis/Plan Malnutrition Assessment by Registered Dietitian: Malnutrition Assessment Clinical Characteristics Chronic,Severe Malnutrition Assessment: Pt meets criteria for severe malnutrition in the Criteria setting of chronic illness aeb significant wt loss (50 lbs, 25% BW) x 1 mo and visible muscle wasting (clavicle) Malnutrition Assessment: Pt declines gluerna. Will trial 2% milk with 1 Interventions scoop benepro powder (155 kcals, 14 g pro, per serving) BID for snack Malnutrition Assessment: Goals 1. adequate intake to support hydration and lean body mass without further wt loss 2. glycemic control within inpatient parameters ; no s/sx hypo-hyperglycemia 3. maintain serum electrolytes WNL 4. regulation of bowel pattern; no c/o constipation (or diarrhea) Result Diagrams: 05/20/19 08:47 05/20/19 08:47 Additional Lab and Data: Above labs were pulled into the note, when the note was edited prior to signing. See labs below from day of consultation Laboratory Tests 05/07/19 05/15/19 05/15/19 04:13 04:17 04:17 WBC 5.6 Hgb 10.5 L Hct 31 L Plt Count 626 H D Sodium 135 Potassium 4.2 Chloride 97 L Carbon Dioxide 33 H BUN 22 Creatinine 0.58 L Glucose 324 H C-Reactive Protein 9.53 H Total Protein 6.0 L Albumin 2.5 L Microbiology and Other Data: Microbiology 05/08/19 19:29 Gram Stain - Final Body Fluid Body Fluid Culture - Final No Growth Day 4 Skin and Soft Tissue MRSA/MSSA (PCR - Final Mrsa Negative S.aureus Negative 05/08/19 19:22 Gram Stain - Final Joint Fluid(Synovial) - Knee Right Body Fluid Culture - Final No Growth Day 4 Skin and Soft Tissue MRSA/MSSA (PCR - Final Mrsa Negative S.aureus Negative 05/08/19 19:22 Skin and Soft Tissue MRSA/MSSA (PCR - Final Wound Mrsa Negative S.aureus Negative Gram Stain - Final Wound Culture - Final No Growth Day 4 05/08/19 19:34 Anaerobic Culture - Final Wound No Growth Day 4 Gram Stain - Final Wound Culture - Final No Growth Day 4 05/07/19 04:13 Aerobic Blood Culture - Final Blood Venous No Growth Day 5 Anaerobic Blood Culture - Final No Growth Day 5 05/07/19 04:17 Aerobic Blood Culture - Final Blood Venous No Growth Day 5 Anaerobic Blood Culture - Final No Growth Day 5 05/06/19 11:15 Aerobic Blood Culture - Final Blood Venous No Growth Day 5 Anaerobic Blood Culture - Final No Growth Day 5 05/05/19 12:14 Aerobic Blood Culture - Final Blood Venous No Growth Day 5 Anaerobic Blood Culture - Final No Growth Day 5 05/05/19 12:18 Aerobic Blood Culture - Final Blood Venous No Growth Day 5 Anaerobic Blood Culture - Final Staphylococcus Aureus Blood MRSA/MSSA (PCR) - Final Mrsa Negative S.aureus Positive 05/04/19 22:21 Anaerobic Culture - Final Wound - Right Leg 05/04/19 22:21 Skin and Soft Tissue MRSA/MSSA (PCR - Final Leg Right Mrsa Negative S.aureus Positive Gram Stain - Final Wound Culture - Final Staphylococcus Aureus 05/05/19 03:48 Aerobic Blood Culture - Final Blood Venous Staphylococcus Aureus Anaerobic Blood Culture - Final Staphylococcus Aureus Blood MRSA/MSSA (PCR) - Final Mrsa Negative S.aureus Positive 05/05/19 03:48 Aerobic Blood Culture - Final Blood Venous Staphylococcus Aureus Anaerobic Blood Culture - Final Staphylococcus Aureus Blood MRSA/MSSA (PCR) - Final Mrsa Negative S.aureus Positive Diagnostic Imagin. Exam Date: 05/04/19 1635 - MRI LOWER EXTREMITY RIGHT W/O IMPRESSION: 1. There is soft tissue swelling of the of the anterior and medial aspects of the distal thigh and medial to the right knee. 2. Mild edema identified within the bone marrow of the medial femoral condyle. Differential considerations include osteomyelitis, post-traumatic change, and reactive edema. 3. Edema is identified within the biceps femoris muscle, suggestive of myositis or muscle strain. Additional patchy muscle edema and fluid signal intensity/ abscesses are identified within the distal lower extremity. 4. Minimal patellofemoral joint effusion. 5. There is a thin band of fluid between the medial lateral femoral condyle and lateral meniscus. This is suggestive of a floating meniscus. If the patient has a history of prior trauma, meniscal avulsion cannot be excluded. 6. Refer to the MRI right lower extremity tibia and fibula from the same day for further discussion of findings. 2. Exam Date: 05/04/19 1641 - MRI LOWER EXTREMITY RIGHT W/O Addendum created by Hola Torre MD on 05/04/2019 10:35:58 PM EDT Within the musculature of the anterior compartment, the fluid collection/ abscess measures approximately 3.4 x 3.8 x 19.9 cm. IMPRESSION: 1. Patchy muscle edema, suggestive of myositis or muscle strain. 2. Loculated areas of fluid signal intensity are identified within the tibialis posterior muscle and musculature of the anterior compartment, consistent with abscesses or phlegmonous change. Compartment syndrome cannot be excluded. Postcontrast sequences recommended. 3. There is mild increased T1 signal intensity involving the fluid signal intensity within the musculature of the anterior compartment, consistent with increased complexity of fluid or hemorrhagic component. 4. Diffuse soft tissue swelling of the lower extremity. 5. No acute marrow edema of the visualized tibia or fibula to suggest osteomyelitis. 6. Minimal tibiotalar and subtalar joint effusions. 7. Tenosynovitis of the tibialis anterior tendon. Assess/Plan/Problems-Billing Assessment: 28M IDDM Type 1, PSA in remission, tob use d/o, mood d/o who is a transfer from [facility] (admitted there on 05/01) with resolved DKA and RLE SSTI c/b complex abscess. Found to have sepsis with MSSA bacteremia, s/p intraoperative I /D on 05/04, 05/09, 05/11, 05/13 now w wound vac; Primary closure on 05/13. 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 - will require picc but we will figure out whether he is eligible (no iv drug use, only weed and meth) (2) Diabetes type 1, uncontrolled Current Visit: Yes Status: Acute Priority: High Code(s): E10.65 - TYPE 1 DIABETES MELLITUS WITH HYPERGLYCEMIA SNOMED Code(s): 96078989 Comment: -initial HbA1c 14.4%, off insulin for months due to losing insurance -on glargine 40U bid, nutritional dose of lispro, as well as corrective dose - up titrating corrective sliding scale for him today (3) Polysubstance abuse Current Visit: Yes Status: Acute Code(s): F19.10 - OTHER PSYCHOACTIVE SUBSTANCE ABUSE, UNCOMPLICATED SNOMED Code(s): 685270022 Comment: - weed and meth use in the past - not active use (4) Thrombocytosis Current Visit: Yes Status: Acute Priority: Medium Comment: -Could be reactive because of infection or blood loss. (5) Tobacco use disorder Current Visit: Yes Status: Acute Code(s): F17.200 - NICOTINE DEPENDENCE, UNSPECIFIED, UNCOMPLICATED SNOMED Code(s): 308601195 Comment: - NRT offer (6) Mood disorder Current Visit: Yes Status: Acute Code(s): F39 - UNSPECIFIED MOOD [AFFECTIVE ] DISORDER SNOMED Code(s): 41649245 Comment: - Seroquel QHS 100 mg daily (his old med) - on escitalopram 5mg daily for now, consider up titrate if not responding after 4 weeks of trial (7) DVT prophylaxis Current Visit: Yes Status: Acute Priority: Low Code(s): Z29.9 - ENCOUNTER FOR PROPHYLACTIC MEASURES, UNSPECIFIED SNOMED Code(s): 343328786 Comment: Lovenox Status and Disposition: Inpatient; ortho following; ID following Does not have insurance; social work consult in place Attestation Documenting Resident: Daphney Mckeon Supervising Physician: Kaela Couch Attestation: This service has been performed in part by a resident under the direction of a teaching physician.I, Kaela Couch, performed the service, or was physically present during the critical, or castañeda portions of the service, furnished by the resident. I participated in the management of the patient.
[2019-05-20] MEDS: Enoxaparin(*) 40 MG/0.4 ML SYR SUBCUT SCH (19:56)
[2019-05-20] MEDS: QUEtiapine TAB* 25 MG PO SCH (22:01)
[2019-05-21] MEDS: oxyCODONE TAB* 5 MG TAB PO SCH ×4 (02:06→21:15)
[2019-05-21] MEDS: Acetaminophen TAB* 325 MG PO SCH ×4 (07:19→22:28)
[2019-05-21] MEDS: Insulin GLARGINE(*) 1 UNITS UNIT SUBCUT SCH (07:20)
[2019-05-21] MEDS: Ketorolac INJ* 30 MG/ML 1 ML VIAL IV PUSH SCH ×3 (07:21→22:27)
[2019-05-21] MEDS: ceFAZolin 2 GM PREMIX in ORs 2 GM/50 ML BAG IVPB SCH ×3 (07:32→22:27)
[2019-05-21] MEDS: Insulin LISPRO* 1 UNITS UNIT SUBCUT SCH ×8 (09:09→22:27)
[2019-05-21] MEDS: Multivitamins/Minerals TAB PO SCH (09:21)
[2019-05-21] MEDS: Escitalopram * 5 MG TAB PO SCH (09:21)
[2019-05-21] MEDS: Senna TAB 8.6 mg* TAB PO SCH (09:21)
[2019-05-21] MEDS: Pregabalin CAP(*) 25 MG PO SCH ×3 (09:22→21:16)
--- NOTE | 2019-05-21 09:48 | PN ---
Progress Note - Progress Note Date of Service: 05/21/19 SOAP: Subjective: CC: right leg infection HPI: 28 year old man with T1DM and right lower leg abscess s/p I&D; fevers resolved. Ongoing lower leg pain, pain medication helps some. Bending knee more. Daily wound dressings. No rash or diarrhea. Objective: Vital Signs Temp 36.2 C 05/21/19 08:00 Pulse 85 05/21/19 08:00 Resp 16 05/21/19 09:22 BP 106/65 05/21/19 08:00 Pulse Ox 99 05/21/19 08:00 Intake & Output 05/20/19 05/21/19 05/21/19 18:59 06:59 18:59 Intake Total 2225 475 Output Total 0 Balance 2225 475 Intake: IV Fluids 10 20 ABX - CEFAZOLIN 10 20 IVPB 55 55 ABX - CEFAZOLIN 55 55 Oral 2160 400 Output: Urine 0 Gen:awake, no distress HEENT: no thrush Heart:Regular, no murmur Lungs:CTA BL Abd:+BS NTND soft Skin: no rash MSK: dressing not taken down, wound pic reviewed from 05/19 Laboratory Results - last 24 hr 05/20/19 05/20/19 05/20/19 11:31 16:57 19:53 POC Glucose (mg/dL) 128 H 228 H 120 H 05/21/19 08:10 POC Glucose (mg/dL) 222 H Assessment: 1. right leg abscess and acute osteomyelitis 2. skin necrosis of surgical incision 3. T1 diabetes mellitus Plan: 1. continue ancef 2 gm IV Q8hrs day 21 (including time at ), likely change to PO for discharge. Wound team following. May need flap, will need insurance.
[2019-05-21] MEDS: Morphine 10 MG/ML VIAL (1 ml) IV PRN ×4 (11:19→19:32)
--- NOTE | 2019-05-21 13:40 | PN ---
Subjective Date of Service: 05/21/19 Interval History: patient looked comfortable, lied on bed watching TV. complained of hunger. Objective Active Medications: Acetaminophen (Tylenol Tab*) 650 mg PO Q6H [facility] Last Admin: 05/21/19 11:19 Dose: 650 mg Dextrose (Dextrose 50% Vial 50 Ml*) 25 ml IV PUSH .FOR FS < 60 - SS PRN PRN Reason: FS < 60 Enoxaparin Sodium (Lovenox(*)) 40 mg SUBCUT BEDTIME [facility] Last Admin: 05/20/19 19:56 Dose: 40 mg Escitalopram Oxalate (Lexapro *) 5 mg PO DAILY [facility]; Protocol Last Admin: 05/21/19 09:21 Dose: 5 mg Cefazolin Sodium/Dextrose (Kefzol 2 Gm Premix In Ors(*)) 2 gm in 50 mls @ 100 mls/hr IVPB Q8H [facility] Last Admin: 05/21/19 07:32 Dose: 100 mls/hr Insulin Glargine (Lantus(*)) 60 units SUBCUT 0600 [facility] Insulin Human Lispro (Humalog*) 0 units SUBCUT AC [facility]; Protocol Last Admin: 05/21/19 11:55 Dose: Not Given Insulin Human Lispro (Humalog*) 0 units SUBCUT ACHS [facility]; Protocol Last Admin: 05/21/19 09:10 Dose: 4 unit Ketorolac Tromethamine (Toradol Inj*) 30 mg IV PUSH Q8H [facility] Stop: 05/25/19 06:01 Last Admin: 05/21/19 07:21 Dose: 30 mg Morphine Sulfate (Morphine 10 Mg/Ml Vial (1 Ml)) 6 mg IV Q2H PRN PRN Reason: PAIN - SEVERE Last Admin: 05/21/19 11:19 Dose: 6 mg Multivitamins/Minerals (Theragran/Minerals Tab*) 1 tab PO DAILY [facility] Last Admin: 05/21/19 09:21 Dose: 1 tab Nicotine Polacrilex (Nicotine Gum*) 2 mg PO Q2H PRN PRN Reason: CRAVING Ondansetron HCl (Zofran Inj*) 4 mg IV Q6H PRN PRN Reason: NAUSEA Oxycodone HCl (Roxycodone Tab*) 10 mg PO Q6H [facility] Last Admin: 05/21/19 09:22 Dose: 10 mg Pregabalin (Lyrica Cap(*)) 25 mg PO TID [facility] Last Admin: 05/21/19 09:22 Dose: 25 mg Quetiapine Fumarate (Seroquel Tab*) 100 mg PO BEDTIME [facility] Last Admin: 05/20/19 22:01 Dose: 100 mg Senna (Senokot 8.6 Mg Tab*) 2 tab PO DAILY [facility] Last Admin: 05/21/19 09:21 Dose: 2 tab Vital Signs - 8 hr 05/21/19 05/21/19 05/21/19 07:27 08:00 09:22 Temperature 97.2 F 97.2 F Pulse Rate 86 85 Respiratory 18 18 16 Rate Blood Pressure 114/68 106/65 (mmHg) O2 Sat by Pulse 99 99 Oximetry 05/21/19 05/21/19 05/21/19 11:19 11:54 11:59 Temperature 97.2 F Pulse Rate 88 Respiratory 20 18 18 Rate Blood Pressure 118/62 (mmHg) O2 Sat by Pulse 98 Oximetry Oxygen Devices in Use Now: None - Nutrition: Malnutrition Diagnosis/Plan Malnutrition Assessment by Registered Dietitian: Malnutrition Assessment Clinical Characteristics Chronic,Severe Malnutrition Assessment: Pt meets criteria for severe malnutrition in the Criteria setting of chronic illness aeb significant wt loss (50 lbs, 25% BW) x 1 mo and visible muscle wasting (clavicle) Malnutrition Assessment: Pt declines gluerna. Will trial 2% milk with 1 Interventions scoop benepro powder (155 kcals, 14 g pro, per serving) BID for snack Malnutrition Assessment: Goals 1. adequate intake to support hydration and lean body mass without further wt loss 2. glycemic control within inpatient parameters ; no s/sx hypo-hyperglycemia 3. maintain serum electrolytes WNL 4. regulation of bowel pattern; no c/o constipation (or diarrhea) Result Diagrams: 05/20/19 08:47 05/20/19 08:47 Additional Lab and Data: Above labs were pulled into the note, when the note was edited prior to signing. See labs below from day of consultation Laboratory Tests 05/07/19 05/15/19 05/15/19 04:13 04:17 04:17 WBC 5.6 Hgb 10.5 L Hct 31 L Plt Count 626 H D Sodium 135 Potassium 4.2 Chloride 97 L Carbon Dioxide 33 H BUN 22 Creatinine 0.58 L Glucose 324 H C-Reactive Protein 9.53 H Total Protein 6.0 L Albumin 2.5 L Microbiology and Other Data: Microbiology 05/08/19 19:29 Gram Stain - Final Body Fluid Body Fluid Culture - Final No Growth Day 4 Skin and Soft Tissue MRSA/MSSA (PCR - Final Mrsa Negative S.aureus Negative 05/08/19 19:22 Gram Stain - Final Joint Fluid(Synovial) - Knee Right Body Fluid Culture - Final No Growth Day 4 Skin and Soft Tissue MRSA/MSSA (PCR - Final Mrsa Negative S.aureus Negative 05/08/19 19:22 Skin and Soft Tissue MRSA/MSSA (PCR - Final Wound Mrsa Negative S.aureus Negative Gram Stain - Final Wound Culture - Final No Growth Day 4 05/08/19 19:34 Anaerobic Culture - Final Wound No Growth Day 4 Gram Stain - Final Wound Culture - Final No Growth Day 4 05/07/19 04:13 Aerobic Blood Culture - Final Blood Venous No Growth Day 5 Anaerobic Blood Culture - Final No Growth Day 5 05/07/19 04:17 Aerobic Blood Culture - Final Blood Venous No Growth Day 5 Anaerobic Blood Culture - Final No Growth Day 5 05/06/19 11:15 Aerobic Blood Culture - Final Blood Venous No Growth Day 5 Anaerobic Blood Culture - Final No Growth Day 5 05/05/19 12:14 Aerobic Blood Culture - Final Blood Venous No Growth Day 5 Anaerobic Blood Culture - Final No Growth Day 5 05/05/19 12:18 Aerobic Blood Culture - Final Blood Venous No Growth Day 5 Anaerobic Blood Culture - Final Staphylococcus Aureus Blood MRSA/MSSA (PCR) - Final Mrsa Negative S.aureus Positive 05/04/19 22:21 Anaerobic Culture - Final Wound - Right Leg 05/04/19 22:21 Skin and Soft Tissue MRSA/MSSA (PCR - Final Leg Right Mrsa Negative S.aureus Positive Gram Stain - Final Wound Culture - Final Staphylococcus Aureus 05/05/19 03:48 Aerobic Blood Culture - Final Blood Venous Staphylococcus Aureus Anaerobic Blood Culture - Final Staphylococcus Aureus Blood MRSA/MSSA (PCR) - Final Mrsa Negative S.aureus Positive 05/05/19 03:48 Aerobic Blood Culture - Final Blood Venous Staphylococcus Aureus Anaerobic Blood Culture - Final Staphylococcus Aureus Blood MRSA/MSSA (PCR) - Final Mrsa Negative S.aureus Positive Diagnostic Imagin. Exam Date: 05/04/19 1635 - MRI LOWER EXTREMITY RIGHT W/O IMPRESSION: 1. There is soft tissue swelling of the of the anterior and medial aspects of the distal thigh and medial to the right knee. 2. Mild edema identified within the bone marrow of the medial femoral condyle. Differential considerations include osteomyelitis, post-traumatic change, and reactive edema. 3. Edema is identified within the biceps femoris muscle, suggestive of myositis or muscle strain. Additional patchy muscle edema and fluid signal intensity/ abscesses are identified within the distal lower extremity. 4. Minimal patellofemoral joint effusion. 5. There is a thin band of fluid between the medial lateral femoral condyle and lateral meniscus. This is suggestive of a floating meniscus. If the patient has a history of prior trauma, meniscal avulsion cannot be excluded. 6. Refer to the MRI right lower extremity tibia and fibula from the same day for further discussion of findings. 2. Exam Date: 05/04/191640 - MRI LOWER EXTREMITY RIGHT W/O Addendum created by Hola Torre MD on 05/04/2019 10:35:58 PM EDT Within the musculature of the anterior compartment, the fluid collection/ abscess measures approximately 3.4 x 3.8 x 19.9 cm. IMPRESSION: 1. Patchy muscle edema, suggestive of myositis or muscle strain. 2. Loculated areas of fluid signal intensity are identified within the tibialis posterior muscle and musculature of the anterior compartment, consistent with abscesses or phlegmonous change. Compartment syndrome cannot be excluded. Postcontrast sequences recommended. 3. There is mild increased T1 signal intensity involving the fluid signal intensity within the musculature of the anterior compartment, consistent with increased complexity of fluid or hemorrhagic component. 4. Diffuse soft tissue swelling of the lower extremity. 5. No acute marrow edema of the visualized tibia or fibula to suggest osteomyelitis. 6. Minimal tibiotalar and subtalar joint effusions. 7. Tenosynovitis of the tibialis anterior tendon. Assess/Plan/Problems-Billing Assessment: 28M IDDM Type 1, PSA in remission, tob use d/o, mood d/o who is a transfer from [facility] (admitted there on 05/01) with resolved DKA and RLE SSTI c/b complex abscess. Found to have sepsis with MSSA bacteremia, s/p intraoperative I /D on 05/04, 05/09, 05/11, 05/13 now w wound vac; Primary closure on 05/13. 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 so far continus oral depletion - wound team, ID and ortho team follow up. - will require picc but we will figure out whether he is eligible (no iv drug use, only weed and meth) (2) Diabetes type 1, uncontrolled Current Visit: Yes Status: Acute Priority: High Code(s): E10.65 - TYPE 1 DIABETES MELLITUS WITH HYPERGLYCEMIA SNOMED Code(s): 91384353 Comment: -initial HbA1c 14.4%, off insulin for months due to losing insurance -chage glargine to 60mg daily, nutritional dose of lispro, as well as corrective dose - up titrating corrective sliding scale for him today (3) Polysubstance abuse Current Visit: Yes Status: Acute Code(s): F19.10 - OTHER PSYCHOACTIVE SUBSTANCE ABUSE, UNCOMPLICATED SNOMED Code(s): 541735638 Comment: - weed and meth use in the past - not active use (4) Thrombocytosis Current Visit: Yes Status: Acute Priority: Medium Comment: -Could be reactive because of infection or blood loss. (5) Tobacco use disorder Current Visit: Yes Status: Acute Code(s): F17.200 - NICOTINE DEPENDENCE, UNSPECIFIED, UNCOMPLICATED SNOMED Code(s): 348373366 Comment: - NRT offer (6) Mood disorder Current Visit: Yes Status: Acute Code(s): F39 - UNSPECIFIED MOOD [AFFECTIVE ] DISORDER SNOMED Code(s): 66612948 Comment: - Seroquel QHS 100 mg daily (his old med) - on escitalopram 5mg daily for now, consider up titrate if not responding after 4 weeks of trial (7) DVT prophylaxis Current Visit: Yes Status: Acute Priority: Low Code(s): Z29.9 - ENCOUNTER FOR PROPHYLACTIC MEASURES, UNSPECIFIED SNOMED Code(s): 979735596 Comment: sc Lovenox Status and Disposition: Inpatient; ortho following; ID following Does not have insurance; social work consult in place Attestation Documenting Resident: Daphney Mckeon Supervising Physician: Kaela Couch Attestation: This service has been performed in part by a resident under the direction of a teaching physician.I, Kaela Couch, performed the service, or was physically present during the critical, or castañeda portions of the service, furnished by the resident. I participated in the management of the patient.
--- NOTE | 2019-05-21 14:42 | PN ---
Progress Note - Progress Note Date of Service: 05/21/19 SOAP: Subjective: [Patient seen at bedside for dressing change. States he is doing well, continued pain but unchanged. He also complains of itching of the right lower extremity. He denies CP, SOB, f/c, n/v. ] Objective: Continued decreased drainage. Wound appears similar to yesterday with black skin spots have some whiteness to them, but no obvious necrosis or purulence. - Punctate skin hole has been filled in with some tissue so no visible bone today. - Serosanguinous drainage on dressing - DP pulse 2+] Assessment: [s/p multiple I&Ds of the right lower extremity] Plan: [Continue pain meds Continue ABX per ID, IV vs PO Continue dressing changes daily Laboratory Last Values WBC 5.7 10^3/uL (3.5-10.8) 05/20/19 08:47 RBC 3.58 10^6 /uL (4.18-5.48) L 05/20/19 08:47 Hgb 10.2 g/dL (14.0-18.0) L 05/20/19 08:47 Hct 31 % (42-52) L 05/20/19 08:47 MCV 87 fL (80-94) 05/20/19 08:47 MCH 29 pg (27-31) 05/20/19 08:47 MCHC 33 g/dL (31-36) 05/20/19 08:47 RDW 15 % (10-15) 05/20/19 08:47 Plt Count 432 10^3/uL (150-450) 05/20/19 08:47 MPV 6.5 fL (7.4-10.4) L 05/20/19 08:47 Neut % (Auto) 64.9 % 05/20/19 08:47 Lymph % (Auto) 24.6 % 05/20/19 08:47 [place] % (Auto) 7.3 % 05/20/19 08:47 Eos % (Auto) 1.3 % 05/20/19 08:47 Baso % (Auto) 1.9 % 05/20/19 08:47 Absolute Neuts (auto) 3.7 10^3/ul (1.5-7.7) 05/20/19 08:47 Absolute Lymphs (auto) 1.4 10^3/ul (1.0-4.8) 05/20/19 08:47 Absolute Monos (auto) 0.4 10^3/ul (0-0.8) 05/20/19 08:47 Absolute Eos (auto) 0.1 10^3/ul (0-0.6) 05/20/19 08:47 Absolute Basos (auto) 0.1 10^3/ul (0-0.2) 05/20/19 08:47 Absolute Nucleated RBC 0.0 10^3/ul 05/20/19 08:47 Immature Gran % 5.0 % (0-9) 05/08/19 04:27 Neutrophils % 75.0 % 05/08/19 04:27 Band Neutrophils % 1.0 % (0-8) 05/08/19 04:27 Lymphocytes % 12.0 % 05/08/19 04:27 Reactive Lymphs % 1.0 % (0-6) 05/08/19 04:27 Monocytes % 7.0 % 05/08/19 04:27 Metamyelocytes % 1.0 % (0-2) 05/08/19 04:27 Myelocytes % 3.0 % (0-1) H 05/08/19 04:27 Nucleated RBC % 0.1 05/20/19 08:47 Normal RBC Morphology Normal (Normal) 05/08/19 04:27 Sodium 136 mmol/L (135-145) 05/20/19 08:47 Potassium 4.5 mmol/L (3.5-5.0) 05/20/19 08:47 Chloride 101 mmol/L (101-111) 05/20/19 08:47 Carbon Dioxide 29 mmol/L (22-32) 05/20/19 08:47 Anion Gap 6 mmol/L (2-11) 05/20/19 08:47 BUN 32 mg/dL (6-24) H 05/20/19 08:47 Creatinine 0.49 mg/dL (0.67-1.17) L 05/20/19 08:47 Est GFR ( Amer) 247.0 (>60) 05/20/19 08:47 Est GFR (Non-Af Amer) 204.2 (>60) 05/20/19 08:47 BUN/Creatinine Ratio 65.3 (8-20) H 05/20/19 08:47 Glucose 149 mg/dL (70-100) H 05/20/19 08:47 POC Glucose (mg/dL) 115 mg/dL (70-100) H 05/21/19 11:33 Glucose Meter Confirm 438 mg/dL (70-100) H 05/15/19 18:01 Hemoglobin A1c 14.4 % (4.0-5.6) H 05/05/19 03:49 Lactic Acid 1.4 mmol/L (0.5-2.0) 05/04/19 17:47 Calcium 8.8 mg/dL (8.6-10.3) 05/20/19 08:47 Total Bilirubin 0.40 mg/dL (0.2-1.0) 05/20/19 08:47 GGT 66 U/L (9-64.0) H 05/08/19 04:27 AST 17 U/L (13-39) 05/20/19 08:47 ALT 15 U/L (7-52) 05/20/19 08:47 Alkaline Phosphatase 83 U/L (34-104) 05/20/19 08:47 Total Creatine Kinase 135 U/L (10-223) 05/04/19 17:47 C-Reactive Protein 2.66 mg/L (<8.01) 05/19/19 05:18 Total Protein 6.6 g/dL (6.4-8.9) 05/20/19 08:47 Albumin 3.2 g/dL (3.2-5.2) 05/20/19 08:47 Globulin 3.4 g/dL (2-4) 05/20/19 08:47 Albumin/Globulin Ratio 0.9 (1-3) L 05/20/19 08:47 Fluid Source Synovial fluid 05/08/19 19:29 Fluid Volume 2 mL 05/08/19 19:29 Fluid Color [place] 05/08/19 19:29 Fluid Appearance Bloody 05/08/19 19:29 Fluid WBC 67 /mcL (0-171944) 05/08/19 19:29 Fluid RBC 07845 /mcL 05/08/19 19:29 Fluid Tot Cell Count 100 05/08/19 19:29 Fluid Neutrophils 86 % 05/08/19 19:29 Fluid Band Neutrophils 8 % 05/08/19 19:29 Fluid Lymphocytes 2 % 05/08/19 19:29 Fluid Monocytes 4 % 05/08/19 19:29 Fluid Nucleated RBCs 1 05/08/19 19:22 Fluid Cell Count Rvw By 05/08/19 19:29 Hepatitis C Antibody Negative (Negative) 05/06/19 05:33 Hepatitis C Ab Index 0.02 s/c 05/06/19 05:33 Vital Signs Temp Pulse Resp BP Pulse Ox 97.2 F 88 18 118/62 98 05/21/19 11:59 05/21/19 11:59 05/21/19 14:18 05/21/19 11:59 05/21/19 11:59 ]
[2019-05-21] MEDS: Enoxaparin(*) 40 MG/0.4 ML SYR SUBCUT SCH (21:17)
[2019-05-21] MEDS: QUEtiapine TAB* 25 MG PO SCH (22:27)
[2019-05-22] MEDS: Morphine 10 MG/ML VIAL (1 ml) IV PRN ×4 (00:19→15:07)
[2019-05-22] MEDS: oxyCODONE TAB* 5 MG TAB PO SCH ×4 (03:00→19:47)
[2019-05-22] MEDS: ceFAZolin 2 GM PREMIX in ORs 2 GM/50 ML BAG IVPB SCH ×3 (05:31→22:48)
[2019-05-22] MEDS: Insulin GLARGINE(*) 1 UNITS UNIT SUBCUT SCH (05:31)
[2019-05-22] MEDS: Acetaminophen TAB* 325 MG PO SCH ×4 (05:32→22:47)
[2019-05-22] MEDS: Ketorolac INJ* 30 MG/ML 1 ML VIAL IV PUSH SCH ×3 (05:33→22:48)
[2019-05-22] MEDS: Insulin LISPRO* 1 UNITS UNIT SUBCUT SCH ×8 (08:04→22:46)
[2019-05-22] MEDS: Pregabalin CAP(*) 25 MG PO SCH ×3 (08:06→22:48)
[2019-05-22] MEDS: Escitalopram * 5 MG TAB PO SCH (08:06)
[2019-05-22] MEDS: Multivitamins/Minerals TAB PO SCH (08:06)
[2019-05-22] MEDS: Senna TAB 8.6 mg* TAB PO SCH (08:06)
--- NOTE | 2019-05-22 15:25 | PN ---
Progress Note - Progress Note Date of Service: 05/22/19 SOAP: Subjective: [Patient seen at bedside for dressing change. States he is doing well, continued pain but unchanged. He also complains of itching of the right lower extremity. He denies CP, SOB, f/c, n/v. ] Objective: Continued decreased drainage. Wound appears similar to yesterday with black skin spots have some whiteness to them, but no obvious necrosis or purulence. - Punctate skin hole has been filled in with some tissue so no visible bone today. - Serosanguinous drainage on dressing - DP pulse 2+] Vital Signs Temp 97.6 F 05/22/19 07:15 Pulse 76 05/22/19 07:15 Resp 16 05/22/19 15:07 BP 110/60 05/22/19 07:15 Pulse Ox 99 05/22/19 08:00 Intake & Output 05/21/19 05/22/19 05/22/19 18:59 06:59 18:59 Intake Total 2240 115.7 3120 Output Total 0 Balance 2240 115.7 3120 Intake: IV Fluids 30 10.7 ABX - CEFAZOLIN 10.7 NS (0.9%) 30 IVPB 50 105 ABX - CEFAZOLIN 50 105 Oral 2160 0 3120 Output: Urine 0 Assessment: [s/p multiple I&Ds of the right lower extremity] Plan: [Continue pain meds Continue ABX per ID, IV vs PO Continue dressing changes daily
--- NOTE | 2019-05-22 15:36 | PN ---
Subjective Date of Service: 05/22/19 Interval History: Patient felt hungry all the time despite 2 trays of meals each meal. He reflected that carb in his second tray was not counted yesterday. His pain apparently much improved as he was resting comfortably when I stepped in though he still claimed pain. Objective Active Medications: Acetaminophen (Tylenol Tab*) 650 mg PO Q6H [facility] Last Admin: 05/22/19 11:28 Dose: 650 mg Dextrose (Dextrose 50% Vial 50 Ml*) 25 ml IV PUSH .FOR FS < 60 - SS PRN PRN Reason: FS < 60 Enoxaparin Sodium (Lovenox(*)) 40 mg SUBCUT BEDTIME [facility] Last Admin: 05/21/19 21:17 Dose: 40 mg Escitalopram Oxalate (Lexapro *) 5 mg PO DAILY [facility]; Protocol Last Admin: 05/22/19 08:06 Dose: 5 mg Cefazolin Sodium/Dextrose (Kefzol 2 Gm Premix In Ors(*)) 2 gm in 50 mls @ 100 mls/hr IVPB Q8H [facility] Last Admin: 05/22/19 14:16 Dose: 100 mls/hr Insulin Glargine (Lantus(*)) 60 units SUBCUT 0600 [facility] Last Admin: 05/22/19 05:31 Dose: 60 units Insulin Human Lispro (Humalog*) 0 units SUBCUT AC [facility]; Protocol Last Admin: 05/22/19 13:47 Dose: 4 unit Insulin Human Lispro (Humalog*) 0 units SUBCUT ACHS [facility]; Protocol Last Admin: 05/22/19 13:02 Dose: Not Given Ketorolac Tromethamine (Toradol Inj*) 30 mg IV PUSH Q8H [facility] Stop: 05/25/19 06:01 Last Admin: 05/22/19 14:16 Dose: 30 mg Morphine Sulfate (Morphine 10 Mg/Ml Vial (1 Ml)) 6 mg IV Q2H PRN PRN Reason: PAIN - SEVERE Last Admin: 05/22/19 15:07 Dose: 6 mg Multivitamins/Minerals (Theragran/Minerals Tab*) 1 tab PO DAILY [facility] Last Admin: 05/22/19 08:06 Dose: 1 tab Nicotine Polacrilex (Nicotine Gum*) 2 mg PO Q2H PRN PRN Reason: CRAVING Oxycodone HCl (Roxycodone Tab*) 10 mg PO Q6H [facility] Last Admin: 05/22/19 14:16 Dose: 10 mg Pregabalin (Lyrica Cap(*)) 25 mg PO TID [facility] Last Admin: 05/22/19 14:16 Dose: 25 mg Quetiapine Fumarate (Seroquel Tab*) 100 mg PO BEDTIME [facility] Last Admin: 05/21/19 22:27 Dose: 100 mg Senna (Senokot 8.6 Mg Tab*) 2 tab PO DAILY [facility] Last Admin: 05/22/19 08:06 Dose: 2 tab Vital Signs - 8 hr 05/22/19 05/22/19 05/22/19 08:00 08:05 08:06 Respiratory 18 14 14 Rate O2 Sat by Pulse 99 Oximetry 05/22/19 05/22/19 05/22/19 09:21 10:16 10:17 Respiratory 18 16 16 Rate O2 Sat by Pulse Oximetry 05/22/19 05/22/19 05/22/19 11:26 11:28 13:48 Respiratory 16 16 16 Rate O2 Sat by Pulse Oximetry 05/22/19 05/22/19 14:16 15:07 Respiratory 16 16 Rate O2 Sat by Pulse Oximetry Oxygen Devices in Use Now: None Exam: Appearance: alert, uncomfortable looking Respiratory: Clear to Auscultation Cardiovascular: NL Sounds; No Murmurs; No JVD Abdominal:NL Sounds; No Tenderness; No Distention Extremities: RLE in bandage - Nutrition: Malnutrition Diagnosis/Plan Malnutrition Assessment by Registered Dietitian: Malnutrition Assessment Clinical Characteristics Chronic,Severe Malnutrition Assessment: Pt meets criteria for severe malnutrition in the Criteria setting of chronic illness aeb significant wt loss (50 lbs, 25% BW) x 1 mo and visible muscle wasting (clavicle) Malnutrition Assessment: Pt declines gluerna. Will trial 2% milk with 1 Interventions scoop benepro powder (155 kcals, 14 g pro, per serving) BID for snack Malnutrition Assessment: Goals 1. adequate intake to support hydration and lean body mass without further wt loss 2. glycemic control within inpatient parameters ; no s/sx hypo-hyperglycemia 3. maintain serum electrolytes WNL 4. regulation of bowel pattern; no c/o constipation (or diarrhea) Result Diagrams: 05/20/19 08:47 05/20/19 08:47 Additional Lab and Data: Above labs were pulled into the note, when the note was edited prior to signing. See labs below from day of consultation Laboratory Tests 05/07/19 05/15/19 05/15/19 04:13 04:17 04:17 WBC 5.6 Hgb 10.5 L Hct 31 L Plt Count 626 H D Sodium 135 Potassium 4.2 Chloride 97 L Carbon Dioxide 33 H BUN 22 Creatinine 0.58 L Glucose 324 H C-Reactive Protein 9.53 H Total Protein 6.0 L Albumin 2.5 L Microbiology and Other Data: Microbiology 05/08/19 19:29 Gram Stain - Final Body Fluid Body Fluid Culture - Final No Growth Day 4 Skin and Soft Tissue MRSA/MSSA (PCR - Final Mrsa Negative S.aureus Negative 05/08/19 19:22 Gram Stain - Final Joint Fluid(Synovial) - Knee Right Body Fluid Culture - Final No Growth Day 4 Skin and Soft Tissue MRSA/MSSA (PCR - Final Mrsa Negative S.aureus Negative 05/08/19 19:22 Skin and Soft Tissue MRSA/MSSA (PCR - Final Wound Mrsa Negative S.aureus Negative Gram Stain - Final Wound Culture - Final No Growth Day 4 05/08/19 19:34 Anaerobic Culture - Final Wound No Growth Day 4 Gram Stain - Final Wound Culture - Final No Growth Day 4 05/07/19 04:13 Aerobic Blood Culture - Final Blood Venous No Growth Day 5 Anaerobic Blood Culture - Final No Growth Day 5 05/07/19 04:17 Aerobic Blood Culture - Final Blood Venous No Growth Day 5 Anaerobic Blood Culture - Final No Growth Day 5 05/06/19 11:15 Aerobic Blood Culture - Final Blood Venous No Growth Day 5 Anaerobic Blood Culture - Final No Growth Day 5 05/05/19 12:14 Aerobic Blood Culture - Final Blood Venous No Growth Day 5 Anaerobic Blood Culture - Final No Growth Day 5 05/05/19 12:18 Aerobic Blood Culture - Final Blood Venous No Growth Day 5 Anaerobic Blood Culture - Final Staphylococcus Aureus Blood MRSA/MSSA (PCR) - Final Mrsa Negative S.aureus Positive 05/04/19 22:21 Anaerobic Culture - Final Wound - Right Leg 05/04/19 22:21 Skin and Soft Tissue MRSA/MSSA (PCR - Final Leg Right Mrsa Negative S.aureus Positive Gram Stain - Final Wound Culture - Final Staphylococcus Aureus 05/05/19 03:48 Aerobic Blood Culture - Final Blood Venous Staphylococcus Aureus Anaerobic Blood Culture - Final Staphylococcus Aureus Blood MRSA/MSSA (PCR) - Final Mrsa Negative S.aureus Positive 05/05/19 03:48 Aerobic Blood Culture - Final Blood Venous Staphylococcus Aureus Anaerobic Blood Culture - Final Staphylococcus Aureus Blood MRSA/MSSA (PCR) - Final Mrsa Negative S.aureus Positive Diagnostic Imagin. Exam Date: 05/04/19 1635 - MRI LOWER EXTREMITY RIGHT W/O IMPRESSION: 1. There is soft tissue swelling of the of the anterior and medial aspects of the distal thigh and medial to the right knee. 2. Mild edema identified within the bone marrow of the medial femoral condyle. Differential considerations include osteomyelitis, post-traumatic change, and reactive edema. 3. Edema is identified within the biceps femoris muscle, suggestive of myositis or muscle strain. Additional patchy muscle edema and fluid signal intensity/ abscesses are identified within the distal lower extremity. 4. Minimal patellofemoral joint effusion. 5. There is a thin band of fluid between the medial lateral femoral condyle and lateral meniscus. This is suggestive of a floating meniscus. If the patient has a history of prior trauma, meniscal avulsion cannot be excluded. 6. Refer to the MRI right lower extremity tibia and fibula from the same day for further discussion of findings. 2. Exam Date: 05/04/191640 - MRI LOWER EXTREMITY RIGHT W/O Addendum created by Hola Torre MD on 05/04/2019 10:35:58 PM EDT Within the musculature of the anterior compartment, the fluid collection/ abscess measures approximately 3.4 x 3.8 x 19.9 cm. IMPRESSION: 1. Patchy muscle edema, suggestive of myositis or muscle strain. 2. Loculated areas of fluid signal intensity are identified within the tibialis posterior muscle and musculature of the anterior compartment, consistent with abscesses or phlegmonous change. Compartment syndrome cannot be excluded. Postcontrast sequences recommended. 3. There is mild increased T1 signal intensity involving the fluid signal intensity within the musculature of the anterior compartment, consistent with increased complexity of fluid or hemorrhagic component. 4. Diffuse soft tissue swelling of the lower extremity. 5. No acute marrow edema of the visualized tibia or fibula to suggest osteomyelitis. 6. Minimal tibiotalar and subtalar joint effusions. 7. Tenosynovitis of the tibialis anterior tendon. Assess/Plan/Problems-Billing Assessment: 28M IDDM Type 1, PSA in remission, tob use d/o, mood d/o who is a transfer from [facility] (admitted there on 05/01) with resolved DKA and RLE SSTI c/b complex abscess. Found to have sepsis with MSSA bacteremia, s/p intraoperative I /D on 05/04, 05/09, 05/11, 05/13 now w wound vac; Primary closure on 05/13. - Patient Problems (1) Abscess of right lower extremity Current Visit: Yes Status: Acute Priority: High Code(s): L02.415 - CUTANEOUS ABSCESS OF RIGHT LOWER LIMB SNOMED Code(s): 835054496 Comment: - x3 OR washout 05/04, 05/08, 05/11; 4th OR-primary closure on 05/13 - IV cefazolin Day on 05/16 since first washout (D21 since first abx OSH) ,total of 42 days of abx - convert to oral bx on discharge. will continue iv abx currently - wound team, ID and ortho team follow up. - ortho will follow him up in clinic in 1 week, he may need skin flap in the future. And he could be converted to oral abx on discharge. (2) Diabetes type 1, uncontrolled Current Visit: Yes Status: Acute Priority: High Code(s): E10.65 - TYPE 1 DIABETES MELLITUS WITH HYPERGLYCEMIA SNOMED Code(s): 99469026 Comment: -initial HbA1c 14.4%, off insulin for months due to losing insurance -chage glargine to 60mg daily, nutritional dose of lispro, as well as corrective dose - watch glucose level as just changed long acting dose. (3) Polysubstance abuse Current Visit: Yes Status: Acute Code(s): F19.10 - OTHER PSYCHOACTIVE SUBSTANCE ABUSE, UNCOMPLICATED SNOMED Code(s): 092686808 Comment: - weed and meth use in the past - not active use (4) Thrombocytosis Current Visit: Yes Status: Acute Priority: Medium Comment: -Could be reactive because of infection or blood loss. (5) Tobacco use disorder Current Visit: Yes Status: Acute Code(s): F17.200 - NICOTINE DEPENDENCE, UNSPECIFIED, UNCOMPLICATED SNOMED Code(s): 674350171 Comment: - NRT offer (6) Mood disorder Current Visit: Yes Status: Acute Code(s): F39 - UNSPECIFIED MOOD [AFFECTIVE ] DISORDER SNOMED Code(s): 92762059 Comment: - Seroquel QHS 100 mg daily (his old med) - on escitalopram 5mg daily for now, consider up titrate if not responding after 4 weeks of trial (7) DVT prophylaxis Current Visit: Yes Status: Acute Priority: Low Code(s): Z29.9 - ENCOUNTER FOR PROPHYLACTIC MEASURES, UNSPECIFIED SNOMED Code(s): 568324262 Comment: guy Rabago Status and Disposition: Inpatient; ortho following; ID following Does not have insurance; social work consult in place
[2019-05-22] MEDS: Morphine INJ* 4 MG/ML 1 ML SYRINGE (NEW SYRINGE VERSION) IV PRN (17:53)
[2019-05-22] MEDS: Enoxaparin(*) 40 MG/0.4 ML SYR SUBCUT SCH (22:46)
[2019-05-22] MEDS: QUEtiapine TAB* 25 MG PO SCH (22:47)
[2019-05-23] MEDS: Morphine INJ* 4 MG/ML 1 ML SYRINGE (NEW SYRINGE VERSION) IV PRN ×6 (00:17→21:31)
[2019-05-23] MEDS: Pregabalin CAP(*) 25 MG PO SCH ×3 (01:45→21:31)
[2019-05-23] MEDS: oxyCODONE TAB* 5 MG TAB PO SCH ×4 (02:29→19:55)
[2019-05-23] MEDS: Insulin GLARGINE(*) 1 UNITS UNIT SUBCUT SCH (05:50)
[2019-05-23] MEDS: Acetaminophen TAB* 325 MG PO SCH ×4 (05:50→22:46)
[2019-05-23] MEDS: ceFAZolin 2 GM PREMIX in ORs 2 GM/50 ML BAG IVPB SCH ×2 (05:50→14:16)
[2019-05-23] MEDS: Ketorolac INJ* 30 MG/ML 1 ML VIAL IV PUSH SCH ×3 (05:51→22:46)
[2019-05-23] MEDS: Escitalopram * 5 MG TAB PO SCH (09:07)
[2019-05-23] MEDS: Multivitamins/Minerals TAB PO SCH (09:08)
[2019-05-23] MEDS: Senna TAB 8.6 mg* TAB PO SCH (09:09)
[2019-05-23] MEDS: Insulin LISPRO* 1 UNITS UNIT SUBCUT SCH ×8 (09:27→21:45)
--- NOTE | 2019-05-23 11:34 | PN ---
Subjective Date of Service: 05/23/19 Interval History: Patient took an extra sandwich around 8pm last night, but was counted for carb, no insulin given. He is constantly hungry, requiring more food and extra meal at night. He felt himself miserable constantly hungry and pain. When I asked how the pain was like today, he said same as yesterday despite my tapering down of iv morphine. Objective Active Medications: Acetaminophen (Tylenol Tab*) 650 mg PO Q6H [facility] Last Admin: 05/23/19 05:50 Dose: 650 mg Dextrose (Dextrose 50% Vial 50 Ml*) 25 ml IV PUSH .FOR FS < 60 - SS PRN PRN Reason: FS < 60 Enoxaparin Sodium (Lovenox(*)) 40 mg SUBCUT BEDTIME [facility] Last Admin: 05/22/19 22:46 Dose: 40 mg Escitalopram Oxalate (Lexapro *) 5 mg PO DAILY [facility]; Protocol Last Admin: 05/23/19 09:07 Dose: 5 mg Cefazolin Sodium/Dextrose (Kefzol 2 Gm Premix In Ors(*)) 2 gm in 50 mls @ 100 mls/hr IVPB Q8H [facility] Stop: 05/23/19 21:59 Last Admin: 05/23/19 05:50 Dose: 100 mls/hr Cefazolin Sodium 2 gm/ Sodium (Chloride) 100 mls @ 200 mls/hr IVPB Q8H [facility] Insulin Glargine (Lantus(*)) 60 units SUBCUT 0600 [facility] Last Admin: 05/23/19 05:50 Dose: 60 units Insulin Human Lispro (Humalog*) 0 units SUBCUT ACHS [facility]; Protocol Last Admin: 05/23/19 09:29 Dose: 2 unit Ketorolac Tromethamine (Toradol Inj*) 30 mg IV PUSH Q8H [facility] Stop: 05/25/19 06:01 Last Admin: 05/23/19 05:51 Dose: 30 mg Morphine Sulfate (Morphine Inj (Syringe)*) 4 mg IV Q2H PRN PRN Reason: PAIN - SEVERE Last Admin: 05/23/19 10:08 Dose: 4 mg Multivitamins/Minerals (Theragran/Minerals Tab*) 1 tab PO DAILY [facility] Last Admin: 05/23/19 09:08 Dose: 1 tab Nicotine Polacrilex (Nicotine Gum*) 2 mg PO Q2H PRN PRN Reason: CRAVING Oxycodone HCl (Roxycodone Tab*) 10 mg PO Q6H [facility] Last Admin: 05/23/19 09:07 Dose: 10 mg Pregabalin (Lyrica Cap(*)) 25 mg PO TID [facility] Last Admin: 05/23/19 09:06 Dose: 25 mg Quetiapine Fumarate (Seroquel Tab*) 100 mg PO BEDTIME [facility] Last Admin: 05/22/19 22:47 Dose: 100 mg Senna (Senokot 8.6 Mg Tab*) 2 tab PO DAILY [facility] Last Admin: 05/23/19 09:09 Dose: 2 tab Vital Signs - 8 hr 05/23/19 05/23/19 05/23/19 04:29 05:00 07:15 Temperature 97.6 F Pulse Rate 74 Respiratory 18 18 16 Rate Blood Pressure 113/68 (mmHg) O2 Sat by Pulse 100 Oximetry 05/23/19 05/23/19 05/23/19 07:49 09:06 09:07 Temperature Pulse Rate Respiratory 20 16 16 Rate Blood Pressure (mmHg) O2 Sat by Pulse Oximetry 05/23/19 10:08 Temperature Pulse Rate Respiratory 18 Rate Blood Pressure (mmHg) O2 Sat by Pulse Oximetry Oxygen Devices in Use Now: None Exam: Appearance: alert, uncomfortable looking Respiratory: Clear to Auscultation Cardiovascular: NL Sounds; No Murmurs; No JVD Abdominal:NL Sounds; No Tenderness; No Distention Extremities: RLE in bandage - Nutrition: Malnutrition Diagnosis/Plan Malnutrition Assessment by Registered Dietitian: Malnutrition Assessment Clinical Characteristics Chronic,Severe Malnutrition Assessment: Pt meets criteria for severe malnutrition in the Criteria setting of chronic illness aeb significant wt loss (50 lbs, 25% BW) x 1 mo and visible muscle wasting (clavicle) Malnutrition Assessment: Pt declines gluerna. Will trial 2% milk with 1 Interventions scoop benepro powder (155 kcals, 14 g pro, per serving) BID for snack Malnutrition Assessment: Goals 1. adequate intake to support hydration and lean body mass without further wt loss 2. glycemic control within inpatient parameters ; no s/sx hypo-hyperglycemia 3. maintain serum electrolytes WNL 4. regulation of bowel pattern; no c/o constipation (or diarrhea) Result Diagrams: 05/20/19 08:47 05/20/19 08:47 Additional Lab and Data: Above labs were pulled into the note, when the note was edited prior to signing. See labs below from day of consultation Laboratory Tests 05/07/19 05/15/19 05/15/19 04:13 04:17 04:17 WBC 5.6 Hgb 10.5 L Hct 31 L Plt Count 626 H D Sodium 135 Potassium 4.2 Chloride 97 L Carbon Dioxide 33 H BUN 22 Creatinine 0.58 L Glucose 324 H C-Reactive Protein 9.53 H Total Protein 6.0 L Albumin 2.5 L Microbiology and Other Data: Microbiology 05/08/19 19:29 Gram Stain - Final Body Fluid Body Fluid Culture - Final No Growth Day 4 Skin and Soft Tissue MRSA/MSSA (PCR - Final Mrsa Negative S.aureus Negative 05/08/19 19:22 Gram Stain - Final Joint Fluid(Synovial) - Knee Right Body Fluid Culture - Final No Growth Day 4 Skin and Soft Tissue MRSA/MSSA (PCR - Final Mrsa Negative S.aureus Negative 05/08/19 19:22 Skin and Soft Tissue MRSA/MSSA (PCR - Final Wound Mrsa Negative S.aureus Negative Gram Stain - Final Wound Culture - Final No Growth Day 4 05/08/19 19:34 Anaerobic Culture - Final Wound No Growth Day 4 Gram Stain - Final Wound Culture - Final No Growth Day 4 05/07/19 04:13 Aerobic Blood Culture - Final Blood Venous No Growth Day 5 Anaerobic Blood Culture - Final No Growth Day 5 05/07/19 04:17 Aerobic Blood Culture - Final Blood Venous No Growth Day 5 Anaerobic Blood Culture - Final No Growth Day 5 05/06/19 11:15 Aerobic Blood Culture - Final Blood Venous No Growth Day 5 Anaerobic Blood Culture - Final No Growth Day 5 05/05/19 12:14 Aerobic Blood Culture - Final Blood Venous No Growth Day 5 Anaerobic Blood Culture - Final No Growth Day 5 05/05/19 12:18 Aerobic Blood Culture - Final Blood Venous No Growth Day 5 Anaerobic Blood Culture - Final Staphylococcus Aureus Blood MRSA/MSSA (PCR) - Final Mrsa Negative S.aureus Positive 05/04/19 22:21 Anaerobic Culture - Final Wound - Right Leg 05/04/19 22:21 Skin and Soft Tissue MRSA/MSSA (PCR - Final Leg Right Mrsa Negative S.aureus Positive Gram Stain - Final Wound Culture - Final Staphylococcus Aureus 05/05/19 03:48 Aerobic Blood Culture - Final Blood Venous Staphylococcus Aureus Anaerobic Blood Culture - Final Staphylococcus Aureus Blood MRSA/MSSA (PCR) - Final Mrsa Negative S.aureus Positive 05/05/19 03:48 Aerobic Blood Culture - Final Blood Venous Staphylococcus Aureus Anaerobic Blood Culture - Final Staphylococcus Aureus Blood MRSA/MSSA (PCR) - Final Mrsa Negative S.aureus Positive Diagnostic Imagin. Exam Date: 05/04/19 163 - MRI LOWER EXTREMITY RIGHT W/O IMPRESSION: 1. There is soft tissue swelling of the of the anterior and medial aspects of the distal thigh and medial to the right knee. 2. Mild edema identified within the bone marrow of the medial femoral condyle. Differential considerations include osteomyelitis, post-traumatic change, and reactive edema. 3. Edema is identified within the biceps femoris muscle, suggestive of myositis or muscle strain. Additional patchy muscle edema and fluid signal intensity/ abscesses are identified within the distal lower extremity. 4. Minimal patellofemoral joint effusion. 5. There is a thin band of fluid between the medial lateral femoral condyle and lateral meniscus. This is suggestive of a floating meniscus. If the patient has a history of prior trauma, meniscal avulsion cannot be excluded. 6. Refer to the MRI right lower extremity tibia and fibula from the same day for further discussion of findings. 2. Exam Date: 05/04/191640 - MRI LOWER EXTREMITY RIGHT W/O Addendum created by Hola Torre MD on 05/04/2019 10:35:58 PM EDT Within the musculature of the anterior compartment, the fluid collection/ abscess measures approximately 3.4 x 3.8 x 19.9 cm. IMPRESSION: 1. Patchy muscle edema, suggestive of myositis or muscle strain. 2. Loculated areas of fluid signal intensity are identified within the tibialis posterior muscle and musculature of the anterior compartment, consistent with abscesses or phlegmonous change. Compartment syndrome cannot be excluded. Postcontrast sequences recommended. 3. There is mild increased T1 signal intensity involving the fluid signal intensity within the musculature of the anterior compartment, consistent with increased complexity of fluid or hemorrhagic component. 4. Diffuse soft tissue swelling of the lower extremity. 5. No acute marrow edema of the visualized tibia or fibula to suggest osteomyelitis. 6. Minimal tibiotalar and subtalar joint effusions. 7. Tenosynovitis of the tibialis anterior tendon. Assess/Plan/Problems-Billing Assessment: 28M IDDM Type 1, PSA in remission, tob use d/o, mood d/o who is a transfer from [facility] (admitted there on 05/01) with resolved DKA and RLE SSTI c/b complex abscess. Found to have sepsis with MSSA bacteremia, s/p intraoperative I /D on 05/04, 05/09, 05/11, 05/13 now w wound vac; Primary closure on 05/13. - Patient Problems (1) Abscess of right lower extremity Current Visit: Yes Status: Acute Priority: High Code(s): L02.415 - CUTANEOUS ABSCESS OF RIGHT LOWER LIMB SNOMED Code(s): 698632491 Comment: - x3 OR washout 05/04, 05/08, 05/11; 4th OR-primary closure on 05/13 - IV cefazolin Day on 05/16 since first washout (D21 since first abx OSH) ,total of 43 days of abx - convert to oral bx on discharge. will continue iv abx currently - wound team, ID and ortho team follow up. - ortho will follow him up in clinic in 1 week, he may need skin flap in the future. And he could be converted to oral abx on discharge. - will oralize abx on discharge. (2) Diabetes type 1, uncontrolled Current Visit: Yes Status: Acute Priority: High Code(s): E10.65 - TYPE 1 DIABETES MELLITUS WITH HYPERGLYCEMIA SNOMED Code(s): 38243065 Comment: -initial HbA1c 14.4%, off insulin for months due to losing insurance - change glargine to 60mg daily, nutritional dose of lispro, as well as corrective dose - allow 3meals with a snack around 8pm, but need to count carb and give insulin based on carb counting (3) Polysubstance abuse Current Visit: Yes Status: Acute Code(s): F19.10 - OTHER PSYCHOACTIVE SUBSTANCE ABUSE, UNCOMPLICATED SNOMED Code(s): 841521042 Comment: - weed and meth use in the past - not active use (4) Thrombocytosis Current Visit: Yes Status: Acute Priority: Medium Comment: -Could be reactive because of infection or blood loss. (5) Tobacco use disorder Current Visit: Yes Status: Acute Code(s): F17.200 - NICOTINE DEPENDENCE, UNSPECIFIED, UNCOMPLICATED SNOMED Code(s): 557267814 Comment: - NRT offer (6) Mood disorder Current Visit: Yes Status: Acute Code(s): F39 - UNSPECIFIED MOOD [AFFECTIVE ] DISORDER SNOMED Code(s): 17240835 Comment: - Seroquel QHS 100 mg daily (his old med) - on escitalopram 5mg daily for now, consider up titrate if not responding after 4 weeks of trial (7) DVT prophylaxis Current Visit: Yes Status: Acute Priority: Low Code(s): Z29.9 - ENCOUNTER FOR PROPHYLACTIC MEASURES, UNSPECIFIED SNOMED Code(s): 210175682 Comment: sc Lovenox Status and Disposition: Inpatient; ortho following; ID following Does not have insurance; social work consult in place Attestation Documenting Resident: Daphney Mckeon Supervising Physician: Kaela Couch Attestation: This service has been performed in part by a resident under the direction of a teaching physician.I, Kaela Couch, performed the service, or was physically present during the critical, or castañeda portions of the service, furnished by the resident. I participated in the management of the patient.
--- NOTE | 2019-05-23 12:30 | PN ---
Progress Note - Progress Note Date of Service: 05/23/19 SOAP: Subjective: [Pt reports pain R LE. Just called nurse for pain meds.] Objective: [A and O x 3, Minimal distress with stated pain. R leg dressing changed. SS drainage on dressing. Wound well closed with black skin spots, some whiteness. No obvious purulence or necrosis. DP pulse 2+ Vital Signs: Temp Pulse Resp BP Pulse Ox 97.6 F 74 16 113/68 100 05/23/19 07:15 05/23/19 07:15 05/23/19 11:34 05/23/19 07:15 05/23/19 07:15 Laboratory Results - last 24 hr 05/22/19 05/22/19 05/23/19 16:51 22:17 08:03 POC Glucose (mg/dL) 183 H 252 H 195 H ] Assessment: [s/p multiple I and Ds R LE] Plan: [Pain management Con't IV abx per ID Daily dressing changes]
[2019-05-23] MEDS: Enoxaparin(*) 40 MG/0.4 ML SYR SUBCUT SCH (21:30)
[2019-05-23] MEDS: ceFAZolin* 2 GM in NS 100 MLS Q8H (Pharmacy Admix) IVPB SCH (22:45)
[2019-05-23] MEDS: QUEtiapine TAB* 25 MG PO SCH ×2 (22:47→23:06)
[2019-05-23] MEDS: QUEtiapine TAB* 100 MG PO SCH (22:50)
[2019-05-24] MEDS: Morphine INJ* 4 MG/ML 1 ML SYRINGE (NEW SYRINGE VERSION) IV PRN ×3 (00:49→22:43)
[2019-05-24] MEDS: oxyCODONE TAB* 5 MG TAB PO SCH ×3 (02:44→14:13)
[2019-05-24] MEDS: Insulin GLARGINE(*) 1 UNITS UNIT SUBCUT SCH (05:33)
[2019-05-24] MEDS: Acetaminophen TAB* 325 MG PO SCH ×2 (05:33→11:28)
[2019-05-24] MEDS: ceFAZolin* 2 GM in NS 100 MLS Q8H (Pharmacy Admix) IVPB SCH ×3 (05:33→22:35)
[2019-05-24] MEDS: Ketorolac INJ* 30 MG/ML 1 ML VIAL IV PUSH SCH (05:34)
[2019-05-24] MEDS: Insulin LISPRO* 1 UNITS UNIT SUBCUT SCH ×8 (09:37→22:33)
[2019-05-24] MEDS: Escitalopram * 5 MG TAB PO SCH (09:38)
[2019-05-24] MEDS: Pregabalin CAP(*) 25 MG PO SCH (09:38)
[2019-05-24] MEDS: Senna TAB 8.6 mg* TAB PO SCH (09:39)
[2019-05-24] MEDS: Multivitamins/Minerals TAB PO SCH (09:39)
[2019-05-24] MEDS: Pregabalin CAP(*) 50 MG PO SCH ×2 (14:13→22:30)
--- NOTE | 2019-05-24 16:34 | PN ---
Subjective Date of Service: 05/24/19 Interval History: No significant events overnight. Pt again with typical complaints of people thinking he's "an addict", being bored and missing his children, and chronic RLE pain. Again discussed that patient's prior social history is not effecting his care or medication management, reiterated goals of pain medications and significant adverse effects of narcotics, and nonmedication ways to manage pain. Discussed not fixating on pain, using ice, and treating concomitant depression. Pt again fixated on wanting more food, wanting to go home. Unable to participate in conversation about risks of going home before health insurance is reinstated. We discussed how lack of funds for antibiotics and insulin would mean that he would be at significant risk for needing amputation of leg, as wound would likely not heal and infection would come back. Pt only responds asking for more food, more opioids, and wanting to go home. Amenable to increase in SSRI and optimization of non-narcotic pain medications. Discussed that we will decrease opioid dosing to prevent withdrawal on discharge. Pt amenable and states he does NOT want narcotics on discharge. Objective Active Medications: Dextrose (Dextrose 50% Vial 50 Ml*) 25 ml IV PUSH .FOR FS < 60 - SS PRN PRN Reason: FS < 60 Enoxaparin Sodium (Lovenox(*)) 40 mg SUBCUT BEDTIME [facility] Last Admin: 05/23/19 21:30 Dose: 40 mg Escitalopram Oxalate (Lexapro *) 10 mg PO DAILY [facility]; Protocol Cefazolin Sodium 2 gm/ Sodium (Chloride) 100 mls @ 200 mls/hr IVPB Q8H [facility] Last Admin: 05/24/19 14:13 Dose: 200 mls/hr Insulin Glargine (Lantus(*)) 60 units SUBCUT 0600 [facility] Last Admin: 05/24/19 05:33 Dose: 60 units Insulin Human Lispro (Humalog*) 0 units SUBCUT ACHS [facility]; Protocol Last Admin: 05/24/19 14:12 Dose: 2 unit Insulin Human Lispro (Humalog*) 0 units SUBCUT ACHS [facility]; Protocol Last Admin: 05/24/19 14:13 Dose: 8 units Morphine Sulfate (Morphine Inj (Syringe)*) 4 mg IV Q6H PRN PRN Reason: PAIN - SEVERE Last Admin: 05/24/19 16:16 Dose: 4 mg Multivitamins/Minerals (Theragran/Minerals Tab*) 1 tab PO DAILY [facility] Last Admin: 05/24/19 09:39 Dose: 1 tab Naproxen (Naprosyn Tab*) 500 mg PO Q12H PRN PRN Reason: PAIN - MILD Nicotine Polacrilex (Nicotine Gum*) 2 mg PO Q2H PRN PRN Reason: CRAVING Oxycodone/Acetaminophen (Percocet 5/325 Tab*) 1 tab PO Q6H PRN PRN Reason: PAIN - MODERATE Pregabalin (Lyrica Cap(*)) 50 mg PO TID [facility] Last Admin: 05/24/19 14:13 Dose: 50 mg Quetiapine Fumarate (Seroquel Tab*) 100 mg PO 2200 [facility] Last Admin: 05/23/19 22:50 Dose: 100 mg Senna (Senokot 8.6 Mg Tab*) 2 tab PO DAILY [facility] Last Admin: 05/24/19 09:39 Dose: 2 tab Vital Signs - 8 hr 05/24/19 05/24/19 05/24/19 08:30 09:38 09:39 Temperature Pulse Rate Respiratory 18 16 16 Rate Blood Pressure (mmHg) O2 Sat by Pulse Oximetry 05/24/19 05/24/19 05/24/19 11:30 12:12 14:13 Temperature 97.5 F Pulse Rate 104 Respiratory 20 20 16 Rate Blood Pressure 126/75 (mmHg) O2 Sat by Pulse 99 Oximetry 05/24/19 05/24/19 05/24/19 15:15 16:16 16:17 Temperature 98.6 F Pulse Rate 102 Respiratory 16 16 16 Rate Blood Pressure 128/71 (mmHg) O2 Sat by Pulse 98 Oximetry Appearance: young man in NAD, appears frustrated, nontoxic, participates in conversation but avoids eye contact Ears/Nose/Mouth/Throat: Clear Oropharnyx, Mucous Membranes Moist Neck: NL Appearance and Movements; NL JVP, Trachea Midline Respiratory: Symmetrical Chest Expansion and Respiratory Effort, Clear to Auscultation Cardiovascular: NL Sounds; No Murmurs; No JVD, RRR Abdominal: NL Sounds; No Tenderness; No Distention, No Hepatosplenomegaly Extremities: - - RLE dressing c/d/i, not removed per wound care team Neurological: Alert and Oriented x 3 - Nutrition: Malnutrition Diagnosis/Plan Malnutrition Assessment by Registered Dietitian: Malnutrition Assessment Clinical Characteristics Chronic,Severe Malnutrition Assessment: Pt meets criteria for severe malnutrition in the Criteria setting of chronic illness aeb significant wt loss (50 lbs, 25% BW) x 1 mo and visible muscle wasting (clavicle) Malnutrition Assessment: Pt declines gluerna. Will trial 2% milk with 1 Interventions scoop benepro powder (155 kcals, 14 g pro, per serving) BID for snack Malnutrition Assessment: Goals 1. adequate intake to support hydration and lean body mass without further wt loss 2. glycemic control within inpatient parameters ; no s/sx hypo-hyperglycemia 3. maintain serum electrolytes WNL 4. regulation of bowel pattern; no c/o constipation (or diarrhea) Result Diagrams: 05/20/19 08:47 05/20/19 08:47 Assess/Plan/Problems-Billing Assessment: 28M with DM Type 1, tobacco use d/o, MDD, who is a transfer from [facility] (admitted there on 05/01) with resolved DKA and RLE SSTI c/b complex abscess. Found to have sepsis with MSSA bacteremia, s/p intraoperative I/D on , 05/09, 05/11, 05/13, with primary closure on 05/13. - Patient Problems (1) Abscess of right lower extremity Comment: Status post x3 OR washout 05/04, 05/08, 05/11; 4th OR-primary closure on 05/13. Active signs of infection resolved but pt with significant pain control needs, likely psychosocial/mood component. - IV cefazolin (05/05 - ), will need total 6 wks; can have PO on discharge - wound team, ID and ortho team follow up. - may need skin flap in the future - increase pregabalin to 50mg tid - change prns to: naproxen 500 q12h prn mild pain, oxycodone/APAP prn moderate pain, and morphine 4mg IV q6h severe pain (slowly decreasing opioid use, and pt requests none on discharge) (2) Diabetes type 1, uncontrolled Current Visit: Yes Status: Acute Priority: High Code(s): E10.65 - TYPE 1 DIABETES MELLITUS WITH HYPERGLYCEMIA SNOMED Code(s): 71124108 Comment: Initial HbA1c 14.4%, off insulin for months due to losing insurance - cont glargine to 60mg daily, nutritional dose of lispro, as well as corrective dose - allow 3meals with a snack around 8pm, but need to count carb and give insulin based on carb counting (3) Mood disorder Comment: - Seroquel QHS 100 mg daily (his old med) - increase escitalopram to 10mg daily (4) Tobacco use disorder Comment: - NRT offer (5) DVT prophylaxis Current Visit: Yes Status: Acute Priority: Low Code(s): Z29.9 - ENCOUNTER FOR PROPHYLACTIC MEASURES, UNSPECIFIED SNOMED Code(s): 651524530 Comment: guy Rabago Status and Disposition: Inpatient; ortho following; ID following Does not have insurance; social work consult in place
[2019-05-24] MEDS: oxyCODONE/Acetamin 5/325 MG* TAB PO PRN (18:32)
[2019-05-24] MEDS: Naproxen TAB* 250 MG PO PRN (22:00)
[2019-05-24] MEDS: QUEtiapine TAB* 100 MG PO SCH (22:30)
[2019-05-24] MEDS: Enoxaparin(*) 40 MG/0.4 ML SYR SUBCUT SCH (22:34)
[2019-05-25] MEDS: oxyCODONE/Acetamin 5/325 MG* TAB PO PRN ×4 (02:57→22:27)
[2019-05-25] MEDS: Insulin GLARGINE(*) 1 UNITS UNIT SUBCUT SCH (06:04)
[2019-05-25] MEDS: ceFAZolin* 2 GM in NS 100 MLS Q8H (Pharmacy Admix) IVPB SCH ×3 (06:06→22:22)
[2019-05-25] MEDS: Morphine INJ* 4 MG/ML 1 ML SYRINGE (NEW SYRINGE VERSION) IV PRN ×3 (06:09→18:09)
[2019-05-25 06:25] LABS: Hematocrit 36 % (42-52); Hemoglobin 11.8 g/dL (14.0-18.0); Mean Corpuscular HGB Conc 33 g/dL (31-36); Mean Corpuscular Hemoglobin 29 pg (27-31); Mean Corpuscular Volume 88 fL (80-94); Mean Platelet Volume 7.5 fL (7.4-10.4); Platelet Count 277 10^3/uL (150-450); Red Blood Count 4.05 10^6 /uL (4.18-5.48); Red Cell Distribution Width 16 % (10-15)
[2019-05-25 06:44] LABS: Anion Gap 8 mmol/L (2-11); BUN/Creatinine Ratio 50.9 (8-20); Blood Urea Nitrogen 28 mg/dL (6-24); CO2 Carbon Dioxide 28 mmol/L (22-32); Calcium 9.5 mg/dL (8.6-10.3); Chloride 102 mmol/L (101-111); EGFR African American 216.2 (>60); EGFR Non-African American 178.7 (>60); Glucose 200 mg/dL (70-100); Magnesium 1.9 mg/dL (1.9-2.7); Potassium 4.3 mmol/L (3.5-5.0); Sodium 138 mmol/L (135-145)
[2019-05-25] MEDS: Multivitamins/Minerals TAB PO SCH (09:09)
[2019-05-25] MEDS: Pregabalin CAP(*) 50 MG PO SCH ×3 (09:09→21:07)
[2019-05-25] MEDS: Senna TAB 8.6 mg* TAB PO SCH (09:09)
[2019-05-25] MEDS: Escitalopram * 10 MG TAB PO SCH (09:10)
[2019-05-25] MEDS: Insulin LISPRO* 1 UNITS UNIT SUBCUT SCH ×8 (09:21→21:49)
--- NOTE | 2019-05-25 09:30 | PN ---
Progress Note - Progress Note Date of Service: 05/25/19 SOAP: Subjective: [Patient seen in bed eating breakfast. He states he has some increased itchiness. Pain unchanged. Denies CP, SOB, f/c, night sweats, or calf pain. Objective: [General: A&O. NAD. Right Lower Extremity: Dressing changed, SS drainage on dressing. Continued decreased drainage. Wound appears similar to with black skin spots that have some whiteness to them, but no obvious necrosis or purulence. Punctate skin hole has been filled in with some tissue so no visible bone today. +f/e toes. DP 2+ Assessment: [s/p multiple I&Ds of RLE] Plan: [Continue abx per ID Continue pain meds Continue PT/OT] Laboratory Last Values WBC 5.0 10^3/uL (3.5-10.8) 05/25/19 05:59 RBC 4.05 10^6 /uL (4.18-5.48) L 05/25/19 05:59 Hgb 11.8 g/dL (14.0-18.0) L 05/25/19 05:59 Hct 36 % (42-52) L 05/25/19 05:59 MCV 88 fL (80-94) 05/25/19 05:59 MCH 29 pg (27-31) 05/25/19 05:59 MCHC 33 g/dL (31-36) 05/25/19 05:59 RDW 16 % (10-15) H 05/25/19 05:59 Plt Count 277 10^3/uL (150-450) 05/25/19 05:59 MPV 7.5 fL (7.4-10.4) 05/25/19 05:59 Neut % (Auto) 64.9 % 05/20/19 08:47 Lymph % (Auto) 24.6 % 05/20/19 08:47 [place] % (Auto) 7.3 % 05/20/19 08:47 Eos % (Auto) 1.3 % 05/20/19 08:47 Baso % (Auto) 1.9 % 05/20/19 08:47 Absolute Neuts (auto) 3.7 10^3/ul (1.5-7.7) 05/20/19 08:47 Absolute Lymphs (auto) 1.4 10^3/ul (1.0-4.8) 05/20/19 08:47 Absolute Monos (auto) 0.4 10^3/ul (0-0.8) 05/20/19 08:47 Absolute Eos (auto) 0.1 10^3/ul (0-0.6) 05/20/19 08:47 Absolute Basos (auto) 0.1 10^3/ul (0-0.2) 05/20/19 08:47 Absolute Nucleated RBC 0.0 10^3/ul 05/20/19 08:47 Immature Gran % 5.0 % (0-9) 05/08/19 04:27 Neutrophils % 75.0 % 05/08/19 04:27 Band Neutrophils % 1.0 % (0-8) 05/08/19 04:27 Lymphocytes % 12.0 % 05/08/19 04:27 Reactive Lymphs % 1.0 % (0-6) 05/08/19 04:27 Monocytes % 7.0 % 05/08/19 04:27 Metamyelocytes % 1.0 % (0-2) 05/08/19 04:27 Myelocytes % 3.0 % (0-1) H 05/08/19 04:27 Nucleated RBC % 0.1 05/20/19 08:47 Normal RBC Morphology Normal (Normal) 05/08/19 04:27 Sodium 138 mmol/L (135-145) 05/25/19 05:59 Potassium 4.3 mmol/L (3.5-5.0) 05/25/19 05:59 Chloride 102 mmol/L (101-111) 05/25/19 05:59 Carbon Dioxide 28 mmol/L (22-32) 05/25/19 05:59 Anion Gap 8 mmol/L (2-11) 05/25/19 05:59 BUN 28 mg/dL (6-24) H 05/25/19 05:59 Creatinine 0.55 mg/dL (0.67-1.17) L 05/25/19 05:59 Est GFR ( Amer) 216.2 (>60) 05/25/19 05:59 Est GFR (Non-Af Amer) 178.7 (>60) 05/25/19 05:59 BUN/Creatinine Ratio 50.9 (8-20) H 05/25/19 05:59 Glucose 200 mg/dL (70-100) H 05/25/19 05:59 POC Glucose (mg/dL) 206 mg/dL (70-100) H 05/25/19 08:15 Glucose Meter Confirm 438 mg/dL (70-100) H 05/15/19 18:01 Hemoglobin A1c 14.4 % (4.0-5.6) H 05/05/19 03:49 Lactic Acid 1.4 mmol/L (0.5-2.0) 05/04/19 17:47 Calcium 9.5 mg/dL (8.6-10.3) 05/25/19 05:59 Magnesium 1.9 mg/dL (1.9-2.7) 05/25/19 05:59 Total Bilirubin 0.40 mg/dL (0.2-1.0) 05/20/19 08:47 GGT 66 U/L (9-64.0) H 05/08/19 04:27 AST 17 U/L (13-39) 05/20/19 08:47 ALT 15 U/L (7-52) 05/20/19 08:47 Alkaline Phosphatase 83 U/L (34-104) 05/20/19 08:47 Total Creatine Kinase 135 U/L (10-223) 05/04/19 17:47 C-Reactive Protein 2.66 mg/L (<8.01) 05/19/19 05:18 Total Protein 6.6 g/dL (6.4-8.9) 05/20/19 08:47 Albumin 3.2 g/dL (3.2-5.2) 05/20/19 08:47 Globulin 3.4 g/dL (2-4) 05/20/19 08:47 Albumin/Globulin Ratio 0.9 (1-3) L 05/20/19 08:47 Fluid Source Synovial fluid 05/08/19 19:29 Fluid Volume 2 mL 05/08/19 19:29 Fluid Color [place] 05/08/19 19:29 Fluid Appearance Bloody 05/08/19 19:29 Fluid WBC 67 /mcL ([id number]) 05/08/19 19:29 Fluid RBC 64956 /mcL 05/08/19 19:29 Fluid Tot Cell Count 100 05/08/19 19:29 Fluid Neutrophils 86 % 05/08/19 19:29 Fluid Band Neutrophils 8 % 05/08/19 19:29 Fluid Lymphocytes 2 % 05/08/19 19:29 Fluid Monocytes 4 % 05/08/19 19:29 Fluid Nucleated RBCs 1 05/08/19 19:22 Fluid Cell Count Rvw By 05/08/19 19:29 Hepatitis C Antibody Negative (Negative) 05/06/19 05:33 Hepatitis C Ab Index 0.02 s/c 05/06/19 05:33 Vital Signs Temp Pulse Resp BP Pulse Ox 97.4 F 84 16 110/67 100 05/25/19 06:20 05/25/19 06:20 05/25/19 09:17 05/25/19 06:20 05/25/19 06:20
[2019-05-25] MEDS ORDERED: Dextrose 50% VIAL 50 ml IV PUSH PRN (10:55)
[2019-05-25] MEDS: Naproxen TAB* 250 MG PO PRN (11:13)
[2019-05-25 11:32] LABS: % Iron Saturation 20 % (15-55); Iron 93 ug/dL (50-212); Total Iron Binding Capacity 469 mcg/dL (250-450); Transferrin 335 mg/dL (203-362)
--- NOTE | 2019-05-25 13:40 | PN ---
Hospitalist Progress Note Date of Service: 05/25/19 S: Complaining of RLE pain. Rated as a 8/10. Pain described as diffuse c/ mild relief c/ ice. Patient feels current pain management is insufficient. Patient admits to feeling anxious and depressed and is "ready to go home". Pt understands his current situation and is waiting for insurance. Patient admits to always being hungry. Patient denies fever/chills, [place], SOB, chest pain, abdominal pain. O: Temp Pulse Resp BP Pulse Ox 97.5 F 97 17 112/64 99 05/25/19 11:17 05/25/19 11:17 05/25/19 11:54 05/25/19 11:17 05/25/19 11:17 Dextrose (Dextrose 50% Vial 50 Ml*) 25 ml IV PUSH .FOR FS < 60 - SS PRN PRN Reason: FS < 60 Enoxaparin Sodium (Lovenox(*)) 40 mg SUBCUT BEDTIME [facility] Last Admin: 05/24/19 22:34 Dose: 40 mg Escitalopram Oxalate (Lexapro *) 10 mg PO DAILY [facility]; Protocol Last Admin: 05/25/19 09:10 Dose: 10 mg Cefazolin Sodium 2 gm/ Sodium (Chloride) 100 mls @ 200 mls/hr IVPB Q8H [facility] Last Admin: 05/25/19 06:06 Dose: 200 mls/hr Insulin Glargine (Lantus(*)) 60 units SUBCUT 0600 [facility] Last Admin: 05/25/19 06:04 Dose: 60 units Insulin Human Lispro (Humalog*) 0 units SUBCUT ACHS [facility]; Protocol Last Admin: 05/25/19 13:03 Dose: 4 unit Insulin Human Lispro (Humalog*) 0 units SUBCUT ACHS [facility] Last Admin: 05/25/19 13:03 Dose: 10 units Morphine Sulfate (Morphine Inj (Syringe)*) 4 mg IV Q6H PRN PRN Reason: PAIN - SEVERE Last Admin: 05/25/19 11:54 Dose: 4 mg Multivitamins/Minerals (Theragran/Minerals Tab*) 1 tab PO DAILY [facility] Last Admin: 05/25/19 09:09 Dose: 1 tab Naproxen (Naprosyn Tab*) 500 mg PO Q12H PRN PRN Reason: PAIN - MILD Last Admin: 05/25/19 11:13 Dose: 500 mg Nicotine Polacrilex (Nicotine Gum*) 2 mg PO Q2H PRN PRN Reason: CRAVING Oxycodone/Acetaminophen (Percocet 5/325 Tab*) 1 tab PO Q6H PRN PRN Reason: PAIN - MODERATE Last Admin: 05/25/19 09:17 Dose: 1 tab Pregabalin (Lyrica Cap(*)) 50 mg PO TID [facility] Last Admin: 05/25/19 09:09 Dose: 50 mg Quetiapine Fumarate (Seroquel Tab*) 100 mg PO 2200 [facility] Last Admin: 05/24/19 22:30 Dose: 100 mg Senna (Senokot 8.6 Mg Tab*) 2 tab PO DAILY [facility] Last Admin: 05/25/19 09:09 Dose: 2 tab General: Pt is sitting upright eating breakfast in NAD. Pt has depressed affect. A/Ox3. Cardio: Normal S1 and S2. RRR. No MRG. Pulmonary: clear to auscultation in all farmer. Abd: soft, non-tender,non-distended. No rebound or guarding. Extremities: RLE has large wound with mild erythema surrounding it. Most of wound is covered in black eschar c/ minimal drainage. 2+ pulses on UE and LE Blt. Wound care changed dressing at time of examination. Abnormal labs 3 05/25/19 05/25/19 05/25/19 05:59 05:59 12:03 RBC 4.05 L Hgb 11.8 L Hct 36 L RDW 16 H BUN 28 H Creatinine 0.55 L BUN/Creatinine Ratio 50.9 H Glucose 200 H POC Glucose (mg/dL) 220 H TIBC 469 H Assessment: 28 M c/ Hx of DM type I, MDD, transferred to [facility] for RLE abscess. Found to have MSSA+ sepsis, s/p intraoptic I/D on 05/04,05/09,05/11, and primary closure on 05/13. IV abx, insulin management and pain control until discharge. Plan: #Abscess RLE -continue IV abx as listed above; possible oral abx on discharge; considering oral Keflex. -patient to follow up c/ a PCP. Patient educated on importance of f/u post discharge. -currently waiting on Pt to become enrolled in Medicare before discharge. #Pain control -continue current medication plan #DM type 1 -patients glucose as been trending up to 200. Pt is currently on carb counting diet c/ correcting insulin + Glargine 60 units qd 0600. Considering set pre- meal insulin based on patients eating habits. Pt didn't seem amendable to counting carbs post discharge and would prefer preset dosages. #MDD -continue current medication #DVT prophylaxis -continue current medication
--- NOTE | 2019-05-25 14:05 | PN ---
Progress Note - Progress Note Date of Service: 05/25/19 SOAP: Subjective: CC: Right LE cellulitis with abscess and MSSA bacteremia HPI: Mr. Kaminski is a 28 yo male with PMH significant for DM1. Denies fever, chills, nausea, vomiting, diarrhea, or rash. Continues to have pain in the right LE. He feels the wounds are about the same. Objective: Vital Signs 05/25/19 05/25/19 11:17 11:54 Temperature 97.5 F Pulse Rate 97 Respiratory 20 17 Rate Blood Pressure 112/64 (mmHg) O2 Sat by Pulse 99 Oximetry Physical Exam: General: NAD, sitting up in bed Neurological: Alert and Oriented x 3 HEENT: Moist MM, no thrush Cardiovascular: Heart rate regular, no murmur Respiratory: Lung sounds clear bilateral Abdominal: Bowel sounds present; ABD soft, non tender and non distended MSK: Able to move right knee. No tenderness with palpation of the right knee Skin: Long incision to right LE from thigh to lower leg. There are 2 large areas of black mostly dry eschar. There is a small amount of serous drainage. The surrounding skin is intact Laboratory Results - last 24 hr 05/25/19 05/25/19 05/25/19 05:59 05:59 08:15 WBC 5.0 RBC 4.05 L Hgb 11.8 L Hct 36 L MCV 88 MCH 29 MCHC 33 RDW 16 H Plt Count 277 MPV 7.5 Sodium 138 Potassium 4.3 Chloride 102 Carbon Dioxide 28 Anion Gap 8 BUN 28 H Creatinine 0.55 L Est GFR ( Amer) 216.2 Est GFR (Non-Af Amer) 178.7 BUN/Creatinine Ratio 50.9 H Glucose 200 H POC Glucose (mg/dL) 206 H Calcium 9.5 Magnesium 1.9 Iron 93 TIBC 469 H % Saturation 20 Unsat Iron Binding < 454 Transferrin 335 Ferritin 95.0 Microbiology 05/08/19 19:29 Gram Stain - Final Body Fluid Body Fluid Culture - Final No Growth Day 4 Skin and Soft Tissue MRSA/MSSA (PCR - Final Mrsa Negative S.aureus Negative 05/08/19 19:22 Gram Stain - Final Joint Fluid(Synovial) - Knee Right Body Fluid Culture - Final No Growth Day 4 Skin and Soft Tissue MRSA/MSSA (PCR - Final Mrsa Negative S.aureus Negative 05/08/19 19:22 Skin and Soft Tissue MRSA/MSSA (PCR - Final Wound Mrsa Negative S.aureus Negative Gram Stain - Final Wound Culture - Final No Growth Day 4 05/08/19 19:34 Anaerobic Culture - Final Wound No Growth Day 4 Gram Stain - Final Wound Culture - Final No Growth Day 4 05/07/19 04:13 Aerobic Blood Culture - Final Blood Venous No Growth Day 5 Anaerobic Blood Culture - Final No Growth Day 5 05/07/19 04:17 Aerobic Blood Culture - Final Blood Venous No Growth Day 5 Anaerobic Blood Culture - Final No Growth Day 5 05/06/19 11:15 Aerobic Blood Culture - Final Blood Venous No Growth Day 5 Anaerobic Blood Culture - Final No Growth Day 5 05/05/19 12:14 Aerobic Blood Culture - Final Blood Venous No Growth Day 5 Anaerobic Blood Culture - Final No Growth Day 5 05/05/19 12:18 Aerobic Blood Culture - Final Blood Venous No Growth Day 5 Anaerobic Blood Culture - Final Staphylococcus Aureus Blood MRSA/MSSA (PCR) - Final Mrsa Negative S.aureus Positive 05/04/19 22:21 Anaerobic Culture - Final Wound - Right Leg 05/04/19 22:21 Skin and Soft Tissue MRSA/MSSA (PCR - Final Leg Right Mrsa Negative S.aureus Positive Gram Stain - Final Wound Culture - Final Staphylococcus Aureus 05/05/19 03:48 Aerobic Blood Culture - Final Blood Venous Staphylococcus Aureus Anaerobic Blood Culture - Final Staphylococcus Aureus Blood MRSA/MSSA (PCR) - Final Mrsa Negative S.aureus Positive 05/05/19 03:48 Aerobic Blood Culture - Final Blood Venous Staphylococcus Aureus Anaerobic Blood Culture - Final Staphylococcus Aureus Blood MRSA/MSSA (PCR) - Final Mrsa Negative S.aureus Positive Assessment: 1. Right LE cellulitis with abscess, myositis, and tenosynovitis. Skin necrosis along incision. Wound culture with staph aureus. S/P multiple I+Ds, last on . Afebrile, leukocytosis resolved, CRP has normalized, thromocytosis has resolved. 2. Staph aureus bacteremia. Secondary to #1. No peripheral stigmata of endocarditis. TTE and GUANAKO negative for vegetation. Repeat blood cultures on 05/06 with no growth. 3. DM1. Uncontrolled. Plan: Continue Ancef 2 mg IV every 8 hours, day , can likely be transitioned to oral ABX at discharge. Weekly labs while on IV ABX: CBC, CMP, and CRP.
--- NOTE | 2019-05-25 17:38 | PN ---
Subjective Date of Service: 05/25/19 Interval History: Patient complained of worsening pain with tapering down of pain med. He is not in acute distress and speaking comfortably with 8/10 pain when I talked to him. He had no fever overnight. He still complained of constant hunger despite 4 meals per day and double tray. He admitted that he ate lots of pasta at home, and lost tracking insulin dose at home. He felt he was unable to do sliding scale and would like do fixed dose in the future. Dr. Antonio offered him NPH insulin which could be obtained at [facility], he is not keen and would like to stay. Objective Active Medications: Dextrose (Dextrose 50% Vial 50 Ml*) 25 ml IV PUSH .FOR FS < 60 - SS PRN PRN Reason: FS < 60 Enoxaparin Sodium (Lovenox(*)) 40 mg SUBCUT BEDTIME [facility] Last Admin: 05/24/19 22:34 Dose: 40 mg Escitalopram Oxalate (Lexapro *) 10 mg PO DAILY [facility]; Protocol Last Admin: 05/25/19 09:10 Dose: 10 mg Cefazolin Sodium 2 gm/ Sodium (Chloride) 100 mls @ 200 mls/hr IVPB Q8H [facility] Last Admin: 05/25/19 14:07 Dose: 200 mls/hr Insulin Glargine (Lantus(*)) 60 units SUBCUT 0600 [facility] Last Admin: 05/25/19 06:04 Dose: 60 units Insulin Human Lispro (Humalog*) 0 units SUBCUT ACHS [facility]; Protocol Last Admin: 05/25/19 13:03 Dose: 4 unit Insulin Human Lispro (Humalog*) 0 units SUBCUT [facility] Last Admin: 05/25/19 13:03 Dose: 10 units Morphine Sulfate (Morphine Inj (Syringe)*) 4 mg IV Q6H PRN PRN Reason: PAIN - SEVERE Last Admin: 05/25/19 11:54 Dose: 4 mg Multivitamins/Minerals (Theragran/Minerals Tab*) 1 tab PO DAILY [facility] Last Admin: 05/25/19 09:09 Dose: 1 tab Naproxen (Naprosyn Tab*) 500 mg PO Q12H PRN PRN Reason: PAIN - MILD Last Admin: 05/25/19 11:13 Dose: 500 mg Nicotine Polacrilex (Nicotine Gum*) 2 mg PO Q2H PRN PRN Reason: CRAVING Oxycodone/Acetaminophen (Percocet 5/325 Tab*) 1 tab PO Q6H PRN PRN Reason: PAIN - MODERATE Last Admin: 05/25/19 16:01 Dose: 1 tab Pregabalin (Lyrica Cap(*)) 50 mg PO TID [facility] Last Admin: 05/25/19 14:07 Dose: 50 mg Quetiapine Fumarate (Seroquel Tab*) 100 mg PO 2200 [facility] Last Admin: 05/24/19 22:30 Dose: 100 mg Senna (Senokot 8.6 Mg Tab*) 2 tab PO DAILY [facility] Last Admin: 05/25/19 09:09 Dose: 2 tab Vital Signs - 8 hr 05/25/19 05/25/19 05/25/19 11:17 11:54 14:07 Temperature 97.5 F Pulse Rate 97 Respiratory 20 17 20 Rate Blood Pressure 112/64 (mmHg) O2 Sat by Pulse 99 Oximetry 05/25/19 05/25/19 15:02 16:01 Temperature 97.8 F Pulse Rate 94 Respiratory 16 18 Rate Blood Pressure 108/60 (mmHg) O2 Sat by Pulse 98 Oximetry Oxygen Devices in Use Now: None Exam: Appearance: alert, uncomfortable looking Respiratory: Clear to Auscultation Cardiovascular: NL Sounds; No Murmurs; No JVD Abdominal:NL Sounds; No Tenderness; No Distention Extremities: RLE in bandage - Nutrition: Malnutrition Diagnosis/Plan Malnutrition Assessment by Registered Dietitian: Malnutrition Assessment Clinical Characteristics Chronic,Severe Malnutrition Assessment: Pt meets criteria for severe malnutrition in the Criteria setting of chronic illness aeb significant wt loss (50 lbs, 25% BW) x 1 mo and visible muscle wasting (clavicle) Malnutrition Assessment: Pt declines gluerna. Will trial 2% milk with 1 Interventions scoop benepro powder (155 kcals, 14 g pro, per serving) BID for snack Malnutrition Assessment: Goals 1. adequate intake to support hydration and lean body mass without further wt loss 2. glycemic control within inpatient parameters ; no s/sx hypo-hyperglycemia 3. maintain serum electrolytes WNL 4. regulation of bowel pattern; no c/o constipation (or diarrhea) Result Diagrams: 05/25/19 05:59 05/25/19 05:59 Additional Lab and Data: Above labs were pulled into the note, when edited prior to signing, please see below for labs from day of consultation. Laboratory Tests 05/05/19 05/07/19 05/16/19 03:49 04:13 06:21 WBC Hgb Hct Plt Count Sodium Potassium Chloride Carbon Dioxide BUN Creatinine Glucose Hemoglobin A1c 14.4 H C-Reactive Protein 5.92 Total Protein 6.0 L Albumin 2.5 L 05/17/19 05/17/19 07:30 07:30 WBC 5.7 Hgb 10.5 L Hct 31 L Plt Count 612 H Sodium 135 Potassium 4.0 Chloride 97 L Carbon Dioxide 33 H BUN 24 Creatinine 0.58 L Glucose 261 H Hemoglobin A1c C-Reactive Protein Total Protein Albumin Microbiology and Other Data: Microbiology 05/08/19 19:29 Gram Stain - Final Body Fluid Body Fluid Culture - Final No Growth Day 4 Skin and Soft Tissue MRSA/MSSA (PCR - Final Mrsa Negative S.aureus Negative 05/08/19 19:22 Gram Stain - Final Joint Fluid(Synovial) - Knee Right Body Fluid Culture - Final No Growth Day 4 Skin and Soft Tissue MRSA/MSSA (PCR - Final Mrsa Negative S.aureus Negative 05/08/19 19:22 Skin and Soft Tissue MRSA/MSSA (PCR - Final Wound Mrsa Negative S.aureus Negative Gram Stain - Final Wound Culture - Final No Growth Day 4 05/08/19 19:34 Anaerobic Culture - Final Wound No Growth Day 4 Gram Stain - Final Wound Culture - Final No Growth Day 4 05/07/19 04:13 Aerobic Blood Culture - Final Blood Venous No Growth Day 5 Anaerobic Blood Culture - Final No Growth Day 5 05/07/19 04:17 Aerobic Blood Culture - Final Blood Venous No Growth Day 5 Anaerobic Blood Culture - Final No Growth Day 5 05/06/19 11:15 Aerobic Blood Culture - Final Blood Venous No Growth Day 5 Anaerobic Blood Culture - Final No Growth Day 5 05/05/19 12:14 Aerobic Blood Culture - Final Blood Venous No Growth Day 5 Anaerobic Blood Culture - Final No Growth Day 5 05/05/19 12:18 Aerobic Blood Culture - Final Blood Venous No Growth Day 5 Anaerobic Blood Culture - Final Staphylococcus Aureus Blood MRSA/MSSA (PCR) - Final Mrsa Negative S.aureus Positive 05/04/19 22:21 Anaerobic Culture - Final Wound - Right Leg 05/04/19 22:21 Skin and Soft Tissue MRSA/MSSA (PCR - Final Leg Right Mrsa Negative S.aureus Positive Gram Stain - Final Wound Culture - Final Staphylococcus Aureus 05/05/19 03:48 Aerobic Blood Culture - Final Blood Venous Staphylococcus Aureus Anaerobic Blood Culture - Final Staphylococcus Aureus Blood MRSA/MSSA (PCR) - Final Mrsa Negative S.aureus Positive 05/05/19 03:48 Aerobic Blood Culture - Final Blood Venous Staphylococcus Aureus Anaerobic Blood Culture - Final Staphylococcus Aureus Blood MRSA/MSSA (PCR) - Final Mrsa Negative S.aureus Positive Diagnostic Imagin. Exam Date: 05/04/19 1635 - MRI LOWER EXTREMITY RIGHT W/O IMPRESSION: 1. There is soft tissue swelling of the of the anterior and medial aspects of the distal thigh and medial to the right knee. 2. Mild edema identified within the bone marrow of the medial femoral condyle. Differential considerations include osteomyelitis, post-traumatic change, and reactive edema. 3. Edema is identified within the biceps femoris muscle, suggestive of myositis or muscle strain. Additional patchy muscle edema and fluid signal intensity/ abscesses are identified within the distal lower extremity. 4. Minimal patellofemoral joint effusion. 5. There is a thin band of fluid between the medial lateral femoral condyle and lateral meniscus. This is suggestive of a floating meniscus. If the patient has a history of prior trauma, meniscal avulsion cannot be excluded. 6. Refer to the MRI right lower extremity tibia and fibula from the same day for further discussion of findings. 2. Exam Date: 05/04/19 164 - MRI LOWER EXTREMITY RIGHT W/O Addendum created by Hola Torre MD on 05/04/2019 10:35:58 PM EDT Within the musculature of the anterior compartment, the fluid collection/ abscess measures approximately 3.4 x 3.8 x 19.9 cm. IMPRESSION: 1. Patchy muscle edema, suggestive of myositis or muscle strain. 2. Loculated areas of fluid signal intensity are identified within the tibialis posterior muscle and musculature of the anterior compartment, consistent with abscesses or phlegmonous change. Compartment syndrome cannot be excluded. Postcontrast sequences recommended. 3. There is mild increased T1 signal intensity involving the fluid signal intensity within the musculature of the anterior compartment, consistent with increased complexity of fluid or hemorrhagic component. 4. Diffuse soft tissue swelling of the lower extremity. 5. No acute marrow edema of the visualized tibia or fibula to suggest osteomyelitis. 6. Minimal tibiotalar and subtalar joint effusions. 7. Tenosynovitis of the tibialis anterior tendon. Assess/Plan/Problems-Billing Assessment: 28M with DM Type 1, tobacco use d/o, MDD, who is a transfer from [facility] (admitted there on 05/01) with resolved DKA and RLE SSTI c/b complex abscess. Found to have sepsis with MSSA bacteremia, s/p intraoperative I/D on , 05/09, 05/11, 05/13, with primary closure on 05/13. - Patient Problems (1) Abscess of right lower extremity Current Visit: Yes Status: Acute Priority: High Code(s): L02.415 - CUTANEOUS ABSCESS OF RIGHT LOWER LIMB SNOMED Code(s): 202445138 Comment: Status post x3 OR washout 05/04, 05/08, 05/11; 4th OR-primary closure on 05/13. Active signs of infection resolved but pt with significant pain control needs, likely psychosocial/mood component. - IV cefazolin (05/05 - ), will need total 6 wks (counting from Apr 30 in [place] as per ID); can have PO on discharge - CBC, CMP, CRP weekly - wound team, ID and ortho team follow up. - may need skin flap in the future - increase pregabalin to 50mg tid - change prns to: naproxen 500 q12h prn mild pain, oxycodone/APAP prn moderate pain, and morphine 4mg IV q6h severe pain (slowly decreasing opioid use, and pt requests none on discharge) (2) Diabetes type 1, uncontrolled Current Visit: Yes Status: Acute Priority: High Code(s): E10.65 - TYPE 1 DIABETES MELLITUS WITH HYPERGLYCEMIA SNOMED Code(s): 92376748 Comment: Initial HbA1c 14.4%, off insulin for months due to losing insurance - cont glargine to 60mg daily, start fixed dose for meal 5-10-10-5 today, as well as corrective dose - allow 4 meals per day (3) Polysubstance abuse Current Visit: Yes Status: Acute Code(s): F19.10 - OTHER PSYCHOACTIVE SUBSTANCE ABUSE, UNCOMPLICATED SNOMED Code(s): 268644022 Comment: - weed and meth use in the past - not active use (4) Thrombocytosis Current Visit: Yes Status: Acute Priority: Medium Comment: -Could be reactive because of infection or blood loss. - resolved (5) Tobacco use disorder Current Visit: Yes Status: Acute Code(s): F17.200 - NICOTINE DEPENDENCE, UNSPECIFIED, UNCOMPLICATED SNOMED Code(s): 631045036 Comment: - NRT offer (6) Mood disorder Current Visit: Yes Status: Acute Code(s): F39 - UNSPECIFIED MOOD [AFFECTIVE ] DISORDER SNOMED Code(s): 64238831 Comment: - Seroquel QHS 100 mg daily (his old med) - increase escitalopram to 10mg daily - pt refused therapist (7) DVT prophylaxis Current Visit: Yes Status: Acute Priority: Low Code(s): Z29.9 - ENCOUNTER FOR PROPHYLACTIC MEASURES, UNSPECIFIED SNOMED Code(s): 497524972 Comment: guy Lovenox Status and Disposition: Inpatient; ortho following; ID following Does not have insurance; social work consult in place Attestation Documenting Resident: Daphney Mckeon Supervising Physician: Micheline Antonio Attending/Supervising Physician Comment: Jeovany and I discussed plans and goals for when he leaves the hospital. He only wants to use insulin pens even though NPH/syringes would be more affordable , so we will keep him inpatient until insurance can be obtained; social work actively pursuing. He admits he will not carb count at home, so we will change his mealtime dosing to standard doses with hold parameters. Largest meal is dinner. He is satisfied with his pain control at this time. Attestation: This service has been performed in part by a resident under the direction of a teaching physician.I, Micheline Antonio, performed the service, or was physically present during the critical, or castañeda portions of the service, furnished by the resident. I participated in the management of the patient.
[2019-05-25 18:08] LABS: ALT 29 U/L (7-52); AST 25 U/L (13-39); C Reactive Protein < 1.00 mg/L (<8.01)
[2019-05-25] MEDS: Enoxaparin(*) 40 MG/0.4 ML SYR SUBCUT SCH (21:08)
[2019-05-25] MEDS: QUEtiapine TAB* 100 MG PO SCH (21:50)
[2019-05-26] MEDS: Morphine INJ* 4 MG/ML 1 ML SYRINGE (NEW SYRINGE VERSION) IV PRN ×4 (04:10→22:10)
[2019-05-26] MEDS: ceFAZolin* 2 GM in NS 100 MLS Q8H (Pharmacy Admix) IVPB SCH ×3 (05:59→21:54)
[2019-05-26] MEDS: Insulin GLARGINE(*) 1 UNITS UNIT SUBCUT SCH (05:59)
[2019-05-26] MEDS: oxyCODONE/Acetamin 5/325 MG* TAB PO PRN ×3 (06:06→18:03)
[2019-05-26] MEDS: Pregabalin CAP(*) 50 MG PO SCH ×3 (09:14→21:08)
[2019-05-26] MEDS: Multivitamins/Minerals TAB PO SCH (09:14)
[2019-05-26] MEDS: Senna TAB 8.6 mg* TAB PO SCH (09:14)
[2019-05-26] MEDS: Escitalopram * 10 MG TAB PO SCH (09:15)
[2019-05-26] MEDS: Insulin LISPRO* 1 UNITS UNIT SUBCUT SCH ×8 (09:16→21:45)
--- NOTE | 2019-05-26 11:20 | PN ---
Progress Note - Progress Note Date of Service: 05/26/19 SOAP: Subjective: CC: Right LE cellulitis with abscess and MSSA bacteremia HPI: Mr. Kaminski is a 28 yo male with PMH significant for DM1. Denies fever, chills, nausea, vomiting, diarrhea, or rash. Continues to have pain in the right LE. He feels the wounds are about the same. There is an area below the incision with mild edema, less redness in the area today compared to yesterday Objective: Vital Signs 05/26/19 05/26/19 10:02 11:05 Temperature 98.2 F Pulse Rate 98 Respiratory 16 20 Rate Blood Pressure 112/70 (mmHg) O2 Sat by Pulse 98 Oximetry Physical Exam: General: NAD, sitting up in bed Neurological: Alert and Oriented x 4 HEENT: Moist MM, no thrush Cardiovascular: Heart rate regular Respiratory: Lung sounds clear Abdomen: Bowel sounds present; ABD soft, non tender and non distended MSK: Able to plantar flex the right ankle, mild tenderness with palpation at the lower incision No edema Skin: Large incision to the right LE, there are areas of dry black eschar along the incision line. There is a small area that is fluctuant distal to the incision, no erythema at this area. Laboratory Results - last 24 hr 05/25/19 05/25/19 05/25/19 05:48 05:59 12:03 Sodium 138 Potassium 4.3 Chloride 102 Carbon Dioxide 28 Anion Gap 8 BUN 28 H Creatinine 0.55 L Est GFR ( Amer) 216.2 Est GFR (Non-Af Amer) 178.7 BUN/Creatinine Ratio 50.9 H Glucose 200 H POC Glucose (mg/dL) 101 H 220 H Calcium 9.5 Magnesium 1.9 Iron 93 TIBC 469 H % Saturation 20 Unsat Iron Binding < 454 Transferrin 335 Ferritin 95.0 AST 25 ALT 29 C-Reactive Protein < 1.00 Microbiology 05/08/19 19:29 Gram Stain - Final Body Fluid Body Fluid Culture - Final No Growth Day 4 Skin and Soft Tissue MRSA/MSSA (PCR - Final Mrsa Negative S.aureus Negative 05/08/19 19:22 Gram Stain - Final Joint Fluid(Synovial) - Knee Right Body Fluid Culture - Final No Growth Day 4 Skin and Soft Tissue MRSA/MSSA (PCR - Final Mrsa Negative S.aureus Negative 05/08/19 19:22 Skin and Soft Tissue MRSA/MSSA (PCR - Final Wound Mrsa Negative S.aureus Negative Gram Stain - Final Wound Culture - Final No Growth Day 4 05/08/19 19:34 Anaerobic Culture - Final Wound No Growth Day 4 Gram Stain - Final Wound Culture - Final No Growth Day 4 05/07/19 04:13 Aerobic Blood Culture - Final Blood Venous No Growth Day 5 Anaerobic Blood Culture - Final No Growth Day 5 05/07/19 04:17 Aerobic Blood Culture - Final Blood Venous No Growth Day 5 Anaerobic Blood Culture - Final No Growth Day 5 05/06/19 11:15 Aerobic Blood Culture - Final Blood Venous No Growth Day 5 Anaerobic Blood Culture - Final No Growth Day 5 05/05/19 12:14 Aerobic Blood Culture - Final Blood Venous No Growth Day 5 Anaerobic Blood Culture - Final No Growth Day 5 05/05/19 12:18 Aerobic Blood Culture - Final Blood Venous No Growth Day 5 Anaerobic Blood Culture - Final Staphylococcus Aureus Blood MRSA/MSSA (PCR) - Final Mrsa Negative S.aureus Positive 05/04/19 22:21 Anaerobic Culture - Final Wound - Right Leg 05/04/19 22:21 Skin and Soft Tissue MRSA/MSSA (PCR - Final Leg Right Mrsa Negative S.aureus Positive Gram Stain - Final Wound Culture - Final Staphylococcus Aureus 05/05/19 03:48 Aerobic Blood Culture - Final Blood Venous Staphylococcus Aureus Anaerobic Blood Culture - Final Staphylococcus Aureus Blood MRSA/MSSA (PCR) - Final Mrsa Negative S.aureus Positive 05/05/19 03:48 Aerobic Blood Culture - Final Blood Venous Staphylococcus Aureus Anaerobic Blood Culture - Final Staphylococcus Aureus Blood MRSA/MSSA (PCR) - Final Mrsa Negative S.aureus Positive Assessment: 1. Right LE cellulitis with abscess, myositis, and tenosynovitis. Skin necrosis along incision. Wound culture with staph aureus. S/P multiple I+Ds, last on . Afebrile, leukocytosis resolved, CRP has normalized, thromocytosis has resolved. 2. Staph aureus bacteremia. Secondary to #1. No peripheral stigmata of endocarditis. TTE and GUANAKO negative for vegetation. Repeat blood cultures on 05/06 with no growth. 3. DM1. Uncontrolled. Plan: Continue Ancef 2 mg IV every 8 hours, day , can likely be transitioned to oral ABX at discharge. Weekly labs while on IV ABX: CBC, CMP, and CRP.
--- NOTE | 2019-05-26 11:30 | PN ---
Progress Note - Progress Note Date of Service: 05/26/19 SOAP: Subjective: [] Pt seen at bedside. RLE painful only when touched. Denies feeling of fever or chills. Objective: []General: A&O. NAD. Right Lower Extremity: Dressing changed, minimal serosanguinous drainage on dressing as well as expressible from mid anterior incision, no purulence. Wound appears similar to previous with black skin that patient reports remains sensate. +f/e toes. + PF no active DF. passive f/e toes and ankle not painful. Anterior ankle with 5 cm fluctuant area that is not painful or erythematous. DP 2+ Assessment: [s/p multiple I&Ds of RLE] Plan: [Continue abx per ID, awaiting ins approval Continue pain meds Continue PT/OT] Watch fluctuant area for worsening/ pain/ redness. monitor labs and temp. Vital Signs Temp 98.2 F 05/26/19 11:05 Pulse 98 05/26/19 11:05 Resp 20 05/26/19 11:05 BP 112/70 05/26/19 11:05 Pulse Ox 98 05/26/19 11:05 Intake & Output 05/25/19 05/26/19 05/26/19 18:59 06:59 18:59 Intake Total 2020 0 360 Balance 2020 0 360 Intake: IVPB 100 ABX - CEFAZOLIN 100 Oral 1920 0 360 Other: Date of Last Bowel [id number] Movement # Bowel Movements 0 # Voids 2 0 Laboratory Last Values WBC 5.0 10^3/uL (3.5-10.8) 05/25/19 05:59 RBC 4.05 10^6 /uL (4.18-5.48) L 05/25/19 05:59 Hgb 11.8 g/dL (14.0-18.0) L 05/25/19 05:59 Hct 36 % (42-52) L 05/25/19 05:59 MCV 88 fL (80-94) 05/25/19 05:59 MCH 29 pg (27-31) 05/25/19 05:59 MCHC 33 g/dL (31-36) 05/25/19 05:59 RDW 16 % (10-15) H 05/25/19 05:59 Plt Count 277 10^3/uL (150-450) 05/25/19 05:59 MPV 7.5 fL (7.4-10.4) 05/25/19 05:59 Neut % (Auto) 64.9 % 05/20/19 08:47 Lymph % (Auto) 24.6 % 05/20/19 08:47 [place] % (Auto) 7.3 % 05/20/19 08:47 Eos % (Auto) 1.3 % 05/20/19 08:47 Baso % (Auto) 1.9 % 05/20/19 08:47 Absolute Neuts (auto) 3.7 10^3/ul (1.5-7.7) 05/20/19 08:47 Absolute Lymphs (auto) 1.4 10^3/ul (1.0-4.8) 05/20/19 08:47 Absolute Monos (auto) 0.4 10^3/ul (0-0.8) 05/20/19 08:47 Absolute Eos (auto) 0.1 10^3/ul (0-0.6) 05/20/19 08:47 Absolute Basos (auto) 0.1 10^3/ul (0-0.2) 05/20/19 08:47 Absolute Nucleated RBC 0.0 10^3/ul 05/20/19 08:47 Immature Gran % 5.0 % (0-9) 05/08/19 04:27 Neutrophils % 75.0 % 05/08/19 04:27 Band Neutrophils % 1.0 % (0-8) 05/08/19 04:27 Lymphocytes % 12.0 % 05/08/19 04:27 Reactive Lymphs % 1.0 % (0-6) 05/08/19 04:27 Monocytes % 7.0 % 05/08/19 04:27 Metamyelocytes % 1.0 % (0-2) 05/08/19 04:27 Myelocytes % 3.0 % (0-1) H 05/08/19 04:27 Nucleated RBC % 0.1 05/20/19 08:47 Normal RBC Morphology Normal (Normal) 05/08/19 04:27 Sodium 138 mmol/L (135-145) 05/25/19 05:59 Potassium 4.3 mmol/L (3.5-5.0) 05/25/19 05:59 Chloride 102 mmol/L (101-111) 05/25/19 05:59 Carbon Dioxide 28 mmol/L (22-32) 05/25/19 05:59 Anion Gap 8 mmol/L (2-11) 05/25/19 05:59 BUN 28 mg/dL (6-24) H 05/25/19 05:59 Creatinine 0.55 mg/dL (0.67-1.17) L 05/25/19 05:59 Est GFR ( Amer) 216.2 (>60) 05/25/19 05:59 Est GFR (Non-Af Amer) 178.7 (>60) 05/25/19 05:59 BUN/Creatinine Ratio 50.9 (8-20) H 05/25/19 05:59 Glucose 200 mg/dL (70-100) H 05/25/19 05:59 POC Glucose (mg/dL) 158 mg/dL (70-100) H 05/26/19 08:00 Glucose Meter Confirm 438 mg/dL (70-100) H 05/15/19 18:01 Hemoglobin A1c 14.4 % (4.0-5.6) H 05/05/19 03:49 Lactic Acid 1.4 mmol/L (0.5-2.0) 05/04/19 17:47 Calcium 9.5 mg/dL (8.6-10.3) 05/25/19 05:59 Magnesium 1.9 mg/dL (1.9-2.7) 05/25/19 05:59 Iron 93 ug/dL (50-212) 05/25/19 05:59 TIBC 469 mcg/dL (250-450) H 05/25/19 05:59 % Saturation 20 % (15-55) 05/25/19 05:59 Unsat Iron Binding < 454 ug/dL 05/25/19 05:59 Transferrin 335 mg/dL (203-362) 05/25/19 05:59 Ferritin 95.0 ng/mL (24-336) 05/25/19 05:59 Total Bilirubin 0.40 mg/dL (0.2-1.0) 05/20/19 08:47 GGT 66 U/L (9-64.0) H 05/08/19 04:27 AST 25 U/L (13-39) 05/25/19 05:59 ALT 29 U/L (7-52) 05/25/19 05:59 Alkaline Phosphatase 83 U/L (34-104) 05/20/19 08:47 Total Creatine Kinase 135 U/L (10-223) 05/04/19 17:47 C-Reactive Protein < 1.00 mg/L (<8.01) 05/25/19 05:59 Total Protein 6.6 g/dL (6.4-8.9) 05/20/19 08:47 Albumin 3.2 g/dL (3.2-5.2) 05/20/19 08:47 Globulin 3.4 g/dL (2-4) 05/20/19 08:47 Albumin/Globulin Ratio 0.9 (1-3) L 05/20/19 08:47 Fluid Source Synovial fluid 05/08/19 19:29 Fluid Volume 2 mL 05/08/19 19:29 Fluid Color [place] 05/08/19 19:29 Fluid Appearance Bloody 05/08/19 19:29 Fluid WBC 67 /mcL (0-260241) 05/08/19 19:29 Fluid RBC 99700 /mcL 05/08/19 19:29 Fluid Tot Cell Count 100 05/08/19 19:29 Fluid Neutrophils 86 % 05/08/19 19:29 Fluid Band Neutrophils 8 % 05/08/19 19:29 Fluid Lymphocytes 2 % 05/08/19 19:29 Fluid Monocytes 4 % 05/08/19 19:29 Fluid Nucleated RBCs 1 05/08/19 19:22 Fluid Cell Count Rvw By 05/08/19 19:29 Hepatitis C Antibody Negative (Negative) 05/06/19 05:33 Hepatitis C Ab Index 0.02 s/c 05/06/19 05:33
--- NOTE | 2019-05-26 13:13 | PN ---
Hospitalist Progress Note Date of Service: 05/26/19 S: Pt continuing to complain of RLE pain. Pt states pain is 8/10. Not relieved c / ice or elevation. Pt denies worsening redness or swelling of RLE. Pt states he feels anxious and depressed. Pt denies fever,chills, SOB, chest pain, abdominal pain, changes in bowel habits. Pt admits to increased appetite but states this is his baseline. O: Temp Pulse Resp BP Pulse Ox 98.2 F 98 18 112/70 98 05/26/19 11:05 05/26/19 11:05 05/26/19 12:11 05/26/19 11:05 05/26/19 11:05 Dextrose (Dextrose 50% Vial 50 Ml*) 25 ml IV PUSH .FOR FS < 60 - SS PRN PRN Reason: FS < 60 Enoxaparin Sodium (Lovenox(*)) 40 mg SUBCUT BEDTIME [facility] Last Admin: 05/25/19 21:08 Dose: 40 mg Escitalopram Oxalate (Lexapro *) 10 mg PO DAILY [facility]; Protocol Last Admin: 05/26/19 09:15 Dose: 10 mg Cefazolin Sodium 2 gm/ Sodium (Chloride) 100 mls @ 200 mls/hr IVPB Q8H [facility] Last Admin: 05/26/19 05:59 Dose: 200 mls/hr Insulin Glargine (Lantus(*)) 60 units SUBCUT 0600 [facility] Last Admin: 05/26/19 05:59 Dose: 60 units Insulin Human Lispro (Humalog*) 0 units SUBCUT ACHS [facility]; Protocol Last Admin: 05/26/19 12:50 Dose: 1 unit Insulin Human Lispro (Humalog*) 0 units SUBCUT ACHS [facility] Last Admin: 05/26/19 12:51 Dose: 10 units Morphine Sulfate (Morphine Inj (Syringe)*) 4 mg IV Q6H PRN PRN Reason: PAIN - SEVERE Last Admin: 05/26/19 10:02 Dose: 4 mg Multivitamins/Minerals (Theragran/Minerals Tab*) 1 tab PO DAILY [facility] Last Admin: 05/26/19 09:14 Dose: 1 tab Naproxen (Naprosyn Tab*) 500 mg PO Q12H PRN PRN Reason: PAIN - MILD Last Admin: 05/25/19 11:13 Dose: 500 mg Nicotine Polacrilex (Nicotine Gum*) 2 mg PO Q2H PRN PRN Reason: CRAVING Oxycodone/Acetaminophen (Percocet 5/325 Tab*) 1 tab PO Q6H PRN PRN Reason: PAIN - MODERATE Last Admin: 05/26/19 12:11 Dose: 1 tab Pregabalin (Lyrica Cap(*)) 50 mg PO TID [facility] Last Admin: 05/26/19 09:14 Dose: 50 mg Quetiapine Fumarate (Seroquel Tab*) 100 mg PO 2200 [facility] Last Admin: 05/25/19 21:50 Dose: 100 mg Senna (Senokot 8.6 Mg Tab*) 2 tab PO DAILY [facility] Last Admin: 05/26/19 09:14 Dose: 2 tab General: Pt sitting upright in bed eating breakfast in NAD. Cardio: Normal S1 and S2. RRR. No MRG. Pulmonary: normal breath sounds abdominal: ND/NT. No rebound or guarding. Extremities: RLE wound continues to have necrotic tissue but patient admits to having sensation over these areas. Minimal drainage with no occult pus noticed. Mild fluctuant swelling on anterior aspect of ankle, but is not tender or hot to touch. Pedal pulses 2+. Laboratory Tests 05/26/19 05/26/19 08:00 12:13 POC Glucose (mg/dL) 158 H 142 H Assessment: 28 M c/ Hx of uncontrolled DM type 1 presented c/ RLE abscess with multiple I/D c/ primary closure on 05/03. Pt is stable at this time and upon discharge will be given oral abx and insulin regiment. Plan: #RLE abscess -continue IV cefazolin -wound appears to be improving but will continue to monitor for signs of infection, and monitor fluctuant mass for increased fluid accumulation. -possible skin flap in future -will be discharged on oral abx per ID -pt educated on importance of medication adherence and f/u #DM1 -continue glargine 60 units Q0600 -continue pre-meal Lispro 7U breakfast-10U lunch-12U dinner-5U snack - continue to monitor BG @ bedside #Pain control -continue current medication -pregabalin increased to 50mg PO TID -continue bowel regimen #Mood disorder -continue Lexapro 10 mg PO daily -continue Seroquel 100mg PO 2200 #DVT prophylaxis -continue enoxaprin
--- NOTE | 2019-05-26 13:46 | PN ---
Subjective Date of Service: 05/26/19 Interval History: Patient complained of severe pain, but he was calm and comfortable even during dressing change. Glucose ran high pre lunch and pre 4th meal. Noted patient was taking an extra bottle of ice peach tea. Objective Active Medications: Dextrose (Dextrose 50% Vial 50 Ml*) 25 ml IV PUSH .FOR FS < 60 - SS PRN PRN Reason: FS < 60 Enoxaparin Sodium (Lovenox(*)) 40 mg SUBCUT BEDTIME [facility] Last Admin: 05/25/19 21:08 Dose: 40 mg Escitalopram Oxalate (Lexapro *) 10 mg PO DAILY [facility]; Protocol Last Admin: 05/26/19 09:15 Dose: 10 mg Cefazolin Sodium 2 gm/ Sodium (Chloride) 100 mls @ 200 mls/hr IVPB Q8H [facility] Last Admin: 05/26/19 05:59 Dose: 200 mls/hr Insulin Glargine (Lantus(*)) 60 units SUBCUT 0600 [facility] Last Admin: 05/26/19 05:59 Dose: 60 units Insulin Human Lispro (Humalog*) 0 units SUBCUT ACHS [facility]; Protocol Last Admin: 05/26/19 12:50 Dose: 1 unit Insulin Human Lispro (Humalog*) 0 units SUBCUT ACHS [facility] Last Admin: 05/26/19 12:51 Dose: 10 units Morphine Sulfate (Morphine Inj (Syringe)*) 4 mg IV Q6H PRN PRN Reason: PAIN - SEVERE Last Admin: 05/26/19 10:02 Dose: 4 mg Multivitamins/Minerals (Theragran/Minerals Tab*) 1 tab PO DAILY [facility] Last Admin: 05/26/19 09:14 Dose: 1 tab Naproxen (Naprosyn Tab*) 500 mg PO Q12H PRN PRN Reason: PAIN - MILD Last Admin: 05/25/19 11:13 Dose: 500 mg Nicotine Polacrilex (Nicotine Gum*) 2 mg PO Q2H PRN PRN Reason: CRAVING Oxycodone/Acetaminophen (Percocet 5/325 Tab*) 1 tab PO Q6H PRN PRN Reason: PAIN - MODERATE Last Admin: 05/26/19 12:11 Dose: 1 tab Pregabalin (Lyrica Cap(*)) 50 mg PO TID [facility] Last Admin: 05/26/19 09:14 Dose: 50 mg Quetiapine Fumarate (Seroquel Tab*) 100 mg PO 2200 [facility] Last Admin: 05/25/19 21:50 Dose: 100 mg Senna (Senokot 8.6 Mg Tab*) 2 tab PO DAILY [facility] Last Admin: 05/26/19 09:14 Dose: 2 tab Vital Signs - 8 hr 05/26/19 05/26/19 05/26/19 06:04 06:06 07:16 Temperature 97.7 F Pulse Rate 80 Respiratory 16 17 18 Rate Blood Pressure 112/69 (mmHg) O2 Sat by Pulse 99 Oximetry 05/26/19 05/26/19 05/26/19 08:00 09:10 09:14 Temperature Pulse Rate Respiratory 18 18 Rate Blood Pressure (mmHg) O2 Sat by Pulse 99 Oximetry 05/26/19 05/26/19 05/26/19 10:02 11:05 12:11 Temperature 98.2 F Pulse Rate 98 Respiratory 16 20 18 Rate Blood Pressure 112/70 (mmHg) O2 Sat by Pulse 98 Oximetry Oxygen Devices in Use Now: None Exam: Appearance: alert, uncomfortable looking Respiratory: Clear to Auscultation Cardiovascular: NL Sounds; No Murmurs; No JVD Abdominal:NL Sounds; No Tenderness; No Distention Extremities: Dressing was removed. large incision up to right thigh,2 large areas of dry escar on the anterior tibial area along the incision line. There is a fluctuating area distal to the incision line, about 4cm - Nutrition: Malnutrition Diagnosis/Plan Malnutrition Assessment by Registered Dietitian: Malnutrition Assessment Clinical Characteristics Chronic,Severe Malnutrition Assessment: Pt meets criteria for severe malnutrition in the Criteria setting of chronic illness aeb significant wt loss (50 lbs, 25% BW) x 1 mo and visible muscle wasting (clavicle) Malnutrition Assessment: Pt declines gluerna. Will trial 2% milk with 1 Interventions scoop benepro powder (155 kcals, 14 g pro, per serving) BID for snack Malnutrition Assessment: Goals 1. adequate intake to support hydration and lean body mass without further wt loss 2. glycemic control within inpatient parameters ; no s/sx hypo-hyperglycemia 3. maintain serum electrolytes WNL 4. regulation of bowel pattern; no c/o constipation (or diarrhea) Result Diagrams: 05/25/19 05:59 05/25/19 05:59 Additional Lab and Data: Above labs were pulled into the note, when edited prior to signing, please see below for labs from day of consultation. Laboratory Tests 05/05/19 05/07/19 05/16/19 03:49 04:13 06:21 WBC Hgb Hct Plt Count Sodium Potassium Chloride Carbon Dioxide BUN Creatinine Glucose Hemoglobin A1c 14.4 H C-Reactive Protein 5.92 Total Protein 6.0 L Albumin 2.5 L 05/17/19 05/17/19 07:30 07:30 WBC 5.7 Hgb 10.5 L Hct 31 L Plt Count 612 H Sodium 135 Potassium 4.0 Chloride 97 L Carbon Dioxide 33 H BUN 24 Creatinine 0.58 L Glucose 261 H Hemoglobin A1c C-Reactive Protein Total Protein Albumin Microbiology and Other Data: Microbiology 05/08/19 19:29 Gram Stain - Final Body Fluid Body Fluid Culture - Final No Growth Day 4 Skin and Soft Tissue MRSA/MSSA (PCR - Final Mrsa Negative S.aureus Negative 05/08/19 19:22 Gram Stain - Final Joint Fluid(Synovial) - Knee Right Body Fluid Culture - Final No Growth Day 4 Skin and Soft Tissue MRSA/MSSA (PCR - Final Mrsa Negative S.aureus Negative 05/08/19 19:22 Skin and Soft Tissue MRSA/MSSA (PCR - Final Wound Mrsa Negative S.aureus Negative Gram Stain - Final Wound Culture - Final No Growth Day 4 05/08/19 19:34 Anaerobic Culture - Final Wound No Growth Day 4 Gram Stain - Final Wound Culture - Final No Growth Day 4 05/07/19 04:13 Aerobic Blood Culture - Final Blood Venous No Growth Day 5 Anaerobic Blood Culture - Final No Growth Day 5 05/07/19 04:17 Aerobic Blood Culture - Final Blood Venous No Growth Day 5 Anaerobic Blood Culture - Final No Growth Day 5 05/06/19 11:15 Aerobic Blood Culture - Final Blood Venous No Growth Day 5 Anaerobic Blood Culture - Final No Growth Day 5 05/05/19 12:14 Aerobic Blood Culture - Final Blood Venous No Growth Day 5 Anaerobic Blood Culture - Final No Growth Day 5 05/05/19 12:18 Aerobic Blood Culture - Final Blood Venous No Growth Day 5 Anaerobic Blood Culture - Final Staphylococcus Aureus Blood MRSA/MSSA (PCR) - Final Mrsa Negative S.aureus Positive 05/04/19 22:21 Anaerobic Culture - Final Wound - Right Leg 05/04/19 22:21 Skin and Soft Tissue MRSA/MSSA (PCR - Final Leg Right Mrsa Negative S.aureus Positive Gram Stain - Final Wound Culture - Final Staphylococcus Aureus 05/05/19 03:48 Aerobic Blood Culture - Final Blood Venous Staphylococcus Aureus Anaerobic Blood Culture - Final Staphylococcus Aureus Blood MRSA/MSSA (PCR) - Final Mrsa Negative S.aureus Positive 05/05/19 03:48 Aerobic Blood Culture - Final Blood Venous Staphylococcus Aureus Anaerobic Blood Culture - Final Staphylococcus Aureus Blood MRSA/MSSA (PCR) - Final Mrsa Negative S.aureus Positive Diagnostic Imagin. Exam Date: 05/04/19 1635 - MRI LOWER EXTREMITY RIGHT W/O IMPRESSION: 1. There is soft tissue swelling of the of the anterior and medial aspects of the distal thigh and medial to the right knee. 2. Mild edema identified within the bone marrow of the medial femoral condyle. Differential considerations include osteomyelitis, post-traumatic change, and reactive edema. 3. Edema is identified within the biceps femoris muscle, suggestive of myositis or muscle strain. Additional patchy muscle edema and fluid signal intensity/ abscesses are identified within the distal lower extremity. 4. Minimal patellofemoral joint effusion. 5. There is a thin band of fluid between the medial lateral femoral condyle and lateral meniscus. This is suggestive of a floating meniscus. If the patient has a history of prior trauma, meniscal avulsion cannot be excluded. 6. Refer to the MRI right lower extremity tibia and fibula from the same day for further discussion of findings. 2. Exam Date: 05/04/19 1641 - MRI LOWER EXTREMITY RIGHT W/O Addendum created by Hola Torre MD on 05/04/2019 10:35:58 PM EDT Within the musculature of the anterior compartment, the fluid collection/ abscess measures approximately 3.4 x 3.8 x 19.9 cm. IMPRESSION: 1. Patchy muscle edema, suggestive of myositis or muscle strain. 2. Loculated areas of fluid signal intensity are identified within the tibialis posterior muscle and musculature of the anterior compartment, consistent with abscesses or phlegmonous change. Compartment syndrome cannot be excluded. Postcontrast sequences recommended. 3. There is mild increased T1 signal intensity involving the fluid signal intensity within the musculature of the anterior compartment, consistent with increased complexity of fluid or hemorrhagic component. 4. Diffuse soft tissue swelling of the lower extremity. 5. No acute marrow edema of the visualized tibia or fibula to suggest osteomyelitis. 6. Minimal tibiotalar and subtalar joint effusions. 7. Tenosynovitis of the tibialis anterior tendon. Assess/Plan/Problems-Billing Assessment: 28M with DM Type 1, tobacco use d/o, MDD, who is a transfer from [facility] (admitted there on 05/01) with resolved DKA and RLE SSTI c/b complex abscess. Found to have sepsis with MSSA bacteremia, s/p intraoperative I/D on , 05/09, 05/11, 05/13, with primary closure on 05/13. - Patient Problems (1) Abscess of right lower extremity Current Visit: Yes Status: Acute Priority: High Code(s): L02.415 - CUTANEOUS ABSCESS OF RIGHT LOWER LIMB SNOMED Code(s): 729944038 Comment: Status post x3 OR washout 05/04, 05/08, 05/11; 4th OR-primary closure on 05/13. Active signs of infection resolved but pt with significant pain control needs, likely psychosocial/mood component. - IV cefazolin (05/05 - ), will need total 6 wks (counting from Apr 30 in [place] as per ID); can have PO on discharge - CBC, CMP, CRP weekly - wound team, ID and ortho team follow up. - may need skin flap in the future - increase pregabalin to 50mg tid - change prns to: naproxen 500 q12h prn mild pain, oxycodone/APAP prn moderate pain, and morphine 4mg IV q6h severe pain (slowly decreasing opioid use, and pt requests none on discharge) (2) Diabetes type 1, uncontrolled Current Visit: Yes Status: Acute Priority: High Code(s): E10.65 - TYPE 1 DIABETES MELLITUS WITH HYPERGLYCEMIA SNOMED Code(s): 18256518 Comment: Initial HbA1c 14.4%, off insulin for months due to losing insurance - cont glargine to 60mg daily, increase premeal dose to 7-10-12-5 today, as well as corrective dose - allow 4 meals per day (3) Polysubstance abuse Current Visit: Yes Status: Acute Code(s): F19.10 - OTHER PSYCHOACTIVE SUBSTANCE ABUSE, UNCOMPLICATED SNOMED Code(s): 172426097 Comment: - weed and meth use in the past - not active use (4) Thrombocytosis Current Visit: Yes Status: Acute Priority: Medium Comment: -Could be reactive because of infection or blood loss. - resolved (5) Tobacco use disorder Current Visit: Yes Status: Acute Code(s): F17.200 - NICOTINE DEPENDENCE, UNSPECIFIED, UNCOMPLICATED SNOMED Code(s): 986809925 Comment: - NRT offer (6) Mood disorder Current Visit: Yes Status: Acute Code(s): F39 - UNSPECIFIED MOOD [AFFECTIVE ] DISORDER SNOMED Code(s): 23673375 Comment: - Seroquel QHS 100 mg daily (his old med) - increase escitalopram to 10mg on 05/24 - pt refused therapist (7) DVT prophylaxis Current Visit: Yes Status: Acute Priority: Low Code(s): Z29.9 - ENCOUNTER FOR PROPHYLACTIC MEASURES, UNSPECIFIED SNOMED Code(s): 775030730 Comment: sc Lovenox Status and Disposition: Inpatient; ortho following; ID following Does not have insurance; social work consult in place [facility] stay Attestation Documenting Resident: Daphney Mckeon Supervising Physician: Micheline Antonio Attending/Supervising Physician Comment: There was some discussion today about sending Mr. Kaminski home with a short supply of medications from our inpatient pharmacy, however they cannot supply syringes for insulin, and also can only give five days of antibiotics (needs 16 days more). Will continue to monitor here until he can obtain insurance, as he has no ability to purchase insulin, syringes, or antibiotics. Attestation: This service has been performed in part by a resident under the direction of a teaching physician.I, Micheline Antonio, performed the service, or was physically present during the critical, or castañeda portions of the service, furnished by the resident. I participated in the management of the patient.
[2019-05-26] MEDS: QUEtiapine TAB* 100 MG PO SCH (21:08)
[2019-05-26] MEDS: Enoxaparin(*) 40 MG/0.4 ML SYR SUBCUT SCH (21:08)
[2019-05-27] MEDS: oxyCODONE/Acetamin 5/325 MG* TAB PO PRN ×3 (00:53→14:24)
[2019-05-27] MEDS: Insulin GLARGINE(*) 1 UNITS UNIT SUBCUT SCH (05:23)
[2019-05-27] MEDS: ceFAZolin* 2 GM in NS 100 MLS Q8H (Pharmacy Admix) IVPB SCH ×2 (05:24→13:09)
[2019-05-27] MEDS: Insulin LISPRO* 1 UNITS UNIT SUBCUT SCH ×4 (09:33→12:27)
[2019-05-27] MEDS: Multivitamins/Minerals TAB PO SCH (09:35)
[2019-05-27] MEDS: Escitalopram * 10 MG TAB PO SCH (09:35)
[2019-05-27] MEDS: Pregabalin CAP(*) 50 MG PO SCH ×2 (09:35→13:09)
[2019-05-27] MEDS: Morphine INJ* 4 MG/ML 1 ML SYRINGE (NEW SYRINGE VERSION) IV PRN (09:35)
[2019-05-27] MEDS: Senna TAB 8.6 mg* TAB PO SCH (09:35)
[2019-05-27 12:16] VITALS: BP 128/62
--- NOTE | 2019-05-27 20:33 | DS ---
MEDICATION ADDENDUM NOW INCLUDED ON THIS REPORT CC: Dr. Zuhair Clifford; Dr. Zuhair Bosch * DISCHARGE SUMMARY: DATE OF ADMISSION: 05/04/19 DATE OF DISCHARGE: 05/27/19 PRINCIPAL DISCHARGE DIAGNOSES: 1. Right lower extremity abscess, cellulitis, myositis, and tenosynovitis. 2. Methicillin-susceptible Staphylococcus aureus bacteremia. 3. Diabetic ketoacidosis. 4. Uncontrolled diabetes. SECONDARY DISCHARGE DIAGNOSES: 1. Type 1 diabetes. 2. Tobacco use disorder. 3. Major depressive disorder. MEDICATIONS ON DISCHARGE: 1. Lexapro 10 mg daily. 2. Insulin glargine 60 units daily. 3. Insulin lispro 7 units with breakfast, 10 units with lunch, 15 units with dinner, and 5 units with bedtime snack. 4. Naproxen 500 mg q.12 p.r.n. for pain. 5. Nicotine gum 2 mg q.2. p.r.n. for cravings. 6. Lyrica 50 mg t.i.d. PHYSICAL EXAM: Temperature 98.8, heart rate 110, respiratory rate 16, pulse ox 99% on room air, blood pressure 128/62. General: Thin, alert young man, in no distress, resting comfortably in bed. HEENT: Pupils equal, round, reactive to light. Oral mucosa is moist. Neck: No JVP. No adenopathy. Chest: He is in a regular rhythm when I examined him and is not tachycardic. Lungs are clear bilaterally. Abdomen: Soft, nontender, and nondistended. No guarding or rebound. Extremities: His right lower extremity has 2 large eschars without surrounding erythema and an incision that goes up the lateral thigh. There is no drainage. There is a normal area of fluctuance on the anterior smith inferior to the eschar. He has full range of motion of his knee and ankle. HOSPITAL COURSE BY PROBLEM: 1. Right lower extremity abscess, cellulitis, myositis, and tenosynovitis: There was initially some concern for compartment syndrome; however, when Jeovany became bacteremic and developed sepsis, it was clear that this was an infection-based picture. He was initially transferred from [facility] and was continued to be followed by Dr. Bosch. Dr. Bosch took him to the OR on 05/05/19, 05/09/19, 05/11/19, and 05/13/19 for I and Ds. A wound VAC was placed; however, was thought to be inhibiting wound healing, so this was discontinued. Wound care also followed and recommended ongoing wound recommendations. At this time, the wound continues to heal and should remain wrapped with a nonadherent dressing. We have emphasized the need for close followup as ultimately this wound likely needs a skin flap; however, he needs to clear the infection and get the diabetes under better control. Therefore, plastic surgery will evaluate him and this will need to happen at a tertiary care center. In the meantime, he will continue p.o. antibiotics as prescribed and I have made a followup appointment for him with Dr. Bosch at [place] on 06/08/19 at 10 a.m. and I have communicated this with Jeovany. 2. MSSA bacteremia: He had initially been on broad-spectrum antibiotics and infectious disease was following. Ultimately, his blood culture returned as MSSA and his antibiotics were deescalated from Zosyn to cefazolin. His transesophageal echocardiogram was negative for vegetations and his blood cultures cleared. He needs a total of 6 weeks of antibiotic and infectious disease recommended switching to oral antibiotics at the time of discharge. He , therefore, will need 15 more days of p.o. antibiotics and I am sending these to his pharmacy as well. Dr. Echavarria agrees to arrange a followup appointment with him for next week. 3. DKA. Mr. Kaminski was initially found to be in DKA when he presented to [place]. He was treated with IV insulin and it resolved quickly. He had no episodes of DKA during this hospitalization. This is likely infection related. 4. Uncontrolled diabetes. Mr. Kaminski's A1c was found to be 14. He had not been taking insulin for some time prior to admission due to running out of insurance. At the time of discharge, insurance has been obtained for him and he understands how to take his insulin and we have reviewed these instructions with him closely. We have been able to monitor his blood sugars and have chosen a mealtime and long- acting regimen that has controlled him while he is in the hospital. He admitted that he is not willing or able to carb count, so we chose a preset mealtime dose for him. 5. Major depressive disorder: He admitted to being depressed during this admission related to his long stay in the hospital and he agreed to starting Lexapro. He felt a little bit better on Lexapro by the time of discharge. We discontinued his Seroquel due to the interaction with Lexapro; however, if the Lexapro is not thought to be working, Seroquel may be considered to be restarted in the future. DISPOSITION: Mr. Kaminski's disposition was complicated by his lack of insurance and his need for more antibiotics and insulin and close followup with medical specialists to preserve his right lower extremity. He remained in the hospital to ensure a safe discharge, and at the time of discharge, Medicaid had been obtained for him. I have verified that these prescriptions are covered with [facility] [place]. I have also made his followup appointments for him. He understands the importance of following up so that he may preserve his right lower extremity. He needs close followup with his primary care physician for diabetes management as well as Dr. Bosch for followup of his wound. CONDITION AT THE TIME OF DISCHARGE: Stable. TIME SPENT: Fifty minutes were spent on this discharge. ADDENDUM: Please note that [facility] and requested a substitution for his insulin as insurance will cover Basaglar instead of Lantus and Admelog instead of Humalog. I approved the substitution. Please also note the addition of Keflex 500 mg q.i.d. for 15 more days to his medication list. [id number]/[facility] #: [id number] A- [id number]/[facility] #: [id number] GREGORIA
--- NOTE | 2019-05-27 20:41 | DS ---
DISCHARGE SUMMARY: ADDENDUM: Please note that the pharmacist at [facility] called and requested a substitution for his insulin as insurance will cover Basaglar instead of Lantus and Admelog instead of Humalog. I approved the substitution. Please also note the addition of Keflex 500 mg q.i.d. for 15 more days to his medication list. [id number]/[facility] #: [id number] MTDD
== END 2019-05-27 15:10 | disposition home or self-care (01) | DRG 710 ==
LOC: OBSVTOIN 16:17 → MEDTELE 16:17 → MED 05-24 16:26
PROVIDERS: ADMIT Internal Medicine; ATTEND Internal Medicine
PROC: 0S9F3ZX Drainage of Right Ankle Joint, Percutaneous Approach, Diagnostic (ICD-10-PCS; 2019-05-08)
PROC: 0S9C3ZX Drainage of Right Knee Joint, Percutaneous Approach, Diagnostic (ICD-10-PCS; 2019-05-08)
PROC: 0K9Q0ZZ Drainage of Right Upper Leg Muscle, Open Approach (ICD-10-PCS; principal; 2019-05-08 17:00)
PROC: 3E10X8Z Irrigation of Skin and Mucous Membranes using Irrigating Substance (ICD-10-PCS; 2019-05-11)
PROC: B24BZZ4 Ultrasonography of Heart with Aorta, Transesophageal (ICD-10-PCS; 2019-05-12)
PROC: 0LBL0ZZ Excision of Right Upper Leg Tendon, Open Approach (ICD-10-PCS; 2019-05-13)
DX: A41.01 Sepsis due to Methicillin susceptible Staphylococcus aureus (principal); E43 Unspecified severe protein-calorie malnutrition; L02.415 Cutaneous abscess of right lower limb; L03.115 Cellulitis of right lower limb; F15.20 Other stimulant dependence, uncomplicated; M60.9 Myositis, unspecified; M65.9 Synovitis and tenosynovitis, unspecified; F32.9 Major depressive disorder, single episode, unspecified; E10.65 Type 1 diabetes mellitus with hyperglycemia; F17.290 Nicotine dependence, other tobacco product, uncomplicated; K21.9 Gastro-esophageal reflux disease without esophagitis; F41.9 Anxiety disorder, unspecified; E10.42 Type 1 diabetes mellitus with diabetic polyneuropathy; F90.9 Attention-deficit hyperactivity disorder, unspecified type; F19.10 Other psychoactive substance abuse, uncomplicated; R74.8 Abnormal levels of other serum enzymes; D47.3 Essential (hemorrhagic) thrombocythemia; Z82.49 Family history of ischemic heart disease and other diseases of the circulatory system; Z91.19 Patient's noncompliance with other medical treatment and regimen; Z79.4 Long term (current) use of insulin; Z68.20 Body mass index [BMI] 20.0-20.9, adult
CPT/HCPCS: 36415; 80048; 80053; 82550; 82728; 82947; 82977; 83036; 83540; 83550; 83605; 83735; 84450; 84460; 85025; 85027; 86140; 86803; 87040; 87070; 87073; 87077; 87150; 87186; 87205; 87640; 87641; 89051; 93306; 93312; 93325; 99156; A9270-GY; G8978-GP-CJ; G8978-GP-CK; G8979-GP-CH; J0690; J1170; J1644; J1650; J1815; J1885; J2250; J2270; J2310; J2405; J2543; J2704; J2765; J3010

== ENCOUNTER 2019-11-03 01:04 | Inpatient (IN) | payer OTHER ==
--- NOTE | 2019-11-03 00:06 | HP ---
History of Present Illness - History of Present Illness Reason for Visit: DKA History of Present Illness: This is 29 M with PMH significant for insulin-dependent severe T1DM, polysubstance use and recent MSSA bacteremia 2/2 right leg cellulitis/abscess/ compartment syndrome presented from [facility] with diagnosis of DKA. As per reports from [facility], he presented with complaint of nausea, vomiting and abdominal pain. Patient seen directly in ICU and patient is able to provide history. According to patient, he was having loss of appetite for last 3 days. Then this morning he started having vomiting- multiple episodes associated with nausea and abdominal pain. Abdominal pain was generalized, and cramping type with no radiation. He denies fever, chills, cough, chest pain and sick contacts. He states that he is not taking his insulin as he felt it was taking much time. Of note, patient had a long hospital stay in April 2019 for DKA and MSSA bacteremia 2/2 right leg wound and was discharged on basal-bolus insulin 5 times a day with PO antibiotics. He is following with wound clinic at [place] and his last visit was at least 1 month ago and is currently on doxycycline. He states that his wound is getting better than before and he is also following with Dr. Bosch. He states that he saw PCP after his last discharge but no change was made on his insulin regimen. In between last and this hospitalization he was also hospitalized in [place] in [facility] for suicide attempt after he got cheated on and was discharged on multiple anti-depressant and sleeping pills(seroquel). Patient admits that he is smoking weed and is using meth and last used was approx 3-4 days ago. HOSPITAL COURSE In [facility], his vitals on presentation(as per ED provider) were RR 30 , Pulse 109, BP 156/104, saturation 99% on RA and was afebrile. His blood work showed WBC 29.2, Hb 17.6, pH 6.94, Bicarbonate 3, po2 122, Na 141, k 3.9, Cl 98 , Co2 8, Blood glucose 200's, then BG in 452, Lactic Acid 2.1, AST 12, ALT 23, ALP 124. Urine ketones showed glucose and ketones(3+). He was given 1 LR and 2 L NaCl with KCL, NaHCo3 and was started on Continuous insulin drip at rate of 0.1 units/kg/hr. As per [place] ED provider, patient was ambulating but was having kussmaul's breathing. Here in ICU patient his vitals were stable; except slight tachycardic and tachypneic. His Blood glucose is 124 with normal electrolytes but pending blood gas and Anion gap. Patient is fully alert, oriented and cooperative overly friendly. - Past Medical History Past Medical History: 1. Severe Insulin Dependent Type1 Diabetes Mellitus- On basal bolus regimen 2. Polysubstance use- recently injected meth 3. Recent MSSA bacteremia 2/2 right leg wound- on PO doxycycline: following with wound care at [facility]. 4. Depression - Past Surgical History Past Surgical History: 1. Multiple I and D of right leg wound- On 04/2019 - Past Family History Past Family History: Family history positive for Heart Disease. - Past Social History Past Social History: Patient is a smoker; smokes 2 pack per day. He also smokes weed and uses meth and last intake about 3-4 days ago. He denies alcohol use. He lives with his kid. He is full code. Medications: Patient is not able to tell his medication list as he does not remember their name. Full list of medication is to be obtained when able. Based on his last discharge summary these were the medication he was discharged on: Blood Sugar Diagnostic [Test Strips] 1 each QID #100 strip 05/27/19 [Rx] Cephalexin CAP* [Keflex CAP*] 500 mg PO QID #60 cap 05/27/19 [Rx] Escitalopram * [Lexapro 10 mg (NF)] 10 mg PO DAILY #30 tab 05/27/19 [Rx] Insulin GLARGINE(*) [Lantus 100 units/ml 10 ml VIAL (*)] 60 units SUBCUT 0600 30 Days 05/27/19 [Rx] Insulin LISPRO* [HumaLOG 100 units/ml 3 ml VIAL *] 5 - 15 units SUBCUT ACHS 30 Days unit 05/27/19 [Rx] Lancets [Lancets Thin] 1 each QID #100 each 05/27/19 [Rx] Naproxen TAB* [Naprosyn 250 mg TAB*] 500 mg PO Q12H PRN #60 tab 05/27/19 [Rx] Nicotine GUM* 2MG FRUIT FLAVOR [Nicotine GUM*] 2 mg PO Q2H PRN #100 gum [Rx] Pen Needle, Diabetic [Pen Needle] 1 each MC QID #100 dis.needle 05/27/19 [Rx] Pregabalin 50 mg CAP (*) [Lyrica 50 mg CAP (*)] 50 mg PO TID #90 cap MDD 3 tabs 05/27/19 [Rx] Allergies/Adverse Reactions: Allergies Allergy/AdvReac Type Severity Reaction Status Date / Time No Known Drug Allergies Allergy Abdominal Verified 05/08/19 16:52 Pain Review of Systems - Review of Systems Constitutional: Negative: Fever, Chills, Sweats, Weakness, Malaise, Other Eyes: Negative: Pain, Vision Change, Conjunctivae Inflammation, Eyelid Inflammation, Redness, Other ENT: Negative: Ear Pain, Ear Discharge, Nose Pain, Nose Discharge, Nose Congestion, Mouth Pain, Mouth Swelling, Throat Pain, Throat Swelling, Other Respiratory: Positive: Shortness of Breath. Negative: Cough, Dry, Hemoptysis, SOB with Excertion, Pleuritic Pain, Sputum, Wheezing Cardiovascular: Negative: Chest Pain, Palpitations, Orthopnea, Paroxysmal Noc. Dyspnea, Edema, Light Headedness, Other Gastrointestinal: Positive: Nausea, Vomiting, Abdominal Pain. Negative: Diarrhea, Constipation, Melena, Hematochezia, Other Genitourinary: Negative: Dysuria, Frequency, Incontinence, Hematuria, Retention , Other Musculoskeletal: Negative: Neck Pain, Shoulder Pain, Arm Pain, Back Pain, Hand Pain, Leg Pain, Foot Pain, Other Skin: Negative: Rash, Lesions, Mejia, Bruising, Other Neurological/Mental Status: Negative: Weakness, Numbness, Incoordination, Change in Speech, Confusion, Seizures, Other Exam Vital Signs: Temp Pulse Resp BP Pulse Ox 98.5 F 95 23 133/82 100 11/03/19 01:14 11/03/19 02:00 11/03/19 02:00 11/03/19 02:00 11/03/19 02:00 Exam: Patient is sitting on a bed with no acute distress. His face and upper neck is flushed. HEENT: Normocephalic and atraumatic. Right IJ line in place. Sclera anicteric and PERRLA. Neck: Right IJ line place. Chest: Looks tachypneic. Clear with no added sounds Heart: HR 104 and normal in rhythm. S1/S2 heard with no murmur. Abdomen: Soft, nondistended and nontender. Normal BS heard. Extremities: There is scar minerva in right leg extending from right knee to ankle. There is open wound on anterior right leg with no gaby pus and is nontender. Distal pulses are palpable. Neuro: Alert, oriented and coperative. No focal deficit noted. Result Diagrams: 11/03/19 01:28 11/03/19 01:28 Assessment/Plan - Assessment/Plan Assessment: This is a 29 M with PMH of Insulin dependent T1DM, recent MSSA 2/2 right leg wound, polysubstance use presented from [facility] with High Anion gap metabolic Acidosis 2/2 DKA 2/2 to Insulin non-adherence. Patient also has open wound on right leg but no evidence of new infection. Plan: 1. Diabetic Ketoacidosis: At [place], Arterial pH is 6.94 with high anion gap and elevated Blood glucose of 452. He was started on Normal saline with KCl, Lactate Ringer, insulin drip and sodium bicarbonate on [facility]. -Here his Blood glucose is 124 so we will give him D5 with 1/2 NS and continue insulin drip at rate of 0.05 unit/kg/ hour. We will repeat CBC, BMP(every 4 hour ) and lactic acid. At this time, no indication for Bicarb gtt. Anion gap and urine test is pending. We will have blood glucose checked every hour. His DKA is secondary to nonadherence secondary to substance use. He will be NPO. Chest xray clear. -When gap has closed pt to start long acting subcutaneous insulin and can resume diet 2.Right leg wound: Has chronic right leg wound and is following wound clinic and with Dr. Bosch. COntinue doxycycline. 3. Polysubstance use: As per patient, he is using marijuana and meth. Also smokes tobacco 2 PPD. pending urine drug screen. 4. Depression: According to patient he was on multiple antidepressant but could not remember the name except seroquel and zoloft. We will start him on seroquel and get full medication list tomorrow. 5. DVT prophylaxis: On heparin 6. Full code Attestation Supervising Physician: Zoraida Hernandez Attending/Supervising Physician Comment: Agree with resident plan and note of which I supervised and collaborated with. 29M PMH PSA, poorly controlled type 1 IDDM who presented in DKA 2/2 to nonadherence DKA: He is in clamp phase now and will continue to run D5 gtt, insulin gtt to clear ketones No indication for bicarb gtt Pt with mild kussamaul breathing but mentating well and protecting airway Rest of plan per resident note.
[~2019-11-03 01:04] MED LIST: Insulin Infusion 100unit/100mL 100 UNIT/100 ML BAG IV SCH; NS 0.9% w/ 20 Meq KCL 1000 ML* 1,000 ML IV SCH
--- OUTSIDE RECORDS SUMMARY | 2019-11-03 01:08 | XMS REPORT | Continuity of Care Document ---
:1990 External Reference #:[id number] Author Name Zuhair Bosch MD (transmitted by agent of provider Mae Chawla) Address [address] [place] [address] Care Team Providers Name Role Phone Zuhair Clifford D.O. 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 Problems Active Problems Provider Date Type 1 diabetes mellitus uncontrolled Onset: Social History Type Date Description Comments Sex Unknown Allergies, Adverse Reactions, Alerts Description No Known Drug Allergies Medications Active Medications SIG Qnty Indications Ordering Provider Date Basaglar Kwikpen 55 units daily Unknown 100Unit/ML Solution Pen-Inject Humalog Kwikpen coverage as needed Unknown 100Unit/ML Solution Pen-Inject Gabapentin bid Unknown 300mg Capsules [place] 1 by mouth every 6 Unknown 7.5-325mg Tablets hours as needed for pain Immunizations Description No Information Available Vital Signs Date Vital Result Comment 10/05/2019 11:05am Height 71 inches 5'11" Weight 156.00 lb Heart Rate 61 /min BP Systolic Sitting 128 mmHg BP Diastolic Sitting 90 mmHg Body Temperature 97.2 F BMI (Body Mass Index) 21.8 kg/m2 08/24/2019 11:07am Height 71 inches 5'11" Weight 175.38 lb Heart Rate 73 /min BP Systolic Sitting 112 mmHg BP Diastolic Sitting 68 mmHg Body Temperature 97.5 F BMI (Body Mass Index) 24.5 kg/m2 Results Description No Information Available Procedures Date Code Description Status 10/07/2019 78007 Debridement Skin,& sq Tissue Completed 09/30/2019 03667 Removal Devitalization Tissue Wound Less Than Equal 20 Completed Square CM 09/23/2019 47847 Debridement Skin,& sq Tissue Completed 08/19/2019 27315 Debridement Muscle/Fascia,Epidermis/Dermis/Tissue,Addtl 20 Completed SQ CM 08/19/2019 81689 Debridement Skin, Subcutaneous Tissue & Muscle Completed 07/15/2019 62711 Debridement Muscle/Fascia,Epidermis/Dermis/Tissue,Addtl 20 Completed SQ CM 07/15/2019 54691 Debridement Skin, Subcutaneous Tissue & Muscle Completed 07/08/2019 17802 Debridement Muscle/Fascia,Epidermis/Dermis/Tissue,1St 20 Completed SQ CM 07/08/2019 48331 Debridement Skin,& sq Tissue Completed 06/17/2019 28254 Debridement Muscle/Fascia,Epidermis/Dermis/Tissue,1St 20 Completed SQ CM 06/17/2019 35423 Debridement Skin,& sq Tissue Completed 06/10/2019 82790 Debridement Skin,& sq Tissue Completed 05/13/2019 18512 I&D Leg Or Ankle;Deep Abscess Or Hematoma Completed 05/13/2019 65892 I&D Leg Or Ankle;Deep Abscess Or Hematoma Completed 05/12/2019 08000 Echocardiography, Transesophageal, Real Time W/Image 2D Completed W/W/O M-M 05/12/2019 06937 Pulse Wave/Continuous-Interp.RPT Completed 05/12/2019 17248 Color Flow Doppler/Interp & Reprt Completed 05/12/2019 70837 Moderate Sedation Services; Same Phys Intl 15 Mins; PT >= Completed 5 Years 05/11/2019 63656 Negative Pressure Wound Therapy Less Than 50 Square CM Completed 05/11/2019 92342 I&D Leg Or Ankle;Deep Abscess Or Hematoma Completed 05/08/2019 84560 I&D Leg Or Ankle;Deep Abscess Or Hematoma Completed 05/08/2019 40760 I&D Leg Or Ankle;Deep Abscess Or Hematoma Completed 05/08/2019 39948 I&D deep abscess,bursa or hematoma thigh or knee region Completed 05/08/2019 37960 I&D deep abscess,bursa or hematoma thigh or knee region Completed 05/08/201900540 Inject/Drain Joint/Bursa Major W/O US Completed 05/08/2019 Inject/Drain Joint/Bursa Major W/O US Completed 05/08/2019 Inject/Drain Joint/Bursa Intermediate W/O US Completed 05/08/2019 Inject/Drain Joint/Bursa Intermediate W/O US Completed 05/05/2019 83318 ECHO Transthorasic Realtime 2D W Doppler & Color Flow Hosp Completed 05/04/2019 48133 I&D Leg Or Ankle;Deep Abscess Or Hematoma Completed 05/04/2019 59837 Decompression Fasciotomy Leg; Anterior And/Or Lateral,& Completed Posterior Medical Devices Description No Information Available Encounters Type Date Location Provider Dx Diagnosis Office Visit 10/05/2019 [facility] Zuhair Ramirez S81.801D Unspecified open 11:15a at Michael Bosch MD wound, right lower leg, subs encntr Office Visit 08/24/2019 [facility] Zuhair Ramirez S81.801D Unspecified open 10:45a at Michael Bosch MD wound, right lower leg, subs encntr Office Visit 06/10/2019 [facility] AshleyGardenia S81.801A Unspecified open 1:00p [facility] M.D. 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, right lower leg M65.861 Other synovitis and tenosynovitis, right lower leg E10.52 Type 1 diabetes w diabetic peripheral angiopathy w gangrene E10.65 Type 1 diabetes mellitus with hyperglycemia Office Visit 05/25/2019 [facility] Crystal Lama L02.415 Cutaneous 12:12p For Infectious Gerardo INDIVIDUAL [employer] INSTRUCTOR abscess of Diseases right lower limb L03.115 Cellulitis of right lower limb 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, right lower leg M65.861 Other synovitis and tenosynovitis, right lower leg E10.52 Type 1 diabetes w diabetic peripheral angiopathy w gangrene E10.65 Type 1 diabetes mellitus with hyperglycemia Office Visit 05/21/2019 [facility] Nitish Fritz E10.69 Type 1 diabetes 12:02p For Infectious Leslee Butts mellitus with Diseases other specified complication M86.151 Other acute osteomyelitis, right femur L02.415 Cutaneous abscess of right lower limb E10.52 Type 1 diabetes w diabetic peripheral angiopathy w gangrene Office Visit 05/20/2019 [facility] Crystal Lama L03.115 Cellulitis of 12:00p For Infectious ELA Carrillo right lower limb Diseases L02.415 Cutaneous abscess of right lower limb 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, right lower leg M65.861 Other synovitis and tenosynovitis, right lower leg E10.65 Type 1 diabetes mellitus with hyperglycemia B95.8 Unsp staphylococcus as the cause of diseases classd elswhr Office Visit 05/19/2019 8:00a [facility] Crystal Lama L02.415 Cutaneous [facility] Carrillo, INDIVIDUAL [employer] GROUP INSTRUCTOR abscess of right lower limb E43 Unspecified severe protein-calorie malnutrition Office Visit 05/15/2019 12:47p [facility] Crystal Lama L02.415 Cutaneous [facility] Carrillo, INDIVIDUAL [employer] GROUP INSTRUCTOR abscess of right lower limb L03.115 Cellulitis of right lower limb Office Visit 05/14/2019 2:21p [facility] Luciana Fritz L02.415 Cutaneous Infectious Leslee Butts abscess of Diseases right lower limb E10.65 Type 1 diabetes mellitus with hyperglycemia R78.81 Bacteremia M86.151 Other acute osteomyelitis, right femur Office Visit 05/07/2019 1:00p [facility] For Nitish Fritz M60.061 Infective Infectious Leslee Butts myositis, right Diseases lower leg R78.81 Bacteremia M79.651 Pain in right thigh M25.561 Pain in right knee E10.9 Type 1 diabetes mellitus without complications Office Visit 05/06/2019 [facility] Crystal Lama L03.115 Cellulitis of 12:59p For Infectious Gerardo INDIVIDUAL [employer] GROUP INSTRUCTOR right lower limb Diseases 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, right lower leg M65.861 Other synovitis and tenosynovitis, right lower leg R78.81 Bacteremia B95.8 Unsp staphylococcus as the cause of diseases classd elswhr E10.9 Type 1 diabetes mellitus without complications Office Visit 05/05/2019 [facility] Daina L03.115 Cellulitis of 12:56p For Infectious Carrillo, INDIVIDUAL SMALL GROUP INSTRUCTOR right lower limb Diseases 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 Methicillin Hospitalists susceptible Staphylococcus aureus L03.115 Cellulitis of right lower limb E10.9 Type 1 diabetes mellitus without complications Office Visit 05/04/2019 8:47a [facility] Zuhair Ramirez R78.81 Bacteremia at Noy Bosch MD E10.65 Type 1 diabetes mellitus with hyperglycemia Assessments Date Code Description Provider 10/07/2019 S81.801D Unspecified open wound, right lower Joaquín Wyatt M.D. leg, subsequent encounter 10/07/2019 E10.622 Type 1 diabetes mellitus with other Joaquín Wyatt M.D. skin ulcer 10/07/2019 Z79.4 residential (current) use of insulin Joaquín Wyatt M.D. 10/07/2019 L97.812 Non-pressure chronic ulcer of other Joaquín Wyatt M.D. part of right lower leg with fat layer exposed 10/05/2019 S81.801D Unspecified open wound, right lower Zuhair Bosch MD leg, subsequent encounter 09/30/2019 S81.801D Unspecified open wound, right lower Joaquín Wyatt M.D. leg, subsequent encounter 09/30/2019 E10.622 Type 1 diabetes mellitus with other Joaquín Wyatt M.D. skin ulcer 09/30/2019 L97.812 Non-pressure chronic ulcer of other Joaquín Wyatt M.D. part of right lower leg with fat layer exposed 09/23/2019 S81.801D Unspecified open wound, right lower Joaquín Wyatt M.D. leg, subsequent encounter 09/23/2019 E10.622 Type 1 diabetes mellitus with other Joaquín Wyatt M.D. 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 09/23/2019 L97.812 Non-pressure chronic ulcer of other Joaquín Wyatt M.D. part of right lower leg with fat layer exposed 08/24/2019 S81.801D Unspecified open wound, right lower Zuhair Bosch MD leg, subsequent encounter 08/19/2019 S81.801D Unspecified open wound, right lower Joaquín Wyatt M.D. leg, subsequent encounter 08/19/2019 E10.622 Type 1 diabetes mellitus with other Joaquín Wyatt M.D. 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 08/19/2019 L97.812 Non-pressure chronic ulcer of other Joaquín Wyatt M.D. part of right lower leg with fat layer exposed 07/15/2019 S81.801D Unspecified open wound, right lower Joaquín Wyatt M.D. leg, subsequent encounter 07/15/2019 L97.812 Non-pressure chronic ulcer of other Joaquín Wyatt M.D. part of right lower leg with fat layer exposed 07/15/2019 E10.622 Type 1 diabetes mellitus with other Joaquín Wyatt M.D. skin ulcer 07/15/2019 Z79.4 residential (current) use of insulin Joaquín Wyatt M.D. 07/15/2019 L02.419 Cutaneous abscess of limb, Joaquín Wyatt M.D. unspecified 07/08/2019 S81.801D Unspecified open wound, right lower Joaquín Wyatt M.D. leg, subsequent encounter 07/08/2019 L97.812 Non-pressure chronic ulcer of other Joaquín Wyatt M.D. part of right lower leg with fat layer exposed 07/08/2019 E10.622 Type 1 diabetes mellitus with other Joaquín Wyatt M.D. skin ulcer 07/08/2019 L02.419 Cutaneous abscess of limb, Joaquín Wyatt M.D. unspecified 06/17/2019 S81.801D Unspecified open wound, right lower Joaquín Wyatt M.D. leg, subsequent encounter 06/17/2019 E10.622 Type 1 diabetes mellitus with other Joaquín Wyatt M.D. skin ulcer 06/17/2019 Z79.4 residential (current) use of insulin Joaquín Wyatt M.D. 06/17/2019 L02.419 Cutaneous abscess of limb, Joaquín Wyatt M.D. unspecified 06/15/2019 E10.622 Type 1 diabetes mellitus with other Zuhair Bosch MD skin ulcer 06/15/2019 S81.801D Unspecified open wound, right lower Zuhair Bosch MD leg, subsequent encounter 06/10/2019 S81.801A Unspecified open wound, right lower Joaquín Wyatt M.D. leg, initial encounter 06/10/2019 L97.518 Non-pressure chronic ulcer of other Joaquín Wyatt M.D. part of right foot with other specified severity 06/10/2019 E10.622 Type 1 diabetes mellitus with other Joaquín Wyatt M.D. skin ulcer 06/10/2019 L02.415 Cutaneous abscess of right lower Joaquín Wyatt M.D. limb 06/10/2019 Z79.4 residential (current) use of insulin Joaquín Wyatt M.D. 06/10/2019 F33.9 Major depressive disorder, Joaquín Wyatt M.D. 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, right lower leg Crystal Carrillo, ELA 05/26/2019 M65.861 Other synovitis and tenosynovitis, Crystal Carrillo, INDIVIDUAL [employer] GROUP INSTRUCTOR right lower leg 05/26/2019 E10.52 Type 1 diabetes mellitus with Crystal Carrillo, INDIVIDUAL SMALL GROUP INSTRUCTOR diabetic peripheral angiopathy with gangrene 05/26/2019 E10.65 Type 1 diabetes mellitus with Crystalchuckie Carrillo, INDIVIDUAL SMALL GROUP INSTRUCTOR hyperglycemia 05/25/2019 L02.415 Cutaneous abscess of right lower Crystalchuckie Carrillo , INDIVIDUAL SMALL GROUP INSTRUCTOR limb 05/25/2019 L03.115 Cellulitis of right lower limb Crystalchuckie Carrillo, INDIVIDUAL SMALL GROUP INSTRUCTOR 05/25/2019 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, right lower leg Crystal Carrillo, INDIVIDUAL SMALL GROUP INSTRUCTOR 05/25/2019 M65.861 Other synovitis and tenosynovitis, Crystal Carrillo, INDIVIDUAL SMALL GROUP INSTRUCTOR right lower leg 05/25/2019 E10.52 Type 1 diabetes mellitus with Crystal Carrillo, INDIVIDUAL SMALL GROUP INSTRUCTOR diabetic peripheral angiopathy with gangrene 05/25/2019 E10.65 Type 1 diabetes mellitus with Crystal Carrillo, INDIVIDUAL SMALL GROUP INSTRUCTOR hyperglycemia 05/21/2019 E10.69 Type 1 diabetes mellitus with other Nitish Butts M.D. specified complication 05/21/2019 M86.151 Other acute osteomyelitis, right Nitish Butts M.D. femur 05/21/2019 L02.415 Cutaneous abscess of right lower Nitish Butts M.D. limb 05/21/2019 E10.52 Type 1 diabetes mellitus with Nitish Butts M.D. diabetic peripheral angiopathy with gangrene 05/20/2019 L03.115 Cellulitis of right lower limb Crystal Carrillo, INDIVIDUAL SMALL GROUP INSTRUCTOR 05/20/2019 L02.415 Cutaneous abscess of right lower Crystal Carrillo , INDIVIDUAL SMALL GROUP INSTRUCTOR limb 05/20/2019 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, right lower leg Crystal Carrillo, INDIVIDUAL SMALL GROUP INSTRUCTOR 05/20/2019 M65.861 Other synovitis and tenosynovitis, Crystal Carrillo, INDIVIDUAL SMALL GROUP INSTRUCTOR right lower leg 05/20/2019 E10.65 Type 1 diabetes mellitus with Crystal Carrillo, INDIVIDUAL SMALL GROUP INSTRUCTOR hyperglycemia 05/20/2019 B95.8 Unspecified staphylococcus as the Crystal Carrillo , INDIVIDUAL SMALL GROUP INSTRUCTOR cause of diseases classified elsewhere 05/19/2019 L02.415 Cutaneous abscess of right lower Crystal Carrillo , INDIVIDUAL SMALL GROUP INSTRUCTOR limb 05/19/2019 E43 Unspecified severe protein-calorie Crystal Carrillo, INDIVIDUAL SMALL GROUP INSTRUCTOR malnutrition 05/15/2019 L02.415 Cutaneous abscess of right lower Crystal Carrillo , INDIVIDUAL SMALL GROUP INSTRUCTOR limb 05/15/2019 L03.115 Cellulitis of right lower limb Crystal Carrillo, INDIVIDUAL SMALL GROUP INSTRUCTOR 05/14/2019 L02.415 Cutaneous abscess of right lower Nitish Butts M.D. limb 05/14/2019 E10.65 Type 1 diabetes mellitus with Nitish Butts M.D. hyperglycemia 05/14/2019 R78.81 Bacteremia Nitish Btuts M.D. 05/14/2019 M86.151 Other acute osteomyelitis, right Nitish Butts M.D. femur 05/13/2019 L02.415 Cutaneous abscess of right lower Zuhair Bosch MD limb 05/13/2019 L02.415 Cutaneous abscess of right lower PHILLIP Brower limb 05/13/2019 E10.65 Type 1 diabetes mellitus with Zuhair Bosch MD hyperglycemia 05/12/2019 R78.81 Bacteremia Dinesh Clay M.D. 05/11/2019 L02.415 Cutaneous abscess of right lower Zuhair Bosch MD limb 05/11/2019 E10.65 Type 1 diabetes mellitus with Zuhair Bosch MD hyperglycemia 05/08/2019 L02.415 Cutaneous abscess of right lower Zuhair Bosch MD limb 05/08/2019 L02.415 Cutaneous abscess of right lower MARJORIE Light limb 05/08/2019 L03.115 Cellulitis of right lower limb Zuhair Bosch MD 05/08/2019 L03.115 Cellulitis of right lower limb FOX iLghtC 05/08/2019 M79.651 Pain in right thigh Zuhair Bosch MD 05/08/2019 M79.651 Pain in right thigh FOX LightC 05/08/2019 M25.561 Pain in right knee Zuhair Bosch MD 05/08/2019 M25.561 Pain in right knee Harsh Mc RPA-C 05/08/2019 M25.571 Pain in right ankle and joints of Zuhair Bosch MD right foot 05/08/2019 M25.571 Pain in right ankle and joints of Harsh Mc RPA-C right foot 05/07/2019 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 05/07/2019 R78.81 Bacteremia Nitish Butts M.D. 05/07/2019 M79.651 Pain in right thigh Nitish Butts M.D. 05/07/2019 M25.561 Pain in right knee Nitish Butts M.D. 05/07/2019 E10.9 Type 1 diabetes mellitus without Nitish Butts M.D. complications 05/06/2019 L03.115 Cellulitis of right lower limb Crystal Carrillo, INDIVIDUAL SMALL GROUP INSTRUCTOR 05/06/2019 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, right lower leg Crystal Carrillo, INDIVIDUAL SMALL GROUP INSTRUCTOR 05/06/2019 M65.861 Other synovitis and tenosynovitis, Crystal Carrillo, INDIVIDUAL SMALL GROUP INSTRUCTOR right lower leg 05/06/2019 R78.81 Bacteremia Crystal Carrillo, INDIVIDUAL SMALL GROUP INSTRUCTOR 05/06/2019 B95.8 Unspecified staphylococcus as the Crystal Carrillo NP cause of diseases classified elsewhere 05/06/2019 E10.9 Type 1 diabetes mellitus without Crystal Carrillo, INDIVIDUAL SMALL GROUP INSTRUCTOR complications 05/05/2019 L03.115 Cellulitis of right lower limb Crystal Carrillo, INDIVIDUAL SMALL GROUP INSTRUCTOR 05/05/2019 R78.81 Bacteremia Dinesh Clay M.D. 05/05/2019 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, right lower leg Crystal Carrillo, INDIVIDUAL SMALL GROUP INSTRUCTOR 05/05/2019 M65.861 Other synovitis and tenosynovitis, Crystal Carrillo, INDIVIDUAL SMALL GROUP INSTRUCTOR right lower leg 05/05/2019 R78.81 Bacteremia Crystal Carrillo, INDIVIDUAL SMALL GROUP INSTRUCTOR 05/05/2019 B95.8 Unspecified staphylococcus as the Crystal Carrillo NP cause of diseases classified elsewhere 05/05/2019 E10.9 Type 1 diabetes mellitus without Crystal Carrillo NP complications 05/04/2019 A41.01 Sepsis due to Methicillin Sapphire Mckeon M.D. susceptible Staphylococcus aureus 05/04/2019 L02.415 Cutaneous abscess of right lower Zuhair Bosch MD limb 05/04/2019 L03.115 Cellulitis of right lower limb Sapphire Mckeon M.D. 05/04/2019 L02.415 Cutaneous abscess of right lower Tuyet Evangelista PA-C limb 05/04/2019 E10.9 Type 1 diabetes mellitus without Sapphire Mckeon M.D. complications 05/04/2019 L03.115 Cellulitis of right lower limb Zuhair Bosch MD 05/04/2019 E10.65 Type 1 diabetes mellitus with Zuhair Bosch MD hyperglycemia 05/04/2019 L03.115 Cellulitis of right lower limb Tuyet Evangelista PA-C 05/04/2019 R78.81 Bacteremia Zuhair Bosch MD 05/04/2019 R78.81 Bacteremia Tuyet Evangelista PA-C 05/04/2019 E10.65 Type 1 diabetes mellitus with Zuhair Bosch MD hyperglycemia Plan of Treatment Future Appointment(s):11/16/2019 10:45 am - Zuhair Bosch MD at [facility]19/09/2020 - Zuhair Bosch MDS81.801D Unspecified open wound, right lower leg, subsequent encounterFollow up:Follow up: 6 weeks Functional Status Description No Information Available Mental Status Description No Information Available Referrals Refer to Dr Reason for Referral Status Appt Date Wound Clinic Wound right lower leg Referral to Dr. Wyatt at [facility] on 06/10/19 I have discussed the case with Dr. Wyatt. [address] [place] [id number] [phone] Closed
--- OUTSIDE RECORDS SUMMARY | 2019-11-03 01:08 | XMS REPORT | Continuity of Care Document ---
:1990 External Reference #:[id number] Author Name Joaquín Wyatt M.D. (transmitted by agent of provider Cami Hyde ) Address [address] [place] [address] Care Team Providers Name Role Phone Zuhair Clifford D.O. 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 Active Problems Provider Date Type 1 diabetes mellitus uncontrolled Onset: Social History Type Date Description Comments Sex Unknown Allergies, Adverse Reactions, Alerts Description No Known Drug Allergies Medications Active Medications SIG Qnty Indications Ordering Provider Date Basaglar Kwikpen 55 units daily Unknown 100Unit/ML Solution Pen-Inject Humalog Kwikpen coverage as needed Unknown 100Unit/ML Solution Pen-Inject Gabapentin bid Unknown 300mg Capsules Wiergate 1 by mouth every 6 Unknown 7.5-325mg Tablets hours as needed for pain Immunizations Description No Information Available Vital Signs Date Vital Result Comment 08/24/2019 11:07am Height 71 inches 5'11" Weight 175.38 lb Heart Rate 73 /min BP Systolic Sitting 112 mmHg BP Diastolic Sitting 68 mmHg Body Temperature 97.5 F BMI (Body Mass Index) 24.5 kg/m2 06/15/2019 11:05am Height 71 inches 5'11" Heart Rate 110 /min BP Systolic Sitting 120 mmHg BP Diastolic Sitting 76 mmHg Body Temperature 98.2 F Results Description No Information Available Procedures Date Code Description Status 09/30/2019 09702 Removal Devitalization Tissue Wound Less Than Equal 20 Completed Square CM 09/23/2019 44377 Debridement Skin,& sq Tissue Completed 08/19/2019 44346 Debridement Muscle/Fascia,Epidermis/Dermis/Tissue,Addtl 20 Completed SQ CM 08/19/2019 15546 Debridement Skin, Subcutaneous Tissue & Muscle Completed 07/15/2019 35932 Debridement Muscle/Fascia,Epidermis/Dermis/Tissue,Addtl 20 Completed SQ CM 07/15/2019 58685 Debridement Skin, Subcutaneous Tissue & Muscle Completed 07/08/2019 04469 Debridement Muscle/Fascia,Epidermis/Dermis/Tissue,1St 20 Completed SQ CM 07/08/2019 37920 Debridement Skin,& sq Tissue Completed 06/17/2019 52245 Debridement Muscle/Fascia,Epidermis/Dermis/Tissue,1St 20 Completed SQ CM 06/17/2019 20110 Debridement Skin,& sq Tissue Completed 06/10/2019 67196 Debridement Skin,& sq Tissue Completed 05/13/2019 05873 I&D Leg Or Ankle;Deep Abscess Or Hematoma Completed 05/13/2019 22949 I&D Leg Or Ankle;Deep Abscess Or Hematoma Completed 05/12/2019 78434 Echocardiography, Transesophageal, Real Time W/Image 2D Completed W/W/O M-M 05/12/2019 61419 Pulse Wave/Continuous-Interp.RPT Completed 05/12/2019 55755 Color Flow Doppler/Interp & Reprt Completed 05/12/2019 49160 Moderate Sedation Services; Same Phys Intl 15 Mins; PT >= Completed 5 Years 05/11/2019 51431 Negative Pressure Wound Therapy Less Than 50 Square CM Completed 05/11/2019 16221 I&D Leg Or Ankle;Deep Abscess Or Hematoma Completed 05/08/2019 51387 I&D Leg Or Ankle;Deep Abscess Or Hematoma Completed 05/08/2019 33876 I&D Leg Or Ankle;Deep Abscess Or Hematoma Completed 05/08/2019 14029 I&D deep abscess,bursa or hematoma thigh or knee region Completed 05/08/2019 39883 I&D deep abscess,bursa or hematoma thigh or knee region Completed 05/08/201966850 Inject/Drain Joint/Bursa Major W/O US Completed 05/08/2019 Inject/Drain Joint/Bursa Major W/O US Completed 05/08/2019 Inject/Drain Joint/Bursa Intermediate W/O US Completed 05/08/2019 Inject/Drain Joint/Bursa Intermediate W/O US Completed 05/05/2019 81699 ECHO Transthorasic Realtime 2D W Doppler & Color Flow Hosp Completed 05/04/2019 68418 I&D Leg Or Ankle;Deep Abscess Or Hematoma Completed 05/04/2019 76858 Decompression Fasciotomy Leg; Anterior And/Or Lateral,& Completed Posterior Medical Devices Description No Information Available Encounters Type Date Location Provider Dx Diagnosis Office Visit 08/24/2019 [facility] Zuhair Ramirez S81.801D Unspecified open 10:45a at Michael Bosch MD wound, right lower leg, subs encntr Office Visit 06/10/2019 [facility] Joaquín RamirezGardenia S81.801A Unspecified open 1:00p [facility] M.D. 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, right lower leg M65.861 Other synovitis and tenosynovitis, right lower leg E10.52 Type 1 diabetes w diabetic peripheral angiopathy w gangrene E10.65 Type 1 diabetes mellitus with hyperglycemia Office Visit 05/25/2019 [facility] Crystal Lama L02.415 Cutaneous 12:12p For Infectious ELA Carrillo abscess of Diseases right lower limb L03.115 Cellulitis of right lower limb 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, right lower leg M65.861 Other synovitis and tenosynovitis, right lower leg E10.52 Type 1 diabetes w diabetic peripheral angiopathy w gangrene E10.65 Type 1 diabetes mellitus with hyperglycemia Office Visit 05/21/2019 [facility] Nitish Fritz E10.69 Type 1 diabetes 12:02p For Infectious Leslee Butts mellitus with Diseases other specified complication M86.151 Other acute osteomyelitis, right femur L02.415 Cutaneous abscess of right lower limb E10.52 Type 1 diabetes w diabetic peripheral angiopathy w gangrene Office Visit 05/20/2019 [facility] Crystal Lama L03.115 Cellulitis of 12:00p For Infectious Gerardo, HEAT TRE[employer] SUPERVISOR right lower limb Diseases L02.415 Cutaneous abscess of right lower limb 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, right lower leg M65.861 Other synovitis and tenosynovitis, right lower leg E10.65 Type 1 diabetes mellitus with hyperglycemia B95.8 Unsp staphylococcus as the cause of diseases classd elswhr Office Visit 05/19/2019 8:00a [facility] Crystal Lama L02.415 Cutaneous [facility], HEAT TREAT SUPERVISOR abscess of right lower limb E43 Unspecified severe protein-calorie malnutrition Office Visit 05/15/2019 12:47p [facility]ound [facility] Crystal Lama L02.415 Cutaneous [facility], HE[employer] T[employer]AT SUPERVISOR abscess of right lower limb L03.115 Cellulitis of right lower limb Office Visit 05/14/2019 2:21p [facility] Luciana Fritz L02.415 Cutaneous Infectious Leslee Butts abscess of Diseases right lower limb E10.65 Type 1 diabetes mellitus with hyperglycemia R78.81 Bacteremia M86.151 Other acute osteomyelitis, right femur Office Visit 05/07/2019 1:00p [facility] Luciana Fritz M60.061 Infective Infectious Leslee Butts myositis, right Diseases lower leg R78.81 Bacteremia M79.651 Pain in right thigh M25.561 Pain in right knee E10.9 Type 1 diabetes mellitus without complications Office Visit 05/06/2019 [facility] Crystal Lama L03.115 Cellulitis of 12:59p For Infectious Gerardo, HEAT TRE[employer] SUPERVISOR right lower limb Diseases 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, right lower leg M65.861 Other synovitis and tenosynovitis, right lower leg R78.81 Bacteremia B95.8 Unsp staphylococcus as the cause of diseases classd elswhr E10.9 Type 1 diabetes mellitus without complications Office Visit 05/05/2019 [facility] Crystal Lama L03.115 Cellulitis of 12:56p For Infectious Gerardo, HE[employer] TRE[employer] SUPERVISOR right lower limb Diseases 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, right lower leg M65.861 Other synovitis and tenosynovitis, right lower leg R78.81 Bacteremia B95.8 Unsp staphylococcus as the cause of diseases classd elswhr E10.9 Type 1 diabetes mellitus without complications Office Visit 05/04/2019 [facility] A41.01 Sepsis due to 8:39a Assocpatience M.D. Methicillin Hospitalists susceptible Staphylococcus aureus L03.115 Cellulitis of right lower limb E10.9 Type 1 diabetes mellitus without complications Office Visit 05/04/2019 8:47a [facility] Zuhair Ramirez R78.81 Bacteremia at Noy Bosch MD E10.65 Type 1 diabetes mellitus with hyperglycemia Assessments Date Code Description Provider 09/30/2019 S81.801D Unspecified open wound, right lower [...] Joaquín Wyatt M.D. 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 09/23/2019 L97.812 Non-pressure chronic ulcer of other Joaquín Wyatt M.D. part of right lower leg with fat layer exposed 08/24/2019 S81.801D Unspecified open wound, right lower Zuhair Bosch MD leg, subsequent encounter 08/19/2019 S81.801D Unspecified open wound, right lower Jaoquín Wyatt M.D. leg, subsequent encounter 08/19/2019 E10.622 Type 1 diabetes mellitus with other Joaquín Wyatt M.D. 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 08/19/2019 L97.812 Non-pressure chronic ulcer of other Joaquín Wyatt M.D. part of right lower leg with fat layer exposed 07/15/2019 S81.801D Unspecified open wound, right lower Joaquín Wyatt M.D. leg, subsequent encounter 07/15/2019 L97.812 Non-pressure chronic ulcer of other Jaoquín Wyatt M.D. part of right lower leg with fat layer exposed 07/15/2019 E10.622 Type 1 diabetes mellitus with other Joaquín Wyatt M.D. 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 [...] Joaquín Wyatt M.D. 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 06/17/2019 L02.419 Cutaneous abscess of limb, Joaquín Wyatt M.D. unspecified 06/15/2019 E10.622 Type 1 diabetes mellitus with other Zuahir Bosch MD skin ulcer 06/15/2019 S81.801D Unspecified [...] lower Joaquín Wyatt M.D. 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 06/10/2019 F33.9 Major depressive disorder, Joaquín Wyatt M.D. 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, right lower leg Zuhair Bosch MD 05/26/2019 L02.415 Cutaneous abscess of right lower Crystal Carrillo , [employer] T[employer] SUPERVISOR limb 05/26/2019 L03.115 Cellulitis of right lower limb Crystal Carrillo, HE[employer] TRE[employer] SUPERVISOR 05/26/2019 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, right lower leg Crystal Carrillo, HEAT TRE[employer] SUPERVISOR 05/26/2019 M65.861 Other synovitis and tenosynovitis, Crystal Carrillo, HE[employer] TRE[employer] SUPERVISOR right lower leg 05/26/2019 E10.52 Type 1 diabetes mellitus with Crystal Carrillo, HE[employer] TRE[employer] SUPERVISOR diabetic peripheral angiopathy with gangrene 05/26/2019 E10.65 Type 1 diabetes mellitus with Crystal Carrillo, HE[employer] TRE[employer] SUPERVISOR hyperglycemia 05/25/2019 L02.415 Cutaneous abscess of right lower Crystal Carrillo , HE[employer] TRE[employer] SUPERVISOR limb 05/25/2019 L03.115 Cellulitis of right lower limb Crystal Carrillo, HE[employer] TRE[employer] SUPERVISOR 05/25/2019 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, right lower leg Crystal Carrillo, HEAT TRE[employer] SUPERVISOR 05/25/2019 M65.861 Other synovitis and tenosynovitis, Crystal Carrillo, HE[employer] TRE[employer] SUPERVISOR right lower leg 05/25/2019 E10.52 Type 1 diabetes mellitus with Crystal Carrillo, ELA diabetic peripheral angiopathy with gangrene 05/25/2019 E10.65 Type 1 diabetes mellitus with Crystalchuckie Carrillo, HE[employer] TRE[employer] SUPERVISOR hyperglycemia 05/21/2019 E10.69 Type 1 diabetes mellitus with other Nitish Butts M.D. specified complication 05/21/2019 M86.151 Other acute osteomyelitis, right Nitish Butts M.D. femur 05/21/2019 L02.415 Cutaneous abscess of right lower Nitish Butts M.D. limb 05/21/2019 E10.52 Type 1 diabetes mellitus with Nitish Butts M.D. diabetic peripheral angiopathy with gangrene 05/20/2019 L03.115 Cellulitis of right lower limb Crystalchuckie Carrillo, HE[employer] TRE[employer] SUPERVISOR 05/20/2019 L02.415 Cutaneous abscess of right lower Crystal Winnrubenspaz Carrillo , HE[employer] TRE[employer] SUPERVISOR limb 05/20/2019 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, right lower leg Crystal Winnrubenspaz Carrillo, HE[employer] TRE[employer] SUPERVISOR 05/20/2019 M65.861 Other synovitis and tenosynovitis, Crystal Daina Carrillo, HE[employer] TRE[employer] SUPERVISOR right lower leg 05/20/2019 E10.65 Type 1 diabetes mellitus with Crystal Winnrubenspaz Carrillo, HE[employer] TRE[employer] SUPERVISOR hyperglycemia 05/20/2019 B95.8 Unspecified staphylococcus as the Crystal Paanabelljoegeovanni Carrillo NP cause of diseases classified elsewhere 05/19/2019 L02.415 Cutaneous abscess of right lower Crystal Carrillo , HE[employer] TRE[employer] SUPERVISOR limb 05/19/2019 E43 Unspecified severe protein-calorie Crystal Winnrubenspaz Carrillo, HE[employer] TRE[employer] SUPERVISOR malnutrition 05/15/2019 L02.415 Cutaneous abscess of right lower Crystal Winnrubenspaz Carrillo , HE[employer] TRE[employer] SUPERVISOR limb 05/15/2019 L03.115 Cellulitis of right lower limb Crystal Carrillo, HE[employer] TRE[employer] SUPERVISOR 05/14/2019 L02.415 Cutaneous abscess of right lower Nitish Butts M.D. limb 05/14/2019 E10.65 Type 1 diabetes mellitus with Nitish Butts M.D. hyperglycemia 05/14/2019 R78.81 Bacteremia Nitish Butts M.D. 05/14/2019 M86.151 Other acute osteomyelitis, right [...] 05/08/2019 L02.415 Cutaneous abscess of right lower Harsh Mc [facility] limb 05/08/2019 L03.115 Cellulitis of right lower limb Zuhair Bosch MD 05/08/2019 L03.115 Cellulitis of right lower limb Harsh [facility] 05/08/2019 M79.651 Pain in right thigh Zuhair Bosch MD 05/08/2019 M79.651 Pain in right thigh Harsh Mc [facility] 05/08/2019 M25.561 Pain in right knee Zuhair Bosch MD 05/08/2019 M25.561 [facility] 05/08/2019 M25.571 Pain in right ankle and joints of Zuhair Bosch MD right foot 05/08/2019 M25.571 Pain in right ankle and joints of Harsh Mc [facility] right foot 05/07/2019 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 05/07/2019 R78.81 Bacteremia Nitish Butts M.D. 05/07/2019 M79.651 Pain in right thigh Nitish Butts M.D. 05/07/2019 M25.561 Pain in right knee Nitish Butts M.D. 05/07/2019 E10.9 Type 1 diabetes mellitus without Nitish Butts M.D. complications 05/06/2019 L03.115 Cellulitis of right lower limb Crystal Carrillo, HEAT TREAT SUPERVISOR 05/06/2019 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, right lower leg Crystal Carrillo, HE[employer] TRE[employer] SUPERVISOR 05/06/2019 M65.861 Other synovitis and tenosynovitis, Crystal Carrillo, HE[employer] TRE[employer] SUPERVISOR right lower leg 05/06/2019 R78.81 Bacteremia Crystal Carrillo, HEAT TREAT SUPERVISOR 05/06/2019 B95.8 Unspecified staphylococcus as the Crystal Daina Carrillo , HE[employer] TRE[employer] SUPERVISOR cause of diseases classified elsewhere 05/06/2019 E10.9 Type 1 diabetes mellitus without Crystal Carrillo, HE[employer] TRE[employer] SUPERVISOR complications 05/05/2019 L03.115 Cellulitis of right lower limb Crystal Carrillo, HE[employer] TRE[employer] SUPERVISOR 05/05/2019 R78.81 Bacteremia Dinesh Clay M.D. 05/05/2019 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, right lower leg Crystal Carrillo, HE[employer] TREAT SUPERVISOR 05/05/2019 M65.861 Other synovitis and tenosynovitis, Crystal Carrillo, HE[employer] TRE[employer] SUPERVISOR right lower leg 05/05/2019 R78.81 Bacteremia Crystal Carrillo, HEAT TREAT SUPERVISOR 05/05/2019 B95.8 Unspecified staphylococcus as the Crystal Carrillo , HE[employer] T[employer] SUPERVISOR cause of diseases classified elsewhere 05/05/2019 E10.9 Type 1 diabetes mellitus without Crystal Carrillo, HE[employer] T[employer] SUPERVISOR complications 05/04/2019 A41.01 Sepsis due to Methicillin [...] Bosch MD hyperglycemia Plan of Treatment Future Appointment(s):10/05/2019 11:15 am - Zuhair Bosch MD at [facility]/27/2020 - Zuhair Bosch, MDS81.801D Unspecified open wound, right lower leg, subsequent encounterFollow up:Follow up: 6 weeks Functional Status Description No Information Available Mental Status Description No Information Available Referrals Refer to Dr Reason for Referral Status Appt Date Wound Clinic Wound right lower leg Referral to Dr. Wyatt at Scheduled [facility] on 06/10/19 I have discussed the case with Dr. Wyatt. [address] [place] [id number] [phone] Closed
--- OUTSIDE RECORDS SUMMARY | 2019-11-03 01:08 | XMS REPORT | Continuity of Care Document ---
:1990 External Reference #:[id number] Author Name Joaquín Wyatt M.D. (transmitted by agent of provider Cami Hyde ) Address [address] [place] [address] Care Team Providers Name Role Phone Zuhair Clifford D.O. 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 Medicine Problems Active Problems Provider Date Type 1 diabetes mellitus uncontrolled Onset: Social History Type Date Description Comments Sex Unknown Allergies, Adverse Reactions, Alerts Description No Known Drug Allergies Medications Active Medications SIG Qnty Indications Ordering Provider Date Basaglar Kwikpen 55 units daily Unknown 100Unit/ML Solution Pen-Inject Humalog Kwikpen coverage as needed Unknown 100Unit/ML Solution Pen-Inject Gabapentin bid Unknown 300mg Capsules [place] 1 by mouth every 6 Unknown 7.5-325mg [...] Available Procedures Date Code Description Status 10/07/2019 59984 Debridement Skin,& sq Tissue Completed 09/30/2019 84181 Removal Devitalization Tissue Wound Less Than Equal 20 Completed Square CM 09/23/2019 11039 Debridement Skin,& sq Tissue Completed 08/19/2019 16232 Debridement Muscle/Fascia,Epidermis/Dermis/Tissue,Addtl 20 Completed SQ CM 08/19/2019 24281 Debridement Skin, Subcutaneous Tissue & Muscle Completed 07/15/2019 51969 Debridement Muscle/Fascia,Epidermis/Dermis/Tissue,Addtl 20 Completed SQ CM 07/15/2019 74633 Debridement Skin, Subcutaneous Tissue & Muscle Completed 07/08/2019 25558 Debridement Muscle/Fascia,Epidermis/Dermis/Tissue,1St 20 Completed SQ CM 07/08/2019 95557 Debridement Skin,& sq Tissue Completed 06/17/2019 60304 Debridement Muscle/Fascia,Epidermis/Dermis/Tissue,1St 20 Completed SQ CM 06/17/2019 90409 Debridement Skin,& sq Tissue Completed 06/10/2019 55994 Debridement Skin,& sq Tissue Completed 05/13/2019 74064 I&D Leg Or Ankle;Deep Abscess Or Hematoma Completed 05/13/2019 21348 I&D Leg Or Ankle;Deep Abscess Or Hematoma Completed 05/12/2019 93187 Echocardiography, Transesophageal, Real Time W/Image 2D Completed W/W/O M-M 05/12/2019 82111 Pulse Wave/Continuous-Interp.RPT Completed 05/12/2019 23698 Color Flow Doppler/Interp & Reprt Completed 05/12/2019 74261 Moderate Sedation Services; Same Phys Intl 15 Mins; PT >= Completed 5 Years 05/11/2019 86510 Negative Pressure Wound Therapy Less Than 50 Square CM Completed 05/11/2019 75186 I&D Leg Or Ankle;Deep Abscess Or Hematoma Completed 05/08/2019 03485 I&D Leg Or Ankle;Deep Abscess Or Hematoma Completed 05/08/2019 27948 I&D Leg Or Ankle;Deep Abscess Or Hematoma Completed 05/08/2019 59144 I&D deep abscess,bursa or hematoma thigh or knee region Completed 05/08/2019 69827 I&D deep abscess,bursa or hematoma thigh or knee region Completed 05/08/201977995 Inject/Drain Joint/Bursa Major W/O US Completed 05/08/2019 Inject/Drain Joint/Bursa Major W/O US Completed 05/08/2019 Inject/Drain Joint/Bursa Intermediate W/O US Completed 05/08/2019 Inject/Drain Joint/Bursa Intermediate W/O US Completed 05/05/2019 70682 ECHO Transthorasic Realtime 2D W Doppler & Color Flow Hosp Completed 05/04/2019 05167 I&D Leg Or Ankle;Deep Abscess Or Hematoma Completed 05/04/2019 60940 Decompression Fasciotomy Leg; Anterior And/Or Lateral,& Completed Posterior Medical Devices Description No Information Available Encounters Type Date Location Provider Dx Diagnosis Office Visit 08/24/2019 [facility] Zuhair Ramirez S81.801D Unspecified open 10:45a at Michael Bosch MD wound, right lower leg, subs encntr Office Visit 06/10/2019 [facility] Joaquín Kang S81.801A Unspecified open 1:00p [facility] M.D. 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, right lower leg M65.861 Other synovitis and tenosynovitis, right lower leg E10.52 Type 1 diabetes w diabetic peripheral angiopathy w gangrene E10.65 Type 1 diabetes mellitus with hyperglycemia [facility] 12:12p For Infectious ELA Carrillo abscess of Diseases right lower limb L03.115 Cellulitis of right lower limb 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, right lower leg M65.861 Other synovitis and tenosynovitis, right lower leg E10.52 Type 1 diabetes w diabetic peripheral angiopathy w gangrene E10.65 Type 1 diabetes mellitus with hyperglycemia Office Visit 05/21/2019 [facility] Nitish Fritz E10.69 Type 1 diabetes 12:02p For Infectious Leslee Butts mellitus with Diseases other specified complication M86.151 Other acute osteomyelitis, right femur L02.415 Cutaneous abscess of right lower limb E10.52 Type 1 diabetes w diabetic peripheral angiopathy w gangrene Office Visit 05/20/2019 [facility] Crystal Lama L03.115 Cellulitis of 12:00p For Infectious Gerardo, CONVERSION WORKER right lower limb Diseases L02.415 Cutaneous abscess of right lower limb 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, right lower leg M65.861 Other synovitis and tenosynovitis, right lower leg E10.65 Type 1 diabetes mellitus with hyperglycemia B95.8 Unsp staphylococcus as the cause of diseases classd elswhr Office Visit 05/19/2019 8:00a [facility] Crystal Lama L02.415 Cutaneous [facility], CONVERSION WORKER abscess of right lower limb E43 Unspecified severe protein-calorie malnutrition Office Visit 05/15/2019 12:47p [facility] Crystal Lama L02.415 Cutaneous [facility] AT [facility], CONVERSION WORKER abscess of right lower limb L03.115 Cellulitis of right lower limb Office Visit 05/14/2019 2:21p [facility] Luciana Fritz L02.415 Cutaneous Infectious Leslee Butts abscess of Diseases right lower limb E10.65 Type 1 diabetes mellitus with hyperglycemia R78.81 Bacteremia M86.151 Other acute osteomyelitis, right femur Office Visit 05/07/2019 1:00p [facility] Luciana Fritz M60.061 Infective Infectious Leslee Butts myositis, right Diseases lower leg R78.81 Bacteremia M79.651 Pain in right thigh M25.561 Pain in right knee E10.9 Type 1 diabetes mellitus without complications [facility] L[facility].115 Cellulitis of 12:59p For Infectious Gerardo CONVERSION WORKER right lower limb Diseases 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, right lower leg M65.861 Other synovitis and tenosynovitis, right lower leg R78.81 Bacteremia B95.8 Unsp staphylococcus as the cause of diseases classd elswhr E10.9 Type 1 diabetes mellitus without complications [facility] L[facility].115 Cellulitis of 12:56p For Infectious Gerardo CONVERSION WORKER right lower limb Diseases 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, right lower leg M65.861 Other synovitis and tenosynovitis, right lower leg R78.81 Bacteremia B95.8 Unsp staphylococcus as the cause of diseases classd elswhr E10.9 Type 1 diabetes mellitus without complications Office Visit 05/04/2019 [facility] A41.01 Sepsis due to 8:39a Asspatience lal M.D. Methicillin Hospitalists susceptible Staphylococcus aureus L03.115 Cellulitis of right lower limb E10.9 Type 1 diabetes mellitus without complications Office Visit 05/04/2019 8:47a [facility] Zuhair Ramirez R78.81 Bacteremia at Noy Bosch MD E10.65 Type 1 diabetes mellitus with hyperglycemia Assessments Date Code Description Provider 10/07/2019 S81.801D Unspecified open wound, right lower Joaquín Wyatt M.D. leg, subsequent encounter 10/07/2019 E10.622 Type 1 diabetes mellitus with other Joaquín Wyatt M.D. skin ulcer 10/07/2019 Z79.4 snf (current) use of insulin Joaquín Wyatt M.D. [...] Joaquín Wyatt M.D. skin ulcer 09/23/2019 Z79.4 snf (current) use of insulin Joaquín Wyatt M.D. [...] Joaquín Wyatt M.D. skin ulcer 08/19/2019 Z79.4 oil heaterman (current) use of insulin Joaquín Wyatt M.D. [...] Joaquín Wyatt M.D. skin ulcer 07/15/2019 Z79.4 snf (current) use of insulin Joaquín Wyatt M.D. [...] Joaquín Wyatt M.D. skin ulcer 06/17/2019 Z79.4 oil heaterman (current) use of insulin Joaquín Wyatt M.D. [...] lower Joaquín Wyatt M.D. limb 06/10/2019 Z79.4 snf (current) use of insulin Joaquín Wyatt M.D. 06/10/2019 F33.9 Major depressive disorder, Joaquín Wyatt M.D. 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, right lower leg Zuhair Bosch MD 05/26/2019 L02.415 Cutaneous abscess of right lower Crystal Carrillo , CONVERSION WORKER limb 05/26/2019 L03.115 Cellulitis of right lower limb Crystal Carrillo, ELA 05/26/2019 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, right lower leg Crystal Carrillo, ELA 05/26/2019 M65.861 Other synovitis and tenosynovitis, Crystal Carrillo NP right lower leg 05/26/2019 E10.52 Type 1 diabetes mellitus with Crystal Winkleblack Carrillo, CONVERSION WORKER diabetic peripheral angiopathy with gangrene 05/26/2019 E10.65 Type 1 diabetes mellitus with Crystal Winnyaya Carrillo, CONVERSION WORKER hyperglycemia 05/25/2019 L02.415 Cutaneous abscess of right lower Crystal Winnrubenspaz Carrillo , CONVERSION WORKER limb 05/25/2019 L03.115 Cellulitis of right lower limb Crystal Winnrubenspaz Carrillo, CONVERSION WORKER 05/25/2019 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, right lower leg Crystal Winnrubensludayunior Carrillo, CONVERSION WORKER 05/25/2019 M65.861 Other synovitis and tenosynovitis, Crystal Winnrubensludayunior Carrillo, CONVERSION WORKER right lower leg 05/25/2019 E10.52 Type 1 diabetes mellitus with Crystal Daina Carrillo, CONVERSION WORKER diabetic peripheral angiopathy with gangrene 05/25/2019 E10.65 Type 1 diabetes mellitus with Crystal Winnyaya Carrillo, CONVERSION WORKER hyperglycemia 05/21/2019 E10.69 Type 1 diabetes mellitus with other Nitish Butts M.D. specified complication 05/21/2019 M86.151 Other acute osteomyelitis, right Nitish Butts M.D. femur 05/21/2019 L02.415 Cutaneous abscess of right lower Nitish Butts M.D. limb 05/21/2019 E10.52 Type 1 diabetes mellitus with Nitish Butts M.D. diabetic peripheral angiopathy with gangrene 05/20/2019 L03.115 Cellulitis of right lower limb Crystal Daina Carrillo, CONVERSION WORKER 05/20/2019 L02.415 Cutaneous abscess of right lower Crystal Winnyaya Carrillo , CONVERSION WORKER limb 05/20/2019 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, right lower leg Crystal Winnrubensludayunior Carrillo, CONVERSION WORKER 05/20/2019 M65.861 Other synovitis and tenosynovitis, Crystal Daina Carrillo, CONVERSION WORKER right lower leg 05/20/2019 E10.65 Type 1 diabetes mellitus with Crystal Winnrubensgloriageovanni Carrillo, CONVERSION WORKER hyperglycemia 05/20/2019 B95.8 Unspecified staphylococcus as the Crystalchuckie Carrillo , CONVERSION WORKER cause of diseases classified elsewhere 05/19/2019 L02.415 Cutaneous abscess of right lower Crystal Daina Carrillo , CONVERSION WORKER limb 05/19/2019 E43 Unspecified severe protein-calorie Crystal Carrillo, CONVERSION WORKER malnutrition 05/15/2019 L02.415 Cutaneous abscess of right lower rCystal Carrillo , CONVERSION WORKER limb 05/15/2019 L03.115 Cellulitis of right lower limb Crystal Carrillo, CONVERSION WORKER 05/14/2019 L02.415 Cutaneous abscess of right lower [...] 05/08/2019 L02.415 Cutaneous abscess of right lower [employer] limb 05/08/2019 L03.115 Cellulitis of right lower limb Zuhair Bosch MD 05/08/2019 L03.115 Cellulitis of right lower limb [employer] 05/08/2019 M79.651 Pain in right thigh Zuhair Bosch MD 05/08/2019 M79.651 Pain in right thigh [employer] 05/08/2019 M25.561 Pain in right knee Zuhair Bosch MD 05/08/2019 M25.561 Pain in right knee [facility] [employer] 05/08/2019 M25.571 Pain in right ankle and joints of Zuhair Bosch MD right foot 05/08/2019 M25.571 Pain in right ankle and joints of MARJORIE Light right foot 05/07/2019 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 05/07/2019 R78.81 Bacteremia Nitish Butts M.D. 05/07/2019 M79.651 Pain in right thigh Nitish Butts M.D. 05/07/2019 M25.561 Pain in right knee Nitish Butts M.D. 05/07/2019 E10.9 Type 1 diabetes mellitus without Nitish Butts M.D. complications 05/06/2019 L03.115 Cellulitis of right lower limb Crystal Carrillo, CONVERSION WORKER 05/06/2019 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, right lower leg Crystal Carrillo, CONVERSION WORKER 05/06/2019 M65.861 Other synovitis and tenosynovitis, Crystal Carrillo, CONVERSION WORKER right lower leg 05/06/2019 R78.81 Bacteremia Crystal Daina Carrillo, CONVERSION WORKER 05/06/2019 B95.8 Unspecified staphylococcus as the Crystal Carrillo , CONVERSION WORKER cause of diseases classified elsewhere 05/06/2019 E10.9 Type 1 diabetes mellitus without Crystal Carrillo, CONVERSION WORKER complications 05/05/2019 L03.115 Cellulitis of right lower limb Crystalchuckie Carrillo, CONVERSION WORKER 05/05/2019 R78.81 Bacteremia Dinesh Clay M.D. 05/05/2019 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, right lower leg Crystalchuckie Carrillo, CONVERSION WORKER 05/05/2019 M65.861 Other synovitis and tenosynovitis, Crystal Carrillo, CONVERSION WORKER right lower leg 05/05/2019 R78.81 Bacteremia Crystal Carrillo, CONVERSION WORKER 05/05/2019 B95.8 Unspecified staphylococcus as the Crystal Carrillo , CONVERSION WORKER cause of diseases classified elsewhere 05/05/2019 E10.9 Type 1 diabetes mellitus without Crystal Winkleblack Carrillo, CONVERSION WORKER complications 05/04/2019 A41.01 Sepsis due to Methicillin Sapphire Mckeon M.D. susceptible Staphylococcus aureus 05/04/2019 L02.415 Cutaneous abscess of right lower Zuhair Bosch MD limb 05/04/2019 L03.115 Cellulitis of right lower limb Sapphire Mckeon M.D. 05/04/2019 L02.415 Cutaneous abscess of right lower ALICJA MckinneyC limb 05/04/2019 E10.9 Type 1 diabetes mellitus [...] 10:45 am - Zuhair Bosch MD at [facility]/09/2020 - Zuhair Bosch MDS81.801D Unspecified open wound, right lower leg, subsequent encounterFollow up:Follow up: 6 weeks Functional Status Description No Information Available Mental Status Description No Information Available Referrals Refer to Dr Reason for Referral Status Appt [facility] Wound right lower leg Referral to Dr. Wyatt at Scheduled [place] wound [facility] on 06/10/19 I have discussed the case with Dr. Wyatt. [address] [place] [id number] [phone] Closed
[2019-11-03] MEDS: Heparin VIAL(*) 5000 UNITS/ML VIAL (FIVE THOUSAND) SUBCUT SCH ×3 (01:15→13:05)
[2019-11-03 01:40] LABS: Hematocrit 45 % (42-52); Hemoglobin 14.7 g/dL (14.0-18.0); Mean Corpuscular HGB Conc 32 g/dL (31-36); Mean Corpuscular Hemoglobin 29 pg (27-31); Mean Corpuscular Volume 89 fL (80-94); Mean Platelet Volume 8.3 fL (7.4-10.4); Platelet Count 290 10^3/uL (150-450); Red Blood Count 5.09 10^6 /uL (4.18-5.48); Red Cell Distribution Width 17 % (10-15); White Blood Count 23.2 10^3/uL (3.5-10.8)
[2019-11-03 01:57] LABS: BUN/Creatinine Ratio 14.1 (8-20); Blood Urea Nitrogen 14 mg/dL (6-24); Calcium 8.3 mg/dL (8.6-10.3); Chloride 110 mmol/L (101-111); EGFR African American 108.9 (>60); Glucose 124 mg/dL (70-100); Sodium 139 mmol/L (135-145)
[2019-11-03] MEDS ORDERED: NS 0.9% w/ 20 Meq KCL 1000 ML* 1,000 ML IV ONE ×2 (02:00)
[2019-11-03] MEDS ORDERED: Insulin Infusion 100unit/100mL 100 UNIT/100 ML BAG IV SCH (02:00)
[2019-11-03] MEDS ORDERED: Ondansetron INJ* 2 MG/ML VIAL IV PRN (02:06)
[2019-11-03 02:21] LABS: CO2 Carbon Dioxide < 7 mmol/L (22-32)
[2019-11-03 02:34] LABS: Urine Appearance Cloudy; Urine Bilirubin Negative (Negative); Urine Blood 2+ (Negative); Urine Color Yellow; Urine Glucose Negative (Negative); Urine Ketones 2+ (Negative); Urine Nitrite Negative (Negative); Urine Protein 1+(30 mg/dL) (Negative); Urine Specific Gravity 1.014 (1.010-1.030); Urine Urobilinogen Negative (Negative)
[2019-11-03 02:41] LABS: Urine Bacteria Absent (Absent); Urine Red Blood Cell 1+(3-5/hpf) (Absent); Urine White Blood Cell Trace(0-5/hpf) (Absent)
[2019-11-03 02:50] LABS: Urine Benzodiazepine Screen None Detected (None Detect)
[2019-11-03] MEDS: D5W 1/2 NS KCl 20 Meq 1000 ML* 1,000 ML IV SCH ×3 (02:53→08:19)
[2019-11-03 03:06] LABS: Urine Opiates Screen None Detected (None Detect)
[2019-11-03 03:38] LABS: ABS Basophils 0.2 10^3/ul (0-0.2); ABS Lymphocytes 1.9 10^3/ul (1.0-4.8); ABS Monocytes 1.8 10^3/ul (0-0.8); ABS Neutrophils 19.4 10^3/ul (1.5-7.7)
[2019-11-03] MEDS ORDERED: QUEtiapine TAB* 100 MG PO SCH (04:30)
[2019-11-03 07:24] LABS: BUN/Creatinine Ratio 12.9 (8-20); Calcium 8.4 mg/dL (8.6-10.3); EGFR African American 117.1 (>60); EGFR Non-African American 96.7 (>60); Potassium 3.8 mmol/L (3.5-5.0)
[2019-11-03] MEDS ORDERED: DOXYcycline CAP(*) 100 MG PO SCH (09:00)
[2019-11-03 11:25] LABS: BUN/Creatinine Ratio 13.3 (8-20); Calcium 8.4 mg/dL (8.6-10.3); EGFR African American 133.5 (>60); EGFR Non-African American 110.3 (>60); Potassium 3.6 mmol/L (3.5-5.0)
[2019-11-03] MEDS ORDERED: Insulin GLARGINE(*) 1 UNITS UNIT SUBCUT ONE (12:34)
[2019-11-03] MEDS ORDERED: Dextrose 50% Syringe 50 ML* 25 GM/50 ML SYRINGE IV PUSH PRN (12:34)
--- NOTE | 2019-11-03 12:43 | PN ---
Date of Service: 11/03/19 Critical Care Services: Reports mild abdominal pain but improved from admission. Denies chest pain, SOB , nausea. Has been tired. Feels hungry. Insulin infusion running, but anion gap now closed. Vital Signs: Temp Pulse Resp BP SpO2 FiO2 98.6 F 80 19 91/51 98 11/03/19 11:50 11/03/19 12:00 11/03/19 12:00 11/03/19 12:00 11/03/19 12:00 Physical Exam: Gen: NAD, sleeping. HEENT: Normocephalic, atraumatic. Pupils equal, no scleral icterus. Neck supple. Lungs: CTA, no accessory muscle use. Cardiac: RRR Abdomen: Soft, nontender, nondistended Extremities: Warm, no pedal edema. RLE dressing clean and dry. Neuro: Sleeping but awakens easily. Oriented x3. Moves all extremities equally. Fluid Balance (Past 24 Hours): I= O= Net Intake & Output 11/01/19 11/02/19 11/03/19 11/04/19 06:59 06:59 06:59 06:59 Intake Total 597 240 Output Total 975 500 Balance -378 -260 Weight 141 lb 5.766 oz Intake: IV Fluids 588 D5 1/2NS c 20 K 588 Medicated IV 9 Insulin 9 Oral 240 Output: Urine 0 Arellano 975 500 Labs: Laboratory Results - last 24 hr 11/03/19 11/03/19 11/03/19 01:28 01:28 01:28 WBC 23.2 H RBC 5.09 Hgb 14.7 Hct 45 MCV 89 MCH 29 MCHC 32 RDW 17 H Plt Count 290 MPV 8.3 Neut % (Auto) 83.4 Lymph % (Auto) 8.0 [place] % (Auto) 7.9 Eos % (Auto) 0.0 Baso % (Auto) 0.7 Absolute Neuts (auto) 19.4 H Absolute Lymphs (auto) 1.9 Absolute Monos (auto) 1.8 H Absolute Eos (auto) 0.0 Absolute Basos (auto) 0.2 Absolute Nucleated RBC 0.0 Nucleated RBC % 0.0 VBG pH VBG pCO2 VBG pO2 VBG HCO3 VBG O2 Saturation VBG Base Excess Sodium 139 Potassium 4.0 Chloride 110 Carbon Dioxide < 7 L* Anion Gap Not Reportable BUN 14 Creatinine 0.99 Est GFR ( Amer) 108.9 Est GFR (Non-Af Amer) 90.0 BUN/Creatinine Ratio 14.1 Glucose 124 H POC Glucose (mg/dL) Hemoglobin A1c 12.2 H Lactic Acid Calcium 8.3 L Urine Color Urine Appearance Urine pH Ur Specific [place] Urine Protein Urine Ketones Urine Blood Urine Nitrate Urine Bilirubin Urine Urobilinogen Ur Leukocyte Esterase Urine WBC (Auto) Urine RBC (Auto) Urine Bacteria Urine Glucose Urine Opiates Screen Ur Barbiturates Screen Ur Phencyclidine Scrn Ur Amphetamines Screen U Benzodiazepines Scrn Urine Cocaine Screen U Cannabinoids Screen 11/03/19 11/03/19 11/03/19 01:28 01:30 02:11 WBC RBC Hgb Hct MCV MCH MCHC RDW Plt Count MPV Neut % (Auto) Lymph % (Auto) [place] % (Auto) Eos % (Auto) Baso % (Auto) Absolute Neuts (auto) Absolute Lymphs (auto) Absolute Monos (auto) Absolute Eos (auto) Absolute Basos (auto) Absolute Nucleated RBC Nucleated RBC % VBG pH 7.15 L VBG pCO2 16 L VBG pO2 50.0 H VBG HCO3 8.2 L VBG O2 Saturation 86.4 H VBG Base Excess -21.0 L Sodium Potassium Chloride Carbon Dioxide Anion Gap BUN Creatinine Est GFR ( Amer) Est GFR (Non-Af Amer) BUN/Creatinine Ratio Glucose POC Glucose (mg/dL) 115 H Hemoglobin A1c Lactic Acid 1.2 Calcium Urine Color Urine Appearance Urine pH Ur Specific [place] Urine Protein Urine Ketones Urine Blood Urine Nitrate Urine Bilirubin Urine Urobilinogen Ur Leukocyte Esterase Urine WBC (Auto) Urine RBC (Auto) Urine Bacteria Urine Glucose Urine Opiates Screen Ur Barbiturates Screen Ur Phencyclidine Scrn Ur Amphetamines Screen U Benzodiazepines Scrn Urine Cocaine Screen U Cannabinoids Screen 11/03/19 11/03/19 11/03/19 02:11 02:22 02:22 WBC RBC Hgb Hct MCV MCH MCHC RDW Plt Count MPV Neut % (Auto) Lymph % (Auto) [place] % (Auto) Eos % (Auto) Baso % (Auto) Absolute Neuts (auto) Absolute Lymphs (auto) Absolute Monos (auto) Absolute Eos (auto) Absolute Basos (auto) Absolute Nucleated RBC Nucleated RBC % VBG pH VBG pCO2 VBG pO2 VBG HCO3 VBG O2 Saturation VBG Base Excess Sodium Potassium Chloride Carbon Dioxide Anion Gap BUN Creatinine Est GFR ( Amer) Est GFR (Non-Af Amer) BUN/Creatinine Ratio Glucose POC Glucose (mg/dL) 127 H Hemoglobin A1c Lactic Acid Calcium Urine Color Yellow Urine Appearance Cloudy Urine pH 5.0 Ur Specific [place] 1.014 Urine Protein 1+(30 mg/dl) A Urine Ketones 2+ A Urine Blood 2+ A Urine Nitrate Negative Urine Bilirubin Negative Urine Urobilinogen Negative Ur Leukocyte Esterase Negative Urine WBC (Auto) Trace(0-5/hpf) Urine RBC (Auto) 1+(3-5/hpf) A Urine Bacteria Absent Urine Glucose Negative Urine Opiates Screen None detected Ur Barbiturates Screen None detected Ur Phencyclidine Scrn None detected Ur Amphetamines Screen None detected U Benzodiazepines Scrn None detected Urine Cocaine Screen None detected U Cannabinoids Screen Presumptive positive A 11/03/19 11/03/19 11/03/19 02:59 04:04 04:59 WBC RBC Hgb Hct MCV MCH MCHC RDW Plt Count MPV Neut % (Auto) Lymph % (Auto) [place] % (Auto) Eos % (Auto) Baso % (Auto) Absolute Neuts (auto) Absolute Lymphs (auto) Absolute Monos (auto) Absolute Eos (auto) Absolute Basos (auto) Absolute Nucleated RBC Nucleated RBC % VBG pH VBG pCO2 VBG pO2 VBG HCO3 VBG O2 Saturation VBG Base Excess Sodium Potassium Chloride Carbon Dioxide Anion Gap BUN Creatinine Est GFR ( Amer) Est GFR (Non-Af Amer) BUN/Creatinine Ratio Glucose POC Glucose (mg/dL) 145 H 168 H 182 H Hemoglobin A1c Lactic Acid Calcium Urine Color Urine Appearance Urine pH Ur Specific [place] Urine Protein Urine Ketones Urine Blood Urine Nitrate Urine Bilirubin Urine Urobilinogen Ur Leukocyte Esterase Urine WBC (Auto) Urine RBC (Auto) Urine Bacteria Urine Glucose Urine Opiates Screen Ur Barbiturates Screen Ur Phencyclidine Scrn Ur Amphetamines Screen U Benzodiazepines Scrn Urine Cocaine Screen U Cannabinoids Screen 11/03/19 11/03/19 11/03/19 06:01 06:56 06:58 WBC RBC Hgb Hct MCV MCH MCHC RDW Plt Count MPV Neut % (Auto) Lymph % (Auto) [place] % (Auto) Eos % (Auto) Baso % (Auto) Absolute Neuts (auto) Absolute Lymphs (auto) Absolute Monos (auto) Absolute Eos (auto) Absolute Basos (auto) Absolute Nucleated RBC Nucleated RBC % VBG pH VBG pCO2 VBG pO2 VBG HCO3 VBG O2 Saturation VBG Base Excess Sodium 133 L Potassium 3.8 Chloride 109 Carbon Dioxide 10 L* Anion Gap 14 H BUN 12 Creatinine 0.93 Est GFR ( Amer) 117.1 Est GFR (Non-Af Amer) 96.7 BUN/Creatinine Ratio 12.9 Glucose 200 H POC Glucose (mg/dL) 184 H 195 H Hemoglobin A1c Lactic Acid Calcium 8.4 L Urine Color Urine Appearance Urine pH Ur Specific [place] Urine Protein Urine Ketones Urine Blood Urine Nitrate Urine Bilirubin Urine Urobilinogen Ur Leukocyte Esterase Urine WBC (Auto) Urine RBC (Auto) Urine Bacteria Urine Glucose Urine Opiates Screen Ur Barbiturates Screen Ur Phencyclidine Scrn Ur Amphetamines Screen U Benzodiazepines Scrn Urine Cocaine Screen U Cannabinoids Screen 11/03/19 11/03/19 11/03/19 08:18 09:03 10:21 WBC RBC Hgb Hct MCV MCH MCHC RDW Plt Count MPV Neut % (Auto) Lymph % (Auto) [place] % (Auto) Eos % (Auto) Baso % (Auto) Absolute Neuts (auto) Absolute Lymphs (auto) Absolute Monos (auto) Absolute Eos (auto) Absolute Basos (auto) Absolute Nucleated RBC Nucleated RBC % VBG pH VBG pCO2 VBG pO2 VBG HCO3 VBG O2 Saturation VBG Base Excess Sodium Potassium Chloride Carbon Dioxide Anion Gap BUN Creatinine Est GFR ( Amer) Est GFR (Non-Af Amer) BUN/Creatinine Ratio Glucose POC Glucose (mg/dL) 199 H 205 H 199 H Hemoglobin A1c Lactic Acid Calcium Urine Color Urine Appearance Urine pH Ur Specific [place] Urine Protein Urine Ketones Urine Blood Urine Nitrate Urine Bilirubin Urine Urobilinogen Ur Leukocyte Esterase Urine WBC (Auto) Urine RBC (Auto) Urine Bacteria Urine Glucose Urine Opiates Screen Ur Barbiturates Screen Ur Phencyclidine Scrn Ur Amphetamines Screen U Benzodiazepines Scrn Urine Cocaine Screen U Cannabinoids Screen 11/03/19 11/03/19 10:58 11:02 WBC RBC Hgb Hct MCV MCH MCHC RDW Plt Count MPV Neut % (Auto) Lymph % (Auto) [place] % (Auto) Eos % (Auto) Baso % (Auto) Absolute Neuts (auto) Absolute Lymphs (auto) Absolute Monos (auto) Absolute Eos (auto) Absolute Basos (auto) Absolute Nucleated RBC Nucleated RBC % VBG pH VBG pCO2 VBG pO2 VBG HCO3 VBG O2 Saturation VBG Base Excess Sodium 132 L Potassium 3.6 Chloride 110 Carbon Dioxide 15 L Anion Gap 7 BUN 11 Creatinine 0.83 Est GFR ( Amer) 133.5 Est GFR (Non-Af Amer) 110.3 BUN/Creatinine Ratio 13.3 Glucose 205 H POC Glucose (mg/dL) 198 H Hemoglobin A1c Lactic Acid Calcium 8.4 L Urine Color Urine Appearance Urine pH Ur Specific [place] Urine Protein Urine Ketones Urine Blood Urine Nitrate Urine Bilirubin Urine Urobilinogen Ur Leukocyte Esterase Urine WBC (Auto) Urine RBC (Auto) Urine Bacteria Urine Glucose Urine Opiates Screen Ur Barbiturates Screen Ur Phencyclidine Scrn Ur Amphetamines Screen U Benzodiazepines Scrn Urine Cocaine Screen U Cannabinoids Screen Nutrition: NPO Impression: 29M with diabetic ketoacidosis. Diabetic ketoacidosis, resolving. Chronic RLE wound, stable Polysubstance abuse Depression Plan: Neuro: Tylenol prn for pain. Home quetiapine ordered. Social work consulted for polysubstance abuse (marijuana and meth), patient declined services or discussion about stopping. CV: Hemodynamically stable. MAP goal >65 Continuous telemetry Central line placed at [place], remove today. Resp: Titrate FiO2 to keep O2 sat >90%. Currently on room air. GI: Consistent carbohydrate diet after insulin infusion stopped. No indication for GI prophylaxis. Renal: Anion gap resolved by the afternoon. D/c Arellano. Potassium within normal limits. ID: Currently on doxycycline for chronic leg wound, continue. Heme: No acute issues. Daily CBC if remains in the hospital DVT ppx: [facility] Endo: Anion gap closed Start Lantus 45 units (home dose is 60 units). Also start lispro 10 units ACHS and sliding scale. D/c insulin infusion 1 hour after Lantus given. Fingersticks q1h Referral placed for Dr Reinoso (endocrine) MSK: Activity as tolerated Wounds: RLE chronic wound stable, dressing intact Dispo: ICU for metabolic derangements, if continues to improve anticipate d/c to home late afternoon. Status: Guarded, improving Code status: Full code Critical Care Time: 30 min
[2019-11-03] MEDS: Insulin LISPRO* 1 UNITS UNIT SUBCUT SCH ×4 (13:04→17:26)
[2019-11-03 15:26] LABS: BUN/Creatinine Ratio 12.8 (8-20); Calcium 8.6 mg/dL (8.6-10.3); EGFR African American 128.1 (>60); EGFR Non-African American 105.9 (>60); Potassium 3.8 mmol/L (3.5-5.0)
[2019-11-03 16:08] VITALS: BP 93/61
[2019-11-03] MEDS ORDERED: Insulin LISPRO* 1 UNITS UNIT SUBCUT SCH (16:30)
--- NOTE | 2019-11-03 17:07 | DS ---
DATE OF ADMISSION: 11/02/19 DATE OF DISCHARGE: 11/03/19 REASON FOR ADMISSION: Diabetic ketoacidosis SECONDARY DIAGNOSES: Type 1 diabetes, polysubstance abuse, depression, chronic right lower extremity wound CONDITION AT DISCHARGE: Stable LABORATORY: Laboratory Results - last 24 hr 11/03/19 01:28 WBC 23.2 H RBC 5.09 Hgb 14.7 Hct 45 MCV 89 MCH 29 MCHC 32 RDW 17 H Plt Count 290 MPV 8.3 Neut % (Auto) 83.4 Lymph % (Auto) 8.0 [place] % (Auto) 7.9 Eos % (Auto) 0.0 Baso % (Auto) 0.7 Absolute Neuts (auto) 19.4 H Absolute Lymphs (auto) 1.9 Absolute Monos (auto) 1.8 H Absolute Eos (auto) 0.0 Absolute Basos (auto) 0.2 Absolute Nucleated RBC 0.0 Nucleated RBC % 0.0 Laboratory Tests 11/03/19 15:00 Sodium 132 L Potassium 3.8 Chloride 107 Carbon Dioxide 16 L Anion Gap 9 BUN 11 Creatinine 0.86 Glucose 190 H HOSPITAL COURSE: Jeovany Kaminski is a 29 year-old man with a history of type 1 diabetes who was admitted with diabetic ketoacidosis from [facility]. See H & P for full history. He presented with abdominal pain and vomiting and nonadherence to insulin regimen. On admission, anion gap was approximately 24 with bicarbonate < 7 and pH 6.94. Glucose was up to 400s. He was started on insulin infusion and hydrated. BMP was rechecked throughout the day, and the anion gap continued to improve. Once the anion gap had closed, Lantus 45 units (home dose 60 units) was given, and the insulin infusion stopped. Lispro 10 units ACHS and sliding scale was also ordered. Glucose remained acceptable. He was started on consistent carbohydrate diet. A referral was placed to Dr Reinoso (endocrine). Once he was tolerating a diet and repeat BMP did not show increasing anion gap, the patient was discharged to home. Social work was consulted for polysubstance abuse including methamphetamines, marijuana, and tobacco. He declined discussion about quitting. DISPOSITION: Stable DISCHARGE INSTRUCTIONS: Continue current insulin regimen (Lantus and lispro). Follow up with PCP. Make an appointment with Dr Reinoso to discuss better management of type 1 diabetes.
== END 2019-11-03 18:00 | disposition home or self-care (01) | DRG 420 ==
LOC: ICU 01:04
PROVIDERS: ADMIT Internal Medicine; ATTEND Surgery Surgical Critical Care
DX: E10.10 Type 1 diabetes mellitus with ketoacidosis without coma (principal); F32.9 Major depressive disorder, single episode, unspecified; F19.90 Other psychoactive substance use, unspecified, uncomplicated; F17.210 Nicotine dependence, cigarettes, uncomplicated; S81.801D Unspecified open wound, right lower leg, subsequent encounter; X58.XXXD Exposure to other specified factors, subsequent encounter; Z79.899 Other long term (current) drug therapy; Z79.4 Long term (current) use of insulin; Z82.49 Family history of ischemic heart disease and other diseases of the circulatory system
CPT/HCPCS: 36415; 71045; 80048; 80307; 81003; 81015; 82803; 83036; 83605; 85025; 85060; 87086; 93005; A9270-GY; G0480; J1644; J2405